=== PATIENT | male | born 1975 | race African-American/Black ===

== ENCOUNTER 2017-04-11 18:22 | Emergency (ER) | payer OTHER ==
[~2017-04-11] VITALS: Ht 188 cm; Wt 83.9 kg
[~2017-04-11 18:22] MED LIST: ALLO100T PO; AMLO10TA2 PO; AMLO5TAB2 PO; AMOX1TAB61 PO; ASPI-482 PO; CEPH500C PO; CLIN30GE3 TP; CLON1TAB23 PO; CLON1TAB3 PO; CYAN10005 PO; DOXY100C PO; FOLI1TAB16 PO; IBUP-1060 PO; KETO15CR2 TP; MELA5TAB PO; METO100T11 PO; METO100T2 PO; MIRT30TA3 PO; MIRT45TA3 PO; OMEP20CA9 PO; OMEP20TA8 PO; OMEP40CA5 PO; OXYC5CAP PO; PROAIR HFA8.5 GM IH; SPIR25TA3 PO; SULF1TAB24 PO; THIA100T4 PO; TRAM50TA PO; depression med PO
[2017-04-11 19:00] VITALS: BP 127/78
--- NOTE | 2017-04-11 19:49 | ED.ADGEN ---
Past Medical History Past Medical History: Anxiety, Depression, Diverticulitis, GERD, Hypertension, Other Additional Past Medical Histor: sarcoidosis Past Surgical History: Other Additional Past Surgical Histo: partial colectomy with colostomy; knee and foot surgeries; hernia Alcohol Use: Occasionally Drug Use: None Adult General Chief Complaint Chief Complaint: POST-OP PROBLEM HPI HPI Patient is a 41 year old -[place] male, approximately 2 weeks postop from surgeon for open abdominal wall hernia repair who presents with incisional pain. states he had his senthil removed last week by his general surgeon and he complains of pain in the site of lower incisional scar with 1 reading staple, apparently with this during the removal process. Denies any other acute complaints or symptoms. Review of Systems Review of Systems Review symptoms as per. All other review symptoms are negative. Allergies Allergies Allergies Coded Allergies Type Severity Reaction Last Updated Verified No Known Drug Allergies 01/20/15 No Physical Exam Physical Exam Constitutional: Well developed, well nourished, no acute distress, non-toxic appearance. [] HENT: Normocephalic, atraumatic, bilateral external ears normal, oropharynx moist, no oral exudates, nose normal. [] Eyes: PERRLA, EOMI, conjunctiva normal, no discharge. [] Neck: Normal range of motion, no tenderness, supple, no stridor. [] Cardiovascular:Heart rate regular rhythm, no murmur [] Lungs & Thorax: Bilateral breath sounds clear to auscultation [] Abdomen: Bowel sounds normal, large midline healing surgical and abdominal incision was single staple present lower third of wound. Appropriate postoperative surgical incision tenderness. Wound is clean, dry without surrounding erythema and induration. Skin: Warm, dry, no erythema, no rash. [] Back: No tenderness, no CVA tenderness. [] Extremities: No tenderness, no cyanosis, no clubbing, ROM intact, no edema. [] Neurologic: Alert and oriented X 3, normal motor function, normal sensory function, no focal deficits noted. [] Psychologic: Affect normal, judgement normal, mood normal. [] Current Patient Data Vital Signs Vital Signs Date Time Temp Pulse Resp B/P (MAP) Pulse Ox O2 Delivery O2 Flow Rate FiO2 04/11/17 19:00 127/78 (94) 04/11/17 18:29 98.0 91 16 96 Room Air 98.0 EKG EKG [] Radiology/Procedures Radiology/Procedures [] Course & Med Decision Making Course & Med Decision Making Pertinent Labs and Imaging studies reviewed. (See chart for details) [Patient's remaining staple removed. He is instructed to follow-up with his general surgeon regarding additional postoperative instructions and pain management.] Dragon Disclaimer Dragon Disclaimer This electronic medical record was generated, in whole or in part, using a voice recognition dictation system. ORION GREEN DO Apr 11, 2017 19:49
== END 2017-04-11 19:18 | disposition home or self-care (01) ==
LOC: ER 18:22
DX: Z48.815 Encounter for surgical aftercare following surgery on the digestive system (principal); F41.9 Anxiety disorder, unspecified; I10 Essential (primary) hypertension; F32.9 Major depressive disorder, single episode, unspecified; K21.9 Gastro-esophageal reflux disease without esophagitis; Z98.890 Other specified postprocedural states
CPT/HCPCS: 99281

== ENCOUNTER 2017-12-06 04:26 | Emergency (ER) | payer OTHER ==
[2017-12-06] MEDS: LIDOCAINE 1% PF 2 ML VIAL. INJ (05:00)
[2017-12-06] MEDS: DIPHTH,PERTUSS(ACELL),TET TOX 0.5 ML DISP.SYRIN. VAX IM (05:14)
[2017-12-06] MEDS: IBUPROFEN 400 MG TABLET. PO (05:26)
[2017-12-06] MEDS: SMZ/TMP 800/160MG TABLET. PO (05:26)
== END 2017-12-06 05:34 | disposition home or self-care (01) ==
LOC: ER 04:26
DX: L02.11 Cutaneous abscess of neck (principal); F41.9 Anxiety disorder, unspecified; F32.9 Major depressive disorder, single episode, unspecified; K21.9 Gastro-esophageal reflux disease without esophagitis; I10 Essential (primary) hypertension; D86.9 Sarcoidosis, unspecified; Z90.49 Acquired absence of other specified parts of digestive tract; Z93.3 Colostomy status
CPT/HCPCS: 10060; 90471; 90715; 99283-25

== ENCOUNTER 2018-03-23 13:21 | Emergency (ER) | payer OTHER ==
[2018-03-23] MEDS: HYDROcodone/APAP 5/325MG 1 TAB TABLET PO (14:28)
== END 2018-03-23 14:50 | disposition home or self-care (01) ==
LOC: ER 14:50
DX: L02.416 Cutaneous abscess of left lower limb (principal); K21.9 Gastro-esophageal reflux disease without esophagitis; I10 Essential (primary) hypertension
CPT/HCPCS: 99283

== ENCOUNTER 2018-06-12 00:12 | Emergency (ER) | payer SELFPAY ==
[~2018-06-12] VITALS: Ht 188 cm; Wt 89.4 kg
[~2018-06-12 00:12] MED LIST changes: -AMLO10TA2 PO; +AMLO10TA6 PO; -AMLO5TAB2 PO; +AMLO5TAB7 PO; -CLON1TAB3 PO; +CLON1TAB4 PO; +HYDR-2758 PO; +HYDR-971 PO; +METO-247 PO; -METO100T11 PO; -METO100T2 PO; +METO100T7 PO; -MIRT45TA3 PO; +MIRT45TA58 PO; -SPIR25TA3 PO; +SPIR25TA5 PO; -THIA100T4 PO; +THIA100T57 PO
[2018-06-12] MEDS ORDERED: CYCL10TA2 PO (00:37)
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
[2018-06-12 00:49] VITALS: BP 134/83
[2018-06-12] MEDS ORDERED: KETOROLAC 60 MG/2 ML INJ. IM ONE (01:00)
== END 2018-06-12 00:56 | disposition home or self-care (01) ==
LOC: ER 00:12
DX: S06.0X0A Concussion without loss of consciousness, initial encounter (principal); S16.1XXA Strain of muscle, fascia and tendon at neck level, initial encounter; F41.9 Anxiety disorder, unspecified; F32.9 Major depressive disorder, single episode, unspecified; K21.9 Gastro-esophageal reflux disease without esophagitis; I10 Essential (primary) hypertension; Z90.49 Acquired absence of other specified parts of digestive tract; Z93.3 Colostomy status; V43.52XA Car driver injured in collision with other type car in traffic accident, initial encounter; Y93.89 Activity, other specified; Y92.89 Other specified places as the place of occurrence of the external cause; Y99.8 Other external cause status
CPT/HCPCS: 96372; 99283; J1885

== ENCOUNTER 2018-09-04 19:20 | Emergency (ER) | payer OTHER ==
[~2018-09-04] VITALS: Ht 188 cm; Wt 89.4 kg
[~2018-09-04 19:20] MED LIST changes: +ATOR20TA58 PO; +CARV12.5 PO; +CLON1TAB11 PO; -CLON1TAB4 PO; +COLC0.6T34 PO; +CYCL10TA2 PO; +FLUO20CA16 PO; -HYDR-2758 PO; +HYDR-2761 PO; +HYDR-3164 PO; -HYDR-971 PO
[2018-09-04 19:50] VITALS: BP 118/83
[2018-09-04] MEDS ORDERED: ORPHENADRINE CITRATE 60 MG/2 ML VIAL. IM ONE (20:15)
[2018-09-04] MEDS ORDERED: ORPH100T PO (20:56)
--- NOTE | 2018-09-04 20:56 | PHYS DOC ---
Past Medical History Past Medical History: Anxiety, Hypertension, Other Additional Past Medical Histor: SARCOIDOSIS Past Surgical History: Other Additional Past Surgical Histo: HERNIA REPAIR, partial colectomy with resection Alcohol Use: Occasionally Drug Use: None Adult General Chief Complaint Chief Complaint: SHOULDER INJURY HPI HPI Patient is a 43 year old [f__sex] who presents with [] Review of Systems Review of Systems Constitutional: Denies fever or chills [] Eyes: Denies change in visual acuity, redness, or eye pain [] HENT: Denies nasal congestion or sore throat [] Respiratory: Denies cough or shortness of breath [] Cardiovascular: No additional information not addressed in HPI [] GI: Denies abdominal pain, nausea, vomiting, bloody stools or diarrhea [] : Denies dysuria or hematuria [] Musculoskeletal: Denies back pain or joint pain [] Integument: Denies rash or skin lesions [] Neurologic: Denies headache, focal weakness or sensory changes [] Endocrine: Denies polyuria or polydipsia [] All other systems were reviewed and found to be within normal limits, except as documented in this note. Current Medications Current Medications Current Medications Medications (Trade) Dose Ordered Sig/Donavon Start Time Stop Time Status Last Admin Dose Admin Orphenadrine Citrate (Norflex) 60 mg 1X ONCE 09/04/18 20:15 09/04/18 20:16 DC 09/04/18 20:20 60 MG Allergies Allergies Allergies Coded Allergies Type Severity Reaction Last Updated Verified No Known Drug Allergies 01/20/15 No Physical Exam Physical Exam Constitutional: Well developed, well nourished, no acute distress, non-toxic appearance. [] HENT: Normocephalic, atraumatic, bilateral external ears normal, oropharynx moist, no oral exudates, nose normal. [] Eyes: PERRLA, EOMI, conjunctiva normal, no discharge. [] Neck: Normal range of motion, no tenderness, supple, no stridor. [] Cardiovascular:Heart rate regular rhythm, no murmur [] Lungs & Thorax: Bilateral breath sounds clear to auscultation [] Abdomen: Bowel sounds normal, soft, no tenderness, no masses, no pulsatile masses. [] Skin: Warm, dry, no erythema, no rash. [] Back: No tenderness, no CVA tenderness. [] Extremities: No tenderness, no cyanosis, no clubbing, ROM intact, no edema. [] Neurologic: Alert and oriented X 3, normal motor function, normal sensory function, no focal deficits noted. [] Psychologic: Affect normal, judgement normal, mood normal. [] Current Patient Data Vital Signs Vital Signs Date Time Temp Pulse Resp B/P (MAP) Pulse Ox O2 Delivery O2 Flow Rate FiO2 09/04/18 19:50 97.8 88 18 118/83 (95) 98 Room Air 97.8 EKG EKG [] Radiology/Procedures Radiology/Procedures XR shoulder 3 views (preliminary interpretation by ED physician): No acute fracture/dislocation Course & Med Decision Making Course & Med Decision Making Pertinent Labs and Imaging studies reviewed. (See chart for details) [] Dragon Disclaimer Dragon Disclaimer This electronic medical record was generated, in whole or in part, using a voice recognition dictation system. Departure Departure Impression: Primary Impression: Right shoulder strain Disposition: HOME, SELF-CARE Condition: STABLE Referrals: UNKNOWN PCP NAME (PCP) TRENT GONSALES II, MD Patient Instructions: Shoulder Sprain Scripts Orphenadrine Citrate (ORPHENADRINE CITRATE) 100 Mg Tablet.er 100 MG PO Q12HR, #14 Prov: BROOKE JENSEN DO 09/04/18 Problem Qualifiers Primary Impression: Right shoulder strain Encounter type: initial encounter Qualified Codes: S46.911A - Strain of unspecified muscle, fascia and tendon at shoulder and upper arm level, right arm , initial encounter BROOKE JENSEN DO Sep 04, 2018 20:56
--- NOTE | 2018-09-04 23:43 | RAD ---
Three views right shoulder History: pain Internally and externally rotated AP of shoulder obtained, as well as "Y" view. The glenohumeral relationship is normal. The visualized osseous structures appear normal. Impression: No acute findings. end impression Electronically signed by: Flash Evans III, MD (09/04/2018 11:39 PM) [facility]
== END 2018-09-04 21:00 | disposition home or self-care (01) ==
LOC: ER 19:20
DX: S46.911A Strain of unspecified muscle, fascia and tendon at shoulder and upper arm level, right arm, initial encounter (principal); F41.9 Anxiety disorder, unspecified; I10 Essential (primary) hypertension; W06.XXXA Fall from bed, initial encounter; Y93.89 Activity, other specified; Y92.89 Other specified places as the place of occurrence of the external cause; Y99.8 Other external cause status
CPT/HCPCS: 73030; 96372; 99283; J2360

== ENCOUNTER 2019-03-30 19:47 | Emergency (ER) | payer OTHER ==
[~2019-03-30] VITALS: Ht 188 cm; Wt 93.0 kg
[~2019-03-30 19:47] MED LIST changes: +ALBU2.5V8 IH; -AMLO10TA6 PO; +AMLO10TA8 PO; +AMLO5TAB10 PO; -AMLO5TAB7 PO; +OMEP20CA10 PO; -OMEP20CA9 PO; +ORPH100T PO; -PROAIR HFA8.5 GM IH
[2019-03-30 19:55] VITALS: BP 128/88
[2019-03-30] MEDS ORDERED: IBUP-1007 PO (20:14)
[2019-03-30] MEDS ORDERED: AZIT250T6 PO (20:14)
[2019-03-30] MEDS ORDERED: KETOROLAC 30 MG/ML VIAL. IM ONE (20:15)
--- NOTE | 2019-03-30 20:19 | PHYS DOC ---
Past Medical History Past Medical History: Anxiety, Hypertension, Other Additional Past Medical Histor: SARCOIDOSIS Past Surgical History: Other Additional Past Surgical Histo: HERNIA REPAIR, partial colectomy with resection, BILATERAL KNEE SURGERY Alcohol Use: Occasionally Drug Use: None Adult General Chief Complaint Chief Complaint: MULTIPLE COMPLAINTS HPI HPI Patient is a 43 year old male who presents with chief complaint of cough occasional colored sputum like yellow sputum. Also has multiple other complaints E component of low back pain he went to [facility] they did x-rays that were normal he tells me they gave muscle relaxant he took it he it is gone he still has pain. He is using icy hot. No bowel or bladder incontinence. No weakness of the legs he does have some pain in the right knee that is on and off as well no trauma that he knows of. Review of Systems Review of Systems Constitutional: Denies fever or chills [] Eyes: Denies change in visual acuity, redness, or eye pain [] HENT: Denies nasal congestion or sore throat [] Respiratory: : Denies dysuria or hematuria [] Neurologic: Denies headache, focal weakness or sensory changes [] Endocrine: Denies polyuria or polydipsia [] All other systems were reviewed and found to be within normal limits, except as documented in this note. Current Medications Current Medications Current Medications Medications (Trade) Dose Ordered Sig/[facility] Start Time Stop Time Status Last Admin Dose Admin Ketorolac Tromethamine (Toradol 30mg Vial) 30 mg 1X ONCE 03/30/19 20:15 03/30/19 20:16 DC Allergies Allergies Allergies Coded Allergies Type Severity Reaction Last Updated Verified No Known Drug Allergies 01/20/15 No Physical Exam Physical Exam Constitutional: Well developed, well nourished, no acute distress, non-toxic appearance. [] HENT: Normocephalic, atraumatic, bilateral external ears normal, oropharynx moist, no oral exudates, nose normal. [] Eyes: PERRLA, EOMI, conjunctiva normal, no discharge. [] Neck: Normal range of motion, no tenderness, supple, no stridor. [] Cardiovascular:Heart rate regular rhythm, no murmur [] Lungs & Thorax: Very faint intermittent wheezing noted no rhonchi speaking full sentences Abdomen: Bowel sounds normal, soft, no tenderness, no masses, no pulsatile masses. [] Skin: Warm, dry, no erythema, no rash. [] Back mild tenderness noted paraspinous Extremities: No tenderness, no cyanosis, no clubbing, ROM intact, no edema. [] Right knee there is no abnormality present no erythema good range of motion Neurologic: Alert and oriented X 3, normal motor function, normal sensory function, no focal deficits noted. [] Psychologic: Affect normal, judgement normal, mood normal. [] Current Patient Data Vital Signs Vital Signs Date Time Temp Pulse Resp B/P (MAP) Pulse Ox O2 Delivery O2 Flow Rate FiO2 03/30/19 19:55 99.0 84 18 128/88 (101) 95 Room Air 99.0 EKG EKG [] Radiology/Procedures Radiology/Procedures [] Course & Med Decision Making Course & Med Decision Making Pertinent Labs and Imaging studies reviewed. (See chart for details) []43-year-old smoker with cough for over 1 week or treat with antibiotics given previous smoking history. Motrin given for a few days for his BACK PAIN. Dragon Disclaimer Dragon Disclaimer This electronic medical record was generated, in whole or in part, using a voice recognition dictation system. Departure Departure Impression: Primary Impression: Bronchitis Disposition: HOME, SELF-CARE Condition: STABLE Referrals: UNKNOWN PCP NAME (PCP) Patient Instructions: Cough, Adult, Even-pl-Qavq Scripts Ibuprofen (IBUPROFEN) 600 Mg Tablet 600 MG PO PRN Q6HRS PRN for PAIN, #20 TAB take with food or milk Prov: MARCIANO JORDAN MD 03/30/19 Azithromycin (AZITHROMYCIN TABLET) 250 Mg Tablet 1 PKG PO UD, #6 TAB Prov: MARCIANO JORDAN MD 03/30/19 MARCIANO JORDAN MD Mar 30, 2019 20:19
== END 2019-03-30 20:20 | disposition home or self-care (01) ==
LOC: ER 19:47
DX: J40 Bronchitis, not specified as acute or chronic (principal); M25.561 Pain in right knee; I10 Essential (primary) hypertension; Z98.890 Other specified postprocedural states
CPT/HCPCS: 96372; 99283; J1885

== ENCOUNTER 2019-06-19 19:35 | Emergency (ER) | payer MEDICAID ==
[~2019-06-19] VITALS: Ht 188 cm; Wt 97.1 kg
[~2019-06-19 19:35] MED LIST changes: +AZIT250T6 PO; -CLON1TAB11 PO; +CLONAZEPAM1 MG PO; +CYAN-25 PO; -CYAN10005 PO; +IBUP-1007 PO
[2019-06-19 20:40] VITALS: BP 123/82
[2019-06-19] MEDS ORDERED: CLIN150C14 PO (21:18)
--- NOTE | 2019-06-19 21:21 | PHYS DOC ---
Past Medical History Past Medical History: Anxiety, Depression, GERD, Hypertension, Pneumonia, Other Additional Past Medical Histor: SARCOIDOSIS Past Surgical History: Other Additional Past Surgical Histo: HERNIA REPAIR, partial colectomy W/ resection, BILAT KNEE SX, L FOOT Alcohol Use: Occasionally Drug Use: None Adult General Chief Complaint Chief Complaint: ABSCESS HPI HPI Patient is a 44 year old AA male who presents to the ER with complaints of a red, tender area to his mid upper back that has been draining bloody pus x2 days. Pt states the pain has been so severe he has been nauseated and had a decreased appetite. Pt denies any fever, cough, shortness of breath, sore throat, abdominal pain, vomiting, or diarrhea. He currently rates his pain a 4/10 on the pain scale unless the area is touched, there are no alleviating factors. Review of Systems Review of Systems Constitutional: Denies fever or chills [] Eyes: Denies change in visual acuity, redness, or eye pain [] HENT: Denies nasal congestion or sore throat [] Respiratory: Denies cough or shortness of breath [] Cardiovascular: No additional information not addressed in HPI [] GI: Denies abdominal pain, vomiting, or diarrhea [] Musculoskeletal: Denies joint pain [] Integument: See HPI Neurologic: Denies headache, focal weakness or sensory changes [] Complete systems were reviewed and found to be within normal limits, except as documented in this note. Allergies Allergies Allergies Coded Allergies Type Severity Reaction Last Updated Verified No Known Drug Allergies 01/20/15 No Physical Exam Physical Exam Constitutional: Well developed, well nourished, no acute distress, non-toxic appearance. [] HENT: Normocephalic, atraumatic, bilateral external ears normal, nose normal. [] Eyes: PERRLA, EOMI, conjunctiva normal, no discharge. [] Neck: Normal range of motion, no tenderness, no stridor. [] Cardiovascular:Heart rate regular rhythm Lungs & Thorax: Respirations even and unlabored, no retractions, no respiratory distress Skin: Warm, dry; draining abscess noted between shoulder blades, minimal surrounding erythema, no warmth, most likely a sebaceous cyst. Back: No bony tenderness, no CVA tenderness. [] Extremities: No cyanosis, ROM intact, no edema. [] Neurologic: Alert and oriented X 3, no focal deficits noted. [] Psychologic: Affect normal, judgement normal, mood normal. [] Current Patient Data Vital Signs Vital Signs Date Time Temp Pulse Resp B/P (MAP) Pulse Ox O2 Delivery O2 Flow Rate FiO2 06/19/19 20:40 97.8 78 18 123/82 (96) 96 Room Air 97.8 EKG EKG [] Radiology/Procedures Radiology/Procedures A large amount of purulent drainage and pus was expressed from the already open and draining site to the upper back between the shoulder blades. There was a foul odor noted, concerning for sebaceous cyst. Patient tolerated the procedure well, without any complications. The site was cleansed by nurse and a clean bandage was applied.[] Course & Med Decision Making Course & Med Decision Making Pertinent Labs and Imaging studies reviewed. (See chart for details) [] Dragon Disclaimer Dragon Disclaimer This electronic medical record was generated, in whole or in part, using a voice recognition dictation system. Departure Departure Impression: Primary Impression: Infected sebaceous cyst of skin Additional Impression: Abscess of upper back excluding scapular region Disposition: 01 HOME, SELF-CARE Condition: STABLE Referrals: UNKNOWN PCP NAME (PCP) Patient Instructions: Abscess, Care After Additional Instructions: Fill the prescription and use it as directed. Follow-up with your primary care doctor at [facility] for further evaluation and treatment. Keep the site covered while it continues to drain. You may take Tylenol or ibuprofen as needed for pain. Scripts Clindamycin Hcl (CLINDAMYCIN HCL) 150 Mg Capsule 450 MG PO TID for 7 Days, #63 CAP 0 Refills Prov: ROMMEL NI APRN 06/19/19 Problem Qualifiers ROMMEL NI APRN Jun 19, 2019 21:21
[2019-06-19] MEDS: HYDROcodone/APAP 5/325MG 1 TAB TABLET PO ONE (21:31)
== END 2019-06-19 21:28 | disposition home or self-care (01) ==
LOC: ER 19:35
DX: L02.212 Cutaneous abscess of back [any part, except buttock and flank] (principal); L72.3 Sebaceous cyst; F41.9 Anxiety disorder, unspecified; F32.9 Major depressive disorder, single episode, unspecified; K21.9 Gastro-esophageal reflux disease without esophagitis; I10 Essential (primary) hypertension; Z90.49 Acquired absence of other specified parts of digestive tract
CPT/HCPCS: 99283

== ENCOUNTER 2019-07-03 17:03 | Inpatient (IN) | payer MEDICAID ==
[~2019-07-03] VITALS: Ht 188 cm; Wt 98.2 kg
[~2019-07-03 17:03] MED LIST changes: +CLIN150C14 PO
[2019-07-03 17:56] LABS: BASO # 0.1 x10^3/uL (0.0-0.2); BASO % 1 % (0-3); EOS # 0.2 x10^3/uL (0.0-0.7); EOS % 3 % (0-3); HEMATOCRIT 38.8 % (39.0-53.0); HEMOGLOBIN 13.4 g/dL (13.0-17.5); LYMPH # 0.8 x10^3/uL (1.0-4.8); LYMPH % 9 % (24-48); MEAN CORPUSCULAR HEMOGLOBIN 33 pg (25-35); MEAN CORPUSCULAR HGB CONC 34 g/dL (31-37); MEAN CORPUSCULAR VOLUME 97 fL (79-100); MONO # 0.6 x10^3/uL (0.0-1.1); MONO % 6 % (0-9); NEUT # 7.7 x10^3/uL (1.8-7.7); NEUT % 82 % (31-73); PLATELET COUNT 197 x10^3/uL (140-400); RED BLOOD COUNT 4.01 x10^6/uL (4.30-5.70); RED CELL DISTRIBUTION WIDTH 15.2 % (11.5-14.5); WHITE BLOOD COUNT 9.3 x10^3/uL (4.0-11.0)
[2019-07-03 18:04] LABS: CALCIUM 8.6 mg/dL (8.5-10.1); CREATININE 1.3 mg/dL (0.7-1.3); GFR 73.3; POTASSIUM 3.9 mmol/L (3.5-5.1)
[2019-07-03 18:10] LABS: ALBUMIN 3.9 g/dL (3.4-5.0); ALBUMIN/GLOBULIN RATIO 0.8 (1.0-1.7); MAGNESIUM 0.6 mg/dL (1.8-2.4); TOTAL BILIRUBIN 0.8 mg/dL (0.2-1.0); TOTAL PROTEIN 8.6 g/dL (6.4-8.2)
[2019-07-03] MEDS ORDERED: KETOROLAC 15 MG/ML VIAL. IV ONE (18:15)
[2019-07-03] MEDS ORDERED: IV NORMAL SALINE 1000ML BAG 1,000 ML IV ONE (18:15)
[2019-07-03] MEDS ORDERED: ORPHENADRINE CITRATE 60 MG/2 ML VIAL. IV ONE (18:15)
[2019-07-03] MEDS ORDERED: ONDANSETRON PF 4 MG/2 ML VIAL. IV ONE (18:15)
--- NOTE | 2019-07-03 18:34 | RAD ---
Indication: Right shoulder pain without injury. Decreased range of motion TECHNIQUE: 3 views of the right shoulder Comparison: None FINDINGS/ impression: No acute fracture or dislocation. Visualized right lung is clear. No significant arthritic process. INDICATION: Right shoulder pain TECHNIQUE: 2 views of the chest COMPARISON: None FINDINGS: Heart is normal in size. Lungs are clear. No pneumothorax or pleural effusion. Visualized bony thorax within normal limits. IMPRESSION: No acute pulmonary process. IMPRESSION: Right shoulder pain TECHNIQUE: Multiple views of the cervical spine COMPARISON: None FINDINGS: Cervical spine is in normal anatomic alignment. Atlantoaxial joint interval is preserved. Prevertebral soft tissue within normal limits. No compression deformity. Facet joints are in normal anatomical alignment. Small anterior ridging osteophytes are seen at multiple levels. Visualized lung apices are clear. No bony narrowing of the neuroforamina. IMPRESSION: Mild multilevel degenerative disc disease. Electronically signed by: Chong Ugalde DO (07/03/2019 6:31 PM) [facility]
[2019-07-03 18:36] LABS: C-REACTIVE PROTEIN 45.1 mg/L (0-3.3)
--- NOTE | 2019-07-03 18:46 | PHYS DOC ---
Past Medical History Past Medical History: Anxiety, Depression, GERD, Hypertension, Pneumonia, Other Additional Past Medical Histor: SARCOIDOSIS Past Surgical History: Other Additional Past Surgical Histo: HERNIA REPAIR, partial colectomy W/ resection, BILAT KNEE SX, L FOOT Alcohol Use: Occasionally Drug Use: None Adult General Chief Complaint Chief Complaint: SHOULDER INJURY HPI HPI Patient is a 44 year old AA male who presents to the emergency department with complaints of right shoulder pain and decreased range of motion of his right shoulder since awakening this morning. Patient denies any injury to his shoulder, or history of shoulder pain. He currently rates his pain a 10 out of 10 on the pain scale, there are no alleviating or exacerbating factors. Review of Systems Review of Systems Constitutional: Denies fever or chills [] Eyes: Denies redness, or eye pain [] HENT: Denies nasal congestion or sore throat [] Respiratory: Denies cough or shortness of breath [] Cardiovascular: Denies chest pain or palpitations, No additional information not addressed in HPI [] GI: Denies abdominal pain, nausea, vomiting, or diarrhea [] : Denies dysuria or hematuria [] Musculoskeletal: Denies back pain; see history of present illness Integument: Denies rash or skin lesions [] Neurologic: Denies headache, focal weakness or sensory changes [] Complete systems were reviewed and found to be within normal limits, except as documented in this note. Current Medications Current Medications Current Medications Medications (Trade) Dose Ordered Sig/Donavon Start Time Stop Time Status Last Admin Dose Admin Ketorolac Tromethamine (Toradol 15mg Vial) 15 mg 1X ONCE 07/03/19 18:15 07/03/19 18:16 DC 07/03/19 17:49 15 MG Ondansetron HCl (Zofran) 4 mg 1X ONCE 07/03/19 18:15 07/03/19 18:16 DC 07/03/19 17:49 4 MG Orphenadrine Citrate (Norflex) 60 mg 1X ONCE 07/03/19 18:15 07/03/19 18:16 DC 07/03/19 17:49 60 MG Sodium Chloride 1,000 ml @ 1,000 mls/hr 1X ONCE 07/03/19 18:15 07/03/19 19:14 DC 07/03/19 17:49 1,000 MLS/HR Allergies Allergies Allergies Coded Allergies Type Severity Reaction Last Updated Verified No Known Drug Allergies 01/20/15 No Physical Exam Physical Exam Constitutional: Well developed, well nourished, no acute distress, non-toxic appearance. [] HENT: Normocephalic, atraumatic, bilateral external ears normal, oropharynx moist, no oral exudates, nose normal. [] Eyes: PERRLA, EOMI, conjunctiva normal, no discharge. [] Neck: Normal range of motion, no tenderness, supple, no stridor. [] Cardiovascular:Heart rate regular rhythm, no murmur [] Lungs & Thorax: Bilateral breath sounds clear to auscultation [] Abdomen: soft, no tenderness Skin: Warm, dry, no erythema, no rash. [] Back: No tenderness Extremities: No cyanosis, no clubbing, no edema; diffuse R shoulder TTP, no crepitus, no bruising, no obvious deformity, no edema, limited ROM of R shoulder due to pain patient only able to lift arm anteriorly or laterally past the 45�; bilateral upper extremity rail setter and strength is equal 5/5 Neurologic: Alert and oriented X 3, no focal deficits noted. [] Psychologic: Affect normal, judgement normal, mood normal. [] Current Patient Data Vital Signs Vital Signs Date Time Temp Pulse Resp B/P (MAP) Pulse Ox O2 Delivery O2 Flow Rate FiO2 07/03/19 17:28 98.5 82 18 134/98 (110) 95 Room Air 98.5 Lab Values Laboratory Tests Test 07/03/19 17:48 White Blood Count 9.3 x10^3/uL (4.0-11.0) Red Blood Count 4.01 x10^6/uL (4.30-5.70) L Hemoglobin 13.4 g/dL (13.0-17.5) Hematocrit 38.8 % (39.0-53.0) L Mean Corpuscular Volume 97 fL (79-100) Mean Corpuscular Hemoglobin 33 pg (25-35) Mean Corpuscular Hemoglobin Concent 34 g/dL (31-37) Red Cell Distribution Width 15.2 % (11.5-14.5) H Platelet Count 197 x10^3/uL (140-400) Neutrophils (%) (Auto) 82 % (31-73) H Lymphocytes (%) (Auto) 9 % (24-48) L Monocytes (%) (Auto) 6 % (0-9) Eosinophils (%) (Auto) 3 % (0-3) Basophils (%) (Auto) 1 % (0-3) Neutrophils # (Auto) 7.7 x10^3/uL (1.8-7.7) Lymphocytes # (Auto) 0.8 x10^3/uL (1.0-4.8) L Monocytes # (Auto) 0.6 x10^3/uL (0.0-1.1) Eosinophils # (Auto) 0.2 x10^3/uL (0.0-0.7) Basophils # (Auto) 0.1 x10^3/uL (0.0-0.2) Erythrocyte Sedimentation Rate 28 (0-15) H Prothrombin Time 13.0 SEC (11.7-14.0) Prothrombin Time INR 1.0 (0.8-1.1) Activated Partial Thromboplast Time 30 SEC (24-38) Sodium Level 139 mmol/L (136-145) Potassium Level 3.9 mmol/L (3.5-5.1) Chloride Level 102 mmol/L (98-107) Carbon Dioxide Level 26 mmol/L (21-32) Anion Gap 11 (6-14) Blood Urea Nitrogen 13 mg/dL (8-26) Creatinine 1.3 mg/dL (0.7-1.3) Estimated GFR (Cockcroft-Gault) 73.3 BUN/Creatinine Ratio 10 (6-20) Glucose Level 140 mg/dL (70-99) H Calcium Level 8.6 mg/dL (8.5-10.1) Magnesium Level 0.6 mg/dL (1.8-2.4) L Total Bilirubin 0.8 mg/dL (0.2-1.0) Aspartate Amino Transferase (AST) 87 U/L (15-37) H Alanine Aminotransferase (ALT) 53 U/L (16-63) Alkaline Phosphatase 167 U/L (46-116) H Creatine Kinase 262 U/L (39-308) Creatine Kinase MB (Mass) 1.4 ng/mL (0.0-3.6) Creatine Kinase MB Relative Index 0.5 % (0-4) Troponin I Quantitative < 0.017 ng/mL (0.000-0.055) C-Reactive Protein, Quantitative 45.1 mg/L (0-3.3) H Total Protein 8.6 g/dL (6.4-8.2) H Albumin 3.9 g/dL (3.4-5.0) Albumin/Globulin Ratio 0.8 (1.0-1.7) L Lipase 66 U/L (73-393) L Laboratory Tests 07/03/19 17:48 Laboratory Tests 07/03/19 17:48 EKG EKG 1751- SR rate 85, no STEMI, left anterior fascicular block, ST & T abnormality consider anterior ischemia or left ventricular strain, read by Dr. Roberson[] Radiology/Procedures Radiology/Procedures PROCEDURE: CERVICAL SPINE 5V Indication: Right shoulder pain without injury. Decreased range of motion TECHNIQUE: 3 views of the right shoulder Comparison: None FINDINGS/ impression: No acute fracture or dislocation. Visualized right lung is clear. No significant arthritic process. INDICATION: Right shoulder pain TECHNIQUE: 2 views of the chest COMPARISON: None FINDINGS: Heart is normal in size. Lungs are clear. No pneumothorax or pleural effusion. Visualized bony thorax within normal limits. IMPRESSION: No acute pulmonary process. IMPRESSION: Right shoulder pain TECHNIQUE: Multiple views of the cervical spine COMPARISON: None FINDINGS: Cervical spine is in normal anatomic alignment. Atlantoaxial joint interval is preserved. Prevertebral soft tissue within normal limits. No compression deformity. Facet joints are in normal anatomical alignment. Small anterior ridging osteophytes are seen at multiple levels. Visualized lung apices are clear. No bony narrowing of the neuroforamina. IMPRESSION: Mild multilevel degenerative disc disease.[] Course & Med Decision Making Course & Med Decision Making Pertinent Labs and Imaging studies reviewed. (See chart for details) dx: hypomagnesia CBC: RBC 4.01. Hct 38.8, ESR 28; Pt/INR WNL; CMP: glucose 140, Mg 0.6, AST 87, Alk Phos 167, CRP 45.1 C-spine films, CXR, and R shoulder x-ray negative for any acute findings. Pt given 60 mg of norflex, 15 mg of toradol and 1L of NS in the ER with some imp rovement of pain. 4 mg of Morphine was added and Pt given 2 gm of IV magnesium, 1907- Spoke with Dr. Garrido who is the admitting physician, and care was assumed following discussion of patient. Will order an additional 2 gm of magnesium in addition to the 2 gm given in the ER. Patient's vital signs stable. Patient remains afebrile, appears nontoxic, respirations even and unlabored. Patient will be admitted to the med/tele floor. Patient's case and plan of care also discussed with Dr. Last Mensah Disclaimer Rodrick Disclaimer This electronic medical record was generated, in whole or in part, using a voice recognition dictation system. Departure Departure Impression: Primary Impression: Right shoulder pain Additional Impression: Hypomagnesemia Disposition: 09 ADMITTED INPATIENT Admitting Physician: TRACY Velazquez) Condition: STABLE Referrals: UNKNOWN PCP NAME (PCP) Problem Qualifiers Primary Impression: Right shoulder pain Chronicity: acute Qualified Codes: M25.511 - Pain in right shoulder ROMMEL NI APRN Jul 03, 2019 18:46
[2019-07-03] MEDS ORDERED: MAGNESIUM SULFATE 2GM 50 ML IV ONE ×2 (19:15→19:30)
[2019-07-03] MEDS ORDERED: MORPHINE SULFATE 4 MG/ML VIAL. IV ONE (19:30)
[2019-07-03 20:45] VITALS: BP 161/100
[2019-07-03] MEDS: oxyCODONE/APAP 10/325 1 TAB TABLET PO PRN (22:42)
[2019-07-03 23:40] VITALS: BP 142/92
[2019-07-04] MEDS ORDERED: ASPI-630 PO (00:23)
[2019-07-04] MEDS ORDERED: HYDR10SY16 PO (00:44)
[2019-07-04] MEDS ORDERED: FLUO40CA2 PO (00:44)
[2019-07-04] MEDS ORDERED: ATOR40TA59 PO (00:44)
[2019-07-04] MEDS ORDERED: ALBU2.5V8 INH (00:44)
[2019-07-04] MEDS ORDERED: CETI10TA30 PO (00:44)
[2019-07-04] MEDS ORDERED: HYDR10TA2 PO (01:15)
[2019-07-04] MEDS ORDERED: cloNIDine HCL 0.1 MG TABLET PO PRN (01:30)
[2019-07-04] MEDS ORDERED: diphenhydrAMINE 50 MG/ML VIAL IVP PRN (01:30)
[2019-07-04 02:50] VITALS: BP 131/85
--- NOTE | 2019-07-04 06:09 | EKG ---
[facility] [address] [place] [address] Test Date: 2019-07-03 Test Time: 17:51:45 Pat Name: DAVE PEARCE Department: Room: 211 1 Gender: M [employer] Measurer: : 1975 Requested By: ROMMEL NI Order Number: [id number] Reading MD: Marty Childers MD Measurements Intervals [place] Rate: 84 P: 38 NJ: 164 QRS: -45 QRSD: 106 T: -36 QT: 364 QTc: 433 Interpretive Statements SINUS RHYTHM ABNORMAL LEFT AXIS DEVIATION LEFT ANTERIOR FASCICULAR BLOCK LEFT VENTRICULAR HYPERTROPHY VERSUS NON-SPECIFIC CHANGES Electronically Signed On 07-04-2019 22:11:42 CDT by Marty Childers MD
[2019-07-04 07:00] VITALS: BP 143/96
[2019-07-04] MEDS ORDERED: ALBUTEROL SULFATE 2.5 MG/3 ML NEBU. INH PRN (08:15)
[2019-07-04] MEDS ORDERED: COLCHICINE 0.6 MG TABLET PO PRN (08:15)
[2019-07-04] MEDS ORDERED: clonazePAM 0.5 MG TABLET PO PRN (08:30)
[2019-07-04] MEDS: oxyCODONE/APAP 10/325 1 TAB TABLET PO PRN ×2 (08:36→18:06)
[2019-07-04] MEDS: ASPIRIN CHEWABLE 81 MG TABLET. PO SCH (08:37)
[2019-07-04] MEDS: CARVEDILOL 12.5 MG TABLET. PO SCH ×2 (08:37→18:07)
[2019-07-04] MEDS: FLUoxetine HCL 20 MG CAPSULE PO SCH (08:38)
[2019-07-04] MEDS: amLODIPine BESYLATE 10 MG TABLET PO SCH (08:38)
[2019-07-04] MEDS: hydrOXYzine 10 MG TABLET PO SCH ×3 (08:38→21:06)
[2019-07-04] MEDS ORDERED: IBUPROFEN 200 MG TABLET. PO PRN (08:45)
[2019-07-04] MEDS ORDERED: ATORVASTATIN CALCIUM 40 MG TABLET. PO SCH ×2 (09:00→21:00)
[2019-07-04] MEDS ORDERED: CETIRIZINE HCL 10 MG TABLET. PO PRN (09:00)
[2019-07-04] MEDS ORDERED: NON FORMULARY ITEM (Orphenadrine Citrate 100 MG) PO SCH (09:00)
[2019-07-04] MEDS: CYCLOBENZAPRINE 10 MG TABLET. PO SCH ×3 (09:56→21:05)
[2019-07-04 11:00] VITALS: BP 162/105
[2019-07-04] MEDS: PANTOPRAZOLE 40 MG TABLET.DR. PO SCH (11:22)
[2019-07-04] MEDS: MORPHINE SULFATE 2 MG/ML VIAL. IV PRN ×4 (11:28→23:29)
--- NOTE | 2019-07-04 11:49 | PDOC2 ---
DAVID SHEPARD FRUIT CHECKER 07/04/19 1149: CARDIAC CONSULT DATE OF CONSULT Date of Consult DATE: 07/04/19 TIME: 11:27 REASON FOR CONSULT Reason for Consult: Chest pain REFERRING PHYSICIAN Referring Physician: Jossue SOURCE Source: Chart review, Patient HISTORY OF PRESENT ILLNESS HISTORY OF PRESENT ILLNESS This is a pleasant 44 yo male admitted for complains of right shoulder pain and right arm pain. Reports that a week ago he helped moved indoor appliances and furnitures for his sister. There was one incident where he was not balanced with carrying the washer and he might have pulled his right shoulder but he was fine after that. He is right handed and complains of right shoulder discomfort severe pain started 2 days ago worse yesterday. No nausea vomiting, palpitations, dizziness and definitely tolerated heavy exertion with furniture lifting. No TAO or exertional CP. Pain to right arm and shoulder event with PROM. No recent falls or injury. PAST MEDICAL HISTORY Cardiovascular: HTN, Hyperlipidemia Pulmonary: Asthma, COPD (home O2 use), Pneumonia, Other (sarcoidosis seen in [facility]) CENTRAL NERVOUS SYSTEM: Other (No pertinent history) GI: GERD Heme/Onc: No pertinent hx Hepatobiliary: Other (fatty liver disease) Psych: Anxiety, Addictions (cocaine), Depression Musculoskeletal: Osteoarthritis Rheumatologic: No pertinent hx Infectious disease: No pertinent hx ENT: No pertinent hx Renal/: Other (nephrolithiasis) Endocrine: No pertinent hx Dermatology: No pertinent hx PAST SURGICAL HISTORY Past Surgical History: Arthroscopy (bilateral Knee), Hernia Repair, Colectomy FAMILY HISTORY Family History noncontributory SOCIAL HISTORY Smoke: <1 pack per day ALCOHOL: none Drugs: Cocaine Lives: with Family CURRENT MEDICATIONS CURRENT MEDICATIONS Current Medications Medications (Trade) Dose Ordered Sig/Donavon Route PRN Reason Start Time Stop Time Status Last Admin Dose Admin Ondansetron HCl (Zofran) 4 mg 1X ONCE IV 07/03/19 18:15 07/03/19 18:16 DC 07/03/19 17:49 Sodium Chloride 1,000 ml @ 1,000 mls/hr 1X ONCE IV 07/03/19 18:15 07/03/19 19:14 DC 07/03/19 17:49 Ketorolac Tromethamine (Toradol 15mg Vial) 15 mg 1X ONCE IV 07/03/19 18:15 07/03/19 18:16 DC 07/03/19 17:49 Orphenadrine Citrate (Norflex) 60 mg 1X ONCE IV 07/03/19 18:15 07/03/19 18:16 DC 07/03/19 17:49 Magnesium Sulfate 50 ml @ 25 mls/hr 1X ONCE IV 07/03/19 19:30 07/03/19 21:29 DC 07/03/19 22:54 Morphine Sulfate (Morphine Sulfate) 4 mg 1X ONCE IV 07/03/19 19:30 07/03/19 19:31 DC 07/03/19 19:24 Magnesium Sulfate 50 ml @ 25 mls/hr 1X ONCE IV 07/03/19 19:15 07/03/19 21:14 DC 07/03/19 19:24 Oxycodone/ Acetaminophen (Percocet 10/325) 1 tab PRN Q6HRS PRN PO PAIN 07/03/19 22:30 07/04/19 08:39 Lorazepam (Ativan Inj) 4 mg PRN Q1HR PRN IV For CIWA 15 or greater 07/04/19 01:30 07/04/19 01:40 Diphenhydramine HCl (Benadryl) 25 mg PRN Q15MIN PRN IVP EPS symptoms 2'Haldol admin 07/04/19 01:30 07/04/19 01:40 Amlodipine Besylate (Norvasc) 10 mg DAILY PO 07/04/19 09:00 07/04/19 08:39 Aspirin (Children'S Aspirin) 81 mg DAILY PO 07/04/19 09:00 07/04/19 08:39 Carvedilol (Coreg) 12.5 mg BIDAFTMEAL PO 07/04/19 09:00 07/04/19 08:39 Hydroxyzine HCl (Atarax) 10 mg TID PO 07/04/19 09:00 07/04/19 08:39 Fluoxetine HCl (PROzac) 60 mg DAILY PO 07/04/19 09:00 07/04/19 08:39 Cyclobenzaprine HCl (Flexeril) 10 mg TID PO 07/04/19 09:00 07/04/19 09:57 ALLERGIES ALLERGIES: Coded Allergies: No Known Drug Allergies (Unverified , 01/20/15) ROS Review of System 14 point ROS evaluated with pertinent positives noted per HPI PHYSICAL EXAM General: Alert, Oriented X3, Cooperative, No acute distress HEENT: Atraumatic, Mucous membr. moist/pink Lungs: Clear to auscultation, Normal air movement Heart: Regular rate (SR), Normal S1, Normal S2, Other (2/6 systolic murmur to LLS border) Abdomen: Soft, No tenderness Extremities: No cyanosis, No edema Skin: No breakdown, No significant lesion Neuro: Normal speech, Sensation intact Psych/Mental Status: Mental status NL, Mood NL MUSCULOSKELETAL: Other (right shoulder pain with PROM limited mobility) VITALS/I&O VITALS/I&O: Vital Signs Date Time Temp Pulse Resp B/P (MAP) Pulse Ox O2 Delivery O2 Flow Rate FiO2 07/04/19 09:57 91 Room Air 07/04/19 08:39 89 143/96 07/04/19 07:00 98.6 18 98.6 I & O 07/03/19 07/03/19 07/04/19 15:00 23:00 07:00 Intake Total 1000 ml Output Total 600 ml Balance 400 ml LABS Lab: Laboratory Tests Test 07/03/19 17:48 White Blood Count 9.3 x10^3/uL (4.0-11.0) Red Blood Count 4.01 x10^6/uL (4.30-5.70) L Hemoglobin 13.4 g/dL (13.0-17.5) Hematocrit 38.8 % (39.0-53.0) L Mean Corpuscular Volume 97 fL (79-100) Mean Corpuscular Hemoglobin 33 pg (25-35) Mean Corpuscular Hemoglobin Concent 34 g/dL (31-37) Red Cell Distribution Width 15.2 % (11.5-14.5) H Platelet Count 197 x10^3/uL (140-400) Neutrophils (%) (Auto) 82 % (31-73) H Lymphocytes (%) (Auto) 9 % (24-48) L Monocytes (%) (Auto) 6 % (0-9) Eosinophils (%) (Auto) 3 % (0-3) Basophils (%) (Auto) 1 % (0-3) Neutrophils # (Auto) 7.7 x10^3/uL (1.8-7.7) Lymphocytes # (Auto) 0.8 x10^3/uL (1.0-4.8) L Monocytes # (Auto) 0.6 x10^3/uL (0.0-1.1) Eosinophils # (Auto) 0.2 x10^3/uL (0.0-0.7) Basophils # (Auto) 0.1 x10^3/uL (0.0-0.2) Erythrocyte Sedimentation Rate 28 (0-15) H Prothrombin Time 13.0 SEC (11.7-14.0) Prothrombin Time INR 1.0 (0.8-1.1) Activated Partial Thromboplast Time 30 SEC (24-38) Sodium Level 139 mmol/L (136-145) Potassium Level 3.9 mmol/L (3.5-5.1) Chloride Level 102 mmol/L (98-107) Carbon Dioxide Level 26 mmol/L (21-32) Anion Gap 11 (6-14) Blood Urea Nitrogen 13 mg/dL (8-26) Creatinine 1.3 mg/dL (0.7-1.3) Estimated GFR (Cockcroft-Gault) 73.3 BUN/Creatinine Ratio 10 (6-20) Glucose Level 140 mg/dL (70-99) H Calcium Level 8.6 mg/dL (8.5-10.1) Magnesium Level 0.6 mg/dL (1.8-2.4) L Total Bilirubin 0.8 mg/dL (0.2-1.0) Aspartate Amino Transferase (AST) 87 U/L (15-37) H Alanine Aminotransferase (ALT) 53 U/L (16-63) Alkaline Phosphatase 167 U/L (46-116) H Creatine Kinase 262 U/L (39-308) Creatine Kinase MB (Mass) 1.4 ng/mL (0.0-3.6) Creatine Kinase MB Relative Index 0.5 % (0-4) Troponin I Quantitative < 0.017 ng/mL (0.000-0.055) C-Reactive Protein, Quantitative 45.1 mg/L (0-3.3) H Total Protein 8.6 g/dL (6.4-8.2) H Albumin 3.9 g/dL (3.4-5.0) Albumin/Globulin Ratio 0.8 (1.0-1.7) L Lipase 66 U/L (73-393) L Laboratory Tests 07/03/19 17:48 Laboratory Tests 07/03/19 17:48 ECHOCARDIOGRAM ECHOCARDIOGRAM <Conclusion> The left ventricular systolic function is normal and the ejection fraction is within normal range. EF 55% There is normal LV segmental wall motion. Septal motion suggestive of conduction defect. DATE: 06/19/18 1014 ASSESSMENT/PLAN ASSESSMENT/PLAN 1. Right arm/shoulder pain: suspect cervical radiculopathy and possible RTC tear. Noncardiac 2. Abnormal EKG with cocaine abuse: EKG SR with LVH/LAFB, no changes by comparison 3. Sarcoidosis/COPD: home O2 use, seen in [facility] 4. HTN: controlled 5. HLP 6. Hx of cocaine abuse: repors last use a month ago with marijuana. 7. Tobaccoism Recommendations 1. TTE to note any changes with noted hx of cocaine abuse 2. UDS 3. Continue with HTN and HLP regimen. Replace K 4. Rehab consult. Recommend MRI to right shoulder for possible RTC tear. Defer to PCP 5. SMoking and smoking cessation MELLY HESTER MD 07/04/19 2211: CARDIAC CONSULT ASSESSMENT/PLAN ASSESSMENT/PLAN Pt. seen and examined. 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 44 y.o male with drug abuse hx presenting with non-cardiac pain. R shoulder pain appears rotator cuff issue. Normal echo. Negative trop. Non-specific EKG changes Pls call with questions. DAVID SHEPARD APRN Jul 04, 2019 11:49 MELLY HESTER MD Jul 04, 2019 22:11
[2019-07-04 12:47] LABS: BASO # 0.1 x10^3/uL (0.0-0.2); BASO % 1 % (0-3); EOS # 0.3 x10^3/uL (0.0-0.7); EOS % 4 % (0-3); HEMATOCRIT 38.6 % (39.0-53.0); HEMOGLOBIN 13.2 g/dL (13.0-17.5); LYMPH # 0.9 x10^3/uL (1.0-4.8); LYMPH % 13 % (24-48); MEAN CORPUSCULAR HEMOGLOBIN 33 pg (25-35); MEAN CORPUSCULAR HGB CONC 34 g/dL (31-37); MEAN CORPUSCULAR VOLUME 97 fL (79-100); MONO # 0.4 x10^3/uL (0.0-1.1); MONO % 5 % (0-9); NEUT # 5.7 x10^3/uL (1.8-7.7); NEUT % 78 % (31-73); PLATELET COUNT 141 x10^3/uL (140-400); RED BLOOD COUNT 3.99 x10^6/uL (4.30-5.70); RED CELL DISTRIBUTION WIDTH 15.6 % (11.5-14.5); WHITE BLOOD COUNT 7.3 x10^3/uL (4.0-11.0)
[2019-07-04] MEDS ORDERED: BUPIVACAINE MPF 0.25% 10 ML VIAL. IJ ONE (13:00)
[2019-07-04] MEDS ORDERED: methylPREDNISolone ACETATE 40 MG/ML VIAL. IM ONE (13:00)
[2019-07-04 13:08] LABS: CALCIUM 8.3 mg/dL (8.5-10.1); GFR 99.2; MAGNESIUM 1.2 mg/dL (1.8-2.4); POTASSIUM 3.3 mmol/L (3.5-5.1)
--- NOTE | 2019-07-04 13:14 | PDOC4 ---
PROCEDURE Procedure At his request,I have injected his right shoulder joint under aseptic skin t echnique with alcohol skin prep,using 2 ml of 0.25% bupivacaine solution mixed with 1 ml of methylprednisone 40 mg/ 1 ml solution and he tolerated the procedure satisfactorily without any side effects. DM NOLASCO MD Jul 04, 2019 13:14
[2019-07-04] MEDS: NAPROXEN 250 MG TABLET PO SCH ×2 (13:58→23:29)
[2019-07-04] MEDS ORDERED: POTASSIUM CHLORIDE 20 MEQ TABLET.ER. PO ONE (14:15)
[2019-07-04] MEDS ORDERED: MAGNESIUM SULFATE 2GM 50 ML IV ONE (14:15)
[2019-07-04] MEDS: predniSONE 10 MG TABLET PO SCH (14:30)
[2019-07-04 15:00] VITALS: BP 162/105
[2019-07-04 16:34] LABS: AMPHETAMINE/METHAMPHETAMINE NEG (NEG); BARBITURATES NEG (NEG); BENZODIAZEPINES NEG (NEG); CANNABINOIDS NEG (NEG); COCAINE POS (NEG); METHADONE NEG (NEG); OPIATES POS (NEG); PHENCYCLIDINE NEG (NEG)
--- NOTE | 2019-07-04 16:35 | PDOC2 ---
NEUROLOGY CONSULT Date of Admission Date of Admission DATE: 07/04/19 TIME: 16:31 Reason for Consult Reason for Consult: Right shoulder weakness Referring Physician Referring Physician: Dr. Marcum Source Source: Chart review, Patient History of Present Illness History of Present Illness The patient is a 44-year-old right-handed male who noticed right shoulder pain and left elbow pain following moving a friend. They were carying a lot of heavy appliances and furniture. He denies any history of stroke, seizure, or head injury. Past Medical History Cardiovascular: HTN, Other (cardiomyopathy) Pulmonary: Asthma, Bronchitis GI: GERD Psych: Anxiety, Depression, Other (obsessive-compulsive disorder) Musculoskeletal: Osteoarthritis Rheumatologic: Gout Past Surgical History Past Surgical History: Total knee replacement (bilateral), Other (ostomy and reversal for obstruction, rectal surgery, left foot) Family History Family History: No pertinent hx Social History Social History , occasional tobacco and alcohol Current Medications Current Medications Current Medications Ondansetron HCl (Zofran) 4 mg 1X ONCE IV Last administered on 07/03/19 17:49; Start 07/03/19 at 18:15; Stop 07/03/19 at 18:16; Status DC Sodium Chloride 1,000 ml @ 1,000 mls/hr 1X ONCE IV Last administered on 07/03/19at 17:49; Start 07/03/19 at 18:15; Stop 07/03/19 at 19:14; Status DC Ketorolac Tromethamine (Toradol 15mg Vial) 15 mg 1X ONCE IV Last administered on 07/03/19at 17:49; Start 07/03/19 at 18:15; Stop 07/03/19 at 18:16; Status DC Orphenadrine Citrate (Norflex) 60 mg 1X ONCE IV Last administered on 07/03/19 17:49; Start 07/03/19 at 18:15; Stop 07/03/19 at 18:16; Status DC Magnesium Sulfate 50 ml @ 25 mls/hr 1X ONCE IV Last administered on 07/03/19at 22:54; Start 07/03/19 at 19:30; Stop 07/03/19 at 21:29; Status DC Morphine Sulfate (Morphine Sulfate) 4 mg 1X ONCE IV Last administered on 07/03/19at 19:24; Start 07/03/19 at 19:30; Stop 07/03/19 at 19:31; Status DC Magnesium Sulfate 50 ml @ 25 mls/hr 1X ONCE IV Last administered on 07/03/19at 19:24; Start 07/03/19 at 19:15; Stop 07/03/19 at 21:14; Status DC Oxycodone/ Acetaminophen (Percocet 10/325) 1 tab PRN Q6HRS PRN PO PAIN Last administered on 07/04/19at 08:39; Start 07/03/19 at 22:30 Lorazepam (Ativan Inj) 2 mg PRN Q1HR PRN IV For CIWA 8-14; Start 07/04/19 at 01:30 Lorazepam (Ativan Inj) 4 mg PRN Q1HR PRN IV For CIWA 15 or greater Last administered on 07/04/19at 01:40; Start 07/04/19 at 01:30 Diphenhydramine HCl (Benadryl) 25 mg PRN Q15MIN PRN IVP EPS symptoms 2'Haldol admin Last administered on 07/04/19at 01:40; Start 07/04/19 at 01:30 Clonidine HCl (Catapres) 0.1 mg PRN Q1HR PRN PO SBP > 180 or DBP > 100, MRX3; Start 07/04/19 at 01:30 Albuterol Sulfate (Ventolin Neb Soln) 2.5 mg PRN Q6HRS PRN INH SHORTNESS OF BREATH; Start 07/04/19 at 08:15 Amlodipine Besylate (Norvasc) 10 mg DAILY PO Last administered on 07/04/19at 08:39; Start 07/04/19 at 09:00 Aspirin (Children'S Aspirin) 81 mg DAILY PO Last administered on 07/04/19at 08:39; Start 07/04/19 at 09:00 Atorvastatin Calcium (Lipitor) 40 mg DAILY PO ; Start 07/04/19 at 09:00; Stop 07/04/19 at 08:17; Status DC Carvedilol (Coreg) 12.5 mg BIDAFTMEAL PO Last administered on 07/04/19at 08:39; Start 07/04/19 at 09:00 Colchicine (Colcrys) 0.6 mg PRN DAILY PRN PO GOUT PAIN; Start 07/04/19 at 08:15 Hydroxyzine HCl (Atarax) 10 mg TID PO Last administered on 07/04/19at 14:30; Start 07/04/19 at 09:00 Cetirizine HCl (ZyrTEC) 10 mg PRN DAILY PRN PO ALLERGIES; Start 07/04/19 at 09:00 Clonazepam (KlonoPIN) 1 mg PRN DAILY PRN PO ANXIETY / AGITATION; Start 07/04/19 at 08:30 Fluoxetine HCl (PROzac) 60 mg DAILY PO Last administered on 07/04/19at 08:39; Start 07/04/19 at 09:00 Ibuprofen (Motrin) 600 mg PRN Q6HRS PRN PO MODERATE PAIN; Start 07/04/19 at 08:45 Mirtazapine (Remeron) 45 mg QHS PO ; Start 07/04/19 at 21:00 Pantoprazole Sodium (Protonix) 40 mg DAILYAC PO Last administered on 07/04/19at 11:22; Start 07/04/19 at 11:30 Non-Formulary Medication (Orphenadrine Citrate ) 100 mg Q12HR PO ; Start 07/04/19 at 09:00; Stop 07/04/19 at 08:55; Status DC Atorvastatin Calcium (Lipitor) 40 mg HS PO ; Start 07/04/19 at 21:00 Cyclobenzaprine HCl (Flexeril) 10 mg TID PO Last administered on 07/04/19at 14:30; Start 07/04/19 at 09:00 Morphine Sulfate (Morphine Sulfate) 2 mg PRN Q2HR PRN IV MODERATE PAIN Last administered on 07/04/19at 14:31; Start 07/04/19 at 11:30 Prednisone (Prednisone) 10 mg DAILY PO Last administered on 07/04/19at 14:30; Start 07/04/19 at 14:00 Methylprednisolone Acetate (DEPO-Medrol 40MG VIAL) 40 mg 1X ONCE IM Last administered on 07/04/19 13:17; Start 07/04/19 at 13:00; Stop 07/04/19 at 13:01; Status DC Bupivacaine HCl (Sensorcaine-Mpf 0.25%) 10 ml 1X ONCE IJ Last administered on 07/04/19at 13:16; Start 07/04/19 at 13:00; Stop 07/04/19 at 13:01; Status DC Naproxen (Naprosyn) 250 mg Q8HRS PO ; Start 07/04/19 at 14:00 Magnesium Sulfate 50 ml @ 25 mls/hr 1X ONCE IV Last administered on 07/04/19at 14:31; Start 07/04/19 at 14:15; Stop 07/04/19 at 16:14; Status DC Potassium Chloride (Klor-Con) 40 meq 1X ONCE PO Last administered on 07/04/19at 14:30; Start 07/04/19 at 14:15; Stop 07/04/19 at 14:16; Status DC Active Scripts Active Ibuprofen 600 Mg Tablet 600 Mg PO PRN Q6HRS PRN take with food or milk Orphenadrine Citrate 100 Mg Tablet.er 100 Mg PO Q12HR Colcrys (Colchicine) 0.6 Mg Tablet 1 Tab PO DAILY PRN Coreg (Carvedilol) 12.5 Mg Tablet 1 Tab PO BID Clonazepam 1 Mg Tablet 1 Tab PO PRN DAILY PRN Reported Hydroxyzine Hcl 10 Mg Tablet 10 Mg PO TID Proair Hfa (Albuterol Sulfate) 8.5 Gm Hfa.aer.ad 1 Puff INH PRN Q6HRS PRN Fluoxetine Hcl 40 Mg Capsule 60 Mg PO DAILY Cetirizine Hcl 10 Mg Tab.chew 10 Mg PO DAILY PRN Atorvastatin Calcium 40 Mg Tablet 40 Mg PO DAILY Aspirin 81 Mg Tab.chew 81 Mg PO DAILY PRN Clonazepam 1 Mg Tablet 1 Mg PO DAILY Omeprazole 20 Mg Capsule.dr 40 Mg PO DAILY Amlodipine Besylate 10 Mg Tablet 10 Mg PO DAILY Mirtazapine 45 Mg Tablet 45 Mg PO HS Allergies Allergies: Coded Allergies: No Known Drug Allergies (Unverified , 01/20/15) ROS Review of System Negative for fever, chills, weight loss, shortness of breath, chest pain, indigestion, hematochezia, melena, and dysuria. Full 14-point review of systems is negative. Physical Exam Physical Examination General: Well-developed, well-nourished black male in no acute distress HEENT: Normocephalic and�atraumatic. Temporal arteries�pulsatile and nontender.� Neck: Supple without bruit, no meningismus� Musculoskeletal: Stability:�see neurologic. Gait exam:�see neurologic. Tone:�see neurologic.�Strength:�see neurologic.� Neurological: Mental Status:�intact, orientation, memory, attention span/concentration, language, fund of knowledge normal. Cranial Nerves:�Pupils equal and reactive to light, extraocular movements are�intact, visual rivera are full to confrontation. Facial sensation is normal. There is no facial asymmetry. Vest ibulo-ocular reflex is intact. Palate elevates and tongue protrudes in midline. All other cranial related problems are negative except as mentioned before.�Reflexes:�2+ and symmetric with flexor plantar responses. Motor:�Right shoulder is limited by severe pain with movement, otherwise 5/5 strength with normal tone and bulk. Coordination:�Finger-nose finger and [id number] testing are normal. Rapid alternating movements and fine finger movements are intact. Gait:�not tested. Sensory:�Normal pinprick, vibration, light touch, proprioception.� Vitals VITALS Vital Signs Date Time Temp Pulse Resp B/P (MAP) Pulse Ox O2 Delivery O2 Flow Rate FiO2 07/04/19 15:03 91 Room Air 07/04/19 15:00 98.1 83 162/105 (124) 98.1 07/04/19 11:00 18 Labs Labs Laboratory Tests Test 07/03/19 17:48 07/04/19 12:40 White Blood Count 9.3 x10^3/uL (4.0-11.0) 7.3 x10^3/uL (4.0-11.0) Red Blood Count 4.01 x10^6/uL (4.30-5.70) 3.99 x10^6/uL (4.30-5.70) Hemoglobin 13.4 g/dL (13.0-17.5) 13.2 g/dL (13.0-17.5) Hematocrit 38.8 % (39.0-53.0) 38.6 % (39.0-53.0) Mean Corpuscular Volume 97 fL (79-100) 97 fL (79-100) Mean Corpuscular Hemoglobin 33 pg (25-35) 33 pg (25-35) Mean Corpuscular Hemoglobin Concent 34 g/dL (31-37) 34 g/dL (31-37) Red Cell Distribution Width 15.2 % (11.5-14.5) 15.6 % (11.5-14.5) Platelet Count 197 x10^3/uL (140-400) 141 x10^3/uL (140-400) Neutrophils (%) (Auto) 82 % (31-73) 78 % (31-73) Lymphocytes (%) (Auto) 9 % (24-48) 13 % (24-48) Monocytes (%) (Auto) 6 % (0-9) 5 % (0-9) Eosinophils (%) (Auto) 3 % (0-3) 4 % (0-3) Basophils (%) (Auto) 1 % (0-3) 1 % (0-3) Neutrophils # (Auto) 7.7 x10^3/uL (1.8-7.7) 5.7 x10^3/uL (1.8-7.7) Lymphocytes # (Auto) 0.8 x10^3/uL (1.0-4.8) 0.9 x10^3/uL (1.0-4.8) Monocytes # (Auto) 0.6 x10^3/uL (0.0-1.1) 0.4 x10^3/uL (0.0-1.1) Eosinophils # (Auto) 0.2 x10^3/uL (0.0-0.7) 0.3 x10^3/uL (0.0-0.7) Basophils # (Auto) 0.1 x10^3/uL (0.0-0.2) 0.1 x10^3/uL (0.0-0.2) Erythrocyte Sedimentation Rate 28 (0-15) Prothrombin Time 13.0 SEC (11.7-14.0) Prothromb Time International Ratio 1.0 (0.8-1.1) Activated Partial Thromboplast Time 30 SEC (24-38) Sodium Level 139 mmol/L (136-145) 139 mmol/L (136-145) Potassium Level 3.9 mmol/L (3.5-5.1) 3.3 mmol/L (3.5-5.1) Chloride Level 102 mmol/L (98-107) 102 mmol/L (98-107) Carbon Dioxide Level 26 mmol/L (21-32) 27 mmol/L (21-32) Anion Gap 11 (6-14) 10 (6-14) Blood Urea Nitrogen 13 mg/dL (8-26) 9 mg/dL (8-26) Creatinine 1.3 mg/dL (0.7-1.3) 1.0 mg/dL (0.7-1.3) Estimated GFR (Cockcroft-Gault) 73.3 99.2 BUN/Creatinine Ratio 10 (6-20) Glucose Level 140 mg/dL (70-99) 113 mg/dL (70-99) Calcium Level 8.6 mg/dL (8.5-10.1) 8.3 mg/dL (8.5-10.1) Magnesium Level 0.6 mg/dL (1.8-2.4) 1.2 mg/dL (1.8-2.4) Total Bilirubin 0.8 mg/dL (0.2-1.0) Aspartate Amino Transf (AST/SGOT) 87 U/L (15-37) Alanine Aminotransferase (ALT/SGPT) 53 U/L (16-63) Alkaline Phosphatase 167 U/L (46-116) Creatine Kinase 262 U/L (39-308) Creatine Kinase MB (Mass) 1.4 ng/mL (0.0-3.6) Creatine Kinase MB Relative Index 0.5 % (0-4) Troponin I Quantitative < 0.017 ng/mL (0.000-0.055) C-Reactive Protein, Quantitative 45.1 mg/L (0-3.3) Total Protein 8.6 g/dL (6.4-8.2) Albumin 3.9 g/dL (3.4-5.0) Albumin/Globulin Ratio 0.8 (1.0-1.7) Lipase 66 U/L (73-393) Laboratory Tests Test 07/03/19 17:48 07/04/19 12:40 White Blood Count 9.3 x10^3/uL (4.0-11.0) 7.3 x10^3/uL (4.0-11.0) Red Blood Count 4.01 x10^6/uL (4.30-5.70) 3.99 x10^6/uL (4.30-5.70) Hemoglobin 13.4 g/dL (13.0-17.5) 13.2 g/dL (13.0-17.5) Hematocrit 38.8 % (39.0-53.0) 38.6 % (39.0-53.0) Mean Corpuscular Volume 97 fL (79-100) 97 fL (79-100) Mean Corpuscular Hemoglobin 33 pg (25-35) 33 pg (25-35) Mean Corpuscular Hemoglobin Concent 34 g/dL (31-37) 34 g/dL (31-37) Red Cell Distribution Width 15.2 % (11.5-14.5) 15.6 % (11.5-14.5) Platelet Count 197 x10^3/uL (140-400) 141 x10^3/uL (140-400) Neutrophils (%) (Auto) 82 % (31-73) 78 % (31-73) Lymphocytes (%) (Auto) 9 % (24-48) 13 % (24-48) Monocytes (%) (Auto) 6 % (0-9) 5 % (0-9) Eosinophils (%) (Auto) 3 % (0-3) 4 % (0-3) Basophils (%) (Auto) 1 % (0-3) 1 % (0-3) Neutrophils # (Auto) 7.7 x10^3/uL (1.8-7.7) 5.7 x10^3/uL (1.8-7.7) Lymphocytes # (Auto) 0.8 x10^3/uL (1.0-4.8) 0.9 x10^3/uL (1.0-4.8) Monocytes # (Auto) 0.6 x10^3/uL (0.0-1.1) 0.4 x10^3/uL (0.0-1.1) Eosinophils # (Auto) 0.2 x10^3/uL (0.0-0.7) 0.3 x10^3/uL (0.0-0.7) Basophils # (Auto) 0.1 x10^3/uL (0.0-0.2) 0.1 x10^3/uL (0.0-0.2) Erythrocyte Sedimentation Rate 28 (0-15) Prothrombin Time 13.0 SEC (11.7-14.0) Prothromb Time International Ratio 1.0 (0.8-1.1) Activated Partial Thromboplast Time 30 SEC (24-38) Sodium Level 139 mmol/L (136-145) 139 mmol/L (136-145) Potassium Level 3.9 mmol/L (3.5-5.1) 3.3 mmol/L (3.5-5.1) Chloride Level 102 mmol/L (98-107) 102 mmol/L (98-107) Carbon Dioxide Level 26 mmol/L (21-32) 27 mmol/L (21-32) Anion Gap 11 (6-14) 10 (6-14) Blood Urea Nitrogen 13 mg/dL (8-26) 9 mg/dL (8-26) Creatinine 1.3 mg/dL (0.7-1.3) 1.0 mg/dL (0.7-1.3) Estimated GFR (Cockcroft-Gault) 73.3 99.2 BUN/Creatinine Ratio 10 (6-20) Glucose Level 140 mg/dL (70-99) 113 mg/dL (70-99) Calcium Level 8.6 mg/dL (8.5-10.1) 8.3 mg/dL (8.5-10.1) Magnesium Level 0.6 mg/dL (1.8-2.4) 1.2 mg/dL (1.8-2.4) Total Bilirubin 0.8 mg/dL (0.2-1.0) Aspartate Amino Transf (AST/SGOT) 87 U/L (15-37) Alanine Aminotransferase (ALT/SGPT) 53 U/L (16-63) Alkaline Phosphatase 167 U/L (46-116) Creatine Kinase 262 U/L (39-308) Creatine Kinase MB (Mass) 1.4 ng/mL (0.0-3.6) Creatine Kinase MB Relative Index 0.5 % (0-4) Troponin I Quantitative < 0.017 ng/mL (0.000-0.055) C-Reactive Protein, Quantitative 45.1 mg/L (0-3.3) Total Protein 8.6 g/dL (6.4-8.2) Albumin 3.9 g/dL (3.4-5.0) Albumin/Globulin Ratio 0.8 (1.0-1.7) Lipase 66 U/L (73-393) Images Images CERVICAL SPINE 5V Indication: Right shoulder pain without injury. Decreased range of motion TECHNIQUE: 3 views of the right shoulder Comparison: None FINDINGS/ impression: No acute fracture or dislocation. Visualized right lung is clear. No significant arthritic process. INDICATION: Right shoulder pain TECHNIQUE: 2 views of the chest COMPARISON: None FINDINGS: Heart is normal in size. Lungs are clear. No pneumothorax or pleural effusion. Visualized bony thorax within normal limits. IMPRESSION: No acute pulmonary process. IMPRESSION: Right shoulder pain TECHNIQUE: Multiple views of the cervical spine COMPARISON: None FINDINGS: Cervical spine is in normal anatomic alignment. Atlantoaxial joint interval is preserved. Prevertebral soft tissue within normal limits. No compression deformity. Facet joints are in normal anatomical alignment. Small anterior ridging osteophytes are seen at multiple levels. Visualized lung apices are clear. No bony narrowing of the neuroforamina. IMPRESSION: Mild multilevel degenerative disc disease. Assessment/Plan Assessment/Plan Impression: Musculoskeletal right shoulder pain without evidence of neurological issues. Recommendations: Dr. Delgado has given a steroid injection, still too soon to see if it will help MRI of the right shoulder and perhaps the cervical spine if he does not respond. Physical therapy modalities. Further neurological tests could include EMG testing, but maximum diagnostic yield would occur 3 weeks after onset of symptoms. Thank you for letting me help with the patient's care. CONNOR RUSSELL MD Jul 04, 2019 16:35
[2019-07-04 19:00] VITALS: BP 148/91
[2019-07-04] MEDS ORDERED: MIRTAZAPINE 15 MG TABLET PO SCH (21:00)
[2019-07-04 23:00] VITALS: BP 146/88
--- NOTE | 2019-07-04 23:18 | CONS ---
DATE OF CONSULTATION: 07/04/2019 ATTENDING PHYSICIAN: Dr. Garrido. REASON FOR CONSULTATION: The patient was seen at the request of Dr. Garrido for evaluation about his right shoulder pain. HISTORY OF PRESENT ILLNESS: This is a 44-year-old right-handed male on disability. The patient with known hypertension, hyperlipidemia, asthmatic bronchitis, chronic obstructive pulmonary disease, uses home oxygen, sarcoidosis, gastroesophageal reflux disease, anxiety, cocaine addiction, depression, fatty liver disease, osteoarthritis, nephrolithiasis, status post arthroscopic surgery to both knees, hernia repair, and colectomy. The patient lives alone. No stairs for him to manage. The patient smokes less than 1 pack of cigarettes per day and he uses cocaine. He was admitted through the Emergency Room last evening complaining of right shoulder pain and stiffness starting yesterday. He denies any specific injury, but helped his sister move about a week and a half ago, but denies any significant pain at that time. The patient denies any tingling or numbness in the extremities. He denies any neck pain. The patient had radiological studies, which failed to reveal any acute abnormality except mild degenerative changes in cervical spine. The patient was noted with hypomagnesemia and elevated C-reactive protein. PHYSICAL EXAMINATION: On physical examination today revealed young male patient, in no acute distress. He is protecting his right shoulder and significant pain on attempts at movements of right shoulder, tenderness to palpation over anterior aspect of right shoulder. He had painful range of motion of cervical spine. He had 5/5 grade muscle strength in his extremities. Deep tendon reflexes are decreased overall. He had equal perception of touch and pinprick sensation bilaterally. He is independent with bed mobility. I have not tested his transfers or ambulation skills at this time. ASSESSMENT: Young male with sprain, right shoulder with associated tendinitis. The patient with known chronic ethanol abuse, chronic obstructive pulmonary disease, oxygen dependent, hypertension, hyperlipidemia, asthmatic bronchitis, sarcoidosis, anxiety, cocaine addiction, depression, and degenerative joint disease. RECOMMENDATION: To try physical modalities, to put him on prednisone orally, and to proceed with injecting his right shoulder, to have occupational therapy, to see him home when medically stable with outpatient followup. Dr. Garrido, I appreciate asking me to participate in the care of this interesting patient. I will be glad to see him for followup with you on an as needed basis. DM NOLASCO MD DR: ASHLEY/sachin JOB#: [id number] / [id number]
[2019-07-05 03:00] VITALS: BP 119/84
[2019-07-05] MEDS: NAPROXEN 250 MG TABLET PO SCH (05:55)
[2019-07-05] MEDS: PANTOPRAZOLE 40 MG TABLET.DR. PO SCH (05:55)
[2019-07-05] MEDS: oxyCODONE/APAP 10/325 1 TAB TABLET PO PRN (05:55)
[2019-07-05 06:59] LABS: BASO % 0 % (0-3); EOS % 0 % (0-3); HEMATOCRIT 36.4 % (39.0-53.0); HEMOGLOBIN 12.5 g/dL (13.0-17.5); LYMPH # 0.5 x10^3/uL (1.0-4.8); LYMPH % 8 % (24-48); MEAN CORPUSCULAR HEMOGLOBIN 33 pg (25-35); MEAN CORPUSCULAR HGB CONC 34 g/dL (31-37); MEAN CORPUSCULAR VOLUME 97 fL (79-100); MONO # 0.4 x10^3/uL (0.0-1.1); MONO % 7 % (0-9); NEUT # 5.6 x10^3/uL (1.8-7.7); NEUT % 86 % (31-73); PLATELET COUNT 123 x10^3/uL (140-400); RED BLOOD COUNT 3.76 x10^6/uL (4.30-5.70); RED CELL DISTRIBUTION WIDTH 15.4 % (11.5-14.5); WHITE BLOOD COUNT 6.5 x10^3/uL (4.0-11.0)
[2019-07-05 07:00] VITALS: BP 140/89
[2019-07-05 07:16] LABS: CALCIUM 8.6 mg/dL (8.5-10.1); CREATININE 1.1 mg/dL (0.7-1.3); GFR 88.8
--- NOTE | 2019-07-05 08:24 | PDOC ---
PROGRESS NOTES Assessment Problems Medical Problems: (1) Hypomagnesemia Status: Acute (2) Right shoulder pain Status: Acute Musculoskeletal right shoulder pain without evidence of neurological issues. Plan Okay for discharge No further neurological studies needed. Follow-up with neurology as needed. Subjective Right shoulder feels much better, wants to go home Objective Vital Signs Date Time Temp Pulse Resp B/P (MAP) Pulse Ox O2 Delivery O2 Flow Rate FiO2 07/05/19 07:55 Room Air 07/05/19 07:00 97.8 74 16 140/89 (106) 91 97.8 Intake and Output 07/05/19 06:59 Output Total 1450 ml Balance -1450 ml Output Urine Total 1450 ml PHYSICAL EXAM Alert. Oriented to time, place and person. PERRL. EOMI. CN: no focal findings. Muscle tone: normal. Muscle strength: 5/5, slight right deltoid weakness still DTR:2+ Plantar reflex: flexor Gait: not examined in bed. Sensory exam: no abnormal findings. No cerebellar signs elicited. Review of Relevant I have reviewed the following items joan (where applicable) has been applied. Labs Laboratory Tests Test 07/03/19 17:48 07/04/19 12:40 07/04/19 16:00 07/05/19 05:50 White Blood Count 9.3 x10^3/uL (4.0-11.0) 7.3 x10^3/uL (4.0-11.0) 6.5 x10^3/uL (4.0-11.0) Red Blood Count 4.01 x10^6/uL (4.30-5.70) 3.99 x10^6/uL (4.30-5.70) 3.76 x10^6/uL (4.30-5.70) Hemoglobin 13.4 g/dL (13.0-17.5) 13.2 g/dL (13.0-17.5) 12.5 g/dL (13.0-17.5) Hematocrit 38.8 % (39.0-53.0) 38.6 % (39.0-53.0) 36.4 % (39.0-53.0) Mean Corpuscular Volume 97 fL (79-100) 97 fL (79-100) 97 fL (79-100) Mean Corpuscular Hemoglobin 33 pg (25-35) 33 pg (25-35) 33 pg (25-35) Mean Corpuscular Hemoglobin Concent 34 g/dL (31-37) 34 g/dL (31-37) 34 g/dL (31-37) Red Cell Distribution Width 15.2 % (11.5-14.5) 15.6 % (11.5-14.5) 15.4 % (11.5-14.5) Platelet Count 197 x10^3/uL (140-400) 141 x10^3/uL (140-400) 123 x10^3/uL (140-400) Neutrophils (%) (Auto) 82 % (31-73) 78 % (31-73) 86 % (31-73) Lymphocytes (%) (Auto) 9 % (24-48) 13 % (24-48) 8 % (24-48) Monocytes (%) (Auto) 6 % (0-9) 5 % (0-9) 7 % (0-9) Eosinophils (%) (Auto) 3 % (0-3) 4 % (0-3) 0 % (0-3) Basophils (%) (Auto) 1 % (0-3) 1 % (0-3) 0 % (0-3) Neutrophils # (Auto) 7.7 x10^3/uL (1.8-7.7) 5.7 x10^3/uL (1.8-7.7) 5.6 x10^3/uL (1.8-7.7) Lymphocytes # (Auto) 0.8 x10^3/uL (1.0-4.8) 0.9 x10^3/uL (1.0-4.8) 0.5 x10^3/uL (1.0-4.8) Monocytes # (Auto) 0.6 x10^3/uL (0.0-1.1) 0.4 x10^3/uL (0.0-1.1) 0.4 x10^3/uL (0.0-1.1) Eosinophils # (Auto) 0.2 x10^3/uL (0.0-0.7) 0.3 x10^3/uL (0.0-0.7) 0.0 x10^3/uL (0.0-0.7) Basophils # (Auto) 0.1 x10^3/uL (0.0-0.2) 0.1 x10^3/uL (0.0-0.2) 0.0 x10^3/uL (0.0-0.2) Erythrocyte Sedimentation Rate 28 (0-15) Prothrombin Time 13.0 SEC (11.7-14.0) Prothromb Time International Ratio 1.0 (0.8-1.1) Activated Partial Thromboplast Time 30 SEC (24-38) Sodium Level 139 mmol/L (136-145) 139 mmol/L (136-145) 140 mmol/L (136-145) Potassium Level 3.9 mmol/L (3.5-5.1) 3.3 mmol/L (3.5-5.1) 4.0 mmol/L (3.5-5.1) Chloride Level 102 mmol/L (98-107) 102 mmol/L (98-107) 104 mmol/L (98-107) Carbon Dioxide Level 26 mmol/L (21-32) 27 mmol/L (21-32) 27 mmol/L (21-32) Anion Gap 11 (6-14) 10 (6-14) 9 (6-14) Blood Urea Nitrogen 13 mg/dL (8-26) 9 mg/dL (8-26) 9 mg/dL (8-26) Creatinine 1.3 mg/dL (0.7-1.3) 1.0 mg/dL (0.7-1.3) 1.1 mg/dL (0.7-1.3) Estimated GFR (Cockcroft-Gault) 73.3 99.2 88.8 BUN/Creatinine Ratio 10 (6-20) Glucose Level 140 mg/dL (70-99) 113 mg/dL (70-99) 165 mg/dL (70-99) Calcium Level 8.6 mg/dL (8.5-10.1) 8.3 mg/dL (8.5-10.1) 8.6 mg/dL (8.5-10.1) Magnesium Level 0.6 mg/dL (1.8-2.4) 1.2 mg/dL (1.8-2.4) Total Bilirubin 0.8 mg/dL (0.2-1.0) Aspartate Amino Transf (AST/SGOT) 87 U/L (15-37) Alanine Aminotransferase (ALT/SGPT) 53 U/L (16-63) Alkaline Phosphatase 167 U/L (46-116) Creatine Kinase 262 U/L (39-308) Creatine Kinase MB (Mass) 1.4 ng/mL (0.0-3.6) Creatine Kinase MB Relative Index 0.5 % (0-4) Troponin I Quantitative < 0.017 ng/mL (0.000-0.055) C-Reactive Protein, Quantitative 45.1 mg/L (0-3.3) Total Protein 8.6 g/dL (6.4-8.2) Albumin 3.9 g/dL (3.4-5.0) Albumin/Globulin Ratio 0.8 (1.0-1.7) Lipase 66 U/L (73-393) Urine Opiates Screen Pos (NEG) Urine Methadone Screen Neg (NEG) Urine Barbiturates Neg (NEG) Urine Phencyclidine Screen Neg (NEG) Urine Amphetamine/Methamphetamine Neg (NEG) Urine Benzodiazepines Screen Neg (NEG) Urine Cocaine Screen Pos (NEG) Urine Cannabinoids Screen Neg (NEG) Urine Ethyl Alcohol Neg (NEG) Laboratory Tests Test 07/04/19 12:40 07/04/19 16:00 07/05/19 05:50 White Blood Count 7.3 x10^3/uL (4.0-11.0) 6.5 x10^3/uL (4.0-11.0) Red Blood Count 3.99 x10^6/uL (4.30-5.70) 3.76 x10^6/uL (4.30-5.70) Hemoglobin 13.2 g/dL (13.0-17.5) 12.5 g/dL (13.0-17.5) Hematocrit 38.6 % (39.0-53.0) 36.4 % (39.0-53.0) Mean Corpuscular Volume 97 fL (79-100) 97 fL (79-100) Mean Corpuscular Hemoglobin 33 pg (25-35) 33 pg (25-35) Mean Corpuscular Hemoglobin Concent 34 g/dL (31-37) 34 g/dL (31-37) Red Cell Distribution Width 15.6 % (11.5-14.5) 15.4 % (11.5-14.5) Platelet Count 141 x10^3/uL (140-400) 123 x10^3/uL (140-400) Neutrophils (%) (Auto) 78 % (31-73) 86 % (31-73) Lymphocytes (%) (Auto) 13 % (24-48) 8 % (24-48) Monocytes (%) (Auto) 5 % (0-9) 7 % (0-9) Eosinophils (%) (Auto) 4 % (0-3) 0 % (0-3) Basophils (%) (Auto) 1 % (0-3) 0 % (0-3) Neutrophils # (Auto) 5.7 x10^3/uL (1.8-7.7) 5.6 x10^3/uL (1.8-7.7) Lymphocytes # (Auto) 0.9 x10^3/uL (1.0-4.8) 0.5 x10^3/uL (1.0-4.8) Monocytes # (Auto) 0.4 x10^3/uL (0.0-1.1) 0.4 x10^3/uL (0.0-1.1) Eosinophils # (Auto) 0.3 x10^3/uL (0.0-0.7) 0.0 x10^3/uL (0.0-0.7) Basophils # (Auto) 0.1 x10^3/uL (0.0-0.2) 0.0 x10^3/uL (0.0-0.2) Sodium Level 139 mmol/L (136-145) 140 mmol/L (136-145) Potassium Level 3.3 mmol/L (3.5-5.1) 4.0 mmol/L (3.5-5.1) Chloride Level 102 mmol/L (98-107) 104 mmol/L (98-107) Carbon Dioxide Level 27 mmol/L (21-32) 27 mmol/L (21-32) Anion Gap 10 (6-14) 9 (6-14) Blood Urea Nitrogen 9 mg/dL (8-26) 9 mg/dL (8-26) Creatinine 1.0 mg/dL (0.7-1.3) 1.1 mg/dL (0.7-1.3) Estimated GFR (Cockcroft-Gault) 99.2 88.8 Glucose Level 113 mg/dL (70-99) 165 mg/dL (70-99) Calcium Level 8.3 mg/dL (8.5-10.1) 8.6 mg/dL (8.5-10.1) Magnesium Level 1.2 mg/dL (1.8-2.4) Urine Opiates Screen Pos (NEG) Urine Methadone Screen Neg (NEG) Urine Barbiturates Neg (NEG) Urine Phencyclidine Screen Neg (NEG) Urine Amphetamine/Methamphetamine Neg (NEG) Urine Benzodiazepines Screen Neg (NEG) Urine Cocaine Screen Pos (NEG) Urine Cannabinoids Screen Neg (NEG) Urine Ethyl Alcohol Neg (NEG) Medications Current Medications Ondansetron HCl (Zofran) 4 mg 1X ONCE IV Last administered on 07/03/19 17:49; Start 07/03/19 at 18:15; Stop 07/03/19 at 18:16; Status DC Sodium Chloride 1,000 ml @ 1,000 mls/hr 1X ONCE IV Last administered on 07/03/19at 17:49; Start 07/03/19 at 18:15; Stop 07/03/19 at 19:14; Status DC Ketorolac Tromethamine (Toradol 15mg Vial) 15 mg 1X ONCE IV Last administered on 07/03/19at 17:49; Start 07/03/19 at 18:15; Stop 07/03/19 at 18:16; Status DC Orphenadrine Citrate (Norflex) 60 mg 1X ONCE IV Last administered on 07/03/19at 17:49; Start 07/03/19 at 18:15; Stop 07/03/19 at 18:16; Status DC Magnesium Sulfate 50 ml @ 25 mls/hr 1X ONCE IV Last administered on 07/03/19at 22:54; Start 07/03/19 at 19:30; Stop 07/03/19 at 21:29; Status DC Morphine Sulfate (Morphine Sulfate) 4 mg 1X ONCE IV Last administered on 07/03/19at 19:24; Start 07/03/19 at 19:30; Stop 07/03/19 at 19:31; Status DC Magnesium Sulfate 50 ml @ 25 mls/hr 1X ONCE IV Last administered on 07/03/19at 19:24; Start 07/03/19 at 19:15; Stop 07/03/19 at 21:14; Status DC Oxycodone/ Acetaminophen (Percocet 10/325) 1 tab PRN Q6HRS PRN PO PAIN Last administered on 07/05/19at 05:55; Start 07/03/19 at 22:30 Lorazepam (Ativan Inj) 2 mg PRN Q1HR PRN IV For CIWA 8-14; Start 07/04/19 at 01:30 Lorazepam (Ativan Inj) 4 mg PRN Q1HR PRN IV For CIWA 15 or greater Last administered on 07/04/19at 01:40; Start 07/04/19 at 01:30 Diphenhydramine HCl (Benadryl) 25 mg PRN Q15MIN PRN IVP EPS symptoms 2'Haldol admin Last administered on 07/04/19at 01:40; Start 07/04/19 at 01:30 Clonidine HCl (Catapres) 0.1 mg PRN Q1HR PRN PO SBP > 180 or DBP > 100, MRX3; Start 07/04/19 at 01:30 Albuterol Sulfate (Ventolin Neb Soln) 2.5 mg PRN Q6HRS PRN INH SHORTNESS OF BREATH; Start 07/04/19 at 08:15 Amlodipine Besylate (Norvasc) 10 mg DAILY PO Last administered on 07/04/19at 08:39; Start 07/04/19 at 09:00 Aspirin (Children'S Aspirin) 81 mg DAILY PO Last administered on 07/04/19at 08:39; Start 07/04/19 at 09:00 Atorvastatin Calcium (Lipitor) 40 mg DAILY PO ; Start 07/04/19 at 09:00; Stop 07/04/19 at 08:17; Status DC Carvedilol (Coreg) 12.5 mg BIDAFTMEAL PO Last administered on 07/04/19at 18:07; Start 07/04/19 at 09:00 Colchicine (Colcrys) 0.6 mg PRN DAILY PRN PO GOUT PAIN; Start 07/04/19 at 08:15 Hydroxyzine HCl (Atarax) 10 mg TID PO Last administered on 07/04/19 21:06; Start 07/04/19 at 09:00 Cetirizine HCl (ZyrTEC) 10 mg PRN DAILY PRN PO ALLERGIES; Start 07/04/19 at 09:00 Clonazepam (KlonoPIN) 1 mg PRN DAILY PRN PO ANXIETY / AGITATION; Start 07/04/19 at 08:30 Fluoxetine HCl (PROzac) 60 mg DAILY PO Last administered on 07/04/19at 08:39; Start 07/04/19 at 09:00 Ibuprofen (Motrin) 600 mg PRN Q6HRS PRN PO MODERATE PAIN; Start 07/04/19 at 08:45 Mirtazapine (Remeron) 45 mg QHS PO Last administered on 07/04/19 21:05; Start 07/04/19 at 21:00 Pantoprazole Sodium (Protonix) 40 mg DAILYAC PO Last administered on 07/05/19at 05:55; Start 07/04/19 at 11:30 Non-Formulary Medication (Orphenadrine Citrate ) 100 mg Q12HR PO ; Start 07/04/19 at 09:00; Stop 07/04/19 at 08:55; Status DC Atorvastatin Calcium (Lipitor) 40 mg HS PO Last administered on 07/04/19 21:05; Start 07/04/19 at 21:00 Cyclobenzaprine HCl (Flexeril) 10 mg TID PO Last administered on 07/04/19 21:05; Start 07/04/19 at 09:00 Morphine Sulfate (Morphine Sulfate) 2 mg PRN Q2HR PRN IV MODERATE PAIN Last administered on 07/04/19 23:29; Start 07/04/19 at 11:30 Prednisone (Prednisone) 10 mg DAILY PO Last administered on 07/04/19 14:30; Start 07/04/19 at 14:00 Methylprednisolone Acetate (DEPO-Medrol 40MG VIAL) 40 mg 1X ONCE IM Last administered on 07/04/19 13:17; Start 07/04/19 at 13:00; Stop 07/04/19 at 13:01; Status DC Bupivacaine HCl (Sensorcaine-Mpf 0.25%) 10 ml 1X ONCE IJ Last administered on 07/04/19 13:16; Start 07/04/19 at 13:00; Stop 07/04/19 at 13:01; Status DC Naproxen (Naprosyn) 250 mg Q8HRS PO Last administered on 07/05/19at 05:55; Start 07/04/19 at 14:00 Magnesium Sulfate 50 ml @ 25 mls/hr 1X ONCE IV Last administered on 07/04/19at 14:31; Start 07/04/19 at 14:15; Stop 07/04/19 at 16:14; Status DC Potassium Chloride (Klor-Con) 40 meq 1X ONCE PO Last administered on 07/04/19at 14:30; Start 07/04/19 at 14:15; Stop 07/04/19 at 14:16; Status DC Active Scripts Active Ibuprofen 600 Mg Tablet 600 Mg PO PRN Q6HRS PRN take with food or milk Orphenadrine Citrate 100 Mg Tablet.er 100 Mg PO Q12HR Colcrys (Colchicine) 0.6 Mg Tablet 1 Tab PO DAILY PRN Coreg (Carvedilol) 12.5 Mg Tablet 1 Tab PO BID Clonazepam 1 Mg Tablet 1 Tab PO PRN DAILY PRN Reported Hydroxyzine Hcl 10 Mg Tablet 10 Mg PO TID Proair Hfa (Albuterol Sulfate) 8.5 Gm Hfa.aer.ad 1 Puff INH PRN Q6HRS PRN Fluoxetine Hcl 40 Mg Capsule 60 Mg PO DAILY Cetirizine Hcl 10 Mg Tab.chew 10 Mg PO DAILY PRN Atorvastatin Calcium 40 Mg Tablet 40 Mg PO DAILY Aspirin 81 Mg Tab.chew 81 Mg PO DAILY PRN Clonazepam 1 Mg Tablet 1 Mg PO DAILY Omeprazole 20 Mg Capsule.dr 40 Mg PO DAILY Amlodipine Besylate 10 Mg Tablet 10 Mg PO DAILY Mirtazapine 45 Mg Tablet 45 Mg PO HS Vitals/I & O Vital Sign - Last 24 Hours 07/04/19 07/04/19 07/04/19 07/04/19 08:39 08:39 08:39 09:57 Pulse 89 89 B/P (MAP) 143/96 143/96 Pulse Ox 91 91 O2 Delivery Room Air Room Air 07/04/19 07/04/19 07/04/19 07/04/19 11:00 11:28 11:58 14:31 Temp 98.1 98.1 Pulse 83 Resp 18 B/P (MAP) 162/105 (124) Pulse Ox 94 91 91 91 O2 Delivery Room Air Room Air Room Air Room Air 07/04/19 07/04/19 07/04/19 07/04/19 15:00 15:03 18:06 18:07 Temp 98.1 98.1 Pulse 83 85 B/P (MAP) 162/105 (124) 155/93 Pulse Ox 92 91 O2 Delivery Room Air Room Air Room Air 07/04/19 07/04/19 07/04/19 07/04/19 19:00 19:06 20:00 21:06 Temp 99.0 99.0 Pulse 93 Resp 18 B/P (MAP) 148/91 (110) Pulse Ox 95 91 91 O2 Delivery Room Air Room Air Room Air Room Air 07/04/19 07/04/19 07/04/19 07/04/19 21:36 23:00 23:29 23:59 Temp 99.0 99.0 Pulse 88 Resp 18 B/P (MAP) 146/88 (107) Pulse Ox 91 94 94 94 O2 Delivery Room Air Room Air Room Air Room Air 07/05/19 07/05/19 07/05/19 07/05/19 03:00 05:55 06:55 07:00 Temp 98.2 97.8 98.2 97.8 Pulse 78 74 Resp 18 16 B/P (MAP) 119/84 (96) 140/89 (106) Pulse Ox 95 95 91 O2 Delivery Room Air Room Air Room Air Room Air 07/05/19 07:55 O2 Delivery Room Air Intake and Output 07/04/19 07/04/19 07/05/19 14:59 22:59 06:59 Output Total 750 ml 200 ml 500 ml Balance -750 ml -200 ml -500 ml CONNOR RUSSELL MD Jul 05, 2019 08:24
[2019-07-05] MEDS ORDERED: OXYC1TAB22 PO (08:35)
[2019-07-05] MEDS ORDERED: CELE100C PO (08:35)
[2019-07-05 09:17] LABS: % LYMPHS 8 % (24-48); % MONOS 8 % (0-10); % SEGS 84 % (35-66); PLT ESTIMATE DECREASED (ADEQUATE)
[2019-07-05] MEDS: ASPIRIN CHEWABLE 81 MG TABLET. PO SCH (09:26)
[2019-07-05] MEDS: CYCLOBENZAPRINE 10 MG TABLET. PO SCH (09:26)
[2019-07-05] MEDS: CARVEDILOL 12.5 MG TABLET. PO SCH (09:27)
[2019-07-05] MEDS: hydrOXYzine 10 MG TABLET PO SCH (09:27)
[2019-07-05] MEDS: FLUoxetine HCL 20 MG CAPSULE PO SCH (09:27)
[2019-07-05] MEDS: predniSONE 10 MG TABLET PO SCH (09:28)
[2019-07-05] MEDS: amLODIPine BESYLATE 10 MG TABLET PO SCH (09:28)
[2019-07-05 11:00] VITALS: BP 145/98
--- NOTE | 2019-07-05 11:53 | PDOC ---
PROGRESS NOTES Subjective Subjective He feels better with his right shoulder. Objective Objective Vital Signs Date Time Temp Pulse Resp B/P (MAP) Pulse Ox O2 Delivery O2 Flow Rate FiO2 07/05/19 09:28 74 140/89 07/05/19 07:55 Room Air 07/05/19 07:00 97.8 16 91 97.8 Intake and Output 07/05/19 07:00 Output Total 1450 ml Balance -1450 ml Output Urine Total 1450 ml Physical Exam Physical Exam He is independent with his mobility and moving right shoulder without any discomfort. He continues with relative weakness of left hand intrinsic muscles with associated muscle atrophy and some degree of flexion deformity os left little and index fingers and he had negative Tinel' sign over median nerve at wrist and ulnar nerve at wrist and elbow and no evidence of any Dupeytren's contracture of left hand. Assessment Assessment Problems Medical Problems: (1) Hypomagnesemia Status: Acute (2) Right shoulder pain Status: Acute Plan Plan of [facility] when medically stable. Comment Review of Relevant I have reviewed the following items joan (where applicable) has been applied. Labs Laboratory Tests Test 07/03/19 17:48 07/04/19 12:40 07/04/19 16:00 07/05/19 05:50 White Blood Count 9.3 x10^3/uL (4.0-11.0) 7.3 x10^3/uL (4.0-11.0) 6.5 x10^3/uL (4.0-11.0) Red Blood Count 4.01 x10^6/uL (4.30-5.70) 3.99 x10^6/uL (4.30-5.70) 3.76 x10^6/uL (4.30-5.70) Hemoglobin 13.4 g/dL (13.0-17.5) 13.2 g/dL (13.0-17.5) 12.5 g/dL (13.0-17.5) Hematocrit 38.8 % (39.0-53.0) 38.6 % (39.0-53.0) 36.4 % (39.0-53.0) Mean Corpuscular Volume 97 fL (79-100) 97 fL (79-100) 97 fL (79-100) Mean Corpuscular Hemoglobin 33 pg (25-35) 33 pg (25-35) 33 pg (25-35) Mean Corpuscular Hemoglobin Concent 34 g/dL (31-37) 34 g/dL (31-37) 34 g/dL (31-37) Red Cell Distribution Width 15.2 % (11.5-14.5) 15.6 % (11.5-14.5) 15.4 % (11.5-14.5) Platelet Count 197 x10^3/uL (140-400) 141 x10^3/uL (140-400) 123 x10^3/uL (140-400) Neutrophils (%) (Auto) 82 % (31-73) 78 % (31-73) 86 % (31-73) Lymphocytes (%) (Auto) 9 % (24-48) 13 % (24-48) 8 % (24-48) Monocytes (%) (Auto) 6 % (0-9) 5 % (0-9) 7 % (0-9) Eosinophils (%) (Auto) 3 % (0-3) 4 % (0-3) 0 % (0-3) Basophils (%) (Auto) 1 % (0-3) 1 % (0-3) 0 % (0-3) Neutrophils # (Auto) 7.7 x10^3/uL (1.8-7.7) 5.7 x10^3/uL (1.8-7.7) 5.6 x10^3/uL (1.8-7.7) Lymphocytes # (Auto) 0.8 x10^3/uL (1.0-4.8) 0.9 x10^3/uL (1.0-4.8) 0.5 x10^3/uL (1.0-4.8) Monocytes # (Auto) 0.6 x10^3/uL (0.0-1.1) 0.4 x10^3/uL (0.0-1.1) 0.4 x10^3/uL (0.0-1.1) Eosinophils # (Auto) 0.2 x10^3/uL (0.0-0.7) 0.3 x10^3/uL (0.0-0.7) 0.0 x10^3/uL (0.0-0.7) Basophils # (Auto) 0.1 x10^3/uL (0.0-0.2) 0.1 x10^3/uL (0.0-0.2) 0.0 x10^3/uL (0.0-0.2) Erythrocyte Sedimentation Rate 28 (0-15) Prothrombin Time 13.0 SEC (11.7-14.0) Prothromb Time International Ratio 1.0 (0.8-1.1) Activated Partial Thromboplast Time 30 SEC (24-38) Sodium Level 139 mmol/L (136-145) 139 mmol/L (136-145) 140 mmol/L (136-145) Potassium Level 3.9 mmol/L (3.5-5.1) 3.3 mmol/L (3.5-5.1) 4.0 mmol/L (3.5-5.1) Chloride Level 102 mmol/L (98-107) 102 mmol/L (98-107) 104 mmol/L (98-107) Carbon Dioxide Level 26 mmol/L (21-32) 27 mmol/L (21-32) 27 mmol/L (21-32) Anion Gap 11 (6-14) 10 (6-14) 9 (6-14) Blood Urea Nitrogen 13 mg/dL (8-26) 9 mg/dL (8-26) 9 mg/dL (8-26) Creatinine 1.3 mg/dL (0.7-1.3) 1.0 mg/dL (0.7-1.3) 1.1 mg/dL (0.7-1.3) Estimated GFR (Cockcroft-Gault) 73.3 99.2 88.8 BUN/Creatinine Ratio 10 (6-20) Glucose Level 140 mg/dL (70-99) 113 mg/dL (70-99) 165 mg/dL (70-99) Calcium Level 8.6 mg/dL (8.5-10.1) 8.3 mg/dL (8.5-10.1) 8.6 mg/dL (8.5-10.1) Magnesium Level 0.6 mg/dL (1.8-2.4) 1.2 mg/dL (1.8-2.4) Total Bilirubin 0.8 mg/dL (0.2-1.0) Aspartate Amino Transf (AST/SGOT) 87 U/L (15-37) Alanine Aminotransferase (ALT/SGPT) 53 U/L (16-63) Alkaline Phosphatase 167 U/L (46-116) Creatine Kinase 262 U/L (39-308) Creatine Kinase MB (Mass) 1.4 ng/mL (0.0-3.6) Creatine Kinase MB Relative Index 0.5 % (0-4) Troponin I Quantitative < 0.017 ng/mL (0.000-0.055) C-Reactive Protein, Quantitative 45.1 mg/L (0-3.3) Total Protein 8.6 g/dL (6.4-8.2) Albumin 3.9 g/dL (3.4-5.0) Albumin/Globulin Ratio 0.8 (1.0-1.7) Lipase 66 U/L (73-393) Urine Opiates Screen Pos (NEG) Urine Methadone Screen Neg (NEG) Urine Barbiturates Neg (NEG) Urine Phencyclidine Screen Neg (NEG) Urine Amphetamine/Methamphetamine Neg (NEG) Urine Benzodiazepines Screen Neg (NEG) Urine Cocaine Screen Pos (NEG) Urine Cannabinoids Screen Neg (NEG) Urine Ethyl Alcohol Neg (NEG) Segmented Neutrophils % 84 % (35-66) Lymphocytes % 8 % (24-48) Monocytes % 8 % (0-10) Platelet Estimate Decreased (ADEQUATE) Laboratory Tests Test 07/04/19 12:40 07/04/19 16:00 07/05/19 05:50 White Blood Count 7.3 x10^3/uL (4.0-11.0) 6.5 x10^3/uL (4.0-11.0) Red Blood Count 3.99 x10^6/uL (4.30-5.70) 3.76 x10^6/uL (4.30-5.70) Hemoglobin 13.2 g/dL (13.0-17.5) 12.5 g/dL (13.0-17.5) Hematocrit 38.6 % (39.0-53.0) 36.4 % (39.0-53.0) Mean Corpuscular Volume 97 fL (79-100) 97 fL (79-100) Mean Corpuscular Hemoglobin 33 pg (25-35) 33 pg (25-35) Mean Corpuscular Hemoglobin Concent 34 g/dL (31-37) 34 g/dL (31-37) Red Cell Distribution Width 15.6 % (11.5-14.5) 15.4 % (11.5-14.5) Platelet Count 141 x10^3/uL (140-400) 123 x10^3/uL (140-400) Neutrophils (%) (Auto) 78 % (31-73) 86 % (31-73) Lymphocytes (%) (Auto) 13 % (24-48) 8 % (24-48) Monocytes (%) (Auto) 5 % (0-9) 7 % (0-9) Eosinophils (%) (Auto) 4 % (0-3) 0 % (0-3) Basophils (%) (Auto) 1 % (0-3) 0 % (0-3) Neutrophils # (Auto) 5.7 x10^3/uL (1.8-7.7) 5.6 x10^3/uL (1.8-7.7) Lymphocytes # (Auto) 0.9 x10^3/uL (1.0-4.8) 0.5 x10^3/uL (1.0-4.8) Monocytes # (Auto) 0.4 x10^3/uL (0.0-1.1) 0.4 x10^3/uL (0.0-1.1) Eosinophils # (Auto) 0.3 x10^3/uL (0.0-0.7) 0.0 x10^3/uL (0.0-0.7) Basophils # (Auto) 0.1 x10^3/uL (0.0-0.2) 0.0 x10^3/uL (0.0-0.2) Sodium Level 139 mmol/L (136-145) 140 mmol/L (136-145) Potassium Level 3.3 mmol/L (3.5-5.1) 4.0 mmol/L (3.5-5.1) Chloride Level 102 mmol/L (98-107) 104 mmol/L (98-107) Carbon Dioxide Level 27 mmol/L (21-32) 27 mmol/L (21-32) Anion Gap 10 (6-14) 9 (6-14) Blood Urea Nitrogen 9 mg/dL (8-26) 9 mg/dL (8-26) Creatinine 1.0 mg/dL (0.7-1.3) 1.1 mg/dL (0.7-1.3) Estimated GFR (Cockcroft-Gault) 99.2 88.8 Glucose Level 113 mg/dL (70-99) 165 mg/dL (70-99) Calcium Level 8.3 mg/dL (8.5-10.1) 8.6 mg/dL (8.5-10.1) Magnesium Level 1.2 mg/dL (1.8-2.4) Urine Opiates Screen Pos (NEG) Urine Methadone Screen Neg (NEG) Urine Barbiturates Neg (NEG) Urine Phencyclidine Screen Neg (NEG) Urine Amphetamine/Methamphetamine Neg (NEG) Urine Benzodiazepines Screen Neg (NEG) Urine Cocaine Screen Pos (NEG) Urine Cannabinoids Screen Neg (NEG) Urine Ethyl Alcohol Neg (NEG) Segmented Neutrophils % 84 % (35-66) Lymphocytes % 8 % (24-48) Monocytes % 8 % (0-10) Platelet Estimate Decreased (ADEQUATE) Medications Current Medications Ondansetron HCl (Zofran) 4 mg 1X ONCE IV Last administered on 07/03/19at 17:49; Start 07/03/19 at 18:15; Stop 07/03/19 at 18:16; Status DC Sodium Chloride 1,000 ml @ 1,000 mls/hr 1X ONCE IV Last administered on 07/03/19at 17:49; Start 07/03/19 at 18:15; Stop 07/03/19 at 19:14; Status DC Ketorolac Tromethamine (Toradol 15mg Vial) 15 mg 1X ONCE IV Last administered on 07/03/19at 17:49; Start 07/03/19 at 18:15; Stop 07/03/19 at 18:16; Status DC Orphenadrine Citrate (Norflex) 60 mg 1X ONCE IV Last administered on 07/03/19at 17:49; Start 07/03/19 at 18:15; Stop 07/03/19 at 18:16; Status DC Magnesium Sulfate 50 ml @ 25 mls/hr 1X ONCE IV Last administered on 07/03/19at 22:54; Start 07/03/19 at 19:30; Stop 07/03/19 at 21:29; Status DC Morphine Sulfate (Morphine Sulfate) 4 mg 1X ONCE IV Last administered on 07/03/19at 19:24; Start 07/03/19 at 19:30; Stop 07/03/19 at 19:31; Status DC Magnesium Sulfate 50 ml @ 25 mls/hr 1X ONCE IV Last administered on 07/03/19at 19:24; Start 07/03/19 at 19:15; Stop 07/03/19 at 21:14; Status DC Oxycodone/ Acetaminophen (Percocet 10/325) 1 tab PRN Q6HRS PRN PO PAIN Last administered on 07/05/19at 05:55; Start 07/03/19 at 22:30 Lorazepam (Ativan Inj) 2 mg PRN Q1HR PRN IV For CIWA 8-14; Start 07/04/19 at 01:30 Lorazepam (Ativan Inj) 4 mg PRN Q1HR PRN IV For CIWA 15 or greater Last administered on 07/04/19at 01:40; Start 07/04/19 at 01:30 Diphenhydramine HCl (Benadryl) 25 mg PRN Q15MIN PRN IVP EPS symptoms 2'Haldol admin Last administered on 07/04/19at 01:40; Start 07/04/19 at 01:30 Clonidine HCl (Catapres) 0.1 mg PRN Q1HR PRN PO SBP > 180 or DBP > 100, MRX3; Start 07/04/19 at 01:30 Albuterol Sulfate (Ventolin Neb Soln) 2.5 mg PRN Q6HRS PRN INH SHORTNESS OF BREATH; Start 07/04/19 at 08:15 Amlodipine Besylate (Norvasc) 10 mg DAILY PO Last administered on 07/05/19at 09:28; Start 07/04/19 at 09:00 Aspirin (Children'S Aspirin) 81 mg DAILY PO Last administered on 07/05/19at 09:26; Start 07/04/19 at 09:00 Atorvastatin Calcium (Lipitor) 40 mg DAILY PO ; Start 07/04/19 at 09:00; Stop 07/04/19 at 08:17; Status DC Carvedilol (Coreg) 12.5 mg BIDAFTMEAL PO Last administered on 07/05/19 09:27; Start 07/04/19 at 09:00 Colchicine (Colcrys) 0.6 mg PRN DAILY PRN PO GOUT PAIN; Start 07/04/19 at 08:15 Hydroxyzine HCl (Atarax) 10 mg TID PO Last administered on 07/05/19at 09:27; Start 07/04/19 at 09:00 Cetirizine HCl (ZyrTEC) 10 mg PRN DAILY PRN PO ALLERGIES; Start 07/04/19 at 09:00 Clonazepam (KlonoPIN) 1 mg PRN DAILY PRN PO ANXIETY / AGITATION; Start 07/04/19 at 08:30 Fluoxetine HCl (PROzac) 60 mg DAILY PO Last administered on 07/05/19 09:27; Start 07/04/19 at 09:00 Ibuprofen (Motrin) 600 mg PRN Q6HRS PRN PO MODERATE PAIN; Start 07/04/19 at 08:45 Mirtazapine (Remeron) 45 mg QHS PO Last administered on 07/04/19at 21:05; Start 07/04/19 at 21:00 Pantoprazole Sodium (Protonix) 40 mg DAILYAC PO Last administered on 07/05/19at 05:55; Start 07/04/19 at 11:30 Non-Formulary Medication (Orphenadrine Citrate ) 100 mg Q12HR PO ; Start 07/04/19 at 09:00; Stop 07/04/19 at 08:55; Status DC Atorvastatin Calcium (Lipitor) 40 mg HS PO Last administered on 07/04/19at 21:05; Start 07/04/19 at 21:00 Cyclobenzaprine HCl (Flexeril) 10 mg TID PO Last administered on 07/05/19at 09:26; Start 07/04/19 at 09:00 Morphine Sulfate (Morphine Sulfate) 2 mg PRN Q2HR PRN IV MODERATE PAIN Last administered on 07/04/19at 23:29; Start 07/04/19 at 11:30 Prednisone (Prednisone) 10 mg DAILY PO Last administered on 07/05/19 09:28; Start 07/04/19 at 14:00 Methylprednisolone Acetate (DEPO-Medrol 40MG VIAL) 40 mg 1X ONCE IM Last administered on 07/04/19at 13:17; Start 07/04/19 at 13:00; Stop 07/04/19 at 13:01; Status DC Bupivacaine HCl (Sensorcaine-Mpf 0.25%) 10 ml 1X ONCE IJ Last administered on 07/04/19at 13:16; Start 07/04/19 at 13:00; Stop 07/04/19 at 13:01; Status DC Naproxen (Naprosyn) 250 mg Q8HRS PO Last administered on 07/05/19at 05:55; Start 07/04/19 at 14:00 Magnesium Sulfate 50 ml @ 25 mls/hr 1X ONCE IV Last administered on 07/04/19at 14:31; Start 07/04/19 at 14:15; Stop 07/04/19 at 16:14; Status DC Potassium Chloride (Klor-Con) 40 meq 1X ONCE PO Last administered on 07/04/19at 14:30; Start 07/04/19 at 14:15; Stop 07/04/19 at 14:16; Status DC Active Scripts Active Celebrex (Celecoxib) 100 Mg Capsule 1 Cap PO BID Percocet 10-325 Mg Tablet (Oxycodone/Acetaminophen) 1 Each Tablet 1 Tab PO PRN Q6HRS PRN Orphenadrine Citrate 100 Mg Tablet.er 100 Mg PO Q12HR Colcrys (Colchicine) 0.6 Mg Tablet 1 Tab PO DAILY PRN Coreg (Carvedilol) 12.5 Mg Tablet 1 Tab PO BID Clonazepam 1 Mg Tablet 1 Tab PO PRN DAILY PRN Reported Hydroxyzine Hcl 10 Mg Tablet 10 Mg PO TID Proair Hfa (Albuterol Sulfate) 8.5 Gm Hfa.aer.ad 1 Puff INH PRN Q6HRS PRN Fluoxetine Hcl 40 Mg Capsule 60 Mg PO DAILY Cetirizine Hcl 10 Mg Tab.chew 10 Mg PO DAILY PRN Atorvastatin Calcium 40 Mg Tablet 40 Mg PO DAILY Aspirin 81 Mg Tab.chew 81 Mg PO DAILY PRN Omeprazole 20 Mg Capsule.dr 40 Mg PO DAILY Amlodipine Besylate 10 Mg Tablet 10 Mg PO DAILY Mirtazapine 45 Mg Tablet 45 Mg PO HS Vitals/I & O Vital Sign - Last 24 Hours 07/04/19 07/04/19 07/04/19 07/04/19 11:58 14:31 15:00 15:03 Temp 98.1 98.1 Pulse 83 B/P (MAP) 162/105 (124) Pulse Ox 91 91 92 91 O2 Delivery Room Air Room Air Room Air Room Air 07/04/19 07/04/19 07/04/19 07/04/19 18:06 18:07 19:00 19:06 Temp 99.0 99.0 Pulse 85 93 Resp 18 B/P (MAP) 155/93 148/91 (110) Pulse Ox 95 91 O2 Delivery Room Air Room Air Room Air 07/04/19 07/04/19 07/04/19 07/04/19 20:00 21:06 21:36 23:00 Temp 99.0 99.0 Pulse 88 Resp 18 B/P (MAP) 146/88 (107) Pulse Ox 91 91 94 O2 Delivery Room Air Room Air Room Air Room Air 07/04/19 07/04/19 07/05/19 07/05/19 23:29 23:59 03:00 05:55 Temp 98.2 98.2 Pulse 78 Resp 18 B/P (MAP) 119/84 (96) Pulse Ox 94 94 95 95 O2 Delivery Room Air Room Air Room Air Room Air 07/05/19 07/05/19 07/05/19 07/05/19 06:55 07:00 07:55 09:27 Temp 97.8 97.8 Pulse 74 74 Resp 16 B/P (MAP) 140/89 (106) 140/89 Pulse Ox 91 O2 Delivery Room Air Room Air Room Air 07/05/19 09:28 Pulse 74 B/P (MAP) 140/89 Intake and Output 07/04/19 07/04/19 07/05/19 15:00 23:00 07:00 Output Total 750 ml 200 ml 500 ml Balance -750 ml -200 ml -500 ml DM NOLASCO MD Jul 05, 2019 11:53
--- NOTE | 2019-07-05 12:14 | PDOC3 ---
Discharge Summary Visit Information Date of Admission: Jul 03, 2019 Date of Discharge: Jul 05, 2019 Admitting Diagnosis Comment: Shoulder pain better with physiatry management Hypertension, COPD, asthma, chronic stable Final Diagnosis Problems Medical Problems: (1) Hypomagnesemia Status: Acute (2) Right shoulder pain Status: Acute Brief Hospital Course Allergies Allergies Coded Allergies Type Severity Reaction Last Updated Verified No Known Drug Allergies 01/20/15 No Vital Signs Vital Signs Date Time Temp Pulse Resp B/P (MAP) Pulse Ox O2 Delivery O2 Flow Rate FiO2 07/05/19 11:00 98.1 78 16 145/98 (114) 95 Room Air 98.1 Lab Results Laboratory Tests Test 07/03/19 17:48 07/04/19 12:40 07/04/19 16:00 07/05/19 05:50 White Blood Count 9.3 x10^3/uL (4.0-11.0) 7.3 x10^3/uL (4.0-11.0) 6.5 x10^3/uL (4.0-11.0) Red Blood Count 4.01 x10^6/uL (4.30-5.70) 3.99 x10^6/uL (4.30-5.70) 3.76 x10^6/uL (4.30-5.70) Hemoglobin 13.4 g/dL (13.0-17.5) 13.2 g/dL (13.0-17.5) 12.5 g/dL (13.0-17.5) Hematocrit 38.8 % (39.0-53.0) 38.6 % (39.0-53.0) 36.4 % (39.0-53.0) Mean Corpuscular Volume 97 fL (79-100) 97 fL (79-100) 97 fL (79-100) Mean Corpuscular Hemoglobin 33 pg (25-35) 33 pg (25-35) 33 pg (25-35) Mean Corpuscular Hemoglobin Concent 34 g/dL (31-37) 34 g/dL (31-37) 34 g/dL (31-37) Red Cell Distribution Width 15.2 % (11.5-14.5) 15.6 % (11.5-14.5) 15.4 % (11.5-14.5) Platelet Count 197 x10^3/uL (140-400) 141 x10^3/uL (140-400) 123 x10^3/uL (140-400) Neutrophils (%) (Auto) 82 % (31-73) 78 % (31-73) 86 % (31-73) Lymphocytes (%) (Auto) 9 % (24-48) 13 % (24-48) 8 % (24-48) Monocytes (%) (Auto) 6 % (0-9) 5 % (0-9) 7 % (0-9) Eosinophils (%) (Auto) 3 % (0-3) 4 % (0-3) 0 % (0-3) Basophils (%) (Auto) 1 % (0-3) 1 % (0-3) 0 % (0-3) Neutrophils # (Auto) 7.7 x10^3/uL (1.8-7.7) 5.7 x10^3/uL (1.8-7.7) 5.6 x10^3/uL (1.8-7.7) Lymphocytes # (Auto) 0.8 x10^3/uL (1.0-4.8) 0.9 x10^3/uL (1.0-4.8) 0.5 x10^3/uL (1.0-4.8) Monocytes # (Auto) 0.6 x10^3/uL (0.0-1.1) 0.4 x10^3/uL (0.0-1.1) 0.4 x10^3/uL (0.0-1.1) Eosinophils # (Auto) 0.2 x10^3/uL (0.0-0.7) 0.3 x10^3/uL (0.0-0.7) 0.0 x10^3/uL (0.0-0.7) Basophils # (Auto) 0.1 x10^3/uL (0.0-0.2) 0.1 x10^3/uL (0.0-0.2) 0.0 x10^3/uL (0.0-0.2) Erythrocyte Sedimentation Rate 28 (0-15) Prothrombin Time 13.0 SEC (11.7-14.0) Prothromb Time International Ratio 1.0 (0.8-1.1) Activated Partial Thromboplast Time 30 SEC (24-38) Sodium Level 139 mmol/L (136-145) 139 mmol/L (136-145) 140 mmol/L (136-145) Potassium Level 3.9 mmol/L (3.5-5.1) 3.3 mmol/L (3.5-5.1) 4.0 mmol/L (3.5-5.1) Chloride Level 102 mmol/L (98-107) 102 mmol/L (98-107) 104 mmol/L (98-107) Carbon Dioxide Level 26 mmol/L (21-32) 27 mmol/L (21-32) 27 mmol/L (21-32) Anion Gap 11 (6-14) 10 (6-14) 9 (6-14) Blood Urea Nitrogen 13 mg/dL (8-26) 9 mg/dL (8-26) 9 mg/dL (8-26) Creatinine 1.3 mg/dL (0.7-1.3) 1.0 mg/dL (0.7-1.3) 1.1 mg/dL (0.7-1.3) Estimated GFR (Cockcroft-Gault) 73.3 99.2 88.8 BUN/Creatinine Ratio 10 (6-20) Glucose Level 140 mg/dL (70-99) 113 mg/dL (70-99) 165 mg/dL (70-99) Calcium Level 8.6 mg/dL (8.5-10.1) 8.3 mg/dL (8.5-10.1) 8.6 mg/dL (8.5-10.1) Magnesium Level 0.6 mg/dL (1.8-2.4) 1.2 mg/dL (1.8-2.4) Total Bilirubin 0.8 mg/dL (0.2-1.0) Aspartate Amino Transf (AST/SGOT) 87 U/L (15-37) Alanine Aminotransferase (ALT/SGPT) 53 U/L (16-63) Alkaline Phosphatase 167 U/L (46-116) Creatine Kinase 262 U/L (39-308) Creatine Kinase MB (Mass) 1.4 ng/mL (0.0-3.6) Creatine Kinase MB Relative Index 0.5 % (0-4) Troponin I Quantitative < 0.017 ng/mL (0.000-0.055) C-Reactive Protein, Quantitative 45.1 mg/L (0-3.3) Total Protein 8.6 g/dL (6.4-8.2) Albumin 3.9 g/dL (3.4-5.0) Albumin/Globulin Ratio 0.8 (1.0-1.7) Lipase 66 U/L (73-393) Urine Opiates Screen Pos (NEG) Urine Methadone Screen Neg (NEG) Urine Barbiturates Neg (NEG) Urine Phencyclidine Screen Neg (NEG) Urine Amphetamine/Methamphetamine Neg (NEG) Urine Benzodiazepines Screen Neg (NEG) Urine Cocaine Screen Pos (NEG) Urine Cannabinoids Screen Neg (NEG) Urine Ethyl Alcohol Neg (NEG) Segmented Neutrophils % 84 % (35-66) Lymphocytes % 8 % (24-48) Monocytes % 8 % (0-10) Platelet Estimate Decreased (ADEQUATE) Laboratory Tests Test 07/04/19 12:40 07/04/19 16:00 07/05/19 05:50 White Blood Count 7.3 x10^3/uL (4.0-11.0) 6.5 x10^3/uL (4.0-11.0) Red Blood Count 3.99 x10^6/uL (4.30-5.70) 3.76 x10^6/uL (4.30-5.70) Hemoglobin 13.2 g/dL (13.0-17.5) 12.5 g/dL (13.0-17.5) Hematocrit 38.6 % (39.0-53.0) 36.4 % (39.0-53.0) Mean Corpuscular Volume 97 fL (79-100) 97 fL (79-100) Mean Corpuscular Hemoglobin 33 pg (25-35) 33 pg (25-35) Mean Corpuscular Hemoglobin Concent 34 g/dL (31-37) 34 g/dL (31-37) Red Cell Distribution Width 15.6 % (11.5-14.5) 15.4 % (11.5-14.5) Platelet Count 141 x10^3/uL (140-400) 123 x10^3/uL (140-400) Neutrophils (%) (Auto) 78 % (31-73) 86 % (31-73) Lymphocytes (%) (Auto) 13 % (24-48) 8 % (24-48) Monocytes (%) (Auto) 5 % (0-9) 7 % (0-9) Eosinophils (%) (Auto) 4 % (0-3) 0 % (0-3) Basophils (%) (Auto) 1 % (0-3) 0 % (0-3) Neutrophils # (Auto) 5.7 x10^3/uL (1.8-7.7) 5.6 x10^3/uL (1.8-7.7) Lymphocytes # (Auto) 0.9 x10^3/uL (1.0-4.8) 0.5 x10^3/uL (1.0-4.8) Monocytes # (Auto) 0.4 x10^3/uL (0.0-1.1) 0.4 x10^3/uL (0.0-1.1) Eosinophils # (Auto) 0.3 x10^3/uL (0.0-0.7) 0.0 x10^3/uL (0.0-0.7) Basophils # (Auto) 0.1 x10^3/uL (0.0-0.2) 0.0 x10^3/uL (0.0-0.2) Sodium Level 139 mmol/L (136-145) 140 mmol/L (136-145) Potassium Level 3.3 mmol/L (3.5-5.1) 4.0 mmol/L (3.5-5.1) Chloride Level 102 mmol/L (98-107) 104 mmol/L (98-107) Carbon Dioxide Level 27 mmol/L (21-32) 27 mmol/L (21-32) Anion Gap 10 (6-14) 9 (6-14) Blood Urea Nitrogen 9 mg/dL (8-26) 9 mg/dL (8-26) Creatinine 1.0 mg/dL (0.7-1.3) 1.1 mg/dL (0.7-1.3) Estimated GFR (Cockcroft-Gault) 99.2 88.8 Glucose Level 113 mg/dL (70-99) 165 mg/dL (70-99) Calcium Level 8.3 mg/dL (8.5-10.1) 8.6 mg/dL (8.5-10.1) Magnesium Level 1.2 mg/dL (1.8-2.4) Urine Opiates Screen Pos (NEG) Urine Methadone Screen Neg (NEG) Urine Barbiturates Neg (NEG) Urine Phencyclidine Screen Neg (NEG) Urine Amphetamine/Methamphetamine Neg (NEG) Urine Benzodiazepines Screen Neg (NEG) Urine Cocaine Screen Pos (NEG) Urine Cannabinoids Screen Neg (NEG) Urine Ethyl Alcohol Neg (NEG) Segmented Neutrophils % 84 % (35-66) Lymphocytes % 8 % (24-48) Monocytes % 8 % (0-10) Platelet Estimate Decreased (ADEQUATE) Brief Hospital Course Mr. Renteria is a 44 old very pleasant male he was helping his sister move and he hurt his right shoulder during the process, had pain there, physiatry consult and may be injected, by mouth prednisone, pain meds, lidoderm patch, pain is much better Pt Eager to go home, no PT needs. Other comorbidities: asthma, COPD, hypertension etc. chronic stable Home today with no PT needs and pain meds on chart, patient seen and examined, DC time less than 30 minutes consults; physiatry Discharge Information Condition at Discharge: Improved, Stable Disposition/Orders: D/C to Home Scheduled Amlodipine Besylate (Amlodipine Besylate) 10 Mg Tablet, 10 MG PO DAILY, #30 (Reported) Entered as Reported by: Alexis Phillips on 12/10/15 2301 Last Action: Continued on 07/04/19811 by GABBIE MATTSON RN Atorvastatin Calcium (Atorvastatin Calcium) 40 Mg Tablet, 40 MG PO DAILY for FOR CHOLESTEROL, #30 Ref 0 (Reported) Entered as Reported by: JIE ERICKSON RN on 07/04/19 0044 Last Action: Continued on 07/04/19811 by GABBIE MATTSON RN Carvedilol (Coreg ) 12.5 Mg Tablet, 1 TAB PO BID, #60 Ref 1 Prescribed by: ALVINO PARSON on 06/19/18 1206 Last Action: Continued on 07/04/19811 by GABBIE MATTSON RN Celecoxib (Celebrex) 100 Mg Capsule, 1 CAP PO BID for msk pain, #30 Ref 3 Prescribed by: VIKY BRIONES on 07/05/19834 Fluoxetine Hcl (Fluoxetine Hcl) 40 Mg Capsule, 60 MG PO DAILY for depression, (Reported) Entered as Reported by: JIE ERICKSON RN on 07/04/1943 Last Action: Converted on 07/04/19811 by GABBIE MATTSON RN Hydroxyzine Hcl (Hydroxyzine Hcl) 10 Mg Tablet, 10 MG PO TID for anxiety, (Reported) Entered as Reported by: JIE ERICKSON RN on 07/04/19114 Last Action: Continued on 07/04/19811 by GABBIE MATTSON RN Mirtazapine (Mirtazapine) 45 Mg Tablet, 45 MG PO HS, #30 (Reported) Entered as Reported by: Alexis Phillips on 12/10/152300 Last Action: Converted on 07/04/19811 by GABBIE MATTSON RN Omeprazole (Omeprazole) 20 Mg Capsule.dr, 40 MG PO DAILY, #60 (Reported) Entered as Reported by: Alexis Phillips on 12/10/152300 Last Action: Converted on 07/04/19811 by GABBIE MATTSON RN Orphenadrine Citrate (Orphenadrine Citrate) 100 Mg Tablet.er, 100 MG PO Q12HR, #14 Prescribed by: BROOKE JENSEN D.O. on 09/04/182055 Last Action: Converted on 07/04/19811 by GABBIE MATTSON RN Scheduled PRN Albuterol Sulfate (Proair Hfa) 8.5 Gm Hfa.aer.ad, 1 PUFF INH PRN Q6HRS PRN for SHORTNESS OF BREATH, (Reported) Entered as Reported by: JIE ERICKSON RN on 07/04/1943 Last Action: Continued on 07/04/19811 by GABBIE MATTSON RN Aspirin (Aspirin) 81 Mg Tab.chew, 81 MG PO DAILY PRN for CHEST PAIN, (Reported) Entered as Reported by: JIE ERICKSON RN on 07/04/1922 Last Action: Continued on 07/04/19811 by GABBIE MATTSON RN Cetirizine Hcl (Cetirizine Hcl) 10 Mg Tab.chew, 10 MG PO DAILY PRN for ALLERGIES, (Reported) Entered as Reported by: JIE ERICKSON RN on 07/04/1943 Last Action: Converted on 07/04/19811 by GABBIE MATTSON RN Clonazepam (Clonazepam) 1 Mg Tablet, 1 TAB PO PRN DAILY PRN for ANXIETY / AGITATION, #30 Prescribed by: ALVINO PARSON on 06/19/18 1203 Last Action: Converted on 07/04/19811 by GABBIE MATTSON RN Colchicine (Colcrys) 0.6 Mg Tablet, 1 TAB PO DAILY PRN for PAIN, #15 Prescribed by: ALVINO PARSON on 06/19/18 1210 Last Action: Continued on 07/04/19811 by GABBIE MATTSON RN Oxycodone/Apap 10-325 (Percocet 10-325 Mg Tablet ) 1 Each Tablet, 1 TAB PO PRN Q6HRS PRN for PAIN, #20 Prescribed by: VIKY BRIONES on 07/05/19 08 Discontinued Medications Clonazepam (Clonazepam) 1 Mg Tablet, 1 MG PO DAILY for anxiety , (Reported) Entered as Reported by: SARINA HELLER RN on 04/04/19826 Hydroxyzine Hcl (Hydroxyzine Hcl) 10 Mg/5 Ml Syrup, 10 MG PO DAILY for anxiety, (Reported) Discontinued Reason: Prescription changed Entered as Reported by: JIE ERICKSON RN on 07/04/1943 Last Action: New Order on 07/04/1943 by JIE ERICKSON RN Ibuprofen (Ibuprofen) 600 Mg Tablet, 600 MG PO PRN Q6HRS PRN for PAIN, #20 take with food or milk Prescribed by: MARCIANO JORDAN MD on 03/30/192013 Last Action: Converted on 07/04/19811 by KENIA MICHAEL CHERRIE Y MD Jul 05, 2019 12:14
--- NOTE | 2019-07-06 13:53 | CARD ---
MR#: [id number] Date of Study: 07/04/2019 Ordering Physician: DAVID SHEPARD, Referring Physician: DAVID SHEPARD Tech: Eneida Licea RDCS APPROVED REPORT EXAM: Two-dimensional and M-mode echocardiogram with Doppler and color Doppler. Other Information Quality : Good INDICATION Abnormal ECG Cocaine Use 2D DIMENSIONS RVDd3.0 (2.9-3.5cm)Left Atrium(2D)4.1 (1.6-4.0cm) IVSd1.1 (0.7-1.1cm)Aortic Root(2D)3.2 (2.0-3.7cm) LVDd5.2 (3.9-5.9cm)LVOT Diameter2.1 (1.8-2.4cm) PWd1.1 (0.7-1.1cm)LVDs3.1 (2.5-4.0cm) FS (%) 39.3 %SV88.6 ml LVEF(%)60.0 (>50%) Aortic Valve AoV Peak Santana.158.3cm/sAoV VTI29.7cm AO Peak GR.10.0mmHgLVOT Peak Santana.131.5cm/s LVOT VTI 24.25cmAO Mean GR.5mmHg MITCH (VMAX)2.44rj5YWQ (VTI)2.78cm2 Mitral Valve MV E Rswmzfkx24.0cm/sMV DECEL BXUY134pm MV A Qcpffecs68.8cm/sMV SXZ21aw E/A Ratio1.3MVA (PHT)3.92cm2 TDI E/Lateral E'5.3E/Medial E'12.7 Tricuspid Valve TR P. Ongxkqux962aa/sRAP TCTHUPGH0ihDm TR Peak Gr.41dsCbWCST56iaGq Pulmonary Vein S1 Sdfxqvrp05.8cm/sD2 Jnocteqr02.5cm/s LEFT VENTRICLE The left ventricle is normal size. There is normal left ventricular wall thickness. The left ventricu lar systolic function is normal and the ejection fraction is within normal range. The Ejection Fracti on is 55-60%. There is normal LV segmental wall motion. The left ventricular diastolic function and f illing is normal for age. RIGHT VENTRICLE The right ventricle is normal size. The right ventricular systolic function is normal. ATRIA The left atrium size is normal. The right atrium size is normal. The interatrial septum is intact wit h no evidence for an atrial septal defect or patent foramen ovale as noted on 2-D or Doppler imaging. AORTIC VALVE The aortic valve is normal in structure and function. Doppler and Color Flow revealed no significant aortic regurgitation. There is no significant aortic valvular stenosis. MITRAL VALVE The mitral valve is normal in structure and function. There is no evidence of mitral valve prolapse. There is no mitral valve stenosis. Doppler and Color-flow revealed trace mitral regurgitation. TRICUSPID VALVE The tricuspid valve is normal in structure and function. Doppler and Color Flow revealed mild tricusp id regurgitation. The PA pressure was estimated at 31 mmHg. There is no tricuspid valve stenosis. PULMONIC VALVE The pulmonic valve is not well visualized. Doppler and Color Flow revealed no pulmonic valvular regur gitation. There is no pulmonic valvular stenosis. GREAT VESSELS The aortic root is normal in size. The ascending aorta is normal in size. The IVC is normal in size a nd collapses >50% with inspiration. PERICARDIAL EFFUSION There is no evidence of significant pericardial effusion. Critical Notification Critical Value: No <Conclusion> The left ventricular systolic function is normal and the ejection fraction is within normal range. Th e Ejection Fraction is 55-60%. There is normal LV segmental wall motion. Signed by : Maryt Childers, Electronically Approved : 07/04/2019 16:18:45
--- NOTE | 2019-07-06 15:17 | HP ---
ADMIT DATE: 07/03/2019 CHIEF COMPLAINT: Right shoulder pain. HISTORY OF PRESENT ILLNESS: The patient is a pleasant 44-year-old male who presents with right shoulder pain, rates it a 7/10. He has decreased range of motion of the right shoulder. He states he took dcss-gbc-znwsplz meds, but that did not work. I discussed the case with ER physician. We are going to admit the patient to medical monitored bed. PAST MEDICAL HISTORY: Anxiety, depression, GERD, hypertension, pneumonia, sarcoidosis, hernia repair, partial colectomy, bilateral knee surgery, foot surgery. ALLERGIES: None. FAMILY HISTORY: Hypertension. SOCIAL HISTORY: Does not drink, smoke or take drugs. MEDICATIONS: Reviewed, please refer to the MRAD. REVIEW OF SYSTEMS: GENERAL: No history of weight change, weakness or fevers. SKIN: No bruising, hair changes or rashes. EYES: No blurred, double or loss of vision. NOSE AND THROAT: No history of nosebleeds, hoarseness or sore throat. HEART: No history of palpitations, chest pain or shortness of breath on exertion. LUNGS: Denies cough, hemoptysis, wheezing or shortness of breath. GASTROINTESTINAL: Denies changes in appetite, nausea, vomiting, diarrhea or constipation. GENITOURINARY: No history of frequency, urgency, hesitancy or nocturia. NEUROLOGIC: Denies history of numbness, tingling, tremor or weakness. PSYCHIATRIC: No history of panic, anxiety or depression. ENDOCRINE: No history of heat or cold intolerance, polyuria or polydipsia. EXTREMITIES: He complains of right shoulder pain. PHYSICAL EXAMINATION: VITALS: Within normal limits and are stable. GENERAL: No apparent distress. Alert and oriented. HEENT: Head is normocephalic, atraumatic, pupils were equally round and reactive to light and accommodation. NECK: Supple, no JVD, no thyromegaly was noted. LUNGS: Clear to auscultation in all lung rivera without rhonchi or wheezing. HEART: RRR, S1, S2 present. Peripheral pulses intact, no obvious murmurs were noted. ABDOMEN: Soft, nontender. Positive bowel sounds no organomegaly, normal bowel sounds. EXTREMITIES: The right shoulder has decreased range of motion. NEUROLOGIC: Normal speech, normal tone. A & O x 3, moves all extremities, no obvious focal deficits. PSYCHIATRIC: Normal affect, normal mood. Stable. SKIN: No ulcerations or rashes, good skin turgor, no jaundice. VASCULAR: Good capillary refill, neurovascular bundle appears to be intact. LABORATORY DATA: White count is 9. Troponin is 0. ASSESSMENT AND PLAN: Right shoulder pain. The patient has been admitted. We will consult Orthopedics. Home meds, deep venous thrombosis prophylaxis. Full code. Consult Cardiology. Consult Dr. Delgado. Take the consult for Orthopedics off. LUIZ LEA DO DR: BG/sachin JOB#: [id number] / [id number]
== END 2019-07-05 12:45 | disposition home or self-care (01) | DRG 558 ==
LOC: ER 17:03 → 2 NORTH 19:08 → 4 NORTH 07-04 15:40
PROVIDERS: ADMIT Internal Medicine; ATTEND Internal Medicine
PROC: 3E0U33Z Introduction of Anti-inflammatory into Joints, Percutaneous Approach (ICD-10-PCS; principal; 2019-07-04)
PROC: 3E0U3BZ Introduction of Anesthetic Agent into Joints, Percutaneous Approach (ICD-10-PCS; 2019-07-04)
DX: M77.9 Enthesopathy, unspecified (principal); F14.20 Cocaine dependence, uncomplicated; I42.9 Cardiomyopathy, unspecified; E78.5 Hyperlipidemia, unspecified; F41.9 Anxiety disorder, unspecified; F32.9 Major depressive disorder, single episode, unspecified; F17.210 Nicotine dependence, cigarettes, uncomplicated; K21.9 Gastro-esophageal reflux disease without esophagitis; E83.42 Hypomagnesemia; J44.9 Chronic obstructive pulmonary disease, unspecified; D86.9 Sarcoidosis, unspecified; K76.0 Fatty (change of) liver, not elsewhere classified; M19.90 Unspecified osteoarthritis, unspecified site; Z96.653 Presence of artificial knee joint, bilateral; I10 Essential (primary) hypertension; F42.9 Obsessive-compulsive disorder, unspecified; M10.9 Gout, unspecified; F10.10 Alcohol abuse, uncomplicated; M47.812 Spondylosis without myelopathy or radiculopathy, cervical region; Z82.49 Family history of ischemic heart disease and other diseases of the circulatory system; Z99.81 Dependence on supplemental oxygen; Z87.442 Personal history of urinary calculi; Z79.899 Other long term (current) drug therapy; Z79.82 Long term (current) use of aspirin
CPT/HCPCS: 36415; 71046; 72050; 73030; 80048; 80053; 80307; 82553; 83690; 83735; 84484; 85007; 85025; 85610; 85651; 85730; 86140; 93005; 93306; 96361; 96365; 96375; J1030; J1200; J1885; J2060; J2270; J2360; J2405; J3475; J3490; J7030; J7512; 99285-25; G0378

== ENCOUNTER 2019-11-06 16:50 | Emergency (ER) | payer MEDICAID ==
[~2019-11-06] VITALS: Ht 188 cm; Wt 95.4 kg
[~2019-11-06 16:50] MED LIST changes: +ALBU2.5V8 INH; +ASPI-630 PO; +ATOR40TA59 PO; +CELE100C PO; +CETI10TA30 PO; +FLUO40CA2 PO; +HYDR10SY16 PO; +HYDR10TA2 PO; -OMEP20CA10 PO; +OMEP20CA16 PO; +OMEP40CA45 PO; -OMEP40CA5 PO; +OXYC1TAB22 PO
[2019-11-06 17:25] VITALS: BP 140/88
[2019-11-06] MEDS ORDERED: KETOROLAC 60 MG/2 ML VIAL. IM ONE (17:45)
[2019-11-06] MEDS ORDERED: DEXAMETHASONE SOD PHOS 20 MG/5 ML VIAL. PO ONE (17:45)
[2019-11-06] MEDS ORDERED: HYDROcodone/APAP 5/325MG 1 TAB TABLET PO ONE (17:45)
[2019-11-06] MEDS ORDERED: NAPR-514 PO (18:06)
[2019-11-06] MEDS ORDERED: PRED50TA PO (18:06)
--- NOTE | 2019-11-06 18:07 | PHYS DOC ---
Past Medical History Past Medical History: Anxiety, Arthritis, Depression, GERD, Hypertension, Pneumonia, Other Additional Past Medical Histor: SARCOIDOSIS Past Surgical History: Other Additional Past Surgical Histo: HERNIA REPAIR, partial colectomy W/ resection, BILAT KNEE SX, L FOOT Alcohol Use: Occasionally Drug Use: None Adult General Chief Complaint Chief Complaint: [facility] HPI Patient is a 44 year old AA male, accompanied by his father, who presents to the emergency department with complaints of left shoulder and left knee pain since awakening yesterday. Patient states he feels that the pain was brought on by the cold weather. He denies any redness, swelling, warmth, or injury to either joint. He states he has tried taking naproxen and Flexeril at home with no relief of his symptoms. Patient denies any recent fall or known injuries. He currently rates pain a 10 out of 10 on pain scale, she denies any alleviating factors. All other ROS is neg unless otherwise noted in HPI. Review of Systems Review of Systems See Above Current Medications Current Medications Current Medications Medications (Trade) Dose Ordered Sig/Donavon Start Time Stop Time Status Last Admin Dose Admin Acetaminophen/ Hydrocodone Bitart (Lortab 5/325) 1 tab 1X ONCE 11/06/19 17:45 11/06/19 17:47 DC Dexamethasone Sodium Phosphate (Decadron) 10 mg 1X ONCE 11/06/19 17:45 11/06/19 17:47 DC Ketorolac Tromethamine (Toradol Im) 60 mg 1X ONCE 11/06/19 17:45 11/06/19 17:47 DC Allergies Allergies Allergies Coded Allergies Type Severity Reaction Last Updated Verified No Known Drug Allergies 01/20/15 No Physical Exam Physical Exam See Above Constitutional: Well developed, well nourished, no acute distress, non-toxic appearance. [] HENT: Normocephalic, atraumatic, bilateral external ears normal, nose normal. [] Eyes: PERRLA, EOMI, conjunctiva normal, no discharge. [] Neck: Normal range of motion, no stridor. [] Cardiovascular:Heart rate regular rhythm Lungs & Thorax: Respirations even and unlabored, no retractions, no respiratory distress Skin: Warm, dry, no erythema, no rash. [] Extremities: Left knee: No crepitus, no bony tenderness, no cyanosis, no erythema, no warmth, 1+ edema, full range of motion, 2+ radial pulse; left shoulder: No crepitus, diffuse tenderness to palpation, no erythema, limited range of motion due to pain, no clubbing, no deformity, no edema. [] Neurologic: Alert and oriented X 3, no focal deficits noted. [] Psychologic: Affect normal, judgement normal, mood normal. [] Current Patient Data Vital Signs Vital Signs Date Time Temp Pulse Resp B/P (MAP) Pulse Ox O2 Delivery O2 Flow Rate FiO2 11/06/19 17:25 97.5 102 20 140/88 (105) 96 Room Air 97.5 EKG EKG [] Radiology/Procedures Radiology/Procedures [] Course & Med Decision Making Course & Med Decision Making Pertinent Labs and Imaging studies reviewed. (See chart for details) [] Dragon Disclaimer Dragon Disclaimer This electronic medical record was generated, in whole or in part, using a voice recognition dictation system. Departure Departure Impression: Primary Impression: Arthritic-like pain Additional Impressions: Left anterior shoulder pain Left anterior knee pain Disposition: HOME, SELF-CARE Condition: STABLE Referrals: NO PCP (PCP) Patient Instructions: Arthritis, Nonspecific, Ajii-[id number]-[id number] Additional Instructions: Fill the prescription(s) and use as directed. Apply heat or ice for to sore areas as needed for comfort. Activity as tolerated. Follow up with your primary care doctor this week if symptoms persist, return to the ER if symptoms worsen. Scripts Prednisone (PREDNISONE) 50 Mg Tablet 1 TAB PO DAILY for 5 Days, #5 TAB 0 Refills Prov: ROMMEL NI APRN 11/06/19 Naproxen (NAPROXEN) 500 Mg Tablet 1 TAB PO BID PRN for PAIN for 10 Days, #20 TAB 0 Refills Prov: ROMMEL NI APRN 11/06/19 Problem Qualifiers Primary Impression: Arthritic-like pain Joint pain location: unspecified Qualified Codes: M25.50 - Pain in unspecified joint ROMMEL NI APRN Nov 06, 2019 18:07
== END 2019-11-06 18:22 | disposition home or self-care (01) ==
LOC: ER 16:50
DX: M25.512 Pain in left shoulder (principal); M25.562 Pain in left knee; K21.9 Gastro-esophageal reflux disease without esophagitis; I10 Essential (primary) hypertension; Z90.49 Acquired absence of other specified parts of digestive tract; Z98.890 Other specified postprocedural states
CPT/HCPCS: 96372; 99283; J1100; J1885

== ENCOUNTER 2020-01-01 21:28 | Emergency (ER) | payer MEDICAID ==
[~2020-01-01] VITALS: Ht 188 cm; Wt 98.1 kg
[~2020-01-01 21:28] MED LIST changes: +DICL100G18 TP; +IPRA3AMP29 NEB; +LACT1CAP19 PO; +LIDO700A21 TD; +NAPR-514 PO; +POTA20TA4 PO; +PRED20TA PO; +PRED50TA PO
--- NOTE | 2020-01-01 21:40 | PHYS DOC ---
Past Medical History Past Medical History: Anxiety, Arthritis, Depression, GERD, Hypertension, Pneumonia, Other Additional Past Medical Histor: SARCOIDOSIS Past Surgical History: Other Additional Past Surgical Histo: HERNIA REPAIR, partial colectomy W/ resection, BILAT KNEE SX, L FOOT Smoking Status: Former Smoker Alcohol Use: Occasionally Drug Use: None Adult General Chief Complaint Chief Complaint: SHORTNESS OF BREATH [facility] HPI Patient is a 44 year old male who presents with complaint of shortness of breath this evening. 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 He also states that he accidentally hit his right lower leg against a bench and now he has pain that is a 9 out of 10. He states that he was still able to bear weight after the injury. He denies any fever. He denies any cough or chest pain. He denies any vomiting or diarrhea .[] Review of Systems Review of Systems Constitutional: Denies fever or chills [] Respiratory: Denies cough. Complains of shortness of breath [] Cardiovascular: No additional information not addressed in HPI [] GI: Denies abdominal pain, nausea, vomiting or diarrhea [] Musculoskeletal: Complains of right lower leg pain [] Integument: Denies rash or skin lesions [] Neurologic: Denies headache, focal weakness or sensory changes [] Allergies Allergies Allergies Coded Allergies Type Severity Reaction Last Updated Verified No Known Drug Allergies 11/29/19 No Physical Exam Physical Exam Constitutional: Well developed, well nourished, no acute distress, non-toxic appearance. [] HENT: Normocephalic, atraumatic, bilateral external ears normal, oropharynx moist, no oral exudates, nose normal. [] Cardiovascular:Heart rate regular rhythm, no murmur [] Lungs & Thorax: Bilateral breath sounds clear to auscultation [] Abdomen: Bowel sounds normal, soft, no tenderness. [] Skin: Warm, dry, no erythema, no rash. [] Extremities: Right lower leg demonstrates mild soft tissue swelling laterally approximately 3 inches above the lateral malleolus with tenderness to palpation. [] Neurologic: Alert and oriented X 3, no focal deficits noted. [] Current Patient Data Vital Signs Vital Signs Date Time Temp Pulse Resp B/P (MAP) Pulse Ox O2 Delivery O2 Flow Rate FiO2 01/01/20 21:30 98.1 97 18 138/85 (102) 95 Room Air 98.1 EKG EKG [] Radiology/Procedures Radiology/Procedures [] Impressions: PROCEDURE: PORTABLE CHEST 1V Study: PORTABLE CHEST 1V Indication: Cough. Comparison: 11/25/2019 Findings: Improved appearance of the chest from 11/25/2019 with mostly resolved left more so than right patchy infiltrates. No localized consolidation on this study. There are some faint reticular densities such as at the left suprahilar region and right infrahilar region. No layering effusion or pneumothorax. The cardiomediastinal silhouette is again at the upper limits of normal for size. Impression: Improved appearance of the chest from 11/25/2019. Patchy opacities on the comparison have essentially resolved with only mild persistence of reticular densities involving the left lung slightly more so than the right. Electronically signed by: MARCO ANTONIO SOTO MD (01/01/2020 10:31 PM) [id number] Course & Med Decision Making Course & Med Decision Making Pertinent Labs and Imaging studies reviewed. (See chart for details) [] Dragon Disclaimer Dragon Disclaimer This electronic medical record was generated, in whole or in part, using a voice recognition dictation system. Departure Departure Impression: Primary Impression: Shortness of breath Additional Impression: Contusion of right lower leg Disposition: HOME, SELF-CARE Condition: STABLE Referrals: NO PCP (PCP) Patient Instructions: Contusion, Shortness of Breath Scripts Diclofenac Sodium (DICLOFENAC SODIUM) 50 Mg Tablet. 1 TAB PO BID PRN for PAIN, #20 TAB Prov: JALEESA CAREY Jr. DO 01/01/20 Problem Qualifiers Additional Impression: Contusion of right lower leg Encounter type: initial encounter Qualified Codes: S80.11XA - Contusion of right lower leg, initial encounter JALEESA CAREY Jr. DO Jan 01, 2020 21:40
--- NOTE | 2020-01-01 22:27 | RAD ---
Exam: Right tib-fib 2 views INDICATION: Trauma TECHNIQUE: Frontal and lateral views of the right tibia and fibula. Comparisons: None FINDINGS: Bone mineralization is normal. No acute or healed fractures. Soft tissues are unremarkable. Joint spaces are well-maintained. IMPRESSION: No acute osseous abnormality. Electronically signed by: Elisa Noonan MD (01/01/2020 10:24 PM) [id number]
--- NOTE | 2020-01-01 22:34 | RAD ---
Study: PORTABLE CHEST 1V Indication: Cough. Comparison: 11/25/2019 Findings: Improved appearance of the chest from 11/25/2019 with mostly resolved left more so than right patchy infiltrates. No localized consolidation on this study. There are some faint reticular densities such as at the left suprahilar region and right infrahilar region. No layering effusion or pneumothorax. The cardiomediastinal silhouette is again at the upper limits of normal for size. Impression: Improved appearance of the chest from 11/25/2019. Patchy opacities on the comparison have essentially resolved with only mild persistence of reticular densities involving the left lung slightly more so than the right. Electronically signed by: MARCO ANTONIO SOTO MD (01/01/2020 10:31 PM) [id number]
[2020-01-01] MEDS ORDERED: DICL50TA4 PO (22:42)
[2020-01-01 22:54] VITALS: BP 114/81
== END 2020-01-01 23:00 | disposition home or self-care (01) ==
LOC: ER 21:28
DX: S80.11XA Contusion of right lower leg, initial encounter (principal); R06.02 Shortness of breath; K21.9 Gastro-esophageal reflux disease without esophagitis; I10 Essential (primary) hypertension; Z87.891 Personal history of nicotine dependence; Z98.890 Other specified postprocedural states; W22.8XXA Striking against or struck by other objects, initial encounter; Y93.01 Activity, walking, marching and hiking; Y92.89 Other specified places as the place of occurrence of the external cause; Y99.8 Other external cause status
CPT/HCPCS: 71045; 73590; 99284

== ENCOUNTER 2020-06-15 18:53 | Emergency (ER) | payer MEDICAID ==
[~2020-06-15] VITALS: Ht 188 cm; Wt 90.0 kg
[~2020-06-15 18:53] MED LIST changes: -DICL100G18 TP; +DICL100G54 TP; +DICL50TA4 PO
--- NOTE | 2020-06-15 20:16 | RAD ---
CT LUMBAR SPINE WO CONTRAST dated 06/15/2020 7:51 PM Indication:Reason: fall back pain weakness / Spl. Instructions: / History: Comparison: No comparison is available. Technique: Helical noncontrast images were performed. Sagittal and coronal reconstructions were obtained. One or more of the following individualized dose reduction techniques were utilized for this examination: 1. Automated exposure control 2. Adjustment of the mA and/or kV according to patient size 3. Use of iterative reconstruction technique Findings: Alignment is normal. There is no loss of vertebral body height or other evidence for fracture. No destructive process is seen. Intervertebral discs are not narrowed. Evaluation of the soft tissue components of the canal is limited without intrathecal contrast. There is no obvious large disc protrusion or significant spinal stenosis. Incidental note is made of some increased density in the retroperitoneum anterior to the left kidney, probably near the pancreas. This area is incompletely demonstrated. IMPRESSION: No acute abnormality in the lumbar spine. There may be some retroperitoneal edema or other abnormality in the left upper abdomen, incompletely demonstrated. Electronically signed by: Valeriano Byrd Jr., MD (06/15/2020 8:13 PM) [facility]
--- NOTE | 2020-06-15 20:30 | PHYS DOC ---
Past Medical History Past Medical History: Anxiety, Arthritis, Depression, GERD, Hypertension, Pneumonia, Other Additional Past Medical Histor: SARCOIDOSIS Past Surgical History: Other Additional Past Surgical Histo: HERNIA REPAIR, partial colectomy W/ resection, BILAT KNEE SX, L FOOT Smoking Status: Former Smoker Alcohol Use: Occasionally Drug Use: None General Adult EDM: Chief Complaint: MECHANICAL FALL HPI: HPI: 44-year-old male past medical history sarcoidosis social anxiety and depression presents for a one-week history of generalized weakness. Patient states weakness is primarily in his legs. Patient states over the last 7 days he is fallen multiple times. After the fall patient is having difficulty getting himself up off the ground. Prior to arrival EMS was called for lift assist. Patient complains of midline lumbar back pain from fall earlier in the week. Patient also complains of bilateral knee and ankle pain. Patient complains of bilateral lower extremity weakness his right leg is weaker than his left. Patient states he is having difficulty ambulating. Patient denies any loss of bowel or bladder or saddle anesthesia. Review of Systems: Review of Systems: Constitutional: Denies fever or chills. [] Eyes: Denies change in visual acuity. [] HENT: Denies nasal congestion or sore throat. [] Respiratory: Denies cough or shortness of breath. [] Cardiovascular: Denies chest pain or edema. [] GI: Denies abdominal pain, nausea, vomiting, bloody stools or diarrhea. [] : Denies dysuria. [] Musculoskeletal: Positive back pain positive leg pain Integument: Denies rash. [] Neurologic: Denies headache, or sensory changes. [Positive weakness] Endocrine: Denies polyuria or polydipsia. [] Lymphatic: Denies swollen glands. [] Psychiatric: Denies depression or anxiety. [] Heart Score: Risk Factors: Risk Factors: DM, Current or recent (<one month) smoker, HTN, HLP, family history of CAD, obesity. Risk Scores: Score 0 - 3: 2.5% MACE over next 6 weeks - Discharge Home Score 4 - 6: 20.3% MACE over next 6 weeks - Admit for Clinical Observation Score 7 - 10: 72.7% MACE over next 6 weeks - Early Invasive Strategies Allergies: Allergies: Allergies Coded Allergies Type Severity Reaction Last Updated Verified No Known Drug Allergies 11/29/19 No Physical Exam: PE: Constitutional: Well developed, well nourished, no acute distress, non-toxic appearance. [] HENT: Normocephalic, atraumatic, bilateral external ears normal, oropharynx moist, no oral exudates, nose normal. [] Eyes: PERRLA, EOMI, conjunctiva normal, no discharge. [] Neck: Normal range of motion, no tenderness, supple, no stridor. [] Cardiovascular:Heart rate regular rhythm, no murmur [] Lungs & Thorax: Bilateral breath sounds clear to auscultation [] Abdomen: Bowel sounds normal, soft, no tenderness, no masses, no pulsatile ma sses. [] Skin: Warm, dry, no erythema, no rash. [] Back: No tenderness, no CVA tenderness. [] Extremities: No tenderness, no cyanosis, no clubbing, ROM intact, no edema. [] Neurologic: Alert and oriented X 3, normal motor function, normal sensory function, no focal deficits noted. [] Psychologic: Affect normal, judgement normal, mood normal. [] Current Patient Data: Vital Signs: Vital Signs Date Time Temp Pulse Resp B/P (MAP) Pulse Ox O2 Delivery O2 Flow Rate FiO2 06/15/20 19:09 98.7 91 18 117/71 (86) 98 Room Air 98.7 EKG: EKG: [] Radiology/Procedures: Radiology/Procedures: [] Course & Med Decision Making: Course & Med Decision Making Pertinent Labs and Imaging studies reviewed. (See chart for details) []Patient radiologic imaging negative. Labs K < 3.0 Treated with PO and IV potassium. Patient ambulated with steady gait. Patient discharged home on potassium and norco. Janeson Disclaimer: Rodrick Disclaimer: This electronic medical record was generated, in whole or in part, using a voice recognition dictation system. Departure Departure Impression: Primary Impression: Frequent falls Additional Impressions: Back pain Bilateral leg pain Weakness Hypokalemia Disposition: 01 HOME, SELF-CARE Condition: STABLE Referrals: UNKNOWN PCP NAME (PCP) Patient Instructions: Back Pain, Adult, Fall Prevention and Home Safety, Hypokalemia Scripts Hydrocodone/Apap 5-325 (NORCO 5-325 TABLET) 1 Each Tablet 1 TAB PO PRN Q6HRS PRN for PAIN, #14 TAB 0 Refills Prov: CLARITZA GILES I DO 06/16/20 Potassium Chloride (POTASSIUM CHLORIDE ) 20 Meq Tablet.er 20 MEQ PO DAILY for SUPPLEMENT for 14 Days, #14 TAB.SR Prov: CLARITZA GILES I DO 06/16/20 Justicifation of Admission Dx: Justifications for Admission: Justification of Admission Dx: N/A CLARITZA GILES I DO Jun 15, 2020 20:30
--- NOTE | 2020-06-15 20:52 | RAD ---
Bilateral ankle study 3 views each 06/15/2020. Reason for exam: Patient fell. Comparison is made with a study of 06/19/2018. Right ankle: No fracture or dislocation is seen. Joint spaces appear fairly well maintained. Left ankle: No fracture or dislocation is seen. Joint spaces appear fairly well maintained. Postoperative findings are evident at the first toe. IMPRESSION: No acute abnormality in either ankle. Bilateral knee study 3 views each: Views of both knees show mild osteoarthritis. No fracture or dislocation is seen. IMPRESSION: Mild arthritic changes. No acute abnormality. Electronically signed by: Valeriano Byrd Jr., MD (06/15/2020 8:49 PM) [id number]
[2020-06-15 21:13] LABS: BASO # 0.1 x10^3/uL (0.0-0.2); BASO % 1 % (0-3); EOS # 0.3 x10^3/uL (0.0-0.7); EOS % 2 % (0-3); HEMATOCRIT 31.3 % (39.0-53.0); HEMOGLOBIN 10.2 g/dL (13.0-17.5); LYMPH # 1.4 x10^3/uL (1.0-4.8); LYMPH % 12 % (24-48); MEAN CORPUSCULAR HEMOGLOBIN 32 pg (25-35); MEAN CORPUSCULAR HGB CONC 33 g/dL (31-37); MEAN CORPUSCULAR VOLUME 97 fL (79-100); MONO % 8 % (0-9); NEUT # 9.8 x10^3/uL (1.8-7.7); NEUT % 78 % (31-73); PLATELET COUNT 183 x10^3/uL (140-400); RED BLOOD COUNT 3.23 x10^6/uL (4.30-5.70); RED CELL DISTRIBUTION WIDTH 16.2 % (11.5-14.5); WHITE BLOOD COUNT 12.6 x10^3/uL (4.0-11.0)
[2020-06-15 21:29] LABS: ALBUMIN 2.6 g/dL (3.4-5.0); ALBUMIN/GLOBULIN RATIO 0.5 (1.0-1.7); CALCIUM 7.4 mg/dL (8.5-10.1); CREATININE 1.2 mg/dL (0.7-1.3); GFR 80.3; TOTAL BILIRUBIN 0.6 mg/dL (0.2-1.0); TOTAL PROTEIN 7.6 g/dL (6.4-8.2)
[2020-06-15] MEDS ORDERED: MORPHINE SULFATE 4 MG/ML VIAL. IV ONE (21:30)
[2020-06-15 21:38] LABS: POTASSIUM 2.8 mmol/L (3.5-5.1)
[2020-06-15] MEDS ORDERED: POTASSIUM CHLORIDE 20 MEQ TABLET.ER. PO ONE (21:45)
[2020-06-15] MEDS: POTASSIUM CHLORIDE 10MEQ 100 ML IV SCH ×2 (21:50→23:11)
[2020-06-16] MEDS ORDERED: HYDROcodone/APAP 5/325MG 1 TAB TABLET PO ONE (00:45)
[2020-06-16 01:30] VITALS: BP 99/61
[2020-06-16] MEDS ORDERED: HYDR-3164 PO (02:11)
[2020-06-16] MEDS ORDERED: POTA20TA4 PO (02:11)
[2020-06-16] MEDS ORDERED: MAGN400C PO (02:16)
[2020-06-16] MEDS ORDERED: MAGNESIUM OXIDE 400 MG TABLET ONE (02:19)
[2020-06-16] MEDS ORDERED: MAGNESIUM OXIDE 400 MG TABLET PO SCH (09:00)
--- NOTE | 2020-06-17 15:39 | EKG ---
[facility] [address] [place] [address] Test Date: 2020-06-15 Test Time: 19:05:34 Pat Name: DAVE PEARCE Department: Room: Gender: M [employer]: : 1975 Requested By: CLARITZA GILES Order Number: [id number] Reading MD: Measurements Intervals [place] Rate: 91 P: 41 WV: 158 QRS: -38 QRSD: 108 T: 11 QT: 380 QTc: 469 Interpretive Statements SINUS RHYTHM ABNORMAL LEFT AXIS DEVIATION LEFT ANTERIOR FASCICULAR BLOCK ABNORMAL ECG RI6.02 No previous ECG available for comparison
== END 2020-06-16 02:43 | disposition home or self-care (01) ==
LOC: ER 18:53
DX: M54.5 Low back pain (principal); G89.11 Acute pain due to trauma; M79.605 Pain in left leg; M79.604 Pain in right leg; R53.1 Weakness; E87.6 Hypokalemia; M25.561 Pain in right knee; M25.562 Pain in left knee; M25.572 Pain in left ankle and joints of left foot; M25.571 Pain in right ankle and joints of right foot; K21.9 Gastro-esophageal reflux disease without esophagitis; I10 Essential (primary) hypertension; Z87.891 Personal history of nicotine dependence; W18.39XA Other fall on same level, initial encounter; Y93.89 Activity, other specified; Y92.89 Other specified places as the place of occurrence of the external cause; Y99.8 Other external cause status
CPT/HCPCS: 36415; 72131; 73562; 73610; 80053; 83735; 84484; 85025; 93005; 96365; 96375; 99285; J2270; J3480; 96366

== ENCOUNTER 2020-06-28 13:29 | Emergency (ER) | payer MEDICAID ==
[~2020-06-28] VITALS: Ht 188 cm; Wt 94.0 kg
[~2020-06-28 13:29] MED LIST changes: +MAGN400C PO
[2020-06-28 13:48] VITALS: BP 126/76
--- NOTE | 2020-06-28 14:38 | RAD ---
Three-view right rib detail series and PA view chest x-ray Clinical indications: Right axillary rib pain after a fall 3 days ago. FINDINGS: No acute fracture is evident. Chest x-ray demonstrates no acute lung infiltrate or pleural effusion or pulmonary edema or pneumothorax. The heart size and pulmonary vasculature and mediastinum and both sandra are unremarkable otherwise. IMPRESSION: No acute right rib fracture. Electronically signed by: Rodríguez Solorio MD (06/28/2020 2:35 PM) [id number]
[2020-06-28] MEDS ORDERED: ONDA-84 PO (14:52)
--- NOTE | 2020-06-28 14:52 | PHYS DOC ---
Past Medical History Past Medical History: Anxiety, Arthritis, Depression, GERD, Hypertension, Pneumonia, Other Additional Past Medical Histor: SARCOIDOSIS Past Surgical History: Other Additional Past Surgical Histo: HERNIA REPAIR, partial colectomy W/ resection, BILAT KNEE SX, L FOOT Smoking Status: Never Smoker Alcohol Use: Occasionally Drug Use: None General Adult EDM: Chief Complaint: RIB PAIN HPI: HPI: Patient is a 45 year old AA male, accompanied by a friend, who presents to the emergency department with complaints of pain in his right lateral ribs after falling into a table 4 days ago. Patient states that his knees gave out and caused him to fall. He denies any hemoptysis or shortness of breath. He reports that the pain increases with movement and deep breath. He denies any loss of consciousness, abdominal pain, neck pain or back pain. Patient reports that he tried taking Tylenol this morning for relief of the pain but he vomited it back up. He currently denies any nausea or vomiting. Patient states that the pain was so severe and he thinks that is why he vomited. He currently rates the pain a 10 out of 10 on the pain scale, he denies any radiation of the pain. Review of Systems: Review of Systems: Constitutional: Denies fever or chills. [] HENT: Denies nasal congestion or sore throat. [] Respiratory: See HPI Cardiovascular: Denies palpitations or edema. [] GI: See HPI Musculoskeletal: Denies back pain or joint pain. [] Integument: Denies rash or bruising. [] Neurologic: Denies headache, focal weakness or sensory changes. [] Psychiatric: Denies depression or anxiety. [] Complete ROS is negative unless otherwise stated in the HPI. Heart Score: Risk Factors: Risk Factors: DM, Current or recent (<one month) smoker, HTN, HLP, family history of CAD, obesity. Risk Scores: Score 0 - 3: 2.5% MACE over next 6 weeks - Discharge Home Score 4 - 6: 20.3% MACE over next 6 weeks - Admit for Clinical Observation Score 7 - 10: 72.7% MACE over next 6 weeks - Early Invasive Strategies Allergies: Allergies: Allergies Coded Allergies Type Severity Reaction Last Updated Verified No Known Drug Allergies 11/29/19 No Physical Exam: PE: Constitutional: Well developed, well nourished, no acute distress, non-toxic appearance. [] HENT: Normocephalic, atraumatic, bilateral external ears normal, nose normal. [] Eyes: PERRLA, EOMI, conjunctiva normal, no discharge. [] Neck: Normal range of motion, no stridor. [] Cardiovascular:Heart rate regular rhythm Lungs & Thorax: Respirations even and unlabored, no retractions, no respiratory distress, right lateral rib tenderness to palpation, no obvious deformity, no subcutaneous emphysema, no crepitus, no bruising Skin: Warm, dry, no erythema, no rash. [] Extremities: No cyanosis, ROM intact, no edema. [] Neurologic: Alert and oriented X 3, no focal deficits noted. [] Psychologic: Affect normal, judgement normal, mood normal. [] Current Patient Data: Vital Signs: Vital Signs Date Time Temp Pulse Resp B/P (MAP) Pulse Ox O2 Delivery O2 Flow Rate FiO2 06/28/20 13:48 98.1 94 16 126/76 (93) 94 Room Air 98.1 EKG: EKG: [] Radiology/Procedures: Radiology/Procedures: PROCEDURE: RIBS RIGHT AND PA CHEST Three-view right rib detail series and PA view chest x-ray Clinical indications: Right axillary rib pain after a fall 3 days ago. FINDINGS: No acute fracture is evident. Chest x-ray demonstrates no acute lung infiltrate or pleural effusion or pulmonary edema or pneumothorax. The heart size and pulmonary vasculature and mediastinum and both sandra are unremarkable otherwise. IMPRESSION: No acute right rib fracture. [] Course & Med Decision Making: Course & Med Decision Making Pertinent Labs and Imaging studies reviewed. (See chart for details) Patient is a 45-year-old male who presents the emergency department with right lateral rib pain after a fall 4 days ago. Chest x-ray revealed no acute findings. The patient's oxygen saturation was 94 to 95% throughout his emergency department stay. The patient did not appear to be in any respiratory distress. Physical exam did not reveal any subcutaneous emphysema, crepitus, or bruising in the area of pain. I encouraged the patient to apply ice or heat to the sore area as needed for discomfort. 1 hydrocodone 5/325 mg tablet was given to the patient while he was in the emergency department per his request. Encouraged patient to take Tylenol or ibuprofen as needed at home. And to follow-up with his primary care doctor next week if symptoms persist, return to the ER symptoms worsen. Patient verbalized an understanding of home care, medications, follow-up, and return to ED instructions and was in agreement with the plan of care. [] Janeson Disclaimer: Dragpamella Disclaimer: This electronic medical record was generated, in whole or in part, using a voice recognition dictation system. Departure Departure Impression: Primary Impression: Rib pain on right side Disposition: HOME, SELF-CARE Condition: STABLE Referrals: UNKNOWN PCP NAME (PCP) Patient Instructions: Rib Contusion Additional Instructions: Fill prescription and use as directed. Follow up with your doctor if symptoms persist, return to the ER if symptoms worsen. Scripts Ondansetron Hcl (ONDANSETRON HCL) 4 Mg Tablet 1 TAB PO PRN Q6HRS PRN for NAUSEA/VOMITING for 3 Days, #10 TAB 0 Refills Prov: ROMMEL NI APRN 06/28/20 Justicifation of Admission Dx: Justifications for Admission: Justification of Admission Dx: N/A ROMMEL NI APRN Jun 28, 2020 14:52
[2020-06-28] MEDS ORDERED: ACETAMINOPHEN 500 MG TABLET PO ONE (15:00)
[2020-06-28] MEDS ORDERED: ONDANSETRON ODT 4 MG TAB.RAPDIS. PO ONE (15:00)
[2020-06-28] MEDS ORDERED: HYDROcodone/APAP 5/325MG 1 TAB TABLET PO ONE (15:30)
== END 2020-06-28 15:30 | disposition home or self-care (01) ==
LOC: ER 13:29
DX: R07.81 Pleurodynia (principal); R11.0 Nausea; F41.9 Anxiety disorder, unspecified; M19.90 Unspecified osteoarthritis, unspecified site; F32.9 Major depressive disorder, single episode, unspecified; K21.9 Gastro-esophageal reflux disease without esophagitis; I10 Essential (primary) hypertension; Z98.890 Other specified postprocedural states; Z90.89 Acquired absence of other organs
CPT/HCPCS: 71101; 99284

== ENCOUNTER 2020-09-29 18:06 | Inpatient (IN) | payer MEDICAID ==
[~2020-09-29] VITALS: Ht 188 cm; Wt 97.6 kg
[~2020-09-29 18:06] MED LIST changes: +AMLO-186 PO; +AMLO-187 PO; -AMLO10TA8 PO; -AMLO5TAB10 PO; +CARV12.53 PO; -CLIN150C14 PO; +CLIN150C15 PO; +ONDA-84 PO
--- NOTE | 2020-09-29 19:12 | RAD ---
AP chest. HISTORY: Lower extremity swelling, edema AP view was taken of the chest. There are hazy bilateral infiltrates or pulmonary edema. The heart st ill within normal limits in size. There is no pleural effusion. IMPRESSION: 1. Bilateral infiltrates or pulmonary edema. Electronically signed by: Petr Barrett MD (09/29/2020 7:10 PM) [id number]
[2020-09-29 19:42] LABS: BILIRUBIN,URINE NEGATIVE (NEG); CLARITY,URINE CLEAR; COLOR,URINE YELLOW; NITRITE,URINE NEGATIVE (NEG); PH,URINE 7.5 (<5.0-8.0); PROTEIN,URINE NEGATIVE (NEG-TRACE); UROBILINOGEN,URINE 0.2 mg/dL (0.2 mg/dL)
[2020-09-29 19:49] LABS: AMPHETAMINE/METHAMPHETAMINE NEG (NEG); BARBITURATES NEG (NEG); BENZODIAZEPINES NEG (NEG); CANNABINOIDS NEG (NEG); COCAINE NEG (NEG); METHADONE NEG (NEG); OPIATES POS (NEG); PHENCYCLIDINE NEG (NEG)
[2020-09-29 19:50] LABS: BACTERIA,URINE 0 /HPF (0-FEW); HYALINE CASTS, URINE FEW /HPF; RBC,URINE RARE /HPF (0-2); WBC,URINE RARE /HPF (0-4)
[2020-09-29] MEDS: fentaNYL PF VIAL 100 MCG/2 ML VIAL IV PRN ×2 (19:54→20:58)
[2020-09-29 20:01] LABS: BASO # 0.2 x10^3/uL (0.0-0.2); BASO % 1 % (0-3); EOS # 0.2 x10^3/uL (0.0-0.7); EOS % 1 % (0-3); HEMATOCRIT 26.2 % (39.0-53.0); HEMOGLOBIN 8.5 g/dL (13.0-17.5); LYMPH # 1.1 x10^3/uL (1.0-4.8); LYMPH % 7 % (24-48); MEAN CORPUSCULAR HEMOGLOBIN 29 pg (25-35); MEAN CORPUSCULAR HGB CONC 33 g/dL (31-37); MEAN CORPUSCULAR VOLUME 90 fL (79-100); MONO # 1.4 x10^3/uL (0.0-1.1); MONO % 9 % (0-9); NEUT % 82 % (31-73); PLATELET COUNT 210 x10^3/uL (140-400); RED BLOOD COUNT 2.91 x10^6/uL (4.30-5.70); RED CELL DISTRIBUTION WIDTH 16.6 % (11.5-14.5); WHITE BLOOD COUNT 15.8 x10^3/uL (4.0-11.0)
[2020-09-29 20:09] LABS: CALCIUM 8.9 mg/dL (8.5-10.1); CREATININE 1.6 mg/dL (0.7-1.3); GFR 57.4; POTASSIUM 3.6 mmol/L (3.5-5.1)
[2020-09-29 20:10] LABS: PROTHROMBIN TIME PATIENT 17.3 SEC (11.7-14.0)
[2020-09-29 20:15] LABS: ALBUMIN 2.3 g/dL (3.4-5.0); ALBUMIN/GLOBULIN RATIO 0.4 (1.0-1.7); MAGNESIUM 1.2 mg/dL (1.8-2.4); TOTAL BILIRUBIN 1.2 mg/dL (0.2-1.0); TOTAL PROTEIN 7.5 g/dL (6.4-8.2)
[2020-09-29 20:22] LABS: % BANDS 7 % (0-9); % EOS 1 % (0-5); % LYMPHS 5 % (24-48); % MONOS 2 % (0-10); % SEGS 85 % (35-66); ANISOCYTOSIS SLIGHT; HYPOCHROMIA SLIGHT; PLT ESTIMATE ADEQUATE (ADEQUATE); STOMATOCYTES FEW
--- NOTE | 2020-09-29 21:26 | RAD ---
STUDY: US BILATERAL LOWEREXTREMITY VENOUS DOPPLER INDICATION: Bilateral lower extremity swelling TECHNIQUE: Color-flow and pulsed wave duplex ultrasound with compression of venous structures of the bilateral lower extremities. COMPARISON: None. FINDINGS: Duplex ultrasound with compression of the deep venous structures of the bilateral lower extremities f rom the common femoral vein through the popliteal vein is negative for DVT. Limited ability to evaluate the posterior tibial and peroneal veins on both sides. What is seen of th anthony vessels are patent. Nonspecific bilateral subcutaneous edema becoming most notable at the popliteal region distally. IMPRESSION: 1. No deep venous thrombosis seen throughout either lower extremity. 2. Nonspecific bilateral subcutaneous edema. Electronically signed by: MARCO ANTONIO SOTO MD (09/29/2020 9:23 PM) [facility]
[2020-09-29] MEDS ORDERED: PIP/TAZO PER PHARMACY MC PRN (22:15)
--- NOTE | 2020-09-29 22:29 | PDOC1 ---
History and Physical Date of Admission Date of Admission DATE: 09/29/20 TIME: 22:20 History of Present Illness History of Present Illness Mr. Renteria comes to the ER for marked weakness and foot pain. He has such severe swelling in bilateral feet that he has fluid weeping from the left foot. EMS was called to his moms house nearby and they brought him here. He has been hospiltalized at recently, and had a drain for what sounds like an abominal abcess. he has a long history of sarcoid lung and he says now he has a new diagnosis of throat cancer but has been too ill, to get surgery or chemotherapy. He could not even stand today to try to transfer, he was anali lift into the bed. He has such severe foot swelling and leg weakess, and he says it has worsened over a week, but he seems confused, he cannot remember some meds or med details about being at or who his doctor would be there. Past Medical History Cardiovascular: HTN, Other Pulmonary: Asthma, Bronchitis CENTRAL NERVOUS SYSTEM: Other GI: GERD Heme/Onc: No pertinent hx Hepatobiliary: Other Psych: Anxiety, Depression, Other Musculoskeletal: Osteoarthritis Rheumatologic: Gout Infectious disease: No pertinent hx Renal/: Other Endocrine: No pertinent hx Past Surgical History Past Surgical History: Total knee replacement, Colon Resection (? not sure of this ), Other Family History Family History: Cancer, Hypertension Social History Smoke: <1 pack per day ALCOHOL: none Drugs: Cocaine Current Medications Current Medications Current Medications Fentanyl Citrate (Fentanyl 2ml Vial) 50 mcg PRN Q15MIN PRN IV PAIN GREATER THAN 3/10 Last administered on 09/29/20at 20:58; Start 09/29/20 at 18:45; Stop 09/30/20 at 18:44 Active Scripts Active Ondansetron Hcl 4 Mg Tablet 1 Tab PO PRN Q6HRS PRN 3 Days Magnesium (Magnesium Oxide) 400 Mg Capsule 1 Cap PO DAILY 14 Days [place] 5-325 Tablet (Acetaminophen/Hydrocodone Bitart) 1 Each Tablet 1 Tab PO PRN Q6HRS PRN Potassium Chloride (Potassium Chloride) 20 Meq Tablet.er 20 Meq PO DAILY 14 Days Diclofenac Sodium 50 Mg Tablet.dr 1 Tab PO BID PRN Lidocaine PATCH (Lidocaine) 1 Each Adh..patch 1 Patch TD PRN DAILY PRN 30 Days Prednisone 20 Mg Tablet 40 Mg PO DAILY 10 Days Culturelle (Lactobacillus Rhamnosus Gg) 1 Each Cap.sprink 1 Cap PO BID 30 Days Klor-Con M20 (Potassium Chloride) 20 Meq Tab.er.prt 20 Meq PO DAILYWBKFT 14 Days Voltaren (Diclofenac Sodium) 100 Gm Gel..gram. 1 Jevon TP BID 14 Days Duoneb 0.5-3(2.5) Mg/3 Ml (Albuterol/Ipratropium) 3 Ml Ampul.neb 3 Ml NEB Q4HRS W/A 30 Days Colcrys (Colchicine) 0.6 Mg Tablet 1 Tab PO DAILY PRN Coreg (Carvedilol) 12.5 Mg Tablet 1 Tab PO BID Reported Augmentin 875-125 Tablet (Amoxicillin/Potassium Clav) 1 Each Tablet 1 Tab PO BID 5 Days Carvedilol 12.5 Mg Tablet 1 Tab PO BID Allopurinol 100 Mg Tablet 1 Tab PO DAILY 30 Days Hydroxyzine Hcl 10 Mg Tablet 10 Mg PO TID Proair Hfa (Albuterol Sulfate) 8.5 Gm Hfa.aer.ad 1 Puff INH PRN Q6HRS PRN Fluoxetine Hcl 40 Mg Capsule 60 Mg PO DAILY Cetirizine Hcl 10 Mg Tab.chew 10 Mg PO DAILY PRN Atorvastatin Calcium 40 Mg Tablet 40 Mg PO DAILY Aspirin 81 Mg Tab.chew 81 Mg PO DAILY PRN Omeprazole 20 Mg Capsule.dr 40 Mg PO DAILY Amlodipine Besylate 10 Mg Tablet 10 Mg PO DAILY Mirtazapine 45 Mg Tablet 45 Mg PO HS Allergies Allergies: Coded Allergies: hydromorphone (Verified Adverse Reaction, Severe, Anxiety, 08/27/20) hallucinations, paranoia, hyperactivity ROS General: YES: Chills, Fatigue, Malaise; No: Night Sweats, Appetite, Other PSYCHOLOGICAL ROS: YES: Anxiety, Memory difficulties, Sleep disturbances; No: Behavioral Disorder, Concentration difficultie, Decreased libido, Depression, Disorientation, Hallucinations, Hostility, Irritablity, Mood Swings, Obsessive thoughts, Other Eyes: No Blurry vision, No Decreased vision, No Double vision, No Dry eyes, No Excessive tearing, No Eye Pain, No Itchy Eyes, No Loss of vision, No Phot ophobia, No Scotomata, No Uses contacts, No Uses glasses, No Other Respiratory: YES: Cough; No: Hemoptysis, Orthopnea, Pleuritic Pain, Shortness of breath, SOB with excertion, Sputum Changes, Stridor, Tachypnea, Wheezing, Other Cardiovascular: No Chest Pain, No Palpitations, No Orthopnea, No Paroxysmal Noc. Dyspnea, No Edema, No Lt Headedness, No Other Gastrointestinal: Yes Nausea; No Vomiting, No Abdominal Pain, No Diarrhea, No Constipation, No Melena, No Hematochezia, No Other Genitourinary: No Dysuria, No Frequency, No Incontinence, No Hematuria, No Retention, No Discharge, No Urgency, No Pain, No Flank Pain, No Other, No , No , No , No , No , No , No Musculoskeletal: Yes Gait Disturbance, Yes Joint Pain, Yes Joint Stiffness Neurological: Yes Confusion, Yes Gait Disturbance, Yes Headaches, Yes Weakness; No Behavorial Changes, No Bowel/Bladder ControlChng, No Dizziness, No Impaired Coord/balance, No Memory Loss, No Numbness/Tingling, No Seizures, No Other Skin: No Dry Skin, No Eczema, No Hair Changes, No Lumps, No Mole Changes, No Mottling, No Nail Changes, No Pruritus, No Acne Physical Exam General: Alert, Cooperative, mild distress, Other (not oriented, ) HEENT: PERRLA, EOMI Lungs: Clear to auscultation, Normal air movement Heart: S1S2, no gallops Abdomen: Normal bowel sounds, Soft Rectal Exam: not examined Extremities: Other (beyond 4+ edema, swelling to feet Left worse than right, more edema than foot by size, ) Skin: No rashes Neuro: Normal speech, Sensation intact Psych/Mental Status: Mental status NL, Mood NL Vitals Vitals Vital Signs Date Time Temp Pulse Resp B/P (MAP) Pulse Ox O2 Delivery O2 Flow Rate FiO2 09/29/20 20:58 16 95 09/29/20 18:30 98.2 108 112/69 (83) Room Air 98.2 Labs Labs Laboratory Tests Test 09/29/20 19:35 White Blood Count 15.8 x10^3/uL (4.0-11.0) Red Blood Count 2.91 x10^6/uL (4.30-5.70) Hemoglobin 8.5 g/dL (13.0-17.5) Hematocrit 26.2 % (39.0-53.0) Mean Corpuscular Volume 90 fL (79-100) Mean Corpuscular Hemoglobin 29 pg (25-35) Mean Corpuscular Hemoglobin Concent 33 g/dL (31-37) Red Cell Distribution Width 16.6 % (11.5-14.5) Platelet Count 210 x10^3/uL (140-400) Neutrophils (%) (Auto) 82 % (31-73) Lymphocytes (%) (Auto) 7 % (24-48) Monocytes (%) (Auto) 9 % (0-9) Eosinophils (%) (Auto) 1 % (0-3) Basophils (%) (Auto) 1 % (0-3) Neutrophils # (Auto) 13.0 x10^3/uL (1.8-7.7) Lymphocytes # (Auto) 1.1 x10^3/uL (1.0-4.8) Monocytes # (Auto) 1.4 x10^3/uL (0.0-1.1) Eosinophils # (Auto) 0.2 x10^3/uL (0.0-0.7) Basophils # (Auto) 0.2 x10^3/uL (0.0-0.2) Segmented Neutrophils % 85 % (35-66) Band Neutrophils % 7 % (0-9) Lymphocytes % 5 % (24-48) Monocytes % 2 % (0-10) Eosinophils % 1 % (0-5) Platelet Estimate Adequate (ADEQUATE) Hypochromasia Slight Anisocytosis Slight Stomatocytes Few Prothrombin Time 17.3 SEC (11.7-14.0) Prothromb Time International Ratio 1.5 (0.8-1.1) Activated Partial Thromboplast Time 56 SEC (24-38) Urine Collection Type Unknown Urine Color Yellow Urine Clarity Clear Urine pH 7.5 (<5.0-8.0) Urine Specific [place] 1.010 (1.000-1.030) Urine Protein Negative mg/dL (NEG-TRACE) Urine Glucose (UA) Negative mg/dL (NEG) Urine Ketones (Stick) Negative mg/dL (NEG) Urine Blood Negative (NEG) Urine Nitrite Negative (NEG) Urine Bilirubin Negative (NEG) Urine Urobilinogen Dipstick 0.2 mg/dL (0.2 mg/dL) Urine Leukocyte Esterase Negative (NEG) Urine RBC Rare /HPF (0-2) Urine WBC Rare /HPF (0-4) Urine Squamous Epithelial Cells Few /LPF Urine Bacteria 0 /HPF (0-FEW) Urine Hyaline Casts Few /HPF Urine Mucus Slight /LPF Sodium Level 140 mmol/L (136-145) Potassium Level 3.6 mmol/L (3.5-5.1) Chloride Level 103 mmol/L (98-107) Carbon Dioxide Level 26 mmol/L (21-32) Anion Gap 11 (6-14) Blood Urea Nitrogen 16 mg/dL (8-26) Creatinine 1.6 mg/dL (0.7-1.3) Estimated GFR (Cockcroft-Gault) 57.4 BUN/Creatinine Ratio 10 (6-20) Glucose Level 74 mg/dL (70-99) Calcium Level 8.9 mg/dL (8.5-10.1) Magnesium Level 1.2 mg/dL (1.8-2.4) Total Bilirubin 1.2 mg/dL (0.2-1.0) Aspartate Amino Transf (AST/SGOT) 66 U/L (15-37) Alanine Aminotransferase (ALT/SGPT) 36 U/L (16-63) Alkaline Phosphatase 442 U/L (46-116) Troponin I Quantitative < 0.017 ng/mL (0.000-0.055) [id number]-[id number]-Type Natriuretic Peptide 922 pg/mL (0-124) Total Protein 7.5 g/dL (6.4-8.2) Albumin 2.3 g/dL (3.4-5.0) Albumin/Globulin Ratio 0.4 (1.0-1.7) Lipase 54 U/L (73-393) Urine Opiates Screen Pos (NEG) Urine Methadone Screen Neg (NEG) Urine Barbiturates Neg (NEG) Urine Phencyclidine Screen Neg (NEG) Urine Amphetamine/Methamphetamine Neg (NEG) Urine Benzodiazepines Screen Neg (NEG) Urine Cocaine Screen Neg (NEG) Urine Cannabinoids Screen Neg (NEG) Urine Ethyl Alcohol Neg (NEG) Laboratory Tests Test 09/29/20 19:35 White Blood Count 15.8 x10^3/uL (4.0-11.0) Red Blood Count 2.91 x10^6/uL (4.30-5.70) Hemoglobin 8.5 g/dL (13.0-17.5) Hematocrit 26.2 % (39.0-53.0) Mean Corpuscular Volume 90 fL (79-100) Mean Corpuscular Hemoglobin 29 pg (25-35) Mean Corpuscular Hemoglobin Concent 33 g/dL (31-37) Red Cell Distribution Width 16.6 % (11.5-14.5) Platelet Count 210 x10^3/uL (140-400) Neutrophils (%) (Auto) 82 % (31-73) Lymphocytes (%) (Auto) 7 % (24-48) Monocytes (%) (Auto) 9 % (0-9) Eosinophils (%) (Auto) 1 % (0-3) Basophils (%) (Auto) 1 % (0-3) Neutrophils # (Auto) 13.0 x10^3/uL (1.8-7.7) Lymphocytes # (Auto) 1.1 x10^3/uL (1.0-4.8) Monocytes # (Auto) 1.4 x10^3/uL (0.0-1.1) Eosinophils # (Auto) 0.2 x10^3/uL (0.0-0.7) Basophils # (Auto) 0.2 x10^3/uL (0.0-0.2) Segmented Neutrophils % 85 % (35-66) Band Neutrophils % 7 % (0-9) Lymphocytes % 5 % (24-48) Monocytes % 2 % (0-10) Eosinophils % 1 % (0-5) Platelet Estimate Adequate (ADEQUATE) Hypochromasia Slight Anisocytosis Slight Stomatocytes Few Prothrombin Time 17.3 SEC (11.7-14.0) Prothromb Time International Ratio 1.5 (0.8-1.1) Activated Partial Thromboplast Time 56 SEC (24-38) Urine Collection Type Unknown Urine Color Yellow Urine Clarity Clear Urine pH 7.5 (<5.0-8.0) Urine Specific [place] 1.010 (1.000-1.030) Urine Protein Negative mg/dL (NEG-TRACE) Urine Glucose (UA) Negative mg/dL (NEG) Urine Ketones (Stick) Negative mg/dL (NEG) Urine Blood Negative (NEG) Urine Nitrite Negative (NEG) Urine Bilirubin Negative (NEG) Urine Urobilinogen Dipstick 0.2 mg/dL (0.2 mg/dL) Urine Leukocyte Esterase Negative (NEG) Urine RBC Rare /HPF (0-2) Urine WBC Rare /HPF (0-4) Urine Squamous Epithelial Cells Few /LPF Urine Bacteria 0 /HPF (0-FEW) Urine Hyaline Casts Few /HPF Urine Mucus Slight /LPF Sodium Level 140 mmol/L (136-145) Potassium Level 3.6 mmol/L (3.5-5.1) Chloride Level 103 mmol/L (98-107) Carbon Dioxide Level 26 mmol/L (21-32) Anion Gap 11 (6-14) Blood Urea Nitrogen 16 mg/dL (8-26) Creatinine 1.6 mg/dL (0.7-1.3) Estimated GFR (Cockcroft-Gault) 57.4 BUN/Creatinine Ratio 10 (6-20) Glucose Level 74 mg/dL (70-99) Calcium Level 8.9 mg/dL (8.5-10.1) Magnesium Level 1.2 mg/dL (1.8-2.4) Total Bilirubin 1.2 mg/dL (0.2-1.0) Aspartate Amino Transf (AST/SGOT) 66 U/L (15-37) Alanine Aminotransferase (ALT/SGPT) 36 U/L (16-63) Alkaline Phosphatase 442 U/L (46-116) Troponin I Quantitative < 0.017 ng/mL (0.000-0.055) XX-Zqv-[id number]-Type Natriuretic Peptide 922 pg/mL (0-124) Total Protein 7.5 g/dL (6.4-8.2) Albumin 2.3 g/dL (3.4-5.0) Albumin/Globulin Ratio 0.4 (1.0-1.7) Lipase 54 U/L (73-393) Urine Opiates Screen Pos (NEG) Urine Methadone Screen Neg (NEG) Urine Barbiturates Neg (NEG) Urine Phencyclidine Screen Neg (NEG) Urine Amphetamine/Methamphetamine Neg (NEG) Urine Benzodiazepines Screen Neg (NEG) Urine Cocaine Screen Neg (NEG) Urine Cannabinoids Screen Neg (NEG) Urine Ethyl Alcohol Neg (NEG) VTE Prophylaxis Ordered VTE Prophylaxis Devices: Yes VTE Pharmacological Prophylaxi: Yes Assessment/Plan Assessment/Plan acute new LE edema, concern for central clot, will start treatment lovenox, US of legs was being done while I was there and the legs appeared clear. sarcoid lung disease, consult PULM, weakness and debility severe malnutrition marked weakness and debility metabolic encephalopathy recent paracentesis for cirrhosis, asthma bronchitis prior substance abuse anxiety disorder, History of pancreatitis, duodenitis, alcoholism, arthritis, depression, gastroesophageal reflux disease, hypertension, previous hernia repair and partial colectomy. Justifications for Admission Other Justification Ascites, symptomatic anemia ALVINO PARSON MD Sep 29, 2020 22:29
[2020-09-29] MEDS ORDERED: HYDROcodone/APAP 5/325MG 1 TAB TABLET PO PRN (22:30)
[2020-09-29] MEDS ORDERED: ALBUTEROL SULFATE 2.5 MG/3 ML NEBU. INH PRN (22:30)
[2020-09-29] MEDS ORDERED: LIDOCAINE (700MG/PATCH) PATCH. TD PRN (22:30)
[2020-09-29] MEDS ORDERED: MAGNESIUM SULFATE 4GM 100 ML IV ONE (23:00)
[2020-09-29] MEDS ORDERED: fentaNYL PF VIAL 100 MCG/2 ML VIAL IV PRN (23:15)
[2020-09-29] MEDS ORDERED: ONDANSETRON PF 4 MG/2 ML VIAL. IV PRN (23:15)
--- NOTE | 2020-09-29 23:16 | PHYS DOC ---
Past Medical History Past Medical History: Anxiety, Arthritis, Cancer, Depression, GERD, Hypertension, Pneumonia, Other Additional Past Medical Histor: SARCOIDOSIS Past Surgical History: Other Additional Past Surgical Histo: HERNIA REPAIR, partial colectomy W/ resection, BILAT KNEE SX, L FOOT Smoking Status: Former Smoker Alcohol Use: Occasionally Drug Use: None General Adult EDM: Chief Complaint: LOWER EXTREMITY SWELLING HPI: HPI: Patient is a 45 year old male with a history of hypertension, sarcoidosis, ascites, new diagnosis of throat cancer, among other illnesses who presents to the ED today complaining of moderate lower feet swelling that began 1 week ago and has gotten worse today. He states he was so weak and was unable to get off the toilet hence the head to call 911. He states he was recently hospitalized at and had some sort of abdominal surgery. He cannot remember what surgery it was. He states he was also diagnosed with throat cancer but was too ill to get surgery or chemotherapy. He is a very poor historian. Denies any chest pain or shortness of breath. Denies any coughing or fever. Review of Systems: Review of Systems: Constitutional: Denies fever or chills. [] Eyes: Denies change in visual acuity. [] HENT: Denies nasal congestion or sore throat. [] Respiratory: Denies cough or shortness of breath. [] Cardiovascular: Denies chest pain or edema. [] GI: Denies abdominal pain, nausea, vomiting, bloody stools or diarrhea. [] : Denies dysuria. [] Musculoskeletal: Denies back pain or joint pain. [] Integument: Reports bilateral lower extremity pacifically feet swelling. Neurologic: Denies headache, focal weakness or sensory changes. [] Psychiatric: Denies depression or anxiety. [] Heart Score: Risk Factors: Risk Factors: DM, Current or recent (<one month) smoker, HTN, HLP, family histo ry of CAD, obesity. Risk Scores: Score 0 - 3: 2.5% MACE over next 6 weeks - Discharge Home Score 4 - 6: 20.3% MACE over next 6 weeks - Admit for Clinical Observation Score 7 - 10: 72.7% MACE over next 6 weeks - Early Invasive Strategies Current Medications: Current Medications Medications (Trade) Dose Ordered Sig/Donavon Start Time Stop Time Status Last Admin Dose Admin Fentanyl Citrate (Fentanyl 2ml Vial) 50 mcg PRN Q15MIN PRN 09/29/20 18:45 09/30/20 18:44 09/29/20 20:58 50 MCG Allergies: Allergies: Allergies Coded Allergies Type Severity Reaction Last Updated Verified hydromorphone Adverse Reaction Severe Anxiety 08/27/20 Yes Physical Exam: PE: Constitutional: Appears older than stated age, no acute distress, non-toxic appearance. [] HENT: Normocephalic, atraumatic, bilateral external ears normal, oropharynx moist, no oral exudates, nose normal. [] Eyes: PERRLA, EOMI, conjunctiva normal, no discharge. [] Neck: Normal range of motion, no tenderness, supple, no stridor. [] Cardiovascular:Heart rate regular rhythm, no murmur [] Lungs & Thorax: Bilateral breath sounds clear to auscultation [] Abdomen: Bowel sounds normal, soft, no tenderness, no masses, no pulsatile masses. [] Skin: Bilateral feet are moderately swollen specifically on the dorsal aspect of the feet with weeping noted on the left foot. +1 bilateral pedal pulses. Back: No tenderness, no CVA tenderness. [] Extremities: No tenderness, no cyanosis, no clubbing, ROM intact, Neurologic: Alert and oriented X 3, normal motor function, normal sensory function, no focal deficits noted. [] Psychologic: Affect normal, judgement normal, mood normal. [] Current Patient Data: Labs: Laboratory Tests Test 09/29/20 19:35 White Blood Count 15.8 x10^3/uL (4.0-11.0) H Red Blood Count 2.91 x10^6/uL (4.30-5.70) L Hemoglobin 8.5 g/dL (13.0-17.5) L Hematocrit 26.2 % (39.0-53.0) L Mean Corpuscular Volume 90 fL (79-100) Mean Corpuscular Hemoglobin 29 pg (25-35) Mean Corpuscular Hemoglobin Concent 33 g/dL (31-37) Red Cell Distribution Width 16.6 % (11.5-14.5) H Platelet Count 210 x10^3/uL (140-400) Neutrophils (%) (Auto) 82 % (31-73) H Lymphocytes (%) (Auto) 7 % (24-48) L Monocytes (%) (Auto) 9 % (0-9) Eosinophils (%) (Auto) 1 % (0-3) Basophils (%) (Auto) 1 % (0-3) Neutrophils # (Auto) 13.0 x10^3/uL (1.8-7.7) H Lymphocytes # (Auto) 1.1 x10^3/uL (1.0-4.8) Monocytes # (Auto) 1.4 x10^3/uL (0.0-1.1) H Eosinophils # (Auto) 0.2 x10^3/uL (0.0-0.7) Basophils # (Auto) 0.2 x10^3/uL (0.0-0.2) Segmented Neutrophils % 85 % (35-66) H Band Neutrophils % 7 % (0-9) Lymphocytes % 5 % (24-48) L Monocytes % 2 % (0-10) Eosinophils % 1 % (0-5) Platelet Estimate Adequate (ADEQUATE) Hypochromasia Slight Anisocytosis Slight Stomatocytes Few Prothrombin Time 17.3 SEC (11.7-14.0) H Prothrombin Time INR 1.5 (0.8-1.1) H Activated Partial Thromboplast Time 56 SEC (24-38) H Urine Collection Type Unknown Urine Color Yellow Urine Clarity Clear Urine pH 7.5 (<5.0-8.0) Urine Specific [place] 1.010 (1.000-1.030) Urine Protein Negative mg/dL (NEG-TRACE) Urine Glucose (UA) Negative mg/dL (NEG) Urine Ketones (Stick) Negative mg/dL (NEG) Urine Blood Negative (NEG) Urine Nitrite Negative (NEG) Urine Bilirubin Negative (NEG) Urine Urobilinogen Dipstick 0.2 mg/dL (0.2 mg/dL) Urine Leukocyte Esterase Negative (NEG) Urine RBC Rare /HPF (0-2) Urine WBC Rare /HPF (0-4) Urine Squamous Epithelial Cells Few /LPF Urine Bacteria 0 /HPF (0-FEW) Urine Hyaline Casts Few /HPF Urine Mucus Slight /LPF Sodium Level 140 mmol/L (136-145) Potassium Level 3.6 mmol/L (3.5-5.1) Chloride Level 103 mmol/L (98-107) Carbon Dioxide Level 26 mmol/L (21-32) Anion Gap 11 (6-14) Blood Urea Nitrogen 16 mg/dL (8-26) Creatinine 1.6 mg/dL (0.7-1.3) H Estimated GFR (Cockcroft-Gault) 57.4 BUN/Creatinine Ratio 10 (6-20) Glucose Level 74 mg/dL (70-99) Calcium Level 8.9 mg/dL (8.5-10.1) Magnesium Level 1.2 mg/dL (1.8-2.4) L Total Bilirubin 1.2 mg/dL (0.2-1.0) H Aspartate Amino Transferase (AST) 66 U/L (15-37) H Alanine Aminotransferase (ALT) 36 U/L (16-63) Alkaline Phosphatase 442 U/L (46-116) H Troponin I Quantitative < 0.017 ng/mL (0.000-0.055) ML-Bvk-N-Type Natriuretic Peptide 922 pg/mL (0-124) H Total Protein 7.5 g/dL (6.4-8.2) Albumin 2.3 g/dL (3.4-5.0) L Albumin/Globulin Ratio 0.4 (1.0-1.7) L Lipase 54 U/L (73-393) L Urine Opiates Screen Pos (NEG) Urine Methadone Screen Neg (NEG) Urine Barbiturates Neg (NEG) Urine Phencyclidine Screen Neg (NEG) Urine Amphetamine/Methamphetamine Neg (NEG) Urine Benzodiazepines Screen Neg (NEG) Urine Cocaine Screen Neg (NEG) Urine Cannabinoids Screen Neg (NEG) Urine Ethyl Alcohol Neg (NEG) Laboratory Tests 09/29/20 19:35 Laboratory Tests 09/29/20 19:35 Vital Signs: Vital Signs Date Time Temp Pulse Resp B/P (MAP) Pulse Ox O2 Delivery O2 Flow Rate FiO2 09/29/20 20:58 16 95 09/29/20 18:30 98.2 108 112/69 (83) Room Air 98.2 EKG: EKG: [] Radiology/Procedures: Radiology/Procedures: []PROCEDURE: PORTABLE CHEST 1V AP chest. HISTORY: Lower extremity swelling, edema AP view was taken of the chest. There are hazy bilateral infiltrates or pulmonary edema. The heart still within normal limits in size. There is no pleural effusion. IMPRESSION: 1. Bilateral infiltrates or pulmonary edema. Electronically signed by: Petr Barrett MD (09/29/2020 7:10 PM) [id number] DICTATED and SIGNED BY: PETR BARRETT MD DATE: 09/29/[id number] 0 PROCEDURE: VENOUS LOWER EXT BILATERAL STUDY: US BILATERAL LOWEREXTREMITY VENOUS DOPPLER INDICATION: Bilateral lower extremity swelling TECHNIQUE: Color-flow and pulsed wave duplex ultrasound with compression of venous structures of the bilateral lower extremities. COMPARISON: None. FINDINGS: Duplex ultrasound with compression of the deep venous structures of the bilateral lower extremities from the common femoral vein through the popliteal vein is negative for DVT. Limited ability to evaluate the posterior tibial and peroneal veins on both sides. What is seen of these vessels are patent. Nonspecific bilateral subcutaneous edema becoming most notable at the popliteal region distally. IMPRESSION: 1. No deep venous thrombosis seen throughout either lower extremity. 2. Nonspecific bilateral subcutaneous edema. Electronically signed by: MARCO ANTONIO SOTO MD (09/29/2020 9:23 PM) [facility] DICTATED and SIGNED BY: MARCO ANTONIO SOTO MD DATE: 09/29/202004WYS1 0 Course & Med Decision Making: Course & Med Decision Making Pertinent Labs and Imaging studies reviewed. (See chart for details) This is a 45-year-old male patient looking older than the stated age presenting to the ED today with bilateral feet swelling that began a week ago. Patient has moderate swelling to bilateral feet with the left foot weeping. CBC with a WBC of 15.8, hemoglobin 8.5, hematocrit 26.2, CMP with creatinine of 1.6, BUN is normal. Bilateral venous Dopplers were negative for any acute findings, noted for nonspecific edema. Spoke to Dr. Dawson who accepted patient for admission Dragon Disclaimer: Rodrick Disclaimer: This electronic medical record was generated, in whole or in part, using a voice recognition dictation system. Departure Departure Impression: Primary Impression: Swelling of both lower extremities Additional Impressions: Acute on chronic renal failure Qualified Codes: N17.9 - Acute kidney failure, unspecified; N18.9 - Chronic kidney disease, unspecified Anemia Qualified Codes: D64.9 - Anemia, unspecified Disposition: 09 ADMITTED INPT THIS HOSP Condition: STABLE Referrals: UNKNOWN PCP NAME (PCP) RAJAN LOPEZ APRN Sep 29, 2020 23:16
[2020-09-29 23:26] VITALS: BP 111/68
[2020-09-29] MEDS ORDERED: cloNIDine HCL 0.1 MG TABLET PO PRN (23:45)
[2020-09-29] MEDS ORDERED: HALOPERIDOL LACTATE 5 MG/ML VIAL. IVP PRN (23:45)
[2020-09-29] MEDS: fentaNYL PF VIAL 100 MCG/2 ML VIAL IVP PRN (23:54)
[2020-09-29] MEDS: PIPERACILLIN/TAZOBACTAM 3.375 GM in IV NORMAL SALINE 50ML 50 ML IV SCH (23:55)
[2020-09-30] VITALS (20 sets, daily range): BP systolic 73–105; BP diastolic 42–63
[2020-09-30] MEDS: fentaNYL PF VIAL 100 MCG/2 ML VIAL IVP PRN ×7 (02:30→21:08)
[2020-09-30] MEDS ORDERED: ANTI-COAG MONITOR BY PHARMACY. MC PRN (03:00)
--- NOTE | 2020-09-30 05:27 | EKG ---
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
[2020-09-30] MEDS: PIPERACILLIN/TAZOBACTAM 3.375 GM in IV NORMAL SALINE 50ML 50 ML IV SCH ×3 (06:03→17:41)
[2020-09-30] MEDS: POTASSIUM CHLORIDE 20 MEQ TABLET.ER. PO SCH (08:00)
[2020-09-30] MEDS: MULTIVIT INFUSN,ADULT 4,VIT K 10 ML, THIAMINE INJ 100 MG, FOLIC ACID INJ 1 MG in IV NOR... IV SCH (08:34)
[2020-09-30] MEDS: amLODIPine BESYLATE 10 MG TABLET PO SCH (08:35)
[2020-09-30] MEDS: ALLOPURINOL 100 MG TABLET. PO SCH (08:35)
[2020-09-30 08:48] LABS: BASO # 0.1 x10^3/uL (0.0-0.2); BASO % 1 % (0-3); EOS # 0.2 x10^3/uL (0.0-0.7); EOS % 1 % (0-3); HEMATOCRIT 22.7 % (39.0-53.0); HEMOGLOBIN 7.4 g/dL (13.0-17.5); LYMPH % 8 % (24-48); MEAN CORPUSCULAR HEMOGLOBIN 29 pg (25-35); MEAN CORPUSCULAR HGB CONC 33 g/dL (31-37); MEAN CORPUSCULAR VOLUME 90 fL (79-100); MONO # 1.1 x10^3/uL (0.0-1.1); MONO % 9 % (0-9); NEUT # 10.4 x10^3/uL (1.8-7.7); NEUT % 81 % (31-73); PLATELET COUNT 179 x10^3/uL (140-400); RED BLOOD COUNT 2.53 x10^6/uL (4.30-5.70); RED CELL DISTRIBUTION WIDTH 16.1 % (11.5-14.5); WHITE BLOOD COUNT 12.7 x10^3/uL (4.0-11.0)
--- NOTE | 2020-09-30 09:22 | NUR ---
SW following. Discussed with RN, pt from home alone, room air, regular diet, somewhat confused. ID, pulmonology and oncology consulted. Pt currently on IV zosyn. Lymphedema OT ordered. SW will continue to follow.
[2020-09-30 09:39] LABS: ALBUMIN 1.8 g/dL (3.4-5.0); ALBUMIN/GLOBULIN RATIO 0.4 (1.0-1.7); CALCIUM 8.3 mg/dL (8.5-10.1); CREATININE 1.3 mg/dL (0.7-1.3); GFR 72.9; POTASSIUM 3.6 mmol/L (3.5-5.1); TOTAL PROTEIN 6.4 g/dL (6.4-8.2)
--- NOTE | 2020-09-30 12:31 | PDOC ---
PROGRESS NOTES Date of Service: DATE: 09/30/20 TIME: 12:29 Chief Complaint Chief Complaint anemia, aute blood loss per rectum, treatment lovenox given, will stop, GI consult acute new LE edema, sarcoid lung disease, weakness and debility severe malnutrition marked weakness and debility metabolic encephalopathy recent paracentesis for cirrhosis, asthma bronchitis prior substance abuse anxiety disorder, History of pancreatitis, duodenitis, alcoholism, arthritis, depression, gastroesophageal reflux disease, hypertension, previous hernia repair and partial colectomy. History of Present Illness History of Present Illness GI consult Id consult Vitals Vitals Vital Signs Date Time Temp Pulse Resp B/P (MAP) Pulse Ox O2 Delivery O2 Flow Rate FiO2 09/30/20 11:00 97.9 98 16 100/56 (71) 94 Room Air 97.9 Physical Exam Physical Exam not oriented, General: Alert, Cooperative, mild distress, Other (not oriented, ) Lungs: Clear Abdomen: Normal bowel sounds, Soft Extremities: Other (beyond 4+ edema, swelling to feet Left worse than right, more edema than foot by size, ) Skin: No rashes Labs LABS Laboratory Tests Test 09/29/20 19:35 09/30/20 08:25 White Blood Count 15.8 x10^3/uL (4.0-11.0) 12.7 x10^3/uL (4.0-11.0) Red Blood Count 2.91 x10^6/uL (4.30-5.70) 2.53 x10^6/uL (4.30-5.70) Hemoglobin 8.5 g/dL (13.0-17.5) 7.4 g/dL (13.0-17.5) Hematocrit 26.2 % (39.0-53.0) 22.7 % (39.0-53.0) Mean Corpuscular Volume 90 fL (79-100) 90 fL (79-100) Mean Corpuscular Hemoglobin 29 pg (25-35) 29 pg (25-35) Mean Corpuscular Hemoglobin Concent 33 g/dL (31-37) 33 g/dL (31-37) Red Cell Distribution Width 16.6 % (11.5-14.5) 16.1 % (11.5-14.5) Platelet Count 210 x10^3/uL (140-400) 179 x10^3/uL (140-400) Neutrophils (%) (Auto) 82 % (31-73) 81 % (31-73) Lymphocytes (%) (Auto) 7 % (24-48) 8 % (24-48) Monocytes (%) (Auto) 9 % (0-9) 9 % (0-9) Eosinophils (%) (Auto) 1 % (0-3) 1 % (0-3) Basophils (%) (Auto) 1 % (0-3) 1 % (0-3) Neutrophils # (Auto) 13.0 x10^3/uL (1.8-7.7) 10.4 x10^3/uL (1.8-7.7) Lymphocytes # (Auto) 1.1 x10^3/uL (1.0-4.8) 1.0 x10^3/uL (1.0-4.8) Monocytes # (Auto) 1.4 x10^3/uL (0.0-1.1) 1.1 x10^3/uL (0.0-1.1) Eosinophils # (Auto) 0.2 x10^3/uL (0.0-0.7) 0.2 x10^3/uL (0.0-0.7) Basophils # (Auto) 0.2 x10^3/uL (0.0-0.2) 0.1 x10^3/uL (0.0-0.2) Segmented Neutrophils % 85 % (35-66) Band Neutrophils % 7 % (0-9) Lymphocytes % 5 % (24-48) Monocytes % 2 % (0-10) Eosinophils % 1 % (0-5) Platelet Estimate Adequate (ADEQUATE) Hypochromasia Slight Anisocytosis Slight Stomatocytes Few Prothrombin Time 17.3 SEC (11.7-14.0) Prothromb Time International Ratio 1.5 (0.8-1.1) Activated Partial Thromboplast Time 56 SEC (24-38) Urine Collection Type Unknown Urine Color Yellow Urine Clarity Clear Urine pH 7.5 (<5.0-8.0) Urine Specific [place] 1.010 (1.000-1.030) Urine Protein Negative mg/dL (NEG-TRACE) Urine Glucose (UA) Negative mg/dL (NEG) Urine Ketones (Stick) Negative mg/dL (NEG) Urine Blood Negative (NEG) Urine Nitrite Negative (NEG) Urine Bilirubin Negative (NEG) Urine Urobilinogen Dipstick 0.2 mg/dL (0.2 mg/dL) Urine Leukocyte Esterase Negative (NEG) Urine RBC Rare /HPF (0-2) Urine WBC Rare /HPF (0-4) Urine Squamous Epithelial Cells Few /LPF Urine Bacteria 0 /HPF (0-FEW) Urine Hyaline Casts Few /HPF Urine Mucus Slight /LPF Sodium Level 140 mmol/L (136-145) 139 mmol/L (136-145) Potassium Level 3.6 mmol/L (3.5-5.1) 3.6 mmol/L (3.5-5.1) Chloride Level 103 mmol/L (98-107) 104 mmol/L (98-107) Carbon Dioxide Level 26 mmol/L (21-32) 24 mmol/L (21-32) Anion Gap 11 (6-14) 11 (6-14) Blood Urea Nitrogen 16 mg/dL (8-26) 13 mg/dL (8-26) Creatinine 1.6 mg/dL (0.7-1.3) 1.3 mg/dL (0.7-1.3) Estimated GFR (Cockcroft-Gault) 57.4 72.9 BUN/Creatinine Ratio 10 (6-20) 10 (6-20) Glucose Level 74 mg/dL (70-99) 82 mg/dL (70-99) Calcium Level 8.9 mg/dL (8.5-10.1) 8.3 mg/dL (8.5-10.1) Magnesium Level 1.2 mg/dL (1.8-2.4) Total Bilirubin 1.2 mg/dL (0.2-1.0) 1.0 mg/dL (0.2-1.0) Aspartate Amino Transf (AST/SGOT) 66 U/L (15-37) 53 U/L (15-37) Alanine Aminotransferase (ALT/SGPT) 36 U/L (16-63) 29 U/L (16-63) Alkaline Phosphatase 442 U/L (46-116) 345 U/L (46-116) Troponin I Quantitative < 0.017 ng/mL (0.000-0.055) AP-Vzi-C-Type Natriuretic Peptide 922 pg/mL (0-124) Total Protein 7.5 g/dL (6.4-8.2) 6.4 g/dL (6.4-8.2) Albumin 2.3 g/dL (3.4-5.0) 1.8 g/dL (3.4-5.0) Albumin/Globulin Ratio 0.4 (1.0-1.7) 0.4 (1.0-1.7) Lipase 54 U/L (73-393) Urine Opiates Screen Pos (NEG) Urine Methadone Screen Neg (NEG) Urine Barbiturates Neg (NEG) Urine Phencyclidine Screen Neg (NEG) Urine Amphetamine/Methamphetamine Neg (NEG) Urine Benzodiazepines Screen Neg (NEG) Urine Cocaine Screen Neg (NEG) Urine Cannabinoids Screen Neg (NEG) Urine Ethyl Alcohol Neg (NEG) Assessment and Plan Assessmemt and Plan Problems Medical Problems: (1) Acute on chronic renal failure Status: Acute (2) Anemia Status: Acute (3) Swelling of both lower extremities Status: Acute Comment Review of Relevant I have reviewed the following items joan (where applicable) has been applied. Labs Laboratory Tests Test 09/29/20 19:35 09/30/20 08:25 White Blood Count 15.8 x10^3/uL (4.0-11.0) 12.7 x10^3/uL (4.0-11.0) Red Blood Count 2.91 x10^6/uL (4.30-5.70) 2.53 x10^6/uL (4.30-5.70) Hemoglobin 8.5 g/dL (13.0-17.5) 7.4 g/dL (13.0-17.5) Hematocrit 26.2 % (39.0-53.0) 22.7 % (39.0-53.0) Mean Corpuscular Volume 90 fL (79-100) 90 fL (79-100) Mean Corpuscular Hemoglobin 29 pg (25-35) 29 pg (25-35) Mean Corpuscular Hemoglobin Concent 33 g/dL (31-37) 33 g/dL (31-37) Red Cell Distribution Width 16.6 % (11.5-14.5) 16.1 % (11.5-14.5) Platelet Count 210 x10^3/uL (140-400) 179 x10^3/uL (140-400) Neutrophils (%) (Auto) 82 % (31-73) 81 % (31-73) Lymphocytes (%) (Auto) 7 % (24-48) 8 % (24-48) Monocytes (%) (Auto) 9 % (0-9) 9 % (0-9) Eosinophils (%) (Auto) 1 % (0-3) 1 % (0-3) Basophils (%) (Auto) 1 % (0-3) 1 % (0-3) Neutrophils # (Auto) 13.0 x10^3/uL (1.8-7.7) 10.4 x10^3/uL (1.8-7.7) Lymphocytes # (Auto) 1.1 x10^3/uL (1.0-4.8) 1.0 x10^3/uL (1.0-4.8) Monocytes # (Auto) 1.4 x10^3/uL (0.0-1.1) 1.1 x10^3/uL (0.0-1.1) Eosinophils # (Auto) 0.2 x10^3/uL (0.0-0.7) 0.2 x10^3/uL (0.0-0.7) Basophils # (Auto) 0.2 x10^3/uL (0.0-0.2) 0.1 x10^3/uL (0.0-0.2) Segmented Neutrophils % 85 % (35-66) Band Neutrophils % 7 % (0-9) Lymphocytes % 5 % (24-48) Monocytes % 2 % (0-10) Eosinophils % 1 % (0-5) Platelet Estimate Adequate (ADEQUATE) Hypochromasia Slight Anisocytosis Slight Stomatocytes Few Prothrombin Time 17.3 SEC (11.7-14.0) Prothromb Time International Ratio 1.5 (0.8-1.1) Activated Partial Thromboplast Time 56 SEC (24-38) Urine Collection Type Unknown Urine Color Yellow Urine Clarity Clear Urine pH 7.5 (<5.0-8.0) Urine Specific [place] 1.010 (1.000-1.030) Urine Protein Negative mg/dL (NEG-TRACE) Urine Glucose (UA) Negative mg/dL (NEG) Urine Ketones (Stick) Negative mg/dL (NEG) Urine Blood Negative (NEG) Urine Nitrite Negative (NEG) Urine Bilirubin Negative (NEG) Urine Urobilinogen Dipstick 0.2 mg/dL (0.2 mg/dL) Urine Leukocyte Esterase Negative (NEG) Urine RBC Rare /HPF (0-2) Urine WBC Rare /HPF (0-4) Urine Squamous Epithelial Cells Few /LPF Urine Bacteria 0 /HPF (0-FEW) Urine Hyaline Casts Few /HPF Urine Mucus Slight /LPF Sodium Level 140 mmol/L (136-145) 139 mmol/L (136-145) Potassium Level 3.6 mmol/L (3.5-5.1) 3.6 mmol/L (3.5-5.1) Chloride Level 103 mmol/L (98-107) 104 mmol/L (98-107) Carbon Dioxide Level 26 mmol/L (21-32) 24 mmol/L (21-32) Anion Gap 11 (6-14) 11 (6-14) Blood Urea Nitrogen 16 mg/dL (8-26) 13 mg/dL (8-26) Creatinine 1.6 mg/dL (0.7-1.3) 1.3 mg/dL (0.7-1.3) Estimated GFR (Cockcroft-Gault) 57.4 72.9 BUN/Creatinine Ratio 10 (6-20) 10 (6-20) Glucose Level 74 mg/dL (70-99) 82 mg/dL (70-99) Calcium Level 8.9 mg/dL (8.5-10.1) 8.3 mg/dL (8.5-10.1) Magnesium Level 1.2 mg/dL (1.8-2.4) Total Bilirubin 1.2 mg/dL (0.2-1.0) 1.0 mg/dL (0.2-1.0) Aspartate Amino Transf (AST/SGOT) 66 U/L (15-37) 53 U/L (15-37) Alanine Aminotransferase (ALT/SGPT) 36 U/L (16-63) 29 U/L (16-63) Alkaline Phosphatase 442 U/L (46-116) 345 U/L (46-116) Troponin I Quantitative < 0.017 ng/mL (0.000-0.055) XC-Yvo-O-Type Natriuretic Peptide 922 pg/mL (0-124) Total Protein 7.5 g/dL (6.4-8.2) 6.4 g/dL (6.4-8.2) Albumin 2.3 g/dL (3.4-5.0) 1.8 g/dL (3.4-5.0) Albumin/Globulin Ratio 0.4 (1.0-1.7) 0.4 (1.0-1.7) Lipase 54 U/L (73-393) Urine Opiates Screen Pos (NEG) Urine Methadone Screen Neg (NEG) Urine Barbiturates Neg (NEG) Urine Phencyclidine Screen Neg (NEG) Urine Amphetamine/Methamphetamine Neg (NEG) Urine Benzodiazepines Screen Neg (NEG) Urine Cocaine Screen Neg (NEG) Urine Cannabinoids Screen Neg (NEG) Urine Ethyl Alcohol Neg (NEG) Laboratory Tests Test 09/29/20 19:35 09/30/20 08:25 White Blood Count 15.8 x10^3/uL (4.0-11.0) 12.7 x10^3/uL (4.0-11.0) Red Blood Count 2.91 x10^6/uL (4.30-5.70) 2.53 x10^6/uL (4.30-5.70) Hemoglobin 8.5 g/dL (13.0-17.5) 7.4 g/dL (13.0-17.5) Hematocrit 26.2 % (39.0-53.0) 22.7 % (39.0-53.0) Mean Corpuscular Volume 90 fL (79-100) 90 fL (79-100) Mean Corpuscular Hemoglobin 29 pg (25-35) 29 pg (25-35) Mean Corpuscular Hemoglobin Concent 33 g/dL (31-37) 33 g/dL (31-37) Red Cell Distribution Width 16.6 % (11.5-14.5) 16.1 % (11.5-14.5) Platelet Count 210 x10^3/uL (140-400) 179 x10^3/uL (140-400) Neutrophils (%) (Auto) 82 % (31-73) 81 % (31-73) Lymphocytes (%) (Auto) 7 % (24-48) 8 % (24-48) Monocytes (%) (Auto) 9 % (0-9) 9 % (0-9) Eosinophils (%) (Auto) 1 % (0-3) 1 % (0-3) Basophils (%) (Auto) 1 % (0-3) 1 % (0-3) Neutrophils # (Auto) 13.0 x10^3/uL (1.8-7.7) 10.4 x10^3/uL (1.8-7.7) Lymphocytes # (Auto) 1.1 x10^3/uL (1.0-4.8) 1.0 x10^3/uL (1.0-4.8) Monocytes # (Auto) 1.4 x10^3/uL (0.0-1.1) 1.1 x10^3/uL (0.0-1.1) Eosinophils # (Auto) 0.2 x10^3/uL (0.0-0.7) 0.2 x10^3/uL (0.0-0.7) Basophils # (Auto) 0.2 x10^3/uL (0.0-0.2) 0.1 x10^3/uL (0.0-0.2) Segmented Neutrophils % 85 % (35-66) Band Neutrophils % 7 % (0-9) Lymphocytes % 5 % (24-48) Monocytes % 2 % (0-10) Eosinophils % 1 % (0-5) Platelet Estimate Adequate (ADEQUATE) Hypochromasia Slight Anisocytosis Slight Stomatocytes Few Prothrombin Time 17.3 SEC (11.7-14.0) Prothromb Time International Ratio 1.5 (0.8-1.1) Activated Partial Thromboplast Time 56 SEC (24-38) Urine Collection Type Unknown Urine Color Yellow Urine Clarity Clear Urine pH 7.5 (<5.0-8.0) Urine Specific [place] 1.010 (1.000-1.030) Urine Protein Negative mg/dL (NEG-TRACE) Urine Glucose (UA) Negative mg/dL (NEG) Urine Ketones (Stick) Negative mg/dL (NEG) Urine Blood Negative (NEG) Urine Nitrite Negative (NEG) Urine Bilirubin Negative (NEG) Urine Urobilinogen Dipstick 0.2 mg/dL (0.2 mg/dL) Urine Leukocyte Esterase Negative (NEG) Urine RBC Rare /HPF (0-2) Urine WBC Rare /HPF (0-4) Urine Squamous Epithelial Cells Few /LPF Urine Bacteria 0 /HPF (0-FEW) Urine Hyaline Casts Few /HPF Urine Mucus Slight /LPF Sodium Level 140 mmol/L (136-145) 139 mmol/L (136-145) Potassium Level 3.6 mmol/L (3.5-5.1) 3.6 mmol/L (3.5-5.1) Chloride Level 103 mmol/L (98-107) 104 mmol/L (98-107) Carbon Dioxide Level 26 mmol/L (21-32) 24 mmol/L (21-32) Anion Gap 11 (6-14) 11 (6-14) Blood Urea Nitrogen 16 mg/dL (8-26) 13 mg/dL (8-26) Creatinine 1.6 mg/dL (0.7-1.3) 1.3 mg/dL (0.7-1.3) Estimated GFR (Cockcroft-Gault) 57.4 72.9 BUN/Creatinine Ratio 10 (6-20) 10 (6-20) Glucose Level 74 mg/dL (70-99) 82 mg/dL (70-99) Calcium Level 8.9 mg/dL (8.5-10.1) 8.3 mg/dL (8.5-10.1) Magnesium Level 1.2 mg/dL (1.8-2.4) Total Bilirubin 1.2 mg/dL (0.2-1.0) 1.0 mg/dL (0.2-1.0) Aspartate Amino Transf (AST/SGOT) 66 U/L (15-37) 53 U/L (15-37) Alanine Aminotransferase (ALT/SGPT) 36 U/L (16-63) 29 U/L (16-63) Alkaline Phosphatase 442 U/L (46-116) 345 U/L (46-116) Troponin I Quantitative < 0.017 ng/mL (0.000-0.055) PO-Xct-V-Type Natriuretic Peptide 922 pg/mL (0-124) Total Protein 7.5 g/dL (6.4-8.2) 6.4 g/dL (6.4-8.2) Albumin 2.3 g/dL (3.4-5.0) 1.8 g/dL (3.4-5.0) Albumin/Globulin Ratio 0.4 (1.0-1.7) 0.4 (1.0-1.7) Lipase 54 U/L (73-393) Urine Opiates Screen Pos (NEG) Urine Methadone Screen Neg (NEG) Urine Barbiturates Neg (NEG) Urine Phencyclidine Screen Neg (NEG) Urine Amphetamine/Methamphetamine Neg (NEG) Urine Benzodiazepines Screen Neg (NEG) Urine Cocaine Screen Neg (NEG) Urine Cannabinoids Screen Neg (NEG) Urine Ethyl Alcohol Neg (NEG) Medications Current Medications Fentanyl Citrate (Fentanyl 2ml Vial) 50 mcg PRN Q15MIN PRN IV PAIN GREATER THAN 3/10 Last administered on 09/29/20at 20:58; Start 09/29/20 at 18:45; Stop 09/29/20 at 23:34; Status DC Magnesium Sulfate 100 ml @ 25 mls/hr 1X ONCE IV Last administered on 09/29/20at 23:55; Start 09/29/20 at 23:00; Stop 09/30/20 at 02:59; Status DC Piperacillin Sod/ Tazobactam Sod (Zosyn Per Pharmacy) 1 each PRN DAILY PRN MC SEE COMMENTS; Start 09/29/20 at 22:15 Albuterol Sulfate (Ventolin Neb Soln) 2.5 mg PRN Q6HRS PRN INH SHORTNESS OF BREATH; Start 09/29/20 at 22:30 Allopurinol (Zyloprim) 100 mg DAILY PO Last administered on 09/30/20at 08:35; Start 09/30/20 at 09:00 Amlodipine Besylate (Norvasc) 10 mg DAILY PO Last administered on 09/30/20at 08 :35; Start 09/30/20 at 09:00 Acetaminophen/ Hydrocodone Bitart (Lortab 5/325) 1 tab PRN Q6HRS PRN PO MODERATE PAIN 4-6; Start 09/29/20 at 22:30 Lidocaine (Lidoderm) 1 patch PRN DAILY PRN TD TOPICAL PAIN; Start 09/29/20 at 22:30 Potassium Chloride (Klor-Con) 20 meq DAILYWBKFT PO Last administered on 09/30/20at 08:00; Start 09/30/20 at 08:00 Piperacillin Sod/ Tazobactam Sod 3.375 gm/Sodium Chloride 50 ml @ 100 mls/hr Q6HRS IV Last administered on 09/30/20at 11:49; Start 09/29/20 at 23:00 Enoxaparin Sodium (Lovenox Per Pharmacy Treatment Dosing) 1 each PRN DAILY PRN MC SEE COMMENTS; Start 09/29/20 at 22:30; Stop 09/30/20 at 12:26; Status DC Enoxaparin Sodium (Lovenox 80mg Syringe) 80 mg Q12HR SQ Last administered on 09/30/20at 08:36; Start 09/29/20 at 23:00; Stop 09/30/20 at 12:26; Status DC Ondansetron HCl (Zofran) 4 mg PRN Q8HRS PRN IV NAUSEA/VOMITING 1ST CHOICE; S tart 09/29/20 at 23:15; Stop 09/30/20 at 23:14 Fentanyl Citrate (Fentanyl 2ml Vial) 50 mcg PRN Q1HR PRN IV SEVERE PAIN 7-10; Start 09/29/20 at 23:15; Stop 09/29/20 at 23:34; Status DC Fentanyl Citrate (Fentanyl 2ml Vial) 50 mcg PRN Q2HR PRN IVP SEVERE PAIN 7-10 Last administered on 09/30/20at 11:47; Start 09/29/20 at 23:30 Multivitamins 10 ml/Thiamine HCl 100 mg/Folic Acid 1 mg/Sodium Chloride 1,011.2 ml @ 100 mls/ hr DAILY IV Last administered on 09/30/20at 08:34; Start 09/30/20 at 09:00; Stop 10/04/20 at 19:07 Lorazepam (Ativan Inj) 2 mg PRN Q1HR PRN IV For CIWA 8-14; Start 09/29/20 at 23:45 Lorazepam (Ativan Inj) 4 mg PRN Q1HR PRN IV For CIWA 15 or greater; Start 09/29/20 at 23:45 Haloperidol Lactate (Haldol Inj) 5 mg PRN Q4HRS PRN IVP Walter lucinatns,Confusn,Delirium; Start 09/29/20 at 23:45 Clonidine HCl (Catapres) 0.1 mg PRN Q1HR PRN PO SBP > 180 or DBP > 100, MRX3; Start 09/29/20 at 23:45 Info (Anti-Coagulation Monitoring By Pharmacy) 1 each PRN DAILY PRN MC SEE COMMENTS Last administered on 09/30/20at 02:57; Start 09/30/20 at 03:00 Active Scripts Active Ondansetron Hcl 4 Mg Tablet 1 Tab PO PRN Q6HRS PRN 3 Days Magnesium (Magnesium Oxide) 400 Mg Capsule 1 Cap PO DAILY 14 Days Mcdonald 5-325 Tablet (Acetaminophen/Hydrocodone Bitart) 1 Each Tablet 1 Tab PO PRN Q6HRS PRN Potassium Chloride (Potassium Chloride) 20 Meq Tablet.er 20 Meq PO DAILY 14 Days Diclofenac Sodium 50 Mg Tablet.dr 1 Tab PO BID PRN Lidocaine PATCH (Lidocaine) 1 Each Adh..patch 1 Patch TD PRN DAILY PRN 30 Days Prednisone 20 Mg Tablet 40 Mg PO DAILY 10 Days Culturelle (Lactobacillus Rhamnosus Gg) 1 Each Cap.sprink 1 Cap PO BID 30 Days Klor-Con M20 (Potassium Chloride) 20 Meq Tab.er.prt 20 Meq PO DAILYWBKFT 14 Days Voltaren (Diclofenac Sodium) 100 Gm Gel..gram. 1 Jevon TP BID 14 Days Duoneb 0.5-3(2.5) Mg/3 Ml (Albuterol/Ipratropium) 3 Ml Ampul.neb 3 Ml NEB Q4HRS W/A 30 Days Colcrys (Colchicine) 0.6 Mg Tablet 1 Tab PO DAILY PRN Coreg (Carvedilol) 12.5 Mg Tablet 1 Tab PO BID Reported Augmentin 875-125 Tablet (Amoxicillin/Potassium Clav) 1 Each Tablet 1 Tab PO BID 5 Days Carvedilol 12.5 Mg Tablet 1 Tab PO BID Allopurinol 100 Mg Tablet 1 Tab PO DAILY 30 Days Hydroxyzine Hcl 10 Mg Tablet 10 Mg PO TID Proair Hfa (Albuterol Sulfate) 8.5 Gm Hfa.aer.ad 1 Puff INH PRN Q6HRS PRN Fluoxetine Hcl 40 Mg Capsule 60 Mg PO DAILY Cetirizine Hcl 10 Mg Tab.chew 10 Mg PO DAILY PRN Atorvastatin Calcium 40 Mg Tablet 40 Mg PO DAILY Aspirin 81 Mg Tab.chew 81 Mg PO DAILY PRN Omeprazole 20 Mg Capsule.dr 40 Mg PO DAILY Amlodipine Besylate 10 Mg Tablet 10 Mg PO DAILY Mirtazapine 45 Mg Tablet 45 Mg PO HS Vitals/I & O Vital Sign - Last 24 Hours 09/29/20 09/29/20 09/29/20 09/29/20 18:30 18:45 19:15 19:45 Temp 98.2 98.2 Pulse 108 109 98 100 Resp 18 B/P (MAP) 112/69 (83) 108/66 (80) 118/68 (85) 102/67 (79) Pulse Ox 94 95 96 O2 Delivery Room Air 09/29/20 09/29/20 09/29/20 09/29/20 19:54 20:15 20:45 20:58 Pulse 99 101 Resp 18 16 B/P (MAP) 103/65 (78) 119/70 (86) Pulse Ox 95 97 95 95 09/29/20 09/29/20 09/29/20 09/29/20 21:15 21:45 22:15 22:45 Pulse 100 99 94 94 B/P (MAP) 107/63 (78) 104/65 (78) 106/66 (79) 104/66 (79) Pulse Ox 91 92 95 94 09/29/20 09/29/20 09/30/20 09/30/20 23:26 23:54 00:24 02:30 Temp 98.0 98.0 Pulse 94 Resp 20 18 B/P (MAP) 111/68 (82) Pulse Ox 95 95 95 92 O2 Delivery Room Air 09/30/20 09/30/20 09/30/20 09/30/20 03:00 03:00 06:03 06:33 Temp 98.1 98.1 Pulse 89 Resp 20 B/P (MAP) 101/62 (75) Pulse Ox 92 92 92 92 O2 Delivery Room Air 09/30/20 09/30/20 09/30/20 07:00 08:35 11:00 Temp 98.0 97.9 98.0 97.9 Pulse 95 95 98 Resp 16 16 B/P (MAP) 102/62 (75) 102/62 100/56 (71) Pulse Ox 94 94 O2 Delivery Room Air Room Air Intake and Output 09/29/20 09/29/20 09/30/20 15:00 23:00 07:00 Intake Total 600 ml Output Total 550 ml Balance 50 ml Justicifation of Admission Dx: Justifications for Admission: Justification of Admission Dx: N/A ALVINO PARSON MD Sep 30, 2020 12:31
--- NOTE | 2020-09-30 12:54 | CONS ---
DATE OF CONSULTATION: PULMONARY CONSULTATION ATTENDING PHYSICIAN: Melanie Dawson MD REASON FOR CONSULTATION: Abnormal chest x-ray, history of sarcoidosis. HISTORY OF PRESENT ILLNESS: The patient is a 45-year-old male who has a history of pulmonary sarcoidosis diagnosed in 1999. He is not so sure whether he had a biopsy, said he had a week of steroids. The patient states that he had a recent procedure at , which sounds like a bleeding ulcers. He states he had some clipping done. He denies any diagnosis of throat cancer as listed in his H and P. He was brought into the hospital with increasing leg swelling and feet swelling. Denies any increased shortness of breath. No chest pain. No weight loss. His chest x-ray was reviewed. There are faint bilateral interstitial infiltrates. The patient is currently on room air with saturation of 94%. He had a previous CT chest in the past and there were some bilateral infiltrates suggestive of interstitial lung disease. PAST MEDICAL HISTORY: History of hypertension, history of asthma, history of bronchitis, history of sarcoidosis diagnosed in 1999, not on any chronic steroids. PAST SURGICAL HISTORY: Total knee replacement, colon resection. FAMILY HISTORY: Cancer and hypertension. SOCIAL HISTORY: Smoker, less than 1 pack per day and history of cocaine use. REVIEW OF SYSTEMS: Ten-point system obtained. Pertinent positives discussed in my history of present illness, otherwise noncontributory. All systems that were negative were reviewed as well. MEDICATIONS: All reviewed as listed in the MRAD. PHYSICAL EXAMINATION: VITAL SIGNS: Reviewed. Pulse oximetry 94% on room air. NECK: Supple. LUNGS: With few crackles posteriorly. CARDIOVASCULAR: With a regular rate. ABDOMEN: Soft, slightly distended. Have some midline incisions. EXTREMITIES: With bilateral pitting edema and feet edema. LABORATORY DATA: Reviewed. White cell count 12.7, hemoglobin 7.4 and platelets are 179. BUN 13 and creatinine 1.3. IMPRESSION: 1. Abnormal chest x-ray with mildly prominent interstitial infiltrates. Could be related to sarcoidosis. The patient has known history of sarcoidosis diagnosed in 1999. He is not so sure whether he had biopsy at that time. I will obtain noncontrast CT chest. 2. Significant lower extremity edema and feet edema. ? RV failure. There was no evidence of any deep vein thrombosis. Would recommend getting an echocardiogram and also CT abdomen and pelvis to rule out any venous obstruction. 3. History of tobacco use. RECOMMENDATIONS: 1. We will obtain noncontrast CT chest. We will also do CT abdomen and pelvis. 2. Obtain echocardiogram. 3. Venous Dopplers are negative. 4. Will benefit from diuresis. 5. Empiric antibiotic per PCP. 6. We will follow along with you and make further recommendations after review of the imaging studies. JEAN MARIE MCGUIRE MD DR: RAFAL/sachin JOB#: [id number] / [id number] SERGIO
[2020-09-30] MEDS ORDERED: PANTOPRAZOLE IV PUSH 40 MG VIAL. IVP ONE (13:00)
[2020-09-30 13:16] LABS: RED BLOOD COUNT 2.31 x10^6/uL (4.30-5.70); RED CELL DISTRIBUTION WIDTH 16.3 % (11.5-14.5); WHITE BLOOD COUNT 21.7 x10^3/uL (4.0-11.0)
[2020-09-30 13:17] LABS: HEMOGLOBIN 6.8 g/dL (13.0-17.5)
--- NOTE | 2020-09-30 13:22 | PDOC2 ---
GI CONSULT Date of Service: DATE: 09/30/20 TIME: :22 Reason For Consult: BRBPR HPI: HPI: 45 y/o male who we saw last month. To ER this time w/ BLE swelling and weakness. Received Lovenox. Today had a large dark red bloody stool w/ clots. He is quite a poor historian. He tells me he was recently hospitalized at (last Tuesday) - he was sent there a radiation department where he was setting up cancer treatments because he looked weak. He doesn't know what kind of cancer he has. At , he indicates he had some similar bleeding and had an EGD and a colonoscopy and "they clipped an ulcer and something growing next to it." He says he also had paracentesis. He says he was discharged on Tuesday. He went home and had a drink and then started his antibiotics. He says he had a normal stool that day. When we last saw, he had recently had a biopsy of right neck - he now says that was benign. At that time, he also reported recent 'scopes at and possible liver biopsy. Requested were requested from but not received. Last month, he had ascites and underwent paracentesis (no SBP). Imaging noted portal hypertension. Hepatitis panel was negative, B12 was normal, and iron profile was c/w ACD (w/ Hgb averaging in 8s during admission). D/w nurse and Dr. Dawson - records requested from this morning, orders for vit K, octreotide, FFP, and pRBCs. Also PPI and possible transfer to ICU. Pt also has a reshma drain in right buttock - night supervisor reported some minimal brain drainage. H/o GERD. H/o colon resection ?for diverticular disease. I asked if there was someone we could call to help him remember what was done at - "they wouldn't know how to pronounce it." PMH: PMH: HTN, COPD, sarcoidosis, portal hypertension, anxiety, depression, substance abuse, ?diverticular disease bilateral knee arthroscopies, colon resection, colostomy takedown w/ ventral hernia repair, I&D perirectal abscess FH: Family History: No pertinent hx Social History: Smoke: Quit (11/2019) ALCOHOL: other Drugs: Other (past cocaine) ROS: GEN: Denies fevers, chills, sweats HEENT: Denies blurred vision, sore throat CV: Denies chest pain RESP: +SOA GI: Per HPI : Denies hematuria, dysuria ENDO: Denies weight changes NEURO: Denies confusion, dizziness MSK: +swelling SKIN: Denies jaundice, pruritus Vitals: Vitals: Vital Signs Date Time Temp Pulse Resp B/P (MAP) Pulse Ox O2 Delivery O2 Flow Rate FiO2 09/30/20 11:00 97.9 98 16 100/56 (71) 94 Room Air 97.9 Labs: Labs: Laboratory Tests Test 09/29/20 19:35 09/30/20 08:25 09/30/20 13:02 White Blood Count 15.8 x10^3/uL (4.0-11.0) 12.7 x10^3/uL (4.0-11.0) 21.7 x10^3/uL (4.0-11.0) Red Blood Count 2.91 x10^6/uL (4.30-5.70) 2.53 x10^6/uL (4.30-5.70) 2.31 x10^6/uL (4.30-5.70) Hemoglobin 8.5 g/dL (13.0-17.5) 7.4 g/dL (13.0-17.5) 6.8 g/dL (13.0-17.5) Hematocrit 26.2 % (39.0-53.0) 22.7 % (39.0-53.0) 21.0 % (39.0-53.0) Mean Corpuscular Volume 90 fL (79-100) 90 fL (79-100) 91 fL (79-100) Mean Corpuscular Hemoglobin 29 pg (25-35) 29 pg (25-35) 30 pg (25-35) Mean Corpuscular Hemoglobin Concent 33 g/dL (31-37) 33 g/dL (31-37) 33 g/dL (31-37) Red Cell Distribution Width 16.6 % (11.5-14.5) 16.1 % (11.5-14.5) 16.3 % (11.5-14.5) Platelet Count 210 x10^3/uL (140-400) 179 x10^3/uL (140-400) 234 x10^3/uL (140-400) Neutrophils (%) (Auto) 82 % (31-73) 81 % (31-73) Lymphocytes (%) (Auto) 7 % (24-48) 8 % (24-48) Monocytes (%) (Auto) 9 % (0-9) 9 % (0-9) Eosinophils (%) (Auto) 1 % (0-3) 1 % (0-3) Basophils (%) (Auto) 1 % (0-3) 1 % (0-3) Neutrophils # (Auto) 13.0 x10^3/uL (1.8-7.7) 10.4 x10^3/uL (1.8-7.7) Lymphocytes # (Auto) 1.1 x10^3/uL (1.0-4.8) 1.0 x10^3/uL (1.0-4.8) Monocytes # (Auto) 1.4 x10^3/uL (0.0-1.1) 1.1 x10^3/uL (0.0-1.1) Eosinophils # (Auto) 0.2 x10^3/uL (0.0-0.7) 0.2 x10^3/uL (0.0-0.7) Basophils # (Auto) 0.2 x10^3/uL (0.0-0.2) 0.1 x10^3/uL (0.0-0.2) Segmented Neutrophils % 85 % (35-66) Band Neutrophils % 7 % (0-9) Lymphocytes % 5 % (24-48) Monocytes % 2 % (0-10) Eosinophils % 1 % (0-5) Platelet Estimate Adequate (ADEQUATE) Hypochromasia Slight Anisocytosis Slight Stomatocytes Few Prothrombin Time 17.3 SEC (11.7-14.0) Prothromb Time International Ratio 1.5 (0.8-1.1) Activated Partial Thromboplast Time 56 SEC (24-38) Urine Collection Type Unknown Urine Color Yellow Urine Clarity Clear Urine pH 7.5 (<5.0-8.0) Urine Specific [place] 1.010 (1.000-1.030) Urine Protein Negative mg/dL (NEG-TRACE) Urine Glucose (UA) Negative mg/dL (NEG) Urine Ketones (Stick) Negative mg/dL (NEG) Urine Blood Negative (NEG) Urine Nitrite Negative (NEG) Urine Bilirubin Negative (NEG) Urine Urobilinogen Dipstick 0.2 mg/dL (0.2 mg/dL) Urine Leukocyte Esterase Negative (NEG) Urine RBC Rare /HPF (0-2) Urine WBC Rare /HPF (0-4) Urine Squamous Epithelial Cells Few /LPF Urine Bacteria 0 /HPF (0-FEW) Urine Hyaline Casts Few /HPF Urine Mucus Slight /LPF Sodium Level 140 mmol/L (136-145) 139 mmol/L (136-145) Potassium Level 3.6 mmol/L (3.5-5.1) 3.6 mmol/L (3.5-5.1) Chloride Level 103 mmol/L (98-107) 104 mmol/L (98-107) Carbon Dioxide Level 26 mmol/L (21-32) 24 mmol/L (21-32) Anion Gap 11 (6-14) 11 (6-14) Blood Urea Nitrogen 16 mg/dL (8-26) 13 mg/dL (8-26) Creatinine 1.6 mg/dL (0.7-1.3) 1.3 mg/dL (0.7-1.3) Estimated GFR (Cockcroft-Gault) 57.4 72.9 BUN/Creatinine Ratio 10 (6-20) 10 (6-20) Glucose Level 74 mg/dL (70-99) 82 mg/dL (70-99) Calcium Level 8.9 mg/dL (8.5-10.1) 8.3 mg/dL (8.5-10.1) Magnesium Level 1.2 mg/dL (1.8-2.4) Total Bilirubin 1.2 mg/dL (0.2-1.0) 1.0 mg/dL (0.2-1.0) Aspartate Amino Transf (AST/SGOT) 66 U/L (15-37) 53 U/L (15-37) Alanine Aminotransferase (ALT/SGPT) 36 U/L (16-63) 29 U/L (16-63) Alkaline Phosphatase 442 U/L (46-116) 345 U/L (46-116) Troponin I Quantitative < 0.017 ng/mL (0.000-0.055) IS-Jna-D-Type Natriuretic Peptide 922 pg/mL (0-124) Total Protein 7.5 g/dL (6.4-8.2) 6.4 g/dL (6.4-8.2) Albumin 2.3 g/dL (3.4-5.0) 1.8 g/dL (3.4-5.0) Albumin/Globulin Ratio 0.4 (1.0-1.7) 0.4 (1.0-1.7) Lipase 54 U/L (73-393) Urine Opiates Screen Pos (NEG) Urine Methadone Screen Neg (NEG) Urine Barbiturates Neg (NEG) Urine Phencyclidine Screen Neg (NEG) Urine Amphetamine/Methamphetamine Neg (NEG) Urine Benzodiazepines Screen Neg (NEG) Urine Cocaine Screen Neg (NEG) Urine Cannabinoids Screen Neg (NEG) Urine Ethyl Alcohol Neg (NEG) Fibrinogen 370 mg/dL (200-440) Lactate Dehydrogenase 208 U/L (85-227) Allergies: Coded Allergies: hydromorphone (Verified Adverse Reaction, Severe, Anxiety, 08/27/20) hallucinations, paranoia, hyperactivity Medications: Current Medications Medications (Trade) Dose Ordered Sig/Donavon Route PRN Reason Start Time Stop Time Status Last Admin Dose Admin Fentanyl Citrate (Fentanyl 2ml Vial) 50 mcg PRN Q15MIN PRN IV PAIN GREATER THAN 3/10 09/29/20 18:45 09/29/20 23:34 DC 09/29/20 20:58 Magnesium Sulfate 100 ml @ 25 mls/hr 1X ONCE IV 09/29/20 23:00 09/30/20 02:59 DC 09/29/20 23:55 Allopurinol (Zyloprim) 100 mg DAILY PO 09/30/20 09:00 09/30/20 08:35 Amlodipine Besylate (Norvasc) 10 mg DAILY PO 09/30/20 09:00 09/30/20 08:35 Potassium Chloride (Klor-Con) 20 meq DAILYWBKFT PO 09/30/20 08:00 09/30/20 08:00 Piperacillin Sod/ Tazobactam Sod 3.375 gm/Sodium Chloride 50 ml @ 100 mls/hr Q6HRS IV 09/29/20 23:00 09/30/20 11:49 Enoxaparin Sodium (Lovenox 80mg Syringe) 80 mg Q12HR SQ 09/29/20 23:00 09/30/20 12:26 DC 09/30/20 08:36 Fentanyl Citrate (Fentanyl 2ml Vial) 50 mcg PRN Q2HR PRN IVP SEVERE PAIN 7-10 09/29/20 23:30 09/30/20 11:47 Multivitamins 10 ml/Thiamine HCl 100 mg/Folic Acid 1 mg/Sodium Chloride 1,011.2 ml @ 100 mls/ hr DAILY IV 09/30/20 09:00 10/04/20 19:07 09/30/20 08:34 Info (Anti-Coagulation Monitoring By Pharmacy) 1 each PRN DAILY PRN MC SEE COMMENTS 09/30/20 03:00 09/30/20 13:18 DC 09/30/20 02:57 Imaging: Imaging: CXR IMPRESSION: 1. Bilateral infiltrates or pulmonary edema. LE US IMPRESSION: 1. No deep venous thrombosis seen throughout either lower extremity. 2. Nonspecific bilateral subcutaneous edema. PE: GEN: staff present cleaning him up, lab present for blood draw - he's a bit shaky HEENT: atraumatic LUNGS: diminished anteriorly HEART: distant ABD: some distention but not tight, non-tender, BS+ EXTREMITY: 3+ BLE/pedal edema NEURO/PSYCH: forgetful A/P: A/P: Weakness, BLE swelling Hematochezia - ?recent 'scopes at with "ulcer" Leukocytosis, chronic anemia (Hgb drifting), elevated AST and Alk Phos (noted in past) H/o GERD Liver disease - h/o ascites/paracentesis - ?alcohol ?sarcoid H/o colon resection (?diverticular disease) -- Agree w/ plans for transfusions, etc. Check bleeding scan, await records. Note sure about drain in buttock - indicates sent home from w/ atbx - does have h/o perirectal abscess. BASSAM-CARISA LACKEY Sep 30, 2020 13:22
[2020-09-30] MEDS ORDERED: NORMAL SALINE IV ONE (13:30)
[2020-09-30] MEDS ORDERED: HEPARIN for NUC MED 500 UNIT/5 ML DISP.SYRIN. IV ONE (13:30)
[2020-09-30] MEDS ORDERED: PHYTONADIONE (VIT K1) IV 10 MG in IV DEXTROSE 5% 50 ML IV ONE (13:30)
[2020-09-30] MEDS ORDERED: PROTAMINE IV ONE (13:30)
--- NOTE | 2020-09-30 13:37 | CONS ---
DATE OF CONSULTATION: 09/30/2020 REFERRING PHYSICIAN: Melanie Dawson MD. REASON FOR CONSULTATION: Possible abdominal abscess, antibiotic management. 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 The patient has generalized weakness. He was hospitalized at and had some kind of surgery, with which he has a drain placed. He could not give details. He was discharged on p.o. antibiotics. Last Tuesday, he states that he was also diagnosed with throat cancer, but was too ill to get surgery or chemotherapy. The patient denies any fevers, chills, headache, sore throat, nausea, worsening shortness of breath. He does have some nausea, no symptoms. Denies any chest pain. The patient's white count was high around 15,800, hemoglobin of 8.5, INR of 1.5. UA was negative. Creatinine of 1.6, lipase of 54, BNP of 922. UDS was positive for opiates, otherwise negative. He was on room air. Chest x-ray revealed bilateral infiltrates or pulmonary edema. Ultrasound of the lower extremities did not show any DVT, bilateral subcutaneous edema. The patient was started on Zosyn. ID consultation has been requested for further evaluation and treatment. Today, the patient denies any complaints. PAST MEDICAL HISTORY: Sarcoid, depression, GERD, hypertension, anxiety, tobacco dependence, in remission, new diagnosis of throat cancer, history of abscess, status post Carol placement. PAST SURGICAL HISTORY: As per HPI. REVIEW OF SYSTEMS: Negative except for above in HPI. FAMILY HISTORY: As per HPI. SOCIAL HISTORY: Denies smoking, ETOH or illicit drug use. CURRENT MEDICATIONS: Zosyn. Other medications reviewed in medication list. ALLERGIES: HYDROMORPHONE. PHYSICAL EXAMINATION: VITAL SIGNS: Temperature 98, pulse 95, respiratory rate 16, blood pressure 102/62, oxygen saturation 94% on room air. GENERAL: Alert, awake male, in no acute distress, somewhat forgetful, appears weak. HEENT: Normocephalic, atraumatic, anicteric. NECK: Supple. LUNGS: Clear bilaterally. HEART: S1, S2, no murmurs. ABDOMEN: Mildly distended, soft, bowel sounds present. Left buttock has Manvel in place. Blood stained stool. No underlying fluctuance noted. EXTREMITIES: 4+ edema bilaterally with some weeping lesions. DERMATOLOGIC: Warm, dry. No generalized rash except for above. NEUROLOGIC: Alert, awake, somewhat forgetful. Normal speech. PSYCHIATRIC: Cooperative. LABORATORY DATA: WBC 12.7, was 15.8, hemoglobin 7.4, was 8.5 and platelets 179. Sodium 139, potassium 3.6, chloride 104, bicarbonate 24, BUN 13, creatinine 1.3, was 1.6, albumin 2.3, AST 66, alkaline phosphatase ____, total bilirubin 1.2, lipase 54. UA negative. INR 1.5. MICRO: None. IMAGIN. Chest x-ray as above. 2. Lower extremity ultrasound as above. IMPRESSION: 1. Left buttock abscess, status post incision and drainage at recently, status post Manvel placed. I do not have details on the same. The patient was discharged on p.o. antibiotics. 2. Bilateral lower extremity edema, worsening. Doppler negative for deep venous thrombosis. 3. Generalized weakness and debility. 4. GI Bleed 5. History of sarcoidosis, following up at . 6. Abnormal liver function tests. 7. History of recent moderate ascites, diffuse wall thickening of colon, status post paracentesis. 8. History of colon resection, questionable. 9. Leukocytosis, anemia. 10. Severe malnutrition. 11. Generalized debility. 12. Metabolic encephalopathy. Improving 13. History of recent throat cancer, unable to get details.Not a candidate for surgery . RECOMMENDATIONS: 1. Continue Zosyn. 2. Continue local wound care as directed. 3. Consider GI consult. 4. Oncology and Pulmonary have been consulted. 5. Awaiting records from for review 6. Continue supportive care. 7. Overall prognosis poor Discussed with RN. Thank you for allowing me to participate in this patient's care. If you have any questions, do not hesitate to contact me. FRANCIS BRENNER MD DR: CHRISTINA/sachin JOB#: [id number] / [id number]
[2020-09-30] MEDS: OCTREOTIDE 500 MCG in IV NORMAL SALINE 100ML 100 ML IV PRN (14:00)
--- NOTE | 2020-09-30 15:59 | RAD ---
GI bleeding scan 09/30/2020 CLINICAL HISTORY: Bloody stools earlier today. TEHCNIQUE: After the intravenous administration of 20.4 mCi of Technetium 99m labeled red blood cells , imaging of the abdomen and pelvis was performed using the gamma camera for 60 minutes. FINDINGS: Normal activity is seen involving the heart, liver, spleen and major vascular structures of the abdomen and pelvis. Activity is seen within the stomach which gradually progresses to involve th e duodenum and proximal jejunum which is felt to represent free pertechnetate. There is no definite s cintigraphic evidence of active GI bleeding. IMPRESSION: There is no scintigraphic evidence of active GI bleeding. Electronically signed by: Ebenezer Yanez MD (09/30/2020 3:57 PM) [id number]
[2020-09-30 19:07] LABS: RED BLOOD COUNT 1.76 x10^6/uL (4.30-5.70); WHITE BLOOD COUNT 17.7 x10^3/uL (4.0-11.0)
[2020-09-30 19:12] LABS: HEMATOCRIT 16.2 % (39.0-53.0); HEMOGLOBIN 5.3 g/dL (13.0-17.5)
[2020-09-30 19:36] LABS: CALCIUM 7.5 mg/dL (8.5-10.1); CREATININE 1.7 mg/dL (0.7-1.3); GFR 53.5; POTASSIUM 4.6 mmol/L (3.5-5.1)
--- NOTE | 2020-09-30 21:00 | NUR ---
Patient brought to room 269 from room 426 because of low hemoglobin. Patient transferred to ICU bed via 3 person assist. VSS. FFP and octriotide gtts infusing. Will infuse 2 units of RBCs when FFP is finished. Afebrile. C/O pain 8 on 1-10 scale in BLE. Will give fentanyl IVP per PRN order. Call light is within reach. updated. Will monitor.
--- NOTE | 2020-09-30 21:08 | NUR ---
1939- Pt.'s hgb dropped to 5.3 this evening. FFP was started on the floor. RN called MD for new orders and orders were given to transfer pt. to ICU. Report was given to KENIA Argueta. Pt. left the floor at 2044 this evening. [id number]-This RN spoke to pt.'s brother Dewayne and pt.'s mother Gunner Jones about pt.'s status and new room number.
--- NOTE | 2020-09-30 21:28 | NUR ---
Spoke to Dr. Fermin razo about pt. status.
[2020-10-01] VITALS (32 sets, daily range): BP systolic 70–133; BP diastolic 47–95
[2020-10-01] MEDS: PIPERACILLIN/TAZOBACTAM 3.375 GM in IV NORMAL SALINE 50ML 50 ML IV SCH ×4 (00:53→17:23)
[2020-10-01] MEDS: fentaNYL PF VIAL 100 MCG/2 ML VIAL IVP PRN ×5 (02:16→22:45)
--- NOTE | 2020-10-01 06:37 | NUR ---
Dr. Haskins notified on SBP 70s-80s. New orders received. Will implement.
[2020-10-01] MEDS: OCTREOTIDE 500 MCG in IV NORMAL SALINE 100ML 100 ML IV PRN (06:46)
[2020-10-01] MEDS ORDERED: ALBUMIN HUMAN 5% 500 ML IV ONE (07:00)
[2020-10-01] MEDS: PANTOPRAZOLE IV PUSH 40 MG VIAL. IVP SCH (07:30)
[2020-10-01] MEDS: POTASSIUM CHLORIDE 20 MEQ TABLET.ER. PO SCH (08:00)
[2020-10-01] MEDS: ALLOPURINOL 100 MG TABLET. PO SCH (09:00)
[2020-10-01] MEDS: amLODIPine BESYLATE 10 MG TABLET PO SCH (09:00)
--- NOTE | 2020-10-01 09:04 | PDOC ---
Infectious Disease Note Subjective: Subjective Patient's hemoglobin dropped to around 5 Transferred to CCU Status post PRBC and FFP transfusion Today denies any abdominal pain or nausea Vital Signs: Vital Signs Vital Signs Date Time Temp Pulse Resp B/P (MAP) Pulse Ox O2 Delivery O2 Flow Rate FiO2 10/01/20 08:32 12 98 Nasal Cannula 2.0 10/01/20 08:00 98.3 88 103/58 (73) 98.3 Physical Exam: PHYSICAL EXAM GENERAL: Alert, awake male, in no acute distress, somewhat forgetful, weak. HEENT: Normocephalic, atraumatic, anicteric. NECK: Supple. LUNGS: Clear bilaterally. HEART: S1, S2, no murmurs. ABDOMEN: Mildly distended, soft, bowel sounds present. Left buttock has Gaylord in place. Blood stained stool. No underlying fluctuance noted. EXTREMITIES: 4+ edema bilaterally with some weeping lesions. DERMATOLOGIC: Warm, dry. No generalized rash except for above. NEUROLOGIC: Alert, awake, somewhat forgetful. Normal speech. PSYCHIATRIC: Cooperative. Medications: Inpatient Meds: Current Medications Medications (Trade) Dose Ordered Sig/Donavon Start Time Stop Time Status Last Admin Dose Admin Acetaminophen/ Hydrocodone Bitart (Lortab 5/325) 1 tab PRN Q6HRS PRN 09/29/20 22:30 Albumin Human 500 ml @ 125 mls/hr 1X ONCE 10/01/20 07:00 10/01/20 10:59 10/01/20 07:15 125 MLS/HR Albuterol Sulfate (Ventolin Neb Soln) 2.5 mg PRN Q6HRS PRN 09/29/20 22:30 Allopurinol (Zyloprim) 100 mg DAILY 09/30/20 09:00 09/30/20 08:35 100 MG Amlodipine Besylate (Norvasc) 10 mg DAILY 09/30/20 09:00 09/30/20 08:35 10 MG Clonidine HCl (Catapres) 0.1 mg PRN Q1HR PRN 09/29/20 23:45 Enoxaparin Sodium (Lovenox 80mg Syringe) 80 mg Q12HR 09/29/20 23:00 09/30/20 12:26 DC 09/30/20 08:36 80 MG Enoxaparin Sodium (Lovenox Per Pharmacy Treatment Dosing) 1 each PRN DAILY PRN 09/29/20 22:30 09/30/20 12:26 DC Fentanyl Citrate (Fentanyl 2ml Vial) 50 mcg PRN Q2HR PRN 09/29/20 23:30 10/01/20 08:32 50 MCG Haloperidol Lactate (Haldol Inj) 5 mg PRN Q4HRS PRN 09/29/20 23:45 Heparin Sodium (Porcine) (HEPARIN for NUC MED) 100 unit 1X ONCE 09/30/20 13:30 09/30/20 13:33 DC Info (Anti-Coagulation Monitoring By Pharmacy) 1 each PRN DAILY PRN 09/30/20 03:00 09/30/20 13:18 DC 09/30/20 02:57 1 EACH Lidocaine (Lidoderm) 1 patch PRN DAILY PRN 09/29/20 22:30 Lorazepam (Ativan Inj) 4 mg PRN Q1HR PRN 09/29/20 23:45 Magnesium Sulfate 100 ml @ 25 mls/hr 1X ONCE 09/29/20 23:00 09/30/20 02:59 DC 09/29/20 23:55 25 MLS/HR Multivitamins 10 ml/Thiamine HCl 100 mg/Folic Acid 1 mg/Sodium Chloride 1,011.2 ml @ 100 mls/ hr DAILY 09/30/20 09:00 10/04/20 19:07 09/30/20 08:34 100 MLS/HR Norepinephrine Bitartrate 8 mg/ Dextrose 258 ml @ 18.247 mls/ hr CONT PRN 10/01/20 06:45 Octreotide Acetate 500 mcg/ Sodium Chloride 101 ml @ 0 mls/hr CONT PRN 09/30/20 13:00 10/01/20 06:46 10.1 MLS/HR Ondansetron HCl (Zofran) 4 mg PRN Q8HRS PRN 09/29/20 23:15 09/30/20 23:14 DC Pantoprazole Sodium (PROTONIX VIAL for IV PUSH) 40 mg DAILYAC 10/01/20 07:30 Phytonadione 10 mg/Dextrose 51 ml @ 102 mls/hr 1X ONCE 09/30/20 13:30 09/30/20 13:59 DC 09/30/20 13:30 102 MLS/HR Piperacillin Sod/ Tazobactam Sod (Zosyn Per Pharmacy) 1 each PRN DAILY PRN 09/29/20 22:15 Piperacillin Sod/ Tazobactam Sod 3.375 gm/Sodium Chloride 50 ml @ 100 mls/hr Q6HRS 09/29/20 23:00 10/01/20 05:40 100 MLS/HR Potassium Chloride (Klor-Con) 20 meq DAILYWBKFT 09/30/20 08:00 09/30/20 08:00 20 MEQ Protamine Sulfate 50 mg/Sodium Chloride 55 ml @ 330 mls/hr 1X ONCE 09/30/20 13:30 09/30/20 13:39 DC 09/30/20 13:17 330 MLS/HR Labs: Lab Laboratory Tests Test 09/30/20 13:02 09/30/20 18:40 10/01/20 01:10 White Blood Count 21.7 x10^3/uL (4.0-11.0) 17.7 x10^3/uL (4.0-11.0) Red Blood Count 2.31 x10^6/uL (4.30-5.70) 1.76 x10^6/uL (4.30-5.70) Hemoglobin 6.8 g/dL (13.0-17.5) 5.3 g/dL (13.0-17.5) Hematocrit 21.0 % (39.0-53.0) 16.2 % (39.0-53.0) Mean Corpuscular Volume 91 fL (79-100) 92 fL (79-100) Mean Corpuscular Hemoglobin 30 pg (25-35) 30 pg (25-35) Mean Corpuscular Hemoglobin Concent 33 g/dL (31-37) 32 g/dL (31-37) Red Cell Distribution Width 16.3 % (11.5-14.5) 16.0 % (11.5-14.5) Platelet Count 234 x10^3/uL (140-400) 196 x10^3/uL (140-400) Sodium Level 137 mmol/L (136-145) Potassium Level 4.6 mmol/L (3.5-5.1) Chloride Level 105 mmol/L (98-107) Carbon Dioxide Level 22 mmol/L (21-32) Anion Gap 10 (6-14) Blood Urea Nitrogen 14 mg/dL (8-26) Creatinine 1.7 mg/dL (0.7-1.3) Estimated GFR (Cockcroft-Gault) 53.5 Glucose Level 87 mg/dL (70-99) Calcium Level 7.5 mg/dL (8.5-10.1) SARS-CoV-2 Antigen (Rapid) Negative (NEGATIVE) Objective: Assessment: GI bleed 1. Left buttock abscess, status post incision and drainage at recently, status post Carol placed. I do not have details on the same. The patient was discharged on p.o. antibiotics. 2. Bilateral lower extremity edema, worsening. Doppler negative for deep venous thrombosis. 3. Generalized weakness and debility. 4. History of recent throat cancer, unable to get details.Not a candidate for surgery . 5. History of sarcoidosis, following up at . 6. Abnormal liver function tests. 7. History of recent moderate ascites, diffuse wall thickening of colon, status post paracentesis. 8. History of colon resection, questionable. 9. Leukocytosis, anemia. 10. Severe malnutrition. 11. Encephalopathy likely metabolic Plan: Plan of Care 1. Continue Zosyn. 2. Continue local wound care as directed. 3 GI following 4. Oncology and Pulmonary following 5. Awaiting records from recent hospitalization at for review 6. Continue supportive care. 7. Overall prognosis poor Discussed with father at bedside Discussed with KENIA. FRANCIS BRENNER MD Oct 01, 2020 09:03
[2020-10-01 09:44] LABS: BASO # 0.1 x10^3/uL (0.0-0.2); BASO % 1 % (0-3); EOS # 0.2 x10^3/uL (0.0-0.7); EOS % 2 % (0-3); LYMPH # 1.5 x10^3/uL (1.0-4.8); LYMPH % 11 % (24-48); MEAN CORPUSCULAR HEMOGLOBIN 31 pg (25-35); MEAN CORPUSCULAR HGB CONC 34 g/dL (31-37); MEAN CORPUSCULAR VOLUME 90 fL (79-100); MONO # 1.5 x10^3/uL (0.0-1.1); MONO % 11 % (0-9); NEUT # 10.7 x10^3/uL (1.8-7.7); NEUT % 76 % (31-73); PLATELET COUNT 120 x10^3/uL (140-400); RED BLOOD COUNT 1.82 x10^6/uL (4.30-5.70); RED CELL DISTRIBUTION WIDTH 15.1 % (11.5-14.5); WHITE BLOOD COUNT 14.1 x10^3/uL (4.0-11.0)
--- NOTE | 2020-10-01 09:47 | PDOC ---
PULMONARY PROGRESS NOTES DATE: 10/01/20 TIME: 09:42 Subjective feels better Vitals Vital Signs Date Time Temp Pulse Resp B/P (MAP) Pulse Ox O2 Delivery O2 Flow Rate FiO2 10/01/20 09:33 86 16 97/55 (69) 100 Nasal Cannula 2.0 10/01/20 08:00 98.3 98.3 General: Alert, No acute distress Lungs: Clear Cardiovascular: S1, S2 Abdomen: Soft, Non-tender, Other (distended) Extremities: Other (2+edema) Skin: Warm Labs Laboratory Tests Test 09/29/20 19:35 09/30/20 08:25 09/30/20 13:02 09/30/20 18:40 White Blood Count 15.8 x10^3/uL (4.0-11.0) 12.7 x10^3/uL (4.0-11.0) 21.7 x10^3/uL (4.0-11.0) 17.7 x10^3/uL (4.0-11.0) Red Blood Count 2.91 x10^6/uL (4.30-5.70) 2.53 x10^6/uL (4.30-5.70) 2.31 x10^6/uL (4.30-5.70) 1.76 x10^6/uL (4.30-5.70) Hemoglobin 8.5 g/dL (13.0-17.5) 7.4 g/dL (13.0-17.5) 6.8 g/dL (13.0-17.5) 5.3 g/dL (13.0-17.5) Hematocrit 26.2 % (39.0-53.0) 22.7 % (39.0-53.0) 21.0 % (39.0-53.0) 16.2 % (39.0-53.0) Mean Corpuscular Volume 90 fL (79-100) 90 fL (79-100) 91 fL (79-100) 92 fL (7 9-100) Mean Corpuscular Hemoglobin 29 pg (25-35) 29 pg (25-35) 30 pg (25-35) 30 pg (25-35) Mean Corpuscular Hemoglobin Concent 33 g/dL (31-37) 33 g/dL (31-37) 33 g/dL (31-37) 32 g/dL (31-37) Red Cell Distribution Width 16.6 % (11.5-14.5) 16.1 % (11.5-14.5) 16.3 % (11.5-14.5) 16.0 % (11.5-14.5) Platelet Count 210 x10^3/uL (140-400) 179 x10^3/uL (140-400) 234 x10^3/uL (140-400) 196 x10^3/uL (140-400) Neutrophils (%) (Auto) 82 % (31-73) 81 % (31-73) Lymphocytes (%) (Auto) 7 % (24-48) 8 % (24-48) Monocytes (%) (Auto) 9 % (0-9) 9 % (0-9) Eosinophils (%) (Auto) 1 % (0-3) 1 % (0-3) Basophils (%) (Auto) 1 % (0-3) 1 % (0-3) Neutrophils # (Auto) 13.0 x10^3/uL (1.8-7.7) 10.4 x10^3/uL (1.8-7.7) Lymphocytes # (Auto) 1.1 x10^3/uL (1.0-4.8) 1.0 x10^3/uL (1.0-4.8) Monocytes # (Auto) 1.4 x10^3/uL (0.0-1.1) 1.1 x10^3/uL (0.0-1.1) Eosinophils # (Auto) 0.2 x10^3/uL (0.0-0.7) 0.2 x10^3/uL (0.0-0.7) Basophils # (Auto) 0.2 x10^3/uL (0.0-0.2) 0.1 x10^3/uL (0.0-0.2) Segmented Neutrophils % 85 % (35-66) Band Neutrophils % 7 % (0-9) Lymphocytes % 5 % (24-48) Monocytes % 2 % (0-10) Eosinophils % 1 % (0-5) Platelet Estimate Adequate (ADEQUATE) Hypochromasia Slight Anisocytosis Slight Stomatocytes Few Prothrombin Time 17.3 SEC (11.7-14.0) 18.0 SEC (11.7-14.0) Prothromb Time International Ratio 1.5 (0.8-1.1) 1.5 (0.8-1.1) Activated Partial Thromboplast Time 56 SEC (24-38) 91 SEC (24-38) Urine Collection Type Unknown Urine Color Yellow Urine Clarity Clear Urine pH 7.5 (<5.0-8.0) Urine Specific [place] 1.010 (1.000-1.030) Urine Protein Negative mg/dL (NEG-TRACE) Urine Glucose (UA) Negative mg/dL (NEG) Urine Ketones (Stick) Negative mg/dL (NEG) Urine Blood Negative (NEG) Urine Nitrite Negative (NEG) Urine Bilirubin Negative (NEG) Urine Urobilinogen Dipstick 0.2 mg/dL (0.2 mg/dL) Urine Leukocyte Esterase Negative (NEG) Urine RBC Rare /HPF (0-2) Urine WBC Rare /HPF (0-4) Urine Squamous Epithelial Cells Few /LPF Urine Bacteria 0 /HPF (0-FEW) Urine Hyaline Casts Few /HPF Urine Mucus Slight /LPF Sodium Level 140 mmol/L (136-145) 139 mmol/L (136-145) 137 mmol/L (136-145) Potassium Level 3.6 mmol/L (3.5-5.1) 3.6 mmol/L (3.5-5.1) 4.6 mmol/L (3.5-5.1) Chloride Level 103 mmol/L (98-107) 104 mmol/L (98-107) 105 mmol/L (98-107) Carbon Dioxide Level 26 mmol/L (21-32) 24 mmol/L (21-32) 22 mmol/L (21-32) Anion Gap 11 (6-14) 11 (6-14) 10 (6-14) Blood Urea Nitrogen 16 mg/dL (8-26) 13 mg/dL (8-26) 14 mg/dL (8-26) Creatinine 1.6 mg/dL (0.7-1.3) 1.3 mg/dL (0.7-1.3) 1.7 mg/dL (0.7-1.3) Estimated GFR (Cockcroft-Gault) 57.4 72.9 53.5 BUN/Creatinine Ratio 10 (6-20) 10 (6-20) Glucose Level 74 mg/dL (70-99) 82 mg/dL (70-99) 87 mg/dL (70-99) Calcium Level 8.9 mg/dL (8.5-10.1) 8.3 mg/dL (8.5-10.1) 7.5 mg/dL (8.5-10.1) Magnesium Level 1.2 mg/dL (1.8-2.4) Total Bilirubin 1.2 mg/dL (0.2-1.0) 1.0 mg/dL (0.2-1.0) Aspartate Amino Transf (AST/SGOT) 66 U/L (15-37) 53 U/L (15-37) Alanine Aminotransferase (ALT/SGPT) 36 U/L (16-63) 29 U/L (16-63) Alkaline Phosphatase 442 U/L (46-116) 345 U/L (46-116) Troponin I Quantitative < 0.017 ng/mL (0.000-0.055) WS-Wox-Q-Type Natriuretic Peptide 922 pg/mL (0-124) Total Protein 7.5 g/dL (6.4-8.2) 6.4 g/dL (6.4-8.2) Albumin 2.3 g/dL (3.4-5.0) 1.8 g/dL (3.4-5.0) Albumin/Globulin Ratio 0.4 (1.0-1.7) 0.4 (1.0-1.7) Lipase 54 U/L (73-393) Urine Opiates Screen Pos (NEG) Urine Methadone Screen Neg (NEG) Urine Barbiturates Neg (NEG) Urine Phencyclidine Screen Neg (NEG) Urine Amphetamine/Methamphetamine Neg (NEG) Urine Benzodiazepines Screen Neg (NEG) Urine Cocaine Screen Neg (NEG) Urine Cannabinoids Screen Neg (NEG) Urine Ethyl Alcohol Neg (NEG) Haptoglobin 103 mg/dL (23-355) Fibrinogen 370 mg/dL (200-440) Lactate Dehydrogenase 208 U/L (85-227) Test 10/01/20 01:10 SARS-CoV-2 Antigen (Rapid) Negative (NEGATIVE) Laboratory Tests Test 09/30/20 13:02 09/30/20 18:40 10/01/20 01:10 White Blood Count 21.7 x10^3/uL (4.0-11.0) 17.7 x10^3/uL (4.0-11.0) Red Blood Count 2.31 x10^6/uL (4.30-5.70) 1.76 x10^6/uL (4.30-5.70) Hemoglobin 6.8 g/dL (13.0-17.5) 5.3 g/dL (13.0-17.5) Hematocrit 21.0 % (39.0-53.0) 16.2 % (39.0-53.0) Mean Corpuscular Volume 91 fL (79-100) 92 fL (79-100) Mean Corpuscular Hemoglobin 30 pg (25-35) 30 pg (25-35) Mean Corpuscular Hemoglobin Concent 33 g/dL (31-37) 32 g/dL (31-37) Red Cell Distribution Width 16.3 % (11.5-14.5) 16.0 % (11.5-14.5) Platelet Count 234 x10^3/uL (140-400) 196 x10^3/uL (140-400) Sodium Level 137 mmol/L (136-145) Potassium Level 4.6 mmol/L (3.5-5.1) Chloride Level 105 mmol/L (98-107) Carbon Dioxide Level 22 mmol/L (21-32) Anion Gap 10 (6-14) Blood Urea Nitrogen 14 mg/dL (8-26) Creatinine 1.7 mg/dL (0.7-1.3) Estimated GFR (Cockcroft-Gault) 53.5 Glucose Level 87 mg/dL (70-99) Calcium Level 7.5 mg/dL (8.5-10.1) SARS-CoV-2 Antigen (Rapid) Negative (NEGATIVE) Medications Active Scripts Medications Dose Route/Sig Max Daily Dose Days Date Category Augmentin 875-125 Tablet (Amoxicillin/Potassium Clav) 1 Each Tablet 1 Tab PO BID 5 08/28/20 Reported Carvedilol 12.5 Mg Tablet 1 Tab PO BID 08/25/20 Reported Ondansetron Hcl 4 Mg Tablet 1 Tab PO PRN Q6HRS PRN 3 06/28/20 Rx Magnesium (Magnesium Oxide) 400 Mg Capsule 1 Cap PO DAILY 14 06/16/20 Rx Gilman 5-325 Tablet (Acetaminophen/Hydrocodone Bitart) 1 Each Tablet 1 Tab PO PRN Q6HRS PRN 06/16/20 Rx Potassium Chloride (Potassium Chloride) 20 Meq Tablet.er 20 Meq PO DAILY 14 06/16/20 Rx Diclofenac Sodium 50 Mg Tablet.dr 1 Tab PO BID PRN 01/01/20 Rx Allopurinol 100 Mg Tablet 1 Tab PO DAILY 30 11/30/19 Reported Lidocaine PATCH (Lidocaine) 1 Each Adh..patch 1 Patch TD PRN DAILY PRN 30 11/30/19 Rx Prednisone 20 Mg Tablet 40 Mg PO DAILY 10 11/30/19 Rx Culturelle (Lactobacillus Rhamnosus Gg) 1 Each Cap.sprink 1 Cap PO BID 30 11/30/19 Rx Klor-Con M20 (Potassium Chloride) 20 Meq Tab.er.prt 20 Meq PO DAILYWBKFT 14 11/30/19 Rx Voltaren (Diclofenac Sodium) 100 Gm Gel..gram. 1 Jevon TP BID 14 11/30/19 Rx Duoneb 0.5-3(2.5) Mg/3 Ml (Albuterol/Ipratropium) 3 Ml Ampul.neb 3 Ml NEB Q4HRS W/A 30 11/30/19 Rx Hydroxyzine Hcl 10 Mg Tablet 10 Mg PO TID 07/04/19 Reported Proair Hfa (Albuterol Sulfate) 8.5 Gm Hfa.aer.ad 1 Puff INH PRN Q6HRS PRN 07/04/19 Reported Fluoxetine Hcl 40 Mg Capsule 60 Mg PO DAILY 07/04/19 Reported Cetirizine Hcl 10 Mg Tab.chew 10 Mg PO DAILY PRN 07/04/19 Reported Atorvastatin Calcium 40 Mg Tablet 40 Mg PO DAILY 07/04/19 Reported Aspirin 81 Mg Tab.chew 81 Mg PO DAILY PRN 07/04/19 Reported Colcrys (Colchicine) 0.6 Mg Tablet 1 Tab PO DAILY PRN 06/19/18 Rx Coreg (Carvedilol) 12.5 Mg Tablet 1 Tab PO BID 06/19/18 Rx Omeprazole 20 Mg Capsule.dr 40 Mg PO DAILY 12/10/15 Reported Amlodipine Besylate 10 Mg Tablet 10 Mg PO DAILY 12/10/15 Reported Mirtazapine 45 Mg Tablet 45 Mg PO HS 12/10/15 Reported Impression . 1. Abnormal chest x-ray with mildly prominent interstitial infiltrates. Could be related to sarcoidosis. The patient has known history of sarcoidosis diagnosed in 1999. He is not so sure whether he had biopsy at that time. I will obtain noncontrast CT chest. 2. Significant lower extremity edema and feet edema. ? RV failure. There was no evidence of any deep vein thrombosis. Would recommend getting an echocardiogram and also CT abdomen and pelvis to rule out any venous obstruction. 3. History of tobacco use. 4. Severe anemia Plan . RECOMMENDATIONS: 1. We will obtain noncontrast CT chest. We will also do CT abdomen and pelvis. 2. Obtain echocardiogram. 3. Venous Dopplers are negative. 4. Will benefit from diuresis.prn, watch renal function 5. Empiric antibiotic per PCP. 6. We will follow along with you and make further recommendations after review of the imaging studies. 7. f/i H/H and GI rec d/w JEAN MARIE HERRERA MD Oct 01, 2020 09:47
[2020-10-01 09:51] LABS: HEMATOCRIT 16.3 % (39.0-53.0); HEMOGLOBIN 5.5 g/dL (13.0-17.5)
[2020-10-01 10:01] LABS: ALBUMIN 1.5 g/dL (3.4-5.0); ALBUMIN/GLOBULIN RATIO 0.5 (1.0-1.7); CALCIUM 7.2 mg/dL (8.5-10.1); CREATININE 1.9 mg/dL (0.7-1.3); TOTAL PROTEIN 4.4 g/dL (6.4-8.2)
[2020-10-01 10:02] LABS: POTASSIUM 4.6 mmol/L (3.5-5.1); TOTAL BILIRUBIN 1.1 mg/dL (0.2-1.0)
--- NOTE | 2020-10-01 10:25 | PDOC ---
Date of Service: DATE: 10/01/20 TIME: 10:17 Subjective: Subjective: Father present. Pt says he's feeling okay today - says lots of bleeding yesterday. Asks for something to help his swelling today. Objective: Objective: D/w nurse - last episode of bleeding yesterday when transferred to 2nd floor - significant w/ clots. Awaiting recheck of labs this morning after transfusion yesterday. No [facility] records received. Giving albumin, BP lowish. CT ordered yesterday, echo today. Vital Signs: Vital Signs Date Time Temp Pulse Resp B/P (MAP) Pulse Ox O2 Delivery O2 Flow Rate FiO2 10/01/20 09:33 86 16 97/55 (69) 100 Nasal Cannula 2.0 10/01/20 08:00 98.3 98.3 Labs: Laboratory Tests Test 09/30/20 13:02 09/30/20 18:40 10/01/20 01:10 10/01/20 09:10 White Blood Count 21.7 x10^3/uL 17.7 x10^3/uL 14.1 x10^3/uL Red Blood Count 2.31 x10^6/uL 1.76 x10^6/uL 1.82 x10^6/uL Hemoglobin 6.8 g/dL 5.3 g/dL 5.5 g/dL Hematocrit 21.0 % 16.2 % 16.3 % Mean Corpuscular Volume 91 fL 92 fL 90 fL Mean Corpuscular Hemoglobin 30 pg 30 pg 31 pg Mean Corpuscular Hemoglobin Concent 33 g/dL 32 g/dL 34 g/dL Red Cell Distribution Width 16.3 % 16.0 % 15.1 % Platelet Count 234 x10^3/uL 196 x10^3/uL 120 x10^3/uL Sodium Level 137 mmol/L 140 mmol/L Potassium Level 4.6 mmol/L 4.6 mmol/L Chloride Level 105 mmol/L 108 mmol/L Carbon Dioxide Level 22 mmol/L 22 mmol/L Anion Gap 10 10 Blood Urea Nitrogen 14 mg/dL 16 mg/dL Creatinine 1.7 mg/dL 1.9 mg/dL Estimated GFR (Cockcroft-Gault) 53.5 47.0 Glucose Level 87 mg/dL 99 mg/dL Calcium Level 7.5 mg/dL 7.2 mg/dL SARS-CoV-2 Antigen (Rapid) Negative Neutrophils (%) (Auto) 76 % Lymphocytes (%) (Auto) 11 % Monocytes (%) (Auto) 11 % Eosinophils (%) (Auto) 2 % Basophils (%) (Auto) 1 % Neutrophils # (Auto) 10.7 x10^3/uL Lymphocytes # (Auto) 1.5 x10^3/uL Monocytes # (Auto) 1.5 x10^3/uL Eosinophils # (Auto) 0.2 x10^3/uL Basophils # (Auto) 0.1 x10^3/uL BUN/Creatinine Ratio 8 Total Bilirubin 1.1 mg/dL Aspartate Amino Transf (AST/SGOT) 40 U/L Alanine Aminotransferase (ALT/SGPT) 18 U/L Alkaline Phosphatase 189 U/L Total Protein 4.4 g/dL Albumin 1.5 g/dL Albumin/Globulin Ratio 0.5 Imaging: Bleed Scan 09/30 IMPRESSION: There is no scintigraphic evidence of active GI bleeding. PE: GEN: NAD LUNGS: clear, NC 2L HEART: RR ABD: some distention - stable from yesterday EXTREM: edematous NEURO/PSYCH: A & O 3, pleasant, poor historian A/P: Hematochezia, anemia, BLE edema H/o GERD, liver disease, colon resection Rapid COVID negative 09/30 -- After I saw him, nurse called w/ lab results - Hgb still in 5s - orders for pRBC x 2 units, also standing order to transfuse 1 unit if Hgb under 7. No records from - pt and family can't really remember what procedures he had there - indicated to me yesterday 'scopes w/ "ulcer" and endoclip last Tuesday. Have discussed w/ Dr. Christensen this morning, will return to see pt w/ him soon. Justicifation of Admission Dx: Justifications for Admission: Justification of Admission Dx: N/A CARISA PEDRAZA Oct 01, 2020 10:25
[2020-10-01] MEDS: MULTIVIT INFUSN,ADULT 4,VIT K 10 ML, THIAMINE INJ 100 MG, FOLIC ACID INJ 1 MG in IV NOR... IV SCH (10:50)
--- NOTE | 2020-10-01 11:23 | PDOC ---
[employer] PROGRESS NOTE Date of Service DOS: DATE: 10/01/20 TIME: 11:19 Chief Complaint Chief Complaint anemia, aute blood loss per rectum, treatment lovenox given, will stop, GI consult acute new LE edema, sarcoid lung disease, weakness and debility severe malnutrition marked weakness and debility metabolic encephalopathy recent paracentesis for cirrhosis, asthma bronchitis prior substance abuse anxiety disorder, History of pancreatitis, duodenitis, alcoholism, arthritis, depression, gastroesophageal reflux disease, hypertension, previous hernia repair and partial colectomy. History of Present Illness History of Present Illness 10/01/2020 Patient seen and evaluated in CVICU. Ultrasound lower extremities was negative for DVT, showing subcutaneous edema. Had bleeding scan with no scintigraphic evidence of active GI bleeding. Hemoglobin remains severely low, 5.5 today. Hold VTE prophylaxis. Patient stating transfusion currently, will continue to transfuse pRBC as needed. He is scheduled for EGD tomorrow. Discussed with RN. Vitals/I&O Vitals/I&O: Vital Signs Date Time Temp Pulse Resp B/P (MAP) Pulse Ox O2 Delivery O2 Flow Rate FiO2 10/01/20 10:17 97 16 102/62 (75) 100 Nasal Cannula 2.0 10/01/20 08:00 98.3 98.3 I & O 09/30/20 09/30/20 10/01/20 15:00 23:00 07:00 Intake Total 319 ml 1033 ml Output Total 120 ml 125 ml Balance 199 ml 908 ml Physical Exam Physical Exam: General: Alert, Cooperative, mild distress, Other (not oriented, ) Lungs: Clear Abdomen: Normal bowel sounds, Soft Extremities: Other (beyond 4+ edema, swelling to feet Left worse than right, more edema than foot by size, ) Skin: No rashes, Other (Superficial skin breakdown to sacrum, Keeling drain in the right buttock) Labs Labs: Laboratory Tests Test 09/30/20 13:02 09/30/20 18:40 10/01/20 01:10 10/01/20 09:10 White Blood Count 21.7 x10^3/uL (4.0-11.0) 17.7 x10^3/uL (4.0-11.0) 14.1 x10^3/uL (4.0-11.0) Red Blood Count 2.31 x10^6/uL (4.30-5.70) 1.76 x10^6/uL (4.30-5.70) 1.82 x10^6/uL (4.30-5.70) Hemoglobin 6.8 g/dL (13.0-17.5) 5.3 g/dL (13.0-17.5) 5.5 g/dL (13.0-17.5) Hematocrit 21.0 % (39.0-53.0) 16.2 % (39.0-53.0) 16.3 % (39.0-53.0) Mean Corpuscular Volume 91 fL (79-100) 92 fL (79-100) 90 fL (79-100) Mean Corpuscular Hemoglobin 30 pg (25-35) 30 pg (25-35) 31 pg (25-35) Mean Corpuscular Hemoglobin Concent 33 g/dL (31-37) 32 g/dL (31-37) 34 g/dL (31-37) Red Cell Distribution Width 16.3 % (11.5-14.5) 16.0 % (11.5-14.5) 15.1 % (11.5-14.5) Platelet Count 234 x10^3/uL (140-400) 196 x10^3/uL (140-400) 120 x10^3/uL (140-400) Sodium Level 137 mmol/L (136-145) 140 mmol/L (136-145) Potassium Level 4.6 mmol/L (3.5-5.1) 4.6 mmol/L (3.5-5.1) Chloride Level 105 mmol/L (98-107) 108 mmol/L (98-107) Carbon Dioxide Level 22 mmol/L (21-32) 22 mmol/L (21-32) Anion Gap 10 (6-14) 10 (6-14) Blood Urea Nitrogen 14 mg/dL (8-26) 16 mg/dL (8-26) Creatinine 1.7 mg/dL (0.7-1.3) 1.9 mg/dL (0.7-1.3) Estimated GFR (Cockcroft-Gault) 53.5 47.0 Glucose Level 87 mg/dL (70-99) 99 mg/dL (70-99) Calcium Level 7.5 mg/dL (8.5-10.1) 7.2 mg/dL (8.5-10.1) SARS-CoV-2 Antigen (Rapid) Negative (NEGATIVE) Neutrophils (%) (Auto) 76 % (31-73) Lymphocytes (%) (Auto) 11 % (24-48) Monocytes (%) (Auto) 11 % (0-9) Eosinophils (%) (Auto) 2 % (0-3) Basophils (%) (Auto) 1 % (0-3) Neutrophils # (Auto) 10.7 x10^3/uL (1.8-7.7) Lymphocytes # (Auto) 1.5 x10^3/uL (1.0-4.8) Monocytes # (Auto) 1.5 x10^3/uL (0.0-1.1) Eosinophils # (Auto) 0.2 x10^3/uL (0.0-0.7) Basophils # (Auto) 0.1 x10^3/uL (0.0-0.2) BUN/Creatinine Ratio 8 (6-20) Total Bilirubin 1.1 mg/dL (0.2-1.0) Aspartate Amino Transf (AST/SGOT) 40 U/L (15-37) Alanine Aminotransferase (ALT/SGPT) 18 U/L (16-63) Alkaline Phosphatase 189 U/L (46-116) Total Protein 4.4 g/dL (6.4-8.2) Albumin 1.5 g/dL (3.4-5.0) Albumin/Globulin Ratio 0.5 (1.0-1.7) Review of Systems Review of Systems: Denies chest pain, denies shortness of breath, denies nausea. Assessment and Plan Assessmemt and Plan Problems Medical Problems: (1) Acute on chronic renal failure Status: Acute (2) Anemia Status: Acute (3) Swelling of both lower extremities Status: Acute Comment Review of Relevant I have reviewed the following items joan (where applicable) has been applied. Medications: Current Medications Medications (Trade) Dose Ordered Sig/Donavon Route PRN Reason Start Time Stop Time Status Last Admin Dose Admin Pantoprazole Sodium (PROTONIX VIAL for IV PUSH) 40 mg 1X ONCE IVP 09/30/20 13:00 09/30/20 13:01 DC 09/30/20 13:17 Octreotide Acetate 500 mcg/ Sodium Chloride 101 ml @ 0 mls/hr CONT PRN IV SEE I/O RECORD 09/30/20 13:00 10/01/20 06:46 Phytonadione 10 mg/Dextrose 51 ml @ 102 mls/hr 1X ONCE IV 09/30/20 13:30 09/30/20 13:59 DC 09/30/20 13:30 Protamine Sulfate 50 mg/Sodium Chloride 55 ml @ 330 mls/hr 1X ONCE IV 09/30/20 13:30 09/30/20 13:39 DC 09/30/20 13:17 Pantoprazole Sodium (PROTONIX VIAL for IV PUSH) 40 mg DAILYAC IVP 10/01/20 07:30 10/01/20 07:30 Albumin Human 500 ml @ 125 mls/hr 1X ONCE IV 10/01/20 07:00 10/01/20 10:59 DC 10/01/20 07:15 Justifications for Admission Other Justification Ascites, symptomatic anemia DOROTA PISANO MD Oct 01, 2020 11:23
[2020-10-01] MEDS: NOREPINEPHRINE VIAL 8 MG in IV DEXTROSE 5% 250 ML IV PRN (12:23)
--- NOTE | 2020-10-01 12:36 | CARD ---
MR#: [id number] Date of Study: 10/01/2020 Ordering Physician: JEAN MARIE MCGUIRE, Referring Physician: JEAN MARIE MCGUIRE, Tech: Eneida Licea HODA APPROVED REPORT EXAM: Two-dimensional and M-mode echocardiogram with Doppler and color Doppler. Other Information Quality : Good INDICATION Peripheral Edema 2D DIMENSIONS RVDd2.3 (2.9-3.5cm)Left Atrium(2D)3.3 (1.6-4.0cm) IVSd1.0 (0.7-1.1cm)Aortic Root(2D)3.0 (2.0-3.7cm) LVDd4.9 (3.9-5.9cm)LVOT Diameter2.2 (1.8-2.4cm) PWd1.0 (0.7-1.1cm)LVDs3.0 (2.5-4.0cm) FS (%) 37.4 %SV74.7 ml LVEF(%)60.0 (>50%) Aortic Valve AoV Peak Santana.182.8cm/sAoV VTI33.7cm AO Peak GR.13.4mmHgLVOT VTI 23.61cm AO Mean GR.7mmHgAVA (VTI)2.68cm2 Mitral Valve MV E Zvfvycfp595.3cm/sMV DECEL LECT659yy MV A Hazypiad83.6cm/sE/A Ratio1.7 TDI Lateral E' P. V4.89cm/sMedial E' P. V7.34cm/s E/Lateral E'23.8E/Medial E'15.8 Tricuspid Valve TR P. Eijpjbpy343mk/sRAP LAVMMUNX4ihJg TR Peak Gr.76zrDhFOUG18wgTg Pulmonary Vein S1 Twenvcwx76.3cm/sS2 Ftwbtxha31.53cm/s D2 Jpttyimk72.5cm/s LEFT VENTRICLE The left ventricle is normal size. There is normal left ventricular wall thickness. The left ventricu lar systolic function is normal and the ejection fraction is within normal range. The Ejection Fracti on is 55-60%. There is normal LV segmental wall motion. The left ventricular diastolic function and f illing is normal for age. RIGHT VENTRICLE The right ventricle is normal size. The right ventricular systolic function is normal. ATRIA The left atrium size is normal. The right atrium size is normal. The interatrial septum is intact wit h no evidence for an atrial septal defect or patent foramen ovale as noted on 2-D or Doppler imaging. AORTIC VALVE The aortic valve is calcified but opens well. Doppler and Color Flow revealed no significant aortic r egurgitation. There is no significant aortic valvular stenosis. MITRAL VALVE The mitral valve is mildly thickened but opens well. There is no evidence of mitral valve prolapse. T here is no mitral valve stenosis. Doppler and Color-flow revealed trace mitral regurgitation. TRICUSPID VALVE The tricuspid valve is normal in structure and function. Doppler and Color Flow revealed trace to mil d tricuspid regurgitation. The PA pressure was estimated at 22 mmHg. There is no tricuspid valve sten osis. PULMONIC VALVE The pulmonic valve is not well visualized. Doppler and Color Flow revealed no pulmonic valvular regur gitation. There is no pulmonic valvular stenosis. GREAT VESSELS The aortic root is normal in size. The ascending aorta is normal in size. The IVC is normal in size a nd collapses >50% with inspiration. PERICARDIAL EFFUSION There is no evidence of significant pericardial effusion. Critical Notification Critical Value: No <Conclusion> The left ventricular systolic function is normal and the ejection fraction is within normal range. Th e Ejection Fraction is 55-60%. There is normal LV segmental wall motion. Doppler and Color Flow revealed trace to mild tricuspid regurgitation. The PA pressure was estimated at 22 mmHg. Signed by : Marty Childers, Electronically Approved : 10/01/2020 12:36:01
--- NOTE | 2020-10-01 14:05 | NUR ---
SS following for discharge planning. SS reviewed pt chart and discussed with pt RN. Pt is from home and is currently requiring nasal canula oxygen at two liters. COVID19 negative. Pt on IV Zosyn. Pt received two units of blood today. EGD scheduled for 0800 tomorrow. SS will continue to follow for discharge planning.
[2020-10-01 16:55] LABS: HEMATOCRIT 23.5 % (39.0-53.0); HEMOGLOBIN 7.8 g/dL (13.0-17.5)
[2020-10-02] VITALS (23 sets, daily range): BP systolic 65–140; BP diastolic 45–97
[2020-10-02] MEDS: PIPERACILLIN/TAZOBACTAM 3.375 GM in IV NORMAL SALINE 50ML 50 ML IV SCH ×4 (00:03→17:21)
[2020-10-02] MEDS: NOREPINEPHRINE VIAL 8 MG in IV DEXTROSE 5% 250 ML IV PRN ×4 (02:56→22:03)
[2020-10-02 06:28] LABS: BASO # 0.2 x10^3/uL (0.0-0.2); BASO % 1 % (0-3); EOS # 0.2 x10^3/uL (0.0-0.7); EOS % 1 % (0-3); LYMPH # 1.8 x10^3/uL (1.0-4.8); LYMPH % 6 % (24-48); MEAN CORPUSCULAR HEMOGLOBIN 30 pg (25-35); MEAN CORPUSCULAR HGB CONC 33 g/dL (31-37); MEAN CORPUSCULAR VOLUME 91 fL (79-100); MONO % 9 % (0-9); NEUT # 26.2 x10^3/uL (1.8-7.7); NEUT % 84 % (31-73); PLATELET COUNT 216 x10^3/uL (140-400); RED BLOOD COUNT 1.67 x10^6/uL (4.30-5.70); RED CELL DISTRIBUTION WIDTH 15.2 % (11.5-14.5); WHITE BLOOD COUNT 31.3 x10^3/uL (4.0-11.0)
[2020-10-02 06:36] LABS: HEMATOCRIT 15.2 % (39.0-53.0)
[2020-10-02 06:39] LABS: CALCIUM 7.2 mg/dL (8.5-10.1); CREATININE 2.1 mg/dL (0.7-1.3); GFR 41.9; POTASSIUM 4.9 mmol/L (3.5-5.1)
[2020-10-02] MEDS ORDERED: IV RINGERS,LACTATED 1000ML 1,000 ML IV SCH (07:00)
[2020-10-02] MEDS: PANTOPRAZOLE IV PUSH 40 MG VIAL. IVP SCH (07:35)
[2020-10-02] MEDS: fentaNYL PF VIAL 100 MCG/2 ML VIAL IVP PRN ×3 (07:35→23:43)
[2020-10-02] MEDS: POTASSIUM CHLORIDE 20 MEQ TABLET.ER. PO SCH (08:00)
--- NOTE | 2020-10-02 08:42 | PDOC ---
Infectious Disease Note Subjective: Subjective Patient's hemoglobin still around 5 this am recieving blood transfusion denies any f/n/v/abdo pain Vital Signs: Vital Signs Vital Signs Date Time Temp Pulse Resp B/P (MAP) Pulse Ox O2 Delivery O2 Flow Rate FiO2 10/02/20 08:05 Nasal Cannula 2.0 10/02/20 08:05 98 10/02/20 08:03 97.3 107 12 104/61 (75) 97.3 Physical Exam: PHYSICAL EXAM GENERAL: Alert, awake male, in no acute distress, somewhat forgetful, appears weak. HEENT: Normocephalic, atraumatic, anicteric. NECK: Supple. LUNGS: Clear bilaterally. HEART: S1, S2, no murmurs. ABDOMEN: Mildly distended, soft, bowel sounds present. Left buttock has [place] in place. Blood stained stool. No underlying fluctuance noted. EXTREMITIES: 4+ edema bilaterally with some weeping lesions. DERMATOLOGIC: Warm, dry. No generalized rash except for above. NEUROLOGIC: Alert, awake, somewhat forgetful. Normal speech. PSYCHIATRIC: Cooperative. Medications: Inpatient Meds: Current Medications Medications (Trade) Dose Ordered Sig/Donavon Start Time Stop Time Status Last Admin Dose Admin Acetaminophen/ Hydrocodone Bitart (Lortab 5/325) 1 tab PRN Q6HRS PRN 09/29/20 22:30 Albumin Human 500 ml @ 125 mls/hr 1X ONCE 10/01/20 07:00 10/01/20 10:59 DC 10/01/20 07:15 125 MLS/HR Albuterol Sulfate (Ventolin Neb Soln) 2.5 mg PRN Q6HRS PRN 09/29/20 22:30 Allopurinol (Zyloprim) 100 mg DAILY 09/30/20 09:00 09/30/20 08:35 100 MG Amlodipine Besylate (Norvasc) 10 mg DAILY 09/30/20 09:00 09/30/20 08:35 10 MG Clonidine HCl (Catapres) 0.1 mg PRN Q1HR PRN 09/29/20 23:45 Enoxaparin Sodium (Lovenox 80mg Syringe) 80 mg Q12HR 09/29/20 23:00 09/30/20 12:26 DC 09/30/20 08:36 80 MG Enoxaparin Sodium (Lovenox Per Pharmacy Treatment Dosing) 1 each PRN DAILY PRN 09/29/20 22:30 09/30/20 12:26 DC Fentanyl Citrate (Fentanyl 2ml Vial) 50 mcg PRN Q2HR PRN 09/29/20 23:30 10/02/20 07:35 50 MCG Haloperidol Lactate (Haldol Inj) 5 mg PRN Q4HRS PRN 09/29/20 23:45 Heparin Sodium (Porcine) (HEPARIN for NUC MED) 100 unit 1X ONCE 09/30/20 13:30 09/30/20 13:33 DC Info (Anti-Coagulation Monitoring By Pharmacy) 1 each PRN DAILY PRN 09/30/20 03:00 09/30/20 13:18 DC 09/30/20 02:57 1 EACH Lidocaine (Lidoderm) 1 patch PRN DAILY PRN 09/29/20 22:30 Lorazepam (Ativan Inj) 4 mg PRN Q1HR PRN 09/29/20 23:45 Magnesium Sulfate 100 ml @ 25 mls/hr 1X ONCE 09/29/20 23:00 09/30/20 02:59 DC 09/29/20 23:55 25 MLS/HR Multivitamins 10 ml/Thiamine HCl 100 mg/Folic Acid 1 mg/Sodium Chloride 1,011.2 ml @ 100 mls/ hr DAILY 09/30/20 09:00 10/04/20 19:07 10/01/20 10:50 100 MLS/HR Norepinephrine Bitartrate 8 mg/ Dextrose 258 ml @ 18.247 mls/ hr CONT PRN 10/01/20 06:45 10/02/20 06:16 62.04 MLS/HR Octreotide Acetate 500 mcg/ Sodium Chloride 101 ml @ 0 mls/hr CONT PRN 09/30/20 13:00 10/01/20 11:28 DC 10/01/20 06:46 10.1 MLS/HR Ondansetron HCl (Zofran) 4 mg PRN Q8HRS PRN 09/29/20 23:15 09/30/20 23:14 DC Pantoprazole Sodium (PROTONIX VIAL for IV PUSH) 40 mg DAILYAC 10/01/20 07:30 10/02/20 07:35 40 MG Phytonadione 10 mg/Dextrose 51 ml @ 102 mls/hr 1X ONCE 09/30/20 13:30 09/30/20 13:59 DC 09/30/20 13:30 102 MLS/HR Piperacillin Sod/ Tazobactam Sod (Zosyn Per Pharmacy) 1 each PRN DAILY PRN 09/29/20 22:15 Piperacillin Sod/ Tazobactam Sod 3.375 gm/Sodium Chloride 50 ml @ 100 mls/hr Q6HRS 09/29/20 23:00 10/02/20 06:10 100 MLS/HR Potassium Chloride (Klor-Con) 20 meq [id number] 09/30/20 08:00 09/30/20 08:00 20 MEQ Protamine Sulfate 50 mg/Sodium Chloride 55 ml @ 330 mls/hr 1X ONCE 09/30/20 13:30 09/30/20 13:39 DC 09/30/20 13:17 330 MLS/HR Ringer's Solution 1,000 ml @ 50 mls/hr Q20H 10/02/20 07:00 10/02/20 18:59 Labs: Lab Laboratory Tests Test 10/01/20 09:10 10/01/20 16:51 10/02/20 06:10 White Blood Count 14.1 x10^3/uL (4.0-11.0) 31.3 x10^3/uL (4.0-11.0) Red Blood Count 1.82 x10^6/uL (4.30-5.70) 1.67 x10^6/uL (4.30-5.70) Hemoglobin 5.5 g/dL (13.0-17.5) 7.8 g/dL (13.0-17.5) 5.0 g/dL (13.0-17.5) Hematocrit 16.3 % (39.0-53.0) 23.5 % (39.0-53.0) 15.2 % (39.0-53.0) Mean Corpuscular Volume 90 fL (79-100) 91 fL (79-100) Mean Corpuscular Hemoglobin 31 pg (25-35) 30 pg (25-35) Mean Corpuscular Hemoglobin Concent 34 g/dL (31-37) 33 g/dL (31-37) 33 g/dL (31-37) Red Cell Distribution Width 15.1 % (11.5-14.5) 15.2 % (11.5-14.5) Platelet Count 120 x10^3/uL (140-400) 216 x10^3/uL (140-400) Neutrophils (%) (Auto) 76 % (31-73) 84 % (31-73) Lymphocytes (%) (Auto) 11 % (24-48) 6 % (24-48) Monocytes (%) (Auto) 11 % (0-9) 9 % (0-9) Eosinophils (%) (Auto) 2 % (0-3) 1 % (0-3) Basophils (%) (Auto) 1 % (0-3) 1 % (0-3) Neutrophils # (Auto) 10.7 x10^3/uL (1.8-7.7) 26.2 x10^3/uL (1.8-7.7) Lymphocytes # (Auto) 1.5 x10^3/uL (1.0-4.8) 1.8 x10^3/uL (1.0-4.8) Monocytes # (Auto) 1.5 x10^3/uL (0.0-1.1) 3.0 x10^3/uL (0.0-1.1) Eosinophils # (Auto) 0.2 x10^3/uL (0.0-0.7) 0.2 x10^3/uL (0.0-0.7) Basophils # (Auto) 0.1 x10^3/uL (0.0-0.2) 0.2 x10^3/uL (0.0-0.2) Sodium Level 140 mmol/L (136-145) 137 mmol/L (136-145) Potassium Level 4.6 mmol/L (3.5-5.1) 4.9 mmol/L (3.5-5.1) Chloride Level 108 mmol/L (98-107) 107 mmol/L (98-107) Carbon Dioxide Level 22 mmol/L (21-32) 19 mmol/L (21-32) Anion Gap 10 (6-14) 11 (6-14) Blood Urea Nitrogen 16 mg/dL (8-26) 19 mg/dL (8-26) Creatinine 1.9 mg/dL (0.7-1.3) 2.1 mg/dL (0.7-1.3) Estimated GFR (Cockcroft-Gault) 47.0 41.9 BUN/Creatinine Ratio 8 (6-20) Glucose Level 99 mg/dL (70-99) 180 mg/dL (70-99) Calcium Level 7.2 mg/dL (8.5-10.1) 7.2 mg/dL (8.5-10.1) Total Bilirubin 1.1 mg/dL (0.2-1.0) Aspartate Amino Transf (AST/SGOT) 40 U/L (15-37) Alanine Aminotransferase (ALT/SGPT) 18 U/L (16-63) Alkaline Phosphatase 189 U/L (46-116) Total Protein 4.4 g/dL (6.4-8.2) Albumin 1.5 g/dL (3.4-5.0) Albumin/Globulin Ratio 0.5 (1.0-1.7) Objective: Assessment: GI bleed s/p prbc 1. Left buttock abscess, status post incision and drainage at recently, status post [place] placed. I do not have details on the same. The patient was discharged on p.o. antibiotics. 2. Bilateral lower extremity edema, worsening. Doppler negative for deep venous thrombosis. 3. Generalized weakness and debility. 4. History of recent throat cancer, unable to get details.Not a candidate for surgery . 5. History of sarcoidosis, following up at . 6. Abnormal liver function tests. 7. History of recent moderate ascites, diffuse wall thickening of colon, status post paracentesis. 8. History of colon resection, questionable. 9. Leukocytosis, anemia. 10. Severe malnutrition. 11. Encephalopathy likely metabolic Plan: Plan of Care 1. Continue Zosyn. 2. Continue local wound care as directed. 3 GI following 4. Oncology and Pulmonary following 5. Awaiting records from recent hospitalization at for review 6. Continue supportive care. 7. Overall prognosis poor Discussed with father at bedside Discussed with RN. FRANCIS BRENNER MD Oct 02, 2020 08:42
[2020-10-02] MEDS: amLODIPine BESYLATE 10 MG TABLET PO SCH (09:00)
[2020-10-02] MEDS: ALLOPURINOL 100 MG TABLET. PO SCH (09:00)
[2020-10-02] MEDS: MULTIVIT INFUSN,ADULT 4,VIT K 10 ML, THIAMINE INJ 100 MG, FOLIC ACID INJ 1 MG in IV NOR... IV SCH (09:00)
--- NOTE | 2020-10-02 09:04 | PDOC ---
G I PROGRESS NOTE Subjective Continues to pass blood per rectum. Denies any upper abdominal issues. No N, V. Says compliant with PPI at home. Objective Hemoglobin still 5-apurva. Physical Exam Lungs clear. RRR Abdomen soft, not tender. Obvious bloody stool (went in bed). Review of Relevant I have reviewed the following items joan (where applicable) has been applied. Labs Laboratory Tests Test 09/30/20 13:02 09/30/20 18:40 10/01/20 01:10 10/01/20 09:10 White Blood Count 21.7 x10^3/uL (4.0-11.0) 17.7 x10^3/uL (4.0-11.0) 14.1 x10^3/uL (4.0-11.0) Red Blood Count 2.31 x10^6/uL (4.30-5.70) 1.76 x10^6/uL (4.30-5.70) 1.82 x10^6/uL (4.30-5.70) Hemoglobin 6.8 g/dL (13.0-17.5) 5.3 g/dL (13.0-17.5) 5.5 g/dL (13.0-17.5) Hematocrit 21.0 % (39.0-53.0) 16.2 % (39.0-53.0) 16.3 % (39.0-53.0) Mean Corpuscular Volume 91 fL (79-100) 92 fL (79-100) 90 fL (79-100) Mean Corpuscular Hemoglobin 30 pg (25-35) 30 pg (25-35) 31 pg (25-35) Mean Corpuscular Hemoglobin Concent 33 g/dL (31-37) 32 g/dL (31-37) 34 g/dL (31-37) Red Cell Distribution Width 16.3 % (11.5-14.5) 16.0 % (11.5-14.5) 15.1 % (11.5-14.5) Platelet Count 234 x10^3/uL (140-400) 196 x10^3/uL (140-400) 120 x10^3/uL (140-400) Sodium Level 137 mmol/L (136-145) 140 mmol/L (136-145) Potassium Level 4.6 mmol/L (3.5-5.1) 4.6 mmol/L (3.5-5.1) Chloride Level 105 mmol/L (98-107) 108 mmol/L (98-107) Carbon Dioxide Level 22 mmol/L (21-32) 22 mmol/L (21-32) Anion Gap 10 (6-14) 10 (6-14) Blood Urea Nitrogen 14 mg/dL (8-26) 16 mg/dL (8-26) Creatinine 1.7 mg/dL (0.7-1.3) 1.9 mg/dL (0.7-1.3) Estimated GFR (Cockcroft-Gault) 53.5 47.0 Glucose Level 87 mg/dL (70-99) 99 mg/dL (70-99) Calcium Level 7.5 mg/dL (8.5-10.1) 7.2 mg/dL (8.5-10.1) SARS-CoV-2 Antigen (Rapid) Negative (NEGATIVE) Neutrophils (%) (Auto) 76 % (31-73) Lymphocytes (%) (Auto) 11 % (24-48) Monocytes (%) (Auto) 11 % (0-9) Eosinophils (%) (Auto) 2 % (0-3) Basophils (%) (Auto) 1 % (0-3) Neutrophils # (Auto) 10.7 x10^3/uL (1.8-7.7) Lymphocytes # (Auto) 1.5 x10^3/uL (1.0-4.8) Monocytes # (Auto) 1.5 x10^3/uL (0.0-1.1) Eosinophils # (Auto) 0.2 x10^3/uL (0.0-0.7) Basophils # (Auto) 0.1 x10^3/uL (0.0-0.2) BUN/Creatinine Ratio 8 (6-20) Total Bilirubin 1.1 mg/dL (0.2-1.0) Aspartate Amino Transf (AST/SGOT) 40 U/L (15-37) Alanine Aminotransferase (ALT/SGPT) 18 U/L (16-63) Alkaline Phosphatase 189 U/L (46-116) Total Protein 4.4 g/dL (6.4-8.2) Albumin 1.5 g/dL (3.4-5.0) Albumin/Globulin Ratio 0.5 (1.0-1.7) Test 10/01/20 16:51 10/02/20 06:10 Hemoglobin 7.8 g/dL (13.0-17.5) 5.0 g/dL (13.0-17.5) Hematocrit 23.5 % (39.0-53.0) 15.2 % (39.0-53.0) Mean Corpuscular Hemoglobin Concent 33 g/dL (31-37) 33 g/dL (31-37) White Blood Count 31.3 x10^3/uL (4.0-11.0) Red Blood Count 1.67 x10^6/uL (4.30-5.70) Mean Corpuscular Volume 91 fL (79-100) Mean Corpuscular Hemoglobin 30 pg (25-35) Red Cell Distribution Width 15.2 % (11.5-14.5) Platelet Count 216 x10^3/uL (140-400) Neutrophils (%) (Auto) 84 % (31-73) Lymphocytes (%) (Auto) 6 % (24-48) Monocytes (%) (Auto) 9 % (0-9) Eosinophils (%) (Auto) 1 % (0-3) Basophils (%) (Auto) 1 % (0-3) Neutrophils # (Auto) 26.2 x10^3/uL (1.8-7.7) Lymphocytes # (Auto) 1.8 x10^3/uL (1.0-4.8) Monocytes # (Auto) 3.0 x10^3/uL (0.0-1.1) Eosinophils # (Auto) 0.2 x10^3/uL (0.0-0.7) Basophils # (Auto) 0.2 x10^3/uL (0.0-0.2) Sodium Level 137 mmol/L (136-145) Potassium Level 4.9 mmol/L (3.5-5.1) Chloride Level 107 mmol/L (98-107) Carbon Dioxide Level 19 mmol/L (21-32) Anion Gap 11 (6-14) Blood Urea Nitrogen 19 mg/dL (8-26) Creatinine 2.1 mg/dL (0.7-1.3) Estimated GFR (Cockcroft-Gault) 41.9 Glucose Level 180 mg/dL (70-99) Calcium Level 7.2 mg/dL (8.5-10.1) Laboratory Tests Test 10/01/20 09:10 10/01/20 16:51 10/02/20 06:10 White Blood Count 14.1 x10^3/uL (4.0-11.0) 31.3 x10^3/uL (4.0-11.0) Red Blood Count 1.82 x10^6/uL (4.30-5.70) 1.67 x10^6/uL (4.30-5.70) Hemoglobin 5.5 g/dL (13.0-17.5) 7.8 g/dL (13.0-17.5) 5.0 g/dL (13.0-17.5) Hematocrit 16.3 % (39.0-53.0) 23.5 % (39.0-53.0) 15.2 % (39.0-53.0) Mean Corpuscular Volume 90 fL (79-100) 91 fL (79-100) Mean Corpuscular Hemoglobin 31 pg (25-35) 30 pg (25-35) Mean Corpuscular Hemoglobin Concent 34 g/dL (31-37) 33 g/dL (31-37) 33 g/dL (31-37) Red Cell Distribution Width 15.1 % (11.5-14.5) 15.2 % (11.5-14.5) Platelet Count 120 x10^3/uL (140-400) 216 x10^3/uL (140-400) Neutrophils (%) (Auto) 76 % (31-73) 84 % (31-73) Lymphocytes (%) (Auto) 11 % (24-48) 6 % (24-48) Monocytes (%) (Auto) 11 % (0-9) 9 % (0-9) Eosinophils (%) (Auto) 2 % (0-3) 1 % (0-3) Basophils (%) (Auto) 1 % (0-3) 1 % (0-3) Neutrophils # (Auto) 10.7 x10^3/uL (1.8-7.7) 26.2 x10^3/uL (1.8-7.7) Lymphocytes # (Auto) 1.5 x10^3/uL (1.0-4.8) 1.8 x10^3/uL (1.0-4.8) Monocytes # (Auto) 1.5 x10^3/uL (0.0-1.1) 3.0 x10^3/uL (0.0-1.1) Eosinophils # (Auto) 0.2 x10^3/uL (0.0-0.7) 0.2 x10^3/uL (0.0-0.7) Basophils # (Auto) 0.1 x10^3/uL (0.0-0.2) 0.2 x10^3/uL (0.0-0.2) Sodium Level 140 mmol/L (136-145) 137 mmol/L (136-145) Potassium Level 4.6 mmol/L (3.5-5.1) 4.9 mmol/L (3.5-5.1) Chloride Level 108 mmol/L (98-107) 107 mmol/L (98-107) Carbon Dioxide Level 22 mmol/L (21-32) 19 mmol/L (21-32) Anion Gap 10 (6-14) 11 (6-14) Blood Urea Nitrogen 16 mg/dL (8-26) 19 mg/dL (8-26) Creatinine 1.9 mg/dL (0.7-1.3) 2.1 mg/dL (0.7-1.3) Estimated GFR (Cockcroft-Gault) 47.0 41.9 BUN/Creatinine Ratio 8 (6-20) Glucose Level 99 mg/dL (70-99) 180 mg/dL (70-99) Calcium Level 7.2 mg/dL (8.5-10.1) 7.2 mg/dL (8.5-10.1) Total Bilirubin 1.1 mg/dL (0.2-1.0) Aspartate Amino Transf (AST/SGOT) 40 U/L (15-37) Alanine Aminotransferase (ALT/SGPT) 18 U/L (16-63) Alkaline Phosphatase 189 U/L (46-116) Total Protein 4.4 g/dL (6.4-8.2) Albumin 1.5 g/dL (3.4-5.0) Albumin/Globulin Ratio 0.5 (1.0-1.7) BUN has not budged. Vitals/I & O Vital Sign - Last 24 Hours 10/01/20 10/01/20 10/01/20 10/01/20 09:00 09:02 09:33 10:17 Pulse 88 86 97 Resp 12 16 16 B/P (MAP) 103/58 97/55 (69) 102/62 (75) Pulse Ox 98 100 100 O2 Delivery Nasal Cannula Nasal Cannula Nasal Cannula O2 Flow Rate 2.0 2.0 2.0 10/01/20 10/01/20 10/01/20 10/01/20 11:24 11:38 11:40 11:47 Temp 96.4 96.4 96.4 96.4 Pulse 88 87 83 Resp 16 16 14 B/P (MAP) 119/83 119/83 (95) 94/54 Pulse Ox 100 O2 Delivery Nasal Cannula Nasal Cannula O2 Flow Rate 2.0 2.0 10/01/20 10/01/20 10/01/20 10/01/20 12:18 13:11 13:27 13:52 Temp 96.4 97.0 96.4 97.0 Pulse 84 79 83 Resp 16 16 14 16 B/P (MAP) 90/52 (65) 112/68 (83) 120/70 Pulse Ox 100 99 99 O2 Delivery Nasal Cannula Nasal Cannula Nasal Cannula O2 Flow Rate 2.0 2.0 2.0 10/01/20 10/01/20 10/01/20 10/01/20 13:54 13:57 14:50 14:51 Temp 97.0 97.0 Pulse 84 83 82 Resp 16 14 14 14 B/P (MAP) 103/62 (76) 103/64 103/64 (77) Pulse Ox 99 99 97 O2 Delivery Nasal Cannula Nasal Cannula Nasal Cannula O2 Flow Rate 2.0 2.0 2.0 10/01/20 10/01/20 10/01/20 10/01/20 15:45 15:46 17:31 17:52 Temp 97.3 97.3 Pulse 89 82 89 Resp 14 14 14 B/P (MAP) 133/95 (108) 103/59 (74) 111/63 (79) Pulse Ox 100 98 98 O2 Delivery Nasal Cannula Nasal Cannula Nasal Cannula Nasal Cannula O2 Flow Rate 2.0 2.0 2.0 2.0 10/01/20 10/01/20 10/01/20 10/01/20 19:00 20:00 20:00 20:17 Temp 98.3 98.3 Pulse 116 117 Resp 12 B/P (MAP) 119/63 (81) 111/63 (79) Pulse Ox 98 99 98 O2 Delivery Nasal Cannula Nasal Cannula Nasal Cannula Nasal Cannula O2 Flow Rate 2.0 2.0 2.0 2.0 10/01/20 10/01/20 10/01/20 10/01/20 20:47 21:00 22:00 22:45 Pulse 112 112 Resp B/P (MAP) 109/63 (78) 112/73 (86) Pulse Ox 98 98 99 98 O2 Delivery Nasal Cannula Nasal Cannula Nasal Cannula Nasal Cannula O2 Flow Rate 2.0 2.0 2.0 2.0 10/01/20 10/01/20 10/02/20 10/02/20 23:00 23:15 00:00 00:01 Temp 97.6 97.6 Pulse 100 106 Resp B/P (MAP) 90/56 (67) 106/97 (100) Pulse Ox 99 99 99 O2 Delivery Nasal Cannula Nasal Cannula Nasal Cannula Nasal Cannula O2 Flow Rate 2.0 2.0 2.0 2.0 10/02/20 10/02/20 10/02/20 10/02/20 01:00 02:00 03:00 04:00 Temp 97.7 97.7 Pulse 104 101 100 104 Resp B/P (MAP) 104/61 (75) 65/45 (52) 81/56 (64) 83/54 (64) Pulse Ox 99 99 99 99 O2 Delivery Nasal Cannula Nasal Cannula Nasal Cannula Nasal Cannula O2 Flow Rate 2.0 2.0 2.0 2.0 10/02/20 10/02/20 10/02/20 10/02/20 04:00 05:00 06:00 07:00 Pulse 103 105 102 Resp 09 20 12 B/P (MAP) 106/52 (70) 102/64 (77) 91/58 (69) Pulse Ox 99 99 99 O2 Delivery Nasal Cannula Nasal Cannula Nasal Cannula Nasal Cannula O2 Flow Rate 2.0 2.0 2.0 2.0 10/02/20 10/02/20 10/02/20 10/02/20 07:28 07:35 08:03 08:05 Temp 97.6 97.3 97.6 97.3 Pulse 104 107 Resp 14 16 12 B/P (MAP) 108/59 104/61 (75) Pulse Ox 100 98 98 O2 Delivery Nasal Cannula Nasal Cannula Nasal Cannula O2 Flow Rate 2.0 2.0 2.0 10/02/20 08:05 O2 Delivery Nasal Cannula O2 Flow Rate 2.0 Intake and Output 10/01/20 10/01/20 10/02/20 15:00 23:00 07:00 Intake Total 1100 ml 2135 ml 1241 ml Output Total 200 ml 100 ml 40 ml Balance 900 ml 2035 ml 1201 ml Problem List Problems Medical Problems: (1) Acute on chronic renal failure Status: Acute (2) Anemia Status: Acute (3) Swelling of both lower extremities Status: Acute Assessment GI bleeding; still seems more likely LGI in origin. Plan of Care Note Will hold on EGD; keep NPO on PPI drip. Try another bleeding scan; has been 48 hours since last one and radioactivity from first should have decayed. If this is negative, CTA would also be. May need IR to intervene. Continue transfuse if needed. Justicifation of Admission Dx: Justifications for Admission: Justification of Admission Dx: N/A BROOKE SPENCER MD Oct 02, 2020 09:04
[2020-10-02] MEDS ORDERED: HEPARIN for NUC MED 500 UNIT/5 ML DISP.SYRIN. IV ONE ×2 (09:25→09:30)
--- NOTE | 2020-10-02 11:21 | PDOC ---
PULMONARY PROGRESS NOTES DATE: 10/02/20 TIME: 11:18 Subjective no soa still anemic Vitals Vital Signs Date Time Temp Pulse Resp B/P (MAP) Pulse Ox O2 Delivery O2 Flow Rate FiO2 10/02/20 08:05 Nasal Cannula 2.0 10/02/20 08:05 98 10/02/20 08:03 97.3 107 12 104/61 (75) 97.3 General: Alert, No acute distress Lungs: Clear Cardiovascular: S1, S2 Abdomen: Soft, Non-tender, Other (distended) Extremities: Other (2+edema) Skin: Warm Labs Laboratory Tests Test 09/30/20 13:02 09/30/20 18:40 10/01/20 01:10 10/01/20 09:10 White Blood Count 21.7 x10^3/uL (4.0-11.0) 17.7 x10^3/uL (4.0-11.0) 14.1 x10^3/uL (4.0-11.0) Red Blood Count 2.31 x10^6/uL (4.30-5.70) 1.76 x10^6/uL (4.30-5.70) 1.82 x10^6/uL (4.30-5.70) Hemoglobin 6.8 g/dL (13.0-17.5) 5.3 g/dL (13.0-17.5) 5.5 g/dL (13.0-17.5) Hematocrit 21.0 % (39.0-53.0) 16.2 % (39.0-53.0) 16.3 % (39.0-53.0) Mean Corpuscular Volume 91 fL (79-100) 92 fL (79-100) 90 fL (79-100) Mean Corpuscular Hemoglobin 30 pg (25-35) 30 pg (25-35) 31 pg (25-35) Mean Corpuscular Hemoglobin Concent 33 g/dL (31-37) 32 g/dL (31-37) 34 g/dL (31-37) Red Cell Distribution Width 16.3 % (11.5-14.5) 16.0 % (11.5-14.5) 15.1 % (11.5-14.5) Platelet Count 234 x10^3/uL (140-400) 196 x10^3/uL (140-400) 120 x10^3/uL (140-400) Sodium Level 137 mmol/L (136-145) 140 mmol/L (136-145) Potassium Level 4.6 mmol/L (3.5-5.1) 4.6 mmol/L (3.5-5.1) Chloride Level 105 mmol/L (98-107) 108 mmol/L (98-107) Carbon Dioxide Level 22 mmol/L (21-32) 22 mmol/L (21-32) Anion Gap 10 (6-14) 10 (6-14) Blood Urea Nitrogen 14 mg/dL (8-26) 16 mg/dL (8-26) Creatinine 1.7 mg/dL (0.7-1.3) 1.9 mg/dL (0.7-1.3) Estimated GFR (Cockcroft-Gault) 53.5 47.0 Glucose Level 87 mg/dL (70-99) 99 mg/dL (70-99) Calcium Level 7.5 mg/dL (8.5-10.1) 7.2 mg/dL (8.5-10.1) SARS-CoV-2 Antigen (Rapid) Negative (NEGATIVE) Neutrophils (%) (Auto) 76 % (31-73) Lymphocytes (%) (Auto) 11 % (24-48) Monocytes (%) (Auto) 11 % (0-9) Eosinophils (%) (Auto) 2 % (0-3) Basophils (%) (Auto) 1 % (0-3) Neutrophils # (Auto) 10.7 x10^3/uL (1.8-7.7) Lymphocytes # (Auto) 1.5 x10^3/uL (1.0-4.8) Monocytes # (Auto) 1.5 x10^3/uL (0.0-1.1) Eosinophils # (Auto) 0.2 x10^3/uL (0.0-0.7) Basophils # (Auto) 0.1 x10^3/uL (0.0-0.2) BUN/Creatinine Ratio 8 (6-20) Total Bilirubin 1.1 mg/dL (0.2-1.0) Aspartate Amino Transf (AST/SGOT) 40 U/L (15-37) Alanine Aminotransferase (ALT/SGPT) 18 U/L (16-63) Alkaline Phosphatase 189 U/L (46-116) Total Protein 4.4 g/dL (6.4-8.2) Albumin 1.5 g/dL (3.4-5.0) Albumin/Globulin Ratio 0.5 (1.0-1.7) Test 10/01/20 16:51 10/02/20 06:10 Hemoglobin 7.8 g/dL (13.0-17.5) 5.0 g/dL (13.0-17.5) Hematocrit 23.5 % (39.0-53.0) 15.2 % (39.0-53.0) Mean Corpuscular Hemoglobin Concent 33 g/dL (31-37) 33 g/dL (31-37) White Blood Count 31.3 x10^3/uL (4.0-11.0) Red Blood Count 1.67 x10^6/uL (4.30-5.70) Mean Corpuscular Volume 91 fL (79-100) Mean Corpuscular Hemoglobin 30 pg (25-35) Red Cell Distribution Width 15.2 % (11.5-14.5) Platelet Count 216 x10^3/uL (140-400) Neutrophils (%) (Auto) 84 % (31-73) Lymphocytes (%) (Auto) 6 % (24-48) Monocytes (%) (Auto) 9 % (0-9) Eosinophils (%) (Auto) 1 % (0-3) Basophils (%) (Auto) 1 % (0-3) Neutrophils # (Auto) 26.2 x10^3/uL (1.8-7.7) Lymphocytes # (Auto) 1.8 x10^3/uL (1.0-4.8) Monocytes # (Auto) 3.0 x10^3/uL (0.0-1.1) Eosinophils # (Auto) 0.2 x10^3/uL (0.0-0.7) Basophils # (Auto) 0.2 x10^3/uL (0.0-0.2) Sodium Level 137 mmol/L (136-145) Potassium Level 4.9 mmol/L (3.5-5.1) Chloride Level 107 mmol/L (98-107) Carbon Dioxide Level 19 mmol/L (21-32) Anion Gap 11 (6-14) Blood Urea Nitrogen 19 mg/dL (8-26) Creatinine 2.1 mg/dL (0.7-1.3) Estimated GFR (Cockcroft-Gault) 41.9 Glucose Level 180 mg/dL (70-99) Calcium Level 7.2 mg/dL (8.5-10.1) Laboratory Tests Test 10/01/20 16:51 10/02/20 06:10 Hemoglobin 7.8 g/dL (13.0-17.5) 5.0 g/dL (13.0-17.5) Hematocrit 23.5 % (39.0-53.0) 15.2 % (39.0-53.0) Mean Corpuscular Hemoglobin Concent 33 g/dL (31-37) 33 g/dL (31-37) White Blood Count 31.3 x10^3/uL (4.0-11.0) Red Blood Count 1.67 x10^6/uL (4.30-5.70) Mean Corpuscular Volume 91 fL (79-100) Mean Corpuscular Hemoglobin 30 pg (25-35) Red Cell Distribution Width 15.2 % (11.5-14.5) Platelet Count 216 x10^3/uL (140-400) Neutrophils (%) (Auto) 84 % (31-73) Lymphocytes (%) (Auto) 6 % (24-48) Monocytes (%) (Auto) 9 % (0-9) Eosinophils (%) (Auto) 1 % (0-3) Basophils (%) (Auto) 1 % (0-3) Neutrophils # (Auto) 26.2 x10^3/uL (1.8-7.7) Lymphocytes # (Auto) 1.8 x10^3/uL (1.0-4.8) Monocytes # (Auto) 3.0 x10^3/uL (0.0-1.1) Eosinophils # (Auto) 0.2 x10^3/uL (0.0-0.7) Basophils # (Auto) 0.2 x10^3/uL (0.0-0.2) Sodium Level 137 mmol/L (136-145) Potassium Level 4.9 mmol/L (3.5-5.1) Chloride Level 107 mmol/L (98-107) Carbon Dioxide Level 19 mmol/L (21-32) Anion Gap 11 (6-14) Blood Urea Nitrogen 19 mg/dL (8-26) Creatinine 2.1 mg/dL (0.7-1.3) Estimated GFR (Cockcroft-Gault) 41.9 Glucose Level 180 mg/dL (70-99) Calcium Level 7.2 mg/dL (8.5-10.1) Medications Active Scripts Medications Dose Route/Sig Max Daily Dose Days Date Category Augmentin 875-125 Tablet (Amoxicillin/Potassium Clav) 1 Each Tablet 1 Tab PO BID 5 08/28/20 Reported Carvedilol 12.5 Mg Tablet 1 Tab PO BID 08/25/20 Reported Ondansetron Hcl 4 Mg Tablet 1 Tab PO PRN Q6HRS PRN 3 06/28/20 Rx Magnesium (Magnesium Oxide) 400 Mg Capsule 1 Cap PO DAILY 14 06/16/20 Rx Mulga 5-325 Tablet (Acetaminophen/Hydrocodone Bitart) 1 Each Tablet 1 Tab PO PRN Q6HRS PRN 06/16/20 Rx Potassium Chloride (Potassium Chloride) 20 Meq Tablet.er 20 Meq PO DAILY 14 06/16/20 Rx Diclofenac Sodium 50 Mg Tablet.dr 1 Tab PO BID PRN 01/01/20 Rx Allopurinol 100 Mg Tablet 1 Tab PO DAILY 30 11/30/19 Reported Lidocaine PATCH (Lidocaine) 1 Each Adh..patch 1 Patch TD PRN DAILY PRN 30 11/30/19 Rx Prednisone 20 Mg Tablet 40 Mg PO DAILY 10 11/30/19 Rx Culturelle (Lactobacillus Rhamnosus Gg) 1 Each Cap.sprink 1 Cap PO BID 30 11/30/19 Rx Klor-Con M20 (Potassium Chloride) 20 Meq Tab.er.prt 20 Meq PO DAILYWBKFT 14 11/30/19 Rx Voltaren (Diclofenac Sodium) 100 Gm Gel..gram. 1 Jevon TP BID 14 11/30/19 Rx Duoneb 0.5-3(2.5) Mg/3 Ml (Albuterol/Ipratropium) 3 Ml Ampul.neb 3 Ml NEB Q4HRS W/A 30 11/30/19 Rx Hydroxyzine Hcl 10 Mg Tablet 10 Mg PO TID 07/04/19 Reported Proair Hfa (Albuterol Sulfate) 8.5 Gm Hfa.aer.ad 1 Puff INH PRN Q6HRS PRN 07/04/19 Reported Fluoxetine Hcl 40 Mg Capsule 60 Mg PO DAILY 07/04/19 Reported Cetirizine Hcl 10 Mg Tab.chew 10 Mg PO DAILY PRN 07/04/19 Reported Atorvastatin Calcium 40 Mg Tablet 40 Mg PO DAILY 07/04/19 Reported Aspirin 81 Mg Tab.chew 81 Mg PO DAILY PRN 07/04/19 Reported Colcrys (Colchicine) 0.6 Mg Tablet 1 Tab PO DAILY PRN 06/19/18 Rx Coreg (Carvedilol) 12.5 Mg Tablet 1 Tab PO BID 06/19/18 Rx Omeprazole 20 Mg Capsule.dr 40 Mg PO DAILY 12/10/15 Reported Amlodipine Besylate 10 Mg Tablet 10 Mg PO DAILY 12/10/15 Reported Mirtazapine 45 Mg Tablet 45 Mg PO HS 12/10/15 Reported Impression . 1. Abnormal chest x-ray with mildly prominent interstitial infiltrates. Could be related to sarcoidosis. The patient has known history of sarcoidosis diagnosed in 1999. He is not so sure whether he had biopsy at that time. I will obtain noncontrast CT chest. 2. Significant lower extremity edema and feet edema. ? RV failure. There was no evidence of any deep vein thrombosis. Would recommend getting an echocardiogram and also CT abdomen and pelvis to rule out any venous obstruction. 3. History of tobacco use. 4. Severe anemia/ GI bleed Plan . RECOMMENDATIONS: 1. awaiting noncontrast CT chest. We will also do CT abdomen and pelvis. 2. Obtain echocardiogram. 3. Venous Dopplers are negative. 4. Will benefit from diuresis.prn, watch renal function 5. Empiric antibiotic per PCP. 6. We will follow along with you and make further recommendations after review of the imaging studies. 7. f/u H/H and GI rec JEAN MARIE MCGUIRE MD Oct 02, 2020 11:21
[2020-10-02 11:35] LABS: RED BLOOD COUNT 2.23 x10^6/uL (4.30-5.70); RED CELL DISTRIBUTION WIDTH 15.7 % (11.5-14.5); WHITE BLOOD COUNT 39.3 x10^3/uL (4.0-11.0)
[2020-10-02 11:54] LABS: HEMATOCRIT 19.4 % (39.0-53.0); HEMOGLOBIN 6.4 g/dL (13.0-17.5)
--- NOTE | 2020-10-02 11:55 | NUR ---
SS following up with discharge planning. SS reviewed pt chart and discussed with pt RN. Pt is currently requiring oxygen via nasal canula at two liters. COVID19 negative. Pt on IV Zosyn. NPO. EGD on hold. Hemoglobin low. Possible transfusion if needed. SS will continue to follow for discharge planning.
--- NOTE | 2020-10-02 12:36 | PDOC ---
[employer] PROGRESS NOTE Date of Service DOS: DATE: 10/02/20 TIME: 12:35 Chief Complaint Chief Complaint anemia, aute blood loss per rectum, treatment lovenox given, will stop, GI consult acute new LE edema, sarcoid lung disease, weakness and debility severe malnutrition marked weakness and debility metabolic encephalopathy recent paracentesis for cirrhosis, asthma bronchitis prior substance abuse anxiety disorder, History of pancreatitis, duodenitis, alcoholism, arthritis, depression, gastroesophageal reflux disease, hypertension, previous hernia repair and partial colectomy. History of Present Illness History of Present Illness 10/02/2020 No acute events overnight. Received 3 units PRBC. Hemoglobin of 5.0 this morning. Pending GI evaluation for EGD versus nuclear medicine bleeding scan. Rising creatinine. 2.1 today. Pending PRBC transfusion after ultimate plan has been decided.> 50% time spent in patient chart, labs, and imaging review and in discussion with RN and JONNY 10/01/2020 Patient seen and evaluated in CVICU. Ultrasound lower extremities was negative for DVT, showing subcutaneous edema. Had bleeding scan with no scintigraphic evidence of active GI bleeding. Hemoglobin remains severely low, 5.5 today. Hold VTE prophylaxis. Patient stating transfusion currently, will continue to transfuse pRBC as needed. He is scheduled for EGD tomorrow. Discussed with RN. Vitals/I&O Vitals/I&O: Vital Signs Date Time Temp Pulse Resp B/P (MAP) Pulse Ox O2 Delivery O2 Flow Rate FiO2 10/02/20 08:05 Nasal Cannula 2.0 10/02/20 08:05 98 10/02/20 08:03 97.3 107 12 104/61 (75) 97.3 I & O 10/01/20 10/01/20 10/02/20 15:00 23:00 07:00 Intake Total 1100 ml 2135 ml 1241 ml Output Total 200 ml 100 ml 40 ml Balance 900 ml 2035 ml 1201 ml Physical Exam Physical Exam: GENERAL: Alert, awake male, in no acute distress, somewhat forgetful, appears weak. HEENT: Normocephalic, atraumatic, anicteric. NECK: Supple. LUNGS: Clear bilaterally. HEART: S1, S2, no murmurs. ABDOMEN: Mildly distended, soft, bowel sounds present. Left buttock has [place] in place. Blood stained stool. No underlying fluctuance noted. EXTREMITIES: 4+ edema bilaterally with some weeping lesions. DERMATOLOGIC: Warm, dry. No generalized rash except for above. NEUROLOGIC: Alert, awake, somewhat forgetful. Normal speech. PSYCHIATRIC: Cooperative. General: Alert, Cooperative, mild distress, Other (not oriented, ) Lungs: Clear Abdomen: Normal bowel sounds, Soft Extremities: Other (beyond 4+ edema, swelling to feet Left worse than right, more edema than foot by size, ) Skin: No rashes, Other (Superficial skin breakdown to sacrum, Carol drain in the right buttock) Labs Labs: Laboratory Tests Test 10/01/20 16:51 10/02/20 06:10 10/02/20 11:25 Hemoglobin 7.8 g/dL (13.0-17.5) 5.0 g/dL (13.0-17.5) 6.4 g/dL (13.0-17.5) Hematocrit 23.5 % (39.0-53.0) 15.2 % (39.0-53.0) 19.4 % (39.0-53.0) Mean Corpuscular Hemoglobin Concent 33 g/dL (31-37) 33 g/dL (31-37) 33 g/dL (31-37) White Blood Count 31.3 x10^3/uL (4.0-11.0) 39.3 x10^3/uL (4.0-11.0) Red Blood Count 1.67 x10^6/uL (4.30-5.70) 2.23 x10^6/uL (4.30-5.70) Mean Corpuscular Volume 91 fL (79-100) 87 fL (79-100) Mean Corpuscular Hemoglobin 30 pg (25-35) 29 pg (25-35) Red Cell Distribution Width 15.2 % (11.5-14.5) 15.7 % (11.5-14.5) Platelet Count 216 x10^3/uL (140-400) 210 x10^3/uL (140-400) Neutrophils (%) (Auto) 84 % (31-73) Lymphocytes (%) (Auto) 6 % (24-48) Monocytes (%) (Auto) 9 % (0-9) Eosinophils (%) (Auto) 1 % (0-3) Basophils (%) (Auto) 1 % (0-3) Neutrophils # (Auto) 26.2 x10^3/uL (1.8-7.7) Lymphocytes # (Auto) 1.8 x10^3/uL (1.0-4.8) Monocytes # (Auto) 3.0 x10^3/uL (0.0-1.1) Eosinophils # (Auto) 0.2 x10^3/uL (0.0-0.7) Basophils # (Auto) 0.2 x10^3/uL (0.0-0.2) Sodium Level 137 mmol/L (136-145) Potassium Level 4.9 mmol/L (3.5-5.1) Chloride Level 107 mmol/L (98-107) Carbon Dioxide Level 19 mmol/L (21-32) Anion Gap 11 (6-14) Blood Urea Nitrogen 19 mg/dL (8-26) Creatinine 2.1 mg/dL (0.7-1.3) Estimated GFR (Cockcroft-Gault) 41.9 Glucose Level 180 mg/dL (70-99) Calcium Level 7.2 mg/dL (8.5-10.1) Assessment and Plan Assessmemt and Plan Problems Medical Problems: (1) Acute on chronic renal failure Status: Acute (2) Anemia Status: Acute (3) Swelling of both lower extremities Status: Acute Comment Review of Relevant I have reviewed the following items joan (where applicable) has been applied. Justifications for Admission Other Justification Ascites, symptomatic anemia CAROLYN PERES MD Oct 02, 2020 12:36
--- NOTE | 2020-10-02 12:48 | RAD ---
CT chest, abdomen and pelvis without contrast PQRS statement: CT scans at this facility use dose reduction including either automated exposure cont rol, iterative reconstructions, and /or weight based radiation dosing via mA and kV modification when appropriate to reduce radiation dose to as low as reasonably achievable. HISTORY: Abdominal swelling, shortness of breath. History of colectomy. COMPARISON: CT chest August 24, 2020 and prior studies. Chest findings: Mild chronic appearing compression deformity of the T9 thoracic vertebra. Heart size upper limits of normal. Aorta, pulmonary vessels and esophagus are unremarkable. No adenopathy. Elham iation of abdominal fluid to the diaphragmatic hiatus to the lower mediastinum surrounding the esopha carleen. There is bilateral gynecomastia. Mild discoid atelectasis lung bases. There are heterogeneous bi lateral pulmonary groundglass opacities which have mildly increased particularly at the upper lobe si nce prior exam. No pleural effusions. Bones are unremarkable. Abdomen findings: There is moderate abdominal free fluid the density which is mildly increased measur ing 17 units this could be ascites with density from pernicious debris versus ascites mixed with hemo peritoneum or chronic hemoperitoneum. Liver, gallbladder, spleen, adrenals unremarkable. Bilateral pe rinephric edema. Tiny 1 mm bilateral renal calculi. At the left renal lower pole there is an exophyti c 1.5 subcentimeter indeterminate lesion density of 30 units. There is wall thickening at the region of the duodenal bulb and descending colon and there is surrounding edema, there are 2 endoscopy clips within the lumen of the descending duodenum and along the left wall which may be treatment for GI bl eeding, along the left aspect of these collapse either within the substance of the wall or extending outside of the wall there is a oblong 3 x 2 cm hyperdensity which is likely a hematoma, this is suspe cted to be intramural within the substance of the wall the duodenum. There is adjacent edema of the h ead of pancreas and surrounding the duodenum. Sigmoid resection with colorectal anastomosis. Mild col onic diverticulosis. No bowel obstruction. Flank soft tissue edema. Pelvis findings: Mild pelvic fluid at the upper pelvis. Bladder, prostate, rectum and bones are unrem arkable. Diffuse soft tissue edema. IMPRESSION: 1. 2 endoscopy clips within the descending duodenum presumably for treatment of GI bleeding or ligati on at a biopsy site. There is a 3 x 2 cm oblong density along the left wall of the duodenum which is likely intramural hematoma. 2. Moderate abdominal pelvic free fluid which has a density of 17 units which could indicate mildly d ense ascites from proteinaceous material, versus ascites mixed with hemoperitoneum, versus chronic he moperitoneum contributing to a lower density. 3. Diffuse heterogeneous pulmonary groundglass opacities have mildly increased since imaging from Aug most typical of an infectious/inflammatory process including atypical viral pneumonitis. 4. Left renal lower pole exophytic 1.5 cm indeterminate lesion with a density of 30 units, this has e nlarged since CT imaging in 2015. This could be a dense cyst or a solid mass. Consider further assess ment with outpatient renal CT or MR imaging without and with contrast. Electronically signed by: Hill Thibodeaux MD (10/02/2020 12:46 PM) [id number]
--- NOTE | 2020-10-02 14:07 | RAD ---
RADIONUCLIDE TAGGED RBC SCAN Clinical History: Continued rectal bleeding. COMPARISON: GI bleed scan 09/30/2020. Technique: 33 mCi Tc-99m labeled red blood cells prepared with Ultratag technique were administered i ntravenously. Anterior dynamic images of the abdomen were obtained for 60 minutes. Findings: There is tracer seen within the vascular pool. There is no accumulation or propagation of tracer to s uggest an active bleed. The patient's arms are intermittently included in the [id number] creating artifact. IMPRESSION: No evidence of acute GI bleed. Electronically signed by: Manuel Yates MD (10/02/2020 2:04 PM) [id number]
[2020-10-02 18:43] LABS: HEMATOCRIT 23.2 % (39.0-53.0); HEMOGLOBIN 7.8 g/dL (13.0-17.5)
--- NOTE | 2020-10-02 18:55 | NUR ---
Paged Dr. Christensen to let him know bleeding scan and chest, ab, pelvic CT is ready for him to review. Waiting for ongoing orders.
[2020-10-02] MEDS ORDERED: PANTOPRAZOLE IV PUSH 40 MG VIAL. IVP ONE ×2 (21:30)
--- NOTE | 2020-10-02 21:30 | NUR ---
GI provider paged in effort to establish further POC in terms of potential EGD. Provider paged at [phone], no answer. Provider MD Simpson paged back at [phone]. Provider updated on pt history, events leading to admission and events that have transpired within hospital. Provider updated on current medical interventions for pt, labs, matt instructor pilot findings, vital signs and diagnostic imaging/ test findings. Provider order this RN to consult both IR and OR due to GI not being able to due much while pt still on pressor support. IR paged [phone]. Surgery paged 2029. Surgery provider MD Jarvis paged back [phone]. Provider updated on current medical interventions for pt, labs, this instructor pilot findings, vital signs and diagnostic imaging/ test findings, as well as GI provider concerns and reason for consult. Surgery provider explained that this pt would be a poor candidate for surgery due to the pt's comorbidities at this point in time coupled with the fact that since the bleed scan was inconclusive, surgery provider cannot visualize or localize location of bleed, therefore provider cannot do much for pt at this point in time, and OR should be considered a last resort for this pt. IR provider paged this RN at [phone]. Provider updated on current medical interventions for pt, labs, this instructor pilot findings, vital signs and diagnostic imaging/ test findings aswell as GI provider concerns and reason for consult. IR provider MD Ramirez explained to this RN that due to the bleed scan being inconclusive for identifying the location of the bleed, the angiogram that the IR provider would complete for the pt would have absolutely no chance of success with an angiogram, since the bleed scan is already so sensitive, more-so than the angiogram per the provider. This RN paged GI again at [phone] with the reports and insights from consulted providers. Provider ordered GOLYTELY bowel prep for pt, Protonix IVP of 80 mg IV push followed by 8mg/hr Protonix Gtt. This RN instructed to administer GOLYTELY at a lengthened duration/ slower rate as to take care not to aggravate pt's GI bleed. RN also instructed to wean pt off sedation ONLY AFTER finishing the bowel prep for pt. Provider also instruct this RN to obtain consent for EGD and colonoscopy if not done so already.
[2020-10-02] MEDS ORDERED: PEG 3350/NA SULF,BICARB,CL/KCL 4,000 ML SOLUTION. PO ONE (22:00)
[2020-10-02] MEDS: PANTOPRAZOLE SODIUM IV DRIP 80 MG in IV NORMAL SALINE 100ML 100 ML IV SCH (23:42)
[2020-10-03] VITALS (32 sets, daily range): BP systolic 72–155; BP diastolic 55–123
[2020-10-03 00:37] LABS: HEMATOCRIT 19.8 % (39.0-53.0); HEMOGLOBIN 6.7 g/dL (13.0-17.5)
[2020-10-03] MEDS: IV NORMAL SALINE 1000ML BAG 1,000 ML IV SCH ×3 (04:00→22:14)
[2020-10-03] MEDS: NOREPINEPHRINE VIAL 8 MG in IV DEXTROSE 5% 250 ML IV PRN ×3 (05:03→12:28)
[2020-10-03] MEDS: fentaNYL PF VIAL 100 MCG/2 ML VIAL IVP PRN ×3 (05:04→20:59)
[2020-10-03] MEDS: PIPERACILLIN/TAZOBACTAM 3.375 GM in IV NORMAL SALINE 50ML 50 ML IV SCH ×2 (06:00)
[2020-10-03] MEDS: POTASSIUM CHLORIDE 20 MEQ TABLET.ER. PO SCH (08:00)
--- NOTE | 2020-10-03 08:19 | PDOC ---
Infectious Disease Note Subjective: Subjective Patient remains anemic with lower GI bleed Status post PRBC Repeat RBC tagged scan negative yesterday Underwent CT chest abdomen and pelvis yesterday Vital Signs: Vital Signs Vital Signs Date Time Temp Pulse Resp B/P (MAP) Pulse Ox O2 Delivery O2 Flow Rate FiO2 10/03/20 06:00 83 13 137/73 (94) 100 Room Air 10/03/20 05:00 98.4 98.4 10/03/20 04:00 3.0 Physical Exam: PHYSICAL EXAM GENERAL: Alert, awake male, in no acute distress, somewhat forgetful, appears weak. HEENT: Normocephalic, atraumatic, anicteric. NECK: Supple. LUNGS: Clear bilaterally. HEART: S1, S2, no murmurs. ABDOMEN: Mildly distended, soft, bowel sounds present. Left buttock has Carol in place. Blood stained stool. No underlying fluctuance noted. EXTREMITIES: 4+ edema bilaterally with some weeping lesions. DERMATOLOGIC: Warm, dry. No generalized rash except for above. NEUROLOGIC: Alert, awake, somewhat forgetful. Normal speech. PSYCHIATRIC: Cooperative. Medications: Inpatient Meds: Current Medications Medications (Trade) Dose Ordered Sig/Donavon Start Time Stop Time Status Last Admin Dose Admin Acetaminophen/ Hydrocodone Bitart (Lortab 5/325) 1 tab PRN Q6HRS PRN 09/29/20 22:30 Albumin Human 500 ml @ 125 mls/hr 1X ONCE 10/01/20 07:00 10/01/20 10:59 DC 10/01/20 07:15 125 MLS/HR Albuterol Sulfate (Ventolin Neb Soln) 2.5 mg PRN Q6HRS PRN 09/29/20 22:30 Allopurinol (Zyloprim) 100 mg DAILY 09/30/20 09:00 09/30/20 08:35 100 MG Amlodipine Besylate (Norvasc) 10 mg DAILY 09/30/20 09:00 09/30/20 08:35 10 MG Clonidine HCl (Catapres) 0.1 mg PRN Q1HR PRN 09/29/20 23:45 Enoxaparin Sodium (Lovenox 80mg Syringe) 80 mg Q12HR 09/29/20 23:00 09/30/20 12:26 DC 09/30/20 08:36 80 MG Enoxaparin Sodium (Lovenox Per Pharmacy Treatment Dosing) 1 each PRN DAILY PRN 09/29/20 22:30 09/30/20 12:26 DC Fentanyl Citrate (Fentanyl 2ml Vial) 50 mcg PRN Q2HR PRN 09/29/20 23:30 10/03/20 05:04 50 MCG Haloperidol Lactate (Haldol Inj) 5 mg PRN Q4HRS PRN 09/29/20 23:45 Heparin Sodium (Porcine) (HEPARIN for NUC MED) 500 unit STK-MED ONCE 10/02/20 09:25 10/02/20 09:25 DC Info (Anti-Coagulation Monitoring By Pharmacy) 1 each PRN DAILY PRN 09/30/20 03:00 09/30/20 13:18 DC 09/30/20 02:57 1 EACH Lidocaine (Lidoderm) 1 patch PRN DAILY PRN 09/29/20 22:30 Lorazepam (Ativan Inj) 4 mg PRN Q1HR PRN 09/29/20 23:45 10/02/20 23:42 4 MG Magnesium Sulfate 100 ml @ 25 mls/hr 1X ONCE 09/29/20 23:00 09/30/20 02:59 DC 09/29/20 23:55 25 MLS/HR Multivitamins 10 ml/Thiamine HCl 100 mg/Folic Acid 1 mg/Sodium Chloride 1,011.2 ml @ 100 mls/ hr DAILY 09/30/20 09:00 10/04/20 19:07 10/01/20 10:50 100 MLS/HR Norepinephrine Bitartrate 8 mg/ Dextrose 258 ml @ 18.247 mls/ hr CONT PRN 10/01/20 06:45 10/03/20 07:30 62.04 MLS/HR Octreotide Acetate 500 mcg/ Sodium Chloride 101 ml @ 0 mls/hr CONT PRN 09/30/20 13:00 10/01/20 11:28 DC 10/01/20 06:46 10.1 MLS/HR Ondansetron HCl (Zofran) 4 mg PRN Q8HRS PRN 09/29/20 23:15 09/30/20 23:14 DC Pantoprazole Sodium (PROTONIX VIAL for IV PUSH) 40 mg ONCE ONCE 10/02/20 21:30 10/02/20 21:31 DC 10/02/20 23:41 40 MG Pantoprazole Sodium 80 mg/ Sodium Chloride 100 ml @ 10 mls/hr Q10H 10/02/20 21:45 10/02/20 23:42 10 MLS/HR Phytonadione 10 mg/Dextrose 51 ml @ 102 mls/hr 1X ONCE 09/30/20 13:30 09/30/20 13:59 DC 09/30/20 13:30 102 MLS/HR Piperacillin Sod/ Tazobactam Sod (Zosyn Per Pharmacy) 1 each PRN DAILY PRN 09/29/20 22:15 Piperacillin Sod/ Tazobactam Sod 3.375 gm/Sodium Chloride 50 ml @ 100 mls/hr Q6HRS 09/29/20 23:00 10/03/20 06:00 100 MLS/HR Potassium Chloride (Klor-Con) 20 meq [id number] 09/30/20 08:00 09/30/20 08:00 20 MEQ Protamine Sulfate 50 mg/Sodium Chloride 55 ml @ 330 mls/hr 1X ONCE 09/30/20 13:30 09/30/20 13:39 DC 09/30/20 13:17 330 MLS/HR Ringer's Solution 1,000 ml @ 50 mls/hr Q20H 10/02/20 07:00 10/02/20 18:59 DC Sodium Chloride 1,000 ml @ 100 mls/hr Q10H 10/02/20 18:45 10/03/20 04:00 100 MLS/HR Sodium Cl/Sod Bicarb/Potass Cl/ PEG (Golytely) 4,000 ml 1X ONCE 10/02/20 22:00 10/02/20 22:01 DC 10/02/20 23:41 4,000 ML Labs: Lab Laboratory Tests Test 10/02/20 11:25 10/02/20 18:30 10/03/20 00:10 White Blood Count 39.3 x10^3/uL (4.0-11.0) Red Blood Count 2.23 x10^6/uL (4.30-5.70) Hemoglobin 6.4 g/dL (13.0-17.5) 7.8 g/dL (13.0-17.5) 6.7 g/dL (13.0-17.5) Hematocrit 19.4 % (39.0-53.0) 23.2 % (39.0-53.0) 19.8 % (39.0-53.0) Mean Corpuscular Volume 87 fL (79-100) Mean Corpuscular Hemoglobin 29 pg (25-35) Mean Corpuscular Hemoglobin Concent 33 g/dL (31-37) 33 g/dL (31-37) 34 g/dL (31-37) Red Cell Distribution Width 15.7 % (11.5-14.5) Platelet Count 210 x10^3/uL (140-400) Objective: Assessment: Lower GI bleed ,recently at also with clip H pylori positive dc on clarithromycin Acute blood loss anemia status post PRBC Perirectal abscess status post incision and drainage at 09/22 status post Carol placed. Cults positive for Enterobacter and VRE DC home on levaquin for 4 days ,flagyl for 10 days and linezolid for 4 days Bilateral lower extremity edema, worsening. Doppler negative for deep venous thrombosis. Generalized weakness and debility. History of recent throat cancer,.Not a candidate for surgery . History of sarcoidosis, following up at . Abnormal liver function tests. History of recent moderate ascites, diffuse wall thickening of colon, status post paracentesis. History of colon resection, Severe malnutrition. Encephalopathy likely metabolic Renal insufficiency Plan: Plan of Care DC Eva as pt has completed his treatment for perirectal abscess Clarithromycin for 2 more days to complete the course; GI following Continue local wound care as directed. Continue supportive care. Overall prognosis poor Discussed with KENIA. FRANCIS BRENNER MD Oct 03, 2020 08:19
[2020-10-03] MEDS: ALLOPURINOL 100 MG TABLET. PO SCH (09:00)
[2020-10-03] MEDS: amLODIPine BESYLATE 10 MG TABLET PO SCH (09:00)
[2020-10-03 09:03] LABS: CALCIUM 7.3 mg/dL (8.5-10.1); CREATININE 2.3 mg/dL (0.7-1.3); GFR 37.7; POTASSIUM 4.3 mmol/L (3.5-5.1)
[2020-10-03 09:13] LABS: BASO # 0.1 x10^3/uL (0.0-0.2); BASO % 0 % (0-3); EOS # 0.3 x10^3/uL (0.0-0.7); EOS % 1 % (0-3); HEMATOCRIT 26.6 % (39.0-53.0); HEMOGLOBIN 8.7 g/dL (13.0-17.5); LYMPH # 2.8 x10^3/uL (1.0-4.8); LYMPH % 8 % (24-48); MEAN CORPUSCULAR HEMOGLOBIN 29 pg (25-35); MEAN CORPUSCULAR HGB CONC 33 g/dL (31-37); MEAN CORPUSCULAR VOLUME 89 fL (79-100); MONO % 11 % (0-9); NEUT # 29.4 x10^3/uL (1.8-7.7); NEUT % 80 % (31-73); PLATELET COUNT 161 x10^3/uL (140-400); RED CELL DISTRIBUTION WIDTH 16.1 % (11.5-14.5); WHITE BLOOD COUNT 36.6 x10^3/uL (4.0-11.0)
--- NOTE | 2020-10-03 09:30 | PDOC ---
[employer] PROGRESS NOTE Date of Service DOS: DATE: 10/03/20 TIME: 09:24 Chief Complaint Chief Complaint anemia, aute blood loss per rectum, treatment lovenox given, will stop, GI consult acute new LE edema, sarcoid lung disease, weakness and debility severe malnutrition marked weakness and debility metabolic encephalopathy recent paracentesis for cirrhosis, asthma bronchitis prior substance abuse anxiety disorder, History of pancreatitis, duodenitis, alcoholism, arthritis, depression, gastroesophageal reflux disease, hypertension, previous hernia repair and partial colectomy. History of Present Illness History of Present Illness 09/30: 2u PRBC and FFP for lower GI bleed 10/01: 3u PRBC for Hb 5.5. Had bleeding scan with no scintigraphic evidence of active GI bleeding. Echo WNL 10/02: 2u PRBC. Repeat nuclear medicine bleeding scan negative. Rising creatinine. 2.1 today. Seen in ICU. 2u PRBC overnight. CT abdomen/pelvis with no obvious source of bleeding, duodenal intramural hematoma possible adjacent to clips. Afebrile. Weak, confused. Afebrile. Still with BRBPR. Tentative plans for EGD today per nursing. [facility] records received, on chart, did have notable ampullary ulcer clipped after massive transfusion. Vitals/I&O Vitals/I&O: Vital Signs Date Time Temp Pulse Resp B/P (MAP) Pulse Ox O2 Delivery O2 Flow Rate FiO2 10/03/20 09:21 83 16 141/75 (97) 100 Room Air 10/03/20 08:29 2.0 10/03/20 08:28 97.6 97.6 I & O 10/02/20 10/02/20 10/03/20 15:00 23:00 07:00 Intake Total 350 ml 550 ml 300 ml Output Total 0 ml 190 ml 355 ml Balance 350 ml 360 ml -55 ml Physical Exam Physical Exam: GENERAL: Alert, awake male, in no acute distress, somewhat forgetful, appears weak. HEENT: Normocephalic, atraumatic, anicteric. NECK: Supple. LUNGS: Clear bilaterally. HEART: S1, S2, no murmurs. ABDOMEN: Mildly distended, soft, bowel sounds present. Left buttock has Carol in place. Blood stained stool. No underlying fluctuance noted. EXTREMITIES: 4+ edema bilaterally with some weeping lesions. DERMATOLOGIC: Warm, dry. No generalized rash except for above. NEUROLOGIC: Alert, awake, somewhat forgetful. Normal speech. PSYCHIATRIC: Cooperative. General: Alert, Cooperative, mild distress, Other (not oriented, ) Lungs: Clear Abdomen: Normal bowel sounds, Soft Extremities: Other (beyond 4+ edema, swelling to feet Left worse than right, more edema than foot by size, ) Skin: No rashes, Other (Superficial skin breakdown to sacrum, [place] drain in the right buttock) Labs Labs: Laboratory Tests Test 10/02/20 11:25 10/02/20 18:30 10/03/20 00:10 10/03/20 08:00 White Blood Count 39.3 x10^3/uL (4.0-11.0) Red Blood Count 2.23 x10^6/uL (4.30-5.70) Hemoglobin 6.4 g/dL (13.0-17.5) 7.8 g/dL (13.0-17.5) 6.7 g/dL (13.0-17.5) Hematocrit 19.4 % (39.0-53.0) 23.2 % (39.0-53.0) 19.8 % (39.0-53.0) Mean Corpuscular Volume 87 fL (79-100) Mean Corpuscular Hemoglobin 29 pg (25-35) Mean Corpuscular Hemoglobin Concent 33 g/dL (31-37) 33 g/dL (31-37) 34 g/dL (31-37) Red Cell Distribution Width 15.7 % (11.5-14.5) Platelet Count 210 x10^3/uL (140-400) Sodium Level 138 mmol/L (136-145) Potassium Level 4.3 mmol/L (3.5-5.1) Chloride Level 106 mmol/L (98-107) Carbon Dioxide Level 18 mmol/L (21-32) Anion Gap 14 (6-14) Blood Urea Nitrogen 21 mg/dL (8-26) Creatinine 2.3 mg/dL (0.7-1.3) Estimated GFR (Cockcroft-Gault) 37.7 Glucose Level 146 mg/dL (70-99) Calcium Level 7.3 mg/dL (8.5-10.1) Assessment and Plan Assessmemt and Plan Problems Medical Problems: (1) Acute on chronic renal failure Status: Acute (2) Anemia Status: Acute (3) Swelling of both lower extremities Status: Acute Comment Review of Relevant I have reviewed the following items joan (where applicable) has been applied. Medications: Current Medications Medications (Trade) Dose Ordered Sig/Donavon Route PRN Reason Start Time Stop Time Status Last Admin Dose Admin Sodium Chloride 1,000 ml @ 100 mls/hr Q10H IV 10/02/20 18:45 10/03/20 04:00 Pantoprazole Sodium (PROTONIX VIAL for IV PUSH) 40 mg ONCE ONCE IVP 10/02/20 21:30 10/02/20 21:31 DC 10/02/20 23:41 Sodium Cl/Sod Bicarb/Potass Cl/ PEG (Golytely) 4,000 ml 1X ONCE PO 10/02/20 22:00 10/02/20 22:01 DC 10/02/20 23:41 Pantoprazole Sodium 80 mg/ Sodium Chloride 100 ml @ 10 mls/hr Q10H IV 10/02/20 21:45 10/02/20 23:42 Justifications for Admission Other Justification Ascites, symptomatic anemia RICHARD MORENO MD Oct 03, 2020 09:30
--- NOTE | 2020-10-03 09:41 | PDOC ---
PULMONARY PROGRESS NOTES DATE: 10/03/20 TIME: 09:40 Subjective no soa still anemic Vitals Vital Signs Date Time Temp Pulse Resp B/P (MAP) Pulse Ox O2 Delivery O2 Flow Rate FiO2 10/03/20 09:21 83 16 141/75 (97) 100 Room Air 10/03/20 08:29 2.0 10/03/20 08:28 97.6 97.6 General: Alert, No acute distress Lungs: Clear Cardiovascular: S1, S2 Abdomen: Soft, Non-tender, Other (distended) Extremities: Other (2+edema) Skin: Warm Labs Laboratory Tests Test 10/01/20 16:51 10/02/20 06:10 10/02/20 11:25 10/02/20 18:30 Hemoglobin 7.8 g/dL (13.0-17.5) 5.0 g/dL (13.0-17.5) 6.4 g/dL (13.0-17.5) 7.8 g/dL (13.0-17.5) Hematocrit 23.5 % (39.0-53.0) 15.2 % (39.0-53.0) 19.4 % (39.0-53.0) 23.2 % (39.0-53.0) Mean Corpuscular Hemoglobin Concent 33 g/dL (31-37) 33 g/dL (31-37) 33 g/dL (31-37) 33 g/dL (31-37) White Blood Count 31.3 x10^3/uL (4.0-11.0) 39.3 x10^3/uL (4.0-11.0) Red Blood Count 1.67 x10^6/uL (4.30-5.70) 2.23 x10^6/uL (4.30-5.70) Mean Corpuscular Volume 91 fL (79-100) 87 fL (79-100) Mean Corpuscular Hemoglobin 30 pg (25-35) 29 pg (25-35) Red Cell Distribution Width 15.2 % (11.5-14.5) 15.7 % (11.5-14.5) Platelet Count 216 x10^3/uL (140-400) 210 x10^3/uL (140-400) Neutrophils (%) (Auto) 84 % (31-73) Lymphocytes (%) (Auto) 6 % (24-48) Monocytes (%) (Auto) 9 % (0-9) Eosinophils (%) (Auto) 1 % (0-3) Basophils (%) (Auto) 1 % (0-3) Neutrophils # (Auto) 26.2 x10^3/uL (1.8-7.7) Lymphocytes # (Auto) 1.8 x10^3/uL (1.0-4.8) Monocytes # (Auto) 3.0 x10^3/uL (0.0-1.1) Eosinophils # (Auto) 0.2 x10^3/uL (0.0-0.7) Basophils # (Auto) 0.2 x10^3/uL (0.0-0.2) Sodium Level 137 mmol/L (136-145) Potassium Level 4.9 mmol/L (3.5-5.1) Chloride Level 107 mmol/L (98-107) Carbon Dioxide Level 19 mmol/L (21-32) Anion Gap 11 (6-14) Blood Urea Nitrogen 19 mg/dL (8-26) Creatinine 2.1 mg/dL (0.7-1.3) Estimated GFR (Cockcroft-Gault) 41.9 Glucose Level 180 mg/dL (70-99) Calcium Level 7.2 mg/dL (8.5-10.1) Test 10/03/20 00:10 10/03/20 08:00 Hemoglobin 6.7 g/dL (13.0-17.5) 8.7 g/dL (13.0-17.5) Hematocrit 19.8 % (39.0-53.0) 26.6 % (39.0-53.0) Mean Corpuscular Hemoglobin Concent 34 g/dL (31-37) 33 g/dL (31-37) White Blood Count 36.6 x10^3/uL (4.0-11.0) Red Blood Count 3.00 x10^6/uL (4.30-5.70) Mean Corpuscular Volume 89 fL (79-100) Mean Corpuscular Hemoglobin 29 pg (25-35) Red Cell Distribution Width 16.1 % (11.5-14.5) Platelet Count 161 x10^3/uL (140-400) Neutrophils (%) (Auto) 80 % (31-73) Lymphocytes (%) (Auto) 8 % (24-48) Monocytes (%) (Auto) 11 % (0-9) Eosinophils (%) (Auto) 1 % (0-3) Basophils (%) (Auto) 0 % (0-3) Neutrophils # (Auto) 29.4 x10^3/uL (1.8-7.7) Lymphocytes # (Auto) 2.8 x10^3/uL (1.0-4.8) Monocytes # (Auto) 4.0 x10^3/uL (0.0-1.1) Eosinophils # (Auto) 0.3 x10^3/uL (0.0-0.7) Basophils # (Auto) 0.1 x10^3/uL (0.0-0.2) Sodium Level 138 mmol/L (136-145) Potassium Level 4.3 mmol/L (3.5-5.1) Chloride Level 106 mmol/L (98-107) Carbon Dioxide Level 18 mmol/L (21-32) Anion Gap 14 (6-14) Blood Urea Nitrogen 21 mg/dL (8-26) Creatinine 2.3 mg/dL (0.7-1.3) Estimated GFR (Cockcroft-Gault) 37.7 Glucose Level 146 mg/dL (70-99) Calcium Level 7.3 mg/dL (8.5-10.1) Laboratory Tests Test 10/02/20 11:25 10/02/20 18:30 10/03/20 00:10 10/03/20 08:00 White Blood Count 39.3 x10^3/uL (4.0-11.0) 36.6 x10^3/uL (4.0-11.0) Red Blood Count 2.23 x10^6/uL (4.30-5.70) 3.00 x10^6/uL (4.30-5.70) Hemoglobin 6.4 g/dL (13.0-17.5) 7.8 g/dL (13.0-17.5) 6.7 g/dL (13.0-17.5) 8.7 g/dL (13.0-17.5) Hematocrit 19.4 % (39.0-53.0) 23.2 % (39.0-53.0) 19.8 % (39.0-53.0) 26.6 % (39.0-53.0) Mean Corpuscular Volume 87 fL (79-100) 89 fL (79-100) Mean Corpuscular Hemoglobin 29 pg (25-35) 29 pg (25-35) Mean Corpuscular Hemoglobin Concent 33 g/dL (31-37) 33 g/dL (31-37) 34 g/dL (31-37) 33 g/dL (31-37) Red Cell Distribution Width 15.7 % (11.5-14.5) 16.1 % (11.5-14.5) Platelet Count 210 x10^3/uL (140-400) 161 x10^3/uL (140-400) Neutrophils (%) (Auto) 80 % (31-73) Lymphocytes (%) (Auto) 8 % (24-48) Monocytes (%) (Auto) 11 % (0-9) Eosinophils (%) (Auto) 1 % (0-3) Basophils (%) (Auto) 0 % (0-3) Neutrophils # (Auto) 29.4 x10^3/uL (1.8-7.7) Lymphocytes # (Auto) 2.8 x10^3/uL (1.0-4.8) Monocytes # (Auto) 4.0 x10^3/uL (0.0-1.1) Eosinophils # (Auto) 0.3 x10^3/uL (0.0-0.7) Basophils # (Auto) 0.1 x10^3/uL (0.0-0.2) Sodium Level 138 mmol/L (136-145) Potassium Level 4.3 mmol/L (3.5-5.1) Chloride Level 106 mmol/L (98-107) Carbon Dioxide Level 18 mmol/L (21-32) Anion Gap 14 (6-14) Blood Urea Nitrogen 21 mg/dL (8-26) Creatinine 2.3 mg/dL (0.7-1.3) Estimated GFR (Cockcroft-Gault) 37.7 Glucose Level 146 mg/dL (70-99) Calcium Level 7.3 mg/dL (8.5-10.1) Medications Active Scripts Medications Dose Route/Sig Max Daily Dose Days Date Category Augmentin 875-125 Tablet (Amoxicillin/Potassium Clav) 1 Each Tablet 1 Tab PO BID 5 08/28/20 Reported Carvedilol 12.5 Mg Tablet 1 Tab PO BID 08/25/20 Reported Ondansetron Hcl 4 Mg Tablet 1 Tab PO PRN Q6HRS PRN 3 06/28/20 Rx Magnesium (Magnesium Oxide) 400 Mg Capsule 1 Cap PO DAILY 14 06/16/20 Rx Monarch 5-325 Tablet (Acetaminophen/Hydrocodone Bitart) 1 Each Tablet 1 Tab PO PRN Q6HRS PRN 06/16/20 Rx Potassium Chloride (Potassium Chloride) 20 Meq Tablet.er 20 Meq PO DAILY 14 06/16/20 Rx Diclofenac Sodium 50 Mg Tablet.dr 1 Tab PO BID PRN 01/01/20 Rx Allopurinol 100 Mg Tablet 1 Tab PO DAILY 30 11/30/19 Reported Lidocaine PATCH (Lidocaine) 1 Each Adh..patch 1 Patch TD PRN DAILY PRN 30 11/30/19 Rx Prednisone 20 Mg Tablet 40 Mg PO DAILY 10 11/30/19 Rx Culturelle (Lactobacillus Rhamnosus Gg) 1 Each Cap.sprink 1 Cap PO BID 30 11/30/19 Rx Klor-Con M20 (Potassium Chloride) 20 Meq Tab.er.prt 20 Meq PO DAILYWBKFT 14 11/30/19 Rx Voltaren (Diclofenac Sodium) 100 Gm Gel..gram. 1 Jevon TP BID 14 11/30/19 Rx Duoneb 0.5-3(2.5) Mg/3 Ml (Albuterol/Ipratropium) 3 Ml Ampul.neb 3 Ml NEB Q4HRS W/A 30 11/30/19 Rx Hydroxyzine Hcl 10 Mg Tablet 10 Mg PO TID 07/04/19 Reported Proair Hfa (Albuterol Sulfate) 8.5 Gm Hfa.aer.ad 1 Puff INH PRN Q6HRS PRN 07/04/19 Reported Fluoxetine Hcl 40 Mg Capsule 60 Mg PO DAILY 07/04/19 Reported Cetirizine Hcl 10 Mg Tab.chew 10 Mg PO DAILY PRN 07/04/19 Reported Atorvastatin Calcium 40 Mg Tablet 40 Mg PO DAILY 07/04/19 Reported Aspirin 81 Mg Tab.chew 81 Mg PO DAILY PRN 07/04/19 Reported Colcrys (Colchicine) 0.6 Mg Tablet 1 Tab PO DAILY PRN 06/19/18 Rx Coreg (Carvedilol) 12.5 Mg Tablet 1 Tab PO BID 06/19/18 Rx Omeprazole 20 Mg Capsule.dr 40 Mg PO DAILY 12/10/15 Reported Amlodipine Besylate 10 Mg Tablet 10 Mg PO DAILY 12/10/15 Reported Mirtazapine 45 Mg Tablet 45 Mg PO HS 12/10/15 Reported Impression . 1. Abnormal chest x-ray with mildly prominent interstitial infiltrates. Could be related to sarcoidosis. The patient has known history of sarcoidosis diagnosed in 1999. He is not so sure whether he had biopsy at that time. I will obtain noncontrast CT chest. 2. Significant lower extremity edema and feet edema. ? RV failure. There was no evidence of any deep vein thrombosis. Would recommend getting an echocardiogram and also CT abdomen and pelvis to rule out any venous obstruction. 3. History of tobacco use. 4. Severe anemia/ GI bleed Plan . RECOMMENDATIONS: 1. CT chest reviewed. 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 Obtain echocardiogram. 3. Venous Dopplers are negative. 4. diuresis.prn, watch renal function 5. Empiric antibiotic per PCP. 6. We will follow along with you and make further recommendations after review of the imaging studies. 7. f/u H/H and GI rec/ EGD today JEAN MARIE MCGUIRE MD Oct 03, 2020 09:41
[2020-10-03] MEDS: CLARITHROMYCIN 500 MG TABLET. PO SCH ×2 (10:00→21:02)
[2020-10-03 11:17] LABS: % BANDS 1 % (0-9); % LYMPHS 4 % (24-48); % METAS 1 % (0-0); % MONOS 3 % (0-10); % SEGS 91 % (35-66); PLT ESTIMATE ADEQUATE (ADEQUATE)
[2020-10-03 11:18] LABS: TOXIC GRANULATION MOD
[2020-10-03] MEDS: OCTREOTIDE 500 MCG in IV NORMAL SALINE 100ML 100 ML IV PRN ×2 (11:23→21:00)
--- NOTE | 2020-10-03 12:08 | PDOC2 ---
CONSULT Date of Consult Date of Consult DATE: 10/03/20 TIME: 12:07 History of Present Illness Reason for Visit: 45 year old male who was admitted on 09/29/20 due to severe peripheral extremity swelling and weakness. He is a very poor historian, but does state that he was at recently and treated for a GI bleed there. Current records suggest that he was at for intended cancer treatment but was too weak. After admission he re he began passing dark bloody stools with a drop in his hemoglobin. He is currently in the ICU on pressor support. Past Medical History Cardiovascular: HTN, Other Pulmonary: Asthma, Bronchitis CENTRAL NERVOUS SYSTEM: Other GI: GERD, Other (portal hypertension) Heme/Onc: No pertinent hx Hepatobiliary: Other Psych: Anxiety, Depression, Other Musculoskeletal: Osteoarthritis Rheumatologic: Gout Infectious disease: No pertinent hx Renal/: Other Endocrine: No pertinent hx Past Surgical History Past Surgical History: Total knee replacement, Colon Resection (? not sure of this ), Other Family History Family History: Cancer, Hypertension Social History Quit (11/2019) ALCOHOL: other Drugs: Other (past cocaine) Lives: with Family Current Problem List Problem List Problems Medical Problems: (1) Acute on chronic renal failure Status: Acute (2) Anemia Status: Acute (3) Swelling of both lower extremities Status: Acute Current Medications Current Medications Current Medications Fentanyl Citrate (Fentanyl 2ml Vial) 50 mcg PRN Q15MIN PRN IV PAIN GREATER THAN 3/10 Last administered on 09/29/20at 20:58; Start 09/29/20 at 18:45; Stop 09/29/20 at 23:34; Status DC Magnesium Sulfate 100 ml @ 25 mls/hr 1X ONCE IV Last administered on 1 11/30/19at 23:55; Start 09/29/20 at 23:00; Stop 09/30/20 at 02:59; Status DC Piperacillin Sod/ Tazobactam Sod (Zosyn Per Pharmacy) 1 each PRN DAILY PRN MC SEE COMMENTS; Start 09/29/20 at 22:15; Stop 10/03/20 at 09:20; Status DC Albuterol Sulfate (Ventolin Neb Soln) 2.5 mg PRN Q6HRS PRN INH SHORTNESS OF BREATH; Start 09/29/20 at 22:30 Allopurinol (Zyloprim) 100 mg DAILY PO Last administered on 09/30/20at 08:35; Start 09/30/20 at 09:00 Amlodipine Besylate (Norvasc) 10 mg DAILY PO Last administered on 09/30/20at 08:35; Start 09/30/20 at 09:00 Acetaminophen/ Hydrocodone Bitart (Lortab 5/325) 1 tab PRN Q6HRS PRN PO MODERATE PAIN 4-6; Start 09/29/20 at 22:30 Lidocaine (Lidoderm) 1 patch PRN DAILY PRN TD TOPICAL PAIN; Start 09/29/20 at 22:30 Potassium Chloride (Klor-Con) 20 meq DAILYWBKFT PO Last administered on 09/30/20at 08:00; Start 09/30/20 at 08:00 Piperacillin Sod/ Tazobactam Sod 3.375 gm/Sodium Chloride 50 ml @ 100 mls/hr Q6HRS IV Last administered on 10/03/20at 06:00; Start 09/29/20 at 23:00; Stop 10/03/20 at 09:19; Status DC Enoxaparin Sodium (Lovenox Per Pharmacy Treatment Dosing) 1 each PRN DAILY PRN MC SEE COMMENTS; Start 09/29/20 at 22:30; Stop 09/30/20 at 12:26; Status DC Enoxaparin Sodium (Lovenox 80mg Syringe) 80 mg Q12HR SQ Last administered on 09/30/20at 08:36; Start 09/29/20 at 23:00; Stop 09/30/20 at 12:26; Status DC Ondansetron HCl (Zofran) 4 mg PRN Q8HRS PRN IV NAUSEA/VOMITING 1ST CHOICE; Start 09/29/20 at 23:15; Stop 09/30/20 at 23:14; Status DC Fentanyl Citrate (Fentanyl 2ml Vial) 50 mcg PRN Q1HR PRN IV SEVERE PAIN 7-10; Start 09/29/20 at 23:15; Stop 09/29/20 at 23:34; Status DC Fentanyl Citrate (Fentanyl 2ml Vial) 50 mcg PRN Q2HR PRN IVP SEVERE PAIN 7-10 Last administered on 10/03/20at 05:04; Start 09/29/20 at 23:30 Multivitamins 10 ml/Thiamine HCl 100 mg/Folic Acid 1 mg/Sodium Chloride 1,011.2 ml @ 100 mls/ hr DAILY IV Last administered on 10/01/20at 10:50; Start 09/30/20 at 09:00; Stop 10/04/20 at 19:07 Lorazepam (Ativan Inj) 2 mg PRN Q1HR PRN IV For CIWA 8-14; Start 09/29/20 at 23:45 Lorazepam (Ativan Inj) 4 mg PRN Q1HR PRN IV For CIWA 15 or greater Last administered on 10/02/20at 23:42; Start 09/29/20 at 23:45 Haloperidol Lactate (Haldol Inj) 5 mg PRN Q4HRS PRN IVP Hallucinatns,Confusn,Delirium; Start 09/29/20 at 23:45 Clonidine HCl (Catapres) 0.1 mg PRN Q1HR PRN PO SBP > 180 or DBP > 100, MRX3; Start 09/29/20 at 23:45 Info (Anti-Coagulation Monitoring By Pharmacy) 1 each PRN DAILY PRN MC SEE COMMENTS Last administered on 09/30/20at 02:57; Start 09/30/20 at 03:00; Stop 09/30/20 at 13:18; Status DC Pantoprazole Sodium (PROTONIX VIAL for IV PUSH) 40 mg 1X ONCE IVP Last administered on 09/30/20at 13:17; Start 09/30/20 at 13:00; Stop 09/30/20 at 13:01; Status DC Octreotide Acetate 500 mcg/ Sodium Chloride 101 ml @ 0 mls/hr CONT PRN IV SEE I/O RECORD Last administered on 10/01/20at 06:46; Start 09/30/20 at 13:00; Stop 10/01/20 at 11:28; Status DC Phytonadione 10 mg/Dextrose 51 ml @ 102 mls/hr 1X ONCE IV Last administered on 09/30/20at 13:30; Start 09/30/20 at 13:30; Stop 09/30/20 at 13:59; Status DC Protamine Sulfate 50 mg/Sodium Chloride 55 ml @ 330 mls/hr 1X ONCE IV Last administered on 09/30/20at 13:17; Start 09/30/20 at 13:30; Stop 09/30/20 at 13:39; Status DC Heparin Sodium (Porcine) (HEPARIN for NUC MED) 100 unit 1X ONCE IV ; Start 09/30/20 at 13:30; Stop 09/30/20 at 13:33; Status DC Pantoprazole Sodium (PROTONIX VIAL for IV PUSH) 40 mg DAILYAC IVP Last administered on 10/02/20at 07:35; Start 10/01/20 at 07:30; Stop 10/02/20 at 21:28; Status DC Albumin Human 500 ml @ 125 mls/hr 1X ONCE IV Last administered on 10/01/20at 07:15; Start 10/01/20 at 07:00; Stop 10/01/20 at 10:59; Status DC Norepinephrine Bitartrate 8 mg/ Dextrose 258 ml @ 18.247 mls/ hr CONT PRN IV PER PROTOCOL Last administered on 10/03/20at 07:30; Start 10/01/20 at 06:45 Ringer's Solution 1,000 ml @ 50 mls/hr Q20H IV ; Start 10/02/20 at 07:00; Stop 10/02/20 at 18:59; Status DC Heparin Sodium (Porcine) (HEPARIN for NUC MED) 100 unit 1X ONCE IV ; Start 10/02/20 at 09:30; Stop 10/02/20 at 09:31; Status DC Heparin Sodium (Porcine) (HEPARIN for NUC MED) 500 unit STK-MED ONCE IV ; Start 10/02/20 at 09:25; Stop 10/02/20 at 09:25; Status DC Sodium Chloride 1,000 ml @ 100 mls/hr Q10H IV Last administered on 10/03/20at 04:00; Start 10/02/20 at 18:45 Pantoprazole Sodium (PROTONIX VIAL for IV PUSH) 80 mg ONCE ONCE IVP ; Start 10/02/20 at 21:30; Stop 10/02/20 at 21:29; Status DC Pantoprazole Sodium (PROTONIX VIAL for IV PUSH) 40 mg ONCE ONCE IVP Last administered on 10/02/20at 23:41; Start 10/02/20 at 21:30; Stop 10/02/20 at 21:31; Status DC Sodium Cl/Sod Bicarb/Potass Cl/ PEG (Golytely) 4,000 ml 1X ONCE PO Last administered on 10/02/20at 23:41; Start 10/02/20 at 22:00; Stop 10/02/20 at 22:01; Status DC Pantoprazole Sodium 80 mg/ Sodium Chloride 100 ml @ 10 mls/hr Q10H IV Last administered on 10/02/20at 23:42; Start 10/02/20 at 21:45 Clarithromycin (Biaxin) 500 mg BID PO ; Start 10/03/20 at 10:00; Stop 10/04/20 at 21:01 Octreotide Acetate 500 mcg/ Sodium Chloride 101 ml @ 0 mls/hr CONT PRN IV SEE I/O RECORD Last administered on 10/03/20at 11:23; Start 10/03/20 at 12:00 Active Scripts Active Ondansetron Hcl 4 Mg Tablet 1 Tab PO PRN Q6HRS PRN 3 Days Magnesium (Magnesium Oxide) 400 Mg Capsule 1 Cap PO DAILY 14 Days Melrose 5-325 Tablet (Acetaminophen/Hydrocodone Bitart) 1 Each Tablet 1 Tab PO PRN Q6HRS PRN Potassium Chloride (Potassium Chloride) 20 Meq Tablet.er 20 Meq PO DAILY 14 Days Diclofenac Sodium 50 Mg Tablet.dr 1 Tab PO BID PRN Lidocaine PATCH (Lidocaine) 1 Each Adh..patch 1 Patch TD PRN DAILY PRN 30 Days Prednisone 20 Mg Tablet 40 Mg PO DAILY 10 Days Culturelle (Lactobacillus Rhamnosus Gg) 1 Each Cap.sprink 1 Cap PO BID 30 Days Klor-Con M20 (Potassium Chloride) 20 Meq Tab.er.prt 20 Meq PO DAILYWBKFT 14 Days Voltaren (Diclofenac Sodium) 100 Gm Gel..gram. 1 Jevon TP BID 14 Days Duoneb 0.5-3(2.5) Mg/3 Ml (Albuterol/Ipratropium) 3 Ml Ampul.neb 3 Ml NEB Q4HRS W/A 30 Days Colcrys (Colchicine) 0.6 Mg Tablet 1 Tab PO DAILY PRN Coreg (Carvedilol) 12.5 Mg Tablet 1 Tab PO BID Reported Augmentin 875-125 Tablet (Amoxicillin/Potassium Clav) 1 Each Tablet 1 Tab PO BID 5 Days Carvedilol 12.5 Mg Tablet 1 Tab PO BID Allopurinol 100 Mg Tablet 1 Tab PO DAILY 30 Days Hydroxyzine Hcl 10 Mg Tablet 10 Mg PO TID Proair Hfa (Albuterol Sulfate) 8.5 Gm Hfa.aer.ad 1 Puff INH PRN Q6HRS PRN Fluoxetine Hcl 40 Mg Capsule 60 Mg PO DAILY Cetirizine Hcl 10 Mg Tab.chew 10 Mg PO DAILY PRN Atorvastatin Calcium 40 Mg Tablet 40 Mg PO DAILY Aspirin 81 Mg Tab.chew 81 Mg PO DAILY PRN Omeprazole 20 Mg Capsule.dr 40 Mg PO DAILY Amlodipine Besylate 10 Mg Tablet 10 Mg PO DAILY Mirtazapine 45 Mg Tablet 45 Mg PO HS Allergies Allergies: Coded Allergies: No Known Medication Allergies (Verified Allergy, Unknown, 10/03/20) hydromorphone (Verified Adverse Reaction, Severe, Anxiety, 08/27/20) hallucinations, paranoia, hyperactivity ROS Review of System pt states he is weak, otherwise poor historian, denies abdominal pain Physical Exam General: Alert HEENT: Atraumatic Lungs: Clear to auscultation Abdomen: Soft (marked edema), Other (large vertical midline scar) Extremities: Other (marked edema) Skin: Other (ecchymosis of upper extremities) Neuro: Normal speech Vitals VITALS Vital Signs Date Time Temp Pulse Resp B/P (MAP) Pulse Ox O2 Delivery O2 Flow Rate FiO2 10/03/20 11:34 120/66 (84) 10/03/20 11:05 88 16 100 Room Air 10/03/20 10:33 98.1 98.1 10/03/20 08:29 2.0 Labs Labs Laboratory Tests Test 10/01/20 16:51 10/02/20 06:10 10/02/20 11:25 10/02/20 18:30 Hemoglobin 7.8 g/dL (13.0-17.5) 5.0 g/dL (13.0-17.5) 6.4 g/dL (13.0-17.5) 7.8 g/dL (13.0-17.5) Hematocrit 23.5 % (39.0-53.0) 15.2 % (39.0-53.0) 19.4 % (39.0-53.0) 23.2 % (39.0-53.0) Mean Corpuscular Hemoglobin Concent 33 g/dL (31-37) 33 g/dL (31-37) 33 g/dL (31-37) 33 g/dL (31-37) White Blood Count 31.3 x10^3/uL (4.0-11.0) 39.3 x10^3/uL (4.0-11.0) Red Blood Count 1.67 x10^6/uL (4.30-5.70) 2.23 x10^6/uL (4.30-5.70) Mean Corpuscular Volume 91 fL (79-100) 87 fL (79-100) Mean Corpuscular Hemoglobin 30 pg (25-35) 29 pg (25-35) Red Cell Distribution Width 15.2 % (11.5-14.5) 15.7 % (11.5-14.5) Platelet Count 216 x10^3/uL (140-400) 210 x10^3/uL (140-400) Neutrophils (%) (Auto) 84 % (31-73) Lymphocytes (%) (Auto) 6 % (24-48) Monocytes (%) (Auto) 9 % (0-9) Eosinophils (%) (Auto) 1 % (0-3) Basophils (%) (Auto) 1 % (0-3) Neutrophils # (Auto) 26.2 x10^3/uL (1.8-7.7) Lymphocytes # (Auto) 1.8 x10^3/uL (1.0-4.8) Monocytes # (Auto) 3.0 x10^3/uL (0.0-1.1) Eosinophils # (Auto) 0.2 x10^3/uL (0.0-0.7) Basophils # (Auto) 0.2 x10^3/uL (0.0-0.2) Sodium Level 137 mmol/L (136-145) Potassium Level 4.9 mmol/L (3.5-5.1) Chloride Level 107 mmol/L (98-107) Carbon Dioxide Level 19 mmol/L (21-32) Anion Gap 11 (6-14) Blood Urea Nitrogen 19 mg/dL (8-26) Creatinine 2.1 mg/dL (0.7-1.3) Estimated GFR (Cockcroft-Gault) 41.9 Glucose Level 180 mg/dL (70-99) Calcium Level 7.2 mg/dL (8.5-10.1) Test 10/03/20 00:10 10/03/20 08:00 Hemoglobin 6.7 g/dL (13.0-17.5) 8.7 g/dL (13.0-17.5) Hematocrit 19.8 % (39.0-53.0) 26.6 % (39.0-53.0) Mean Corpuscular Hemoglobin Concent 34 g/dL (31-37) 33 g/dL (31-37) White Blood Count 36.6 x10^3/uL (4.0-11.0) Red Blood Count 3.00 x10^6/uL (4.30-5.70) Mean Corpuscular Volume 89 fL (79-100) Mean Corpuscular Hemoglobin 29 pg (25-35) Red Cell Distribution Width 16.1 % (11.5-14.5) Platelet Count 161 x10^3/uL (140-400) Neutrophils (%) (Auto) 80 % (31-73) Lymphocytes (%) (Auto) 8 % (24-48) Monocytes (%) (Auto) 11 % (0-9) Eosinophils (%) (Auto) 1 % (0-3) Basophils (%) (Auto) 0 % (0-3) Neutrophils # (Auto) 29.4 x10^3/uL (1.8-7.7) Lymphocytes # (Auto) 2.8 x10^3/uL (1.0-4.8) Monocytes # (Auto) 4.0 x10^3/uL (0.0-1.1) Eosinophils # (Auto) 0.3 x10^3/uL (0.0-0.7) Basophils # (Auto) 0.1 x10^3/uL (0.0-0.2) Segmented Neutrophils % 91 % (35-66) Band Neutrophils % 1 % (0-9) Lymphocytes % 4 % (24-48) Monocytes % 3 % (0-10) Metamyelocytes % 1 % (0-0) Toxic Granulation Mod Dohle Bodies Platelet Estimate Adequate (ADEQUATE) Sodium Level 138 mmol/L (136-145) Potassium Level 4.3 mmol/L (3.5-5.1) Chloride Level 106 mmol/L (98-107) Carbon Dioxide Level 18 mmol/L (21-32) Anion Gap 14 (6-14) Blood Urea Nitrogen 21 mg/dL (8-26) Creatinine 2.3 mg/dL (0.7-1.3) Estimated GFR (Cockcroft-Gault) 37.7 Glucose Level 146 mg/dL (70-99) Calcium Level 7.3 mg/dL (8.5-10.1) Laboratory Tests Test 10/02/20 18:30 10/03/20 00:10 10/03/20 08:00 Hemoglobin 7.8 g/dL (13.0-17.5) 6.7 g/dL (13.0-17.5) 8.7 g/dL (13.0-17.5) Hematocrit 23.2 % (39.0-53.0) 19.8 % (39.0-53.0) 26.6 % (39.0-53.0) Mean Corpuscular Hemoglobin Concent 33 g/dL (31-37) 34 g/dL (31-37) 33 g/dL (31-37) White Blood Count 36.6 x10^3/uL (4.0-11.0) Red Blood Count 3.00 x10^6/uL (4.30-5.70) Mean Corpuscular Volume 89 fL (79-100) Mean Corpuscular Hemoglobin 29 pg (25-35) Red Cell Distribution Width 16.1 % (11.5-14.5) Platelet Count 161 x10^3/uL (140-400) Neutrophils (%) (Auto) 80 % (31-73) Lymphocytes (%) (Auto) 8 % (24-48) Monocytes (%) (Auto) 11 % (0-9) Eosinophils (%) (Auto) 1 % (0-3) Basophils (%) (Auto) 0 % (0-3) Neutrophils # (Auto) 29.4 x10^3/uL (1.8-7.7) Lymphocytes # (Auto) 2.8 x10^3/uL (1.0-4.8) Monocytes # (Auto) 4.0 x10^3/uL (0.0-1.1) Eosinophils # (Auto) 0.3 x10^3/uL (0.0-0.7) Basophils # (Auto) 0.1 x10^3/uL (0.0-0.2) Segmented Neutrophils % 91 % (35-66) Band Neutrophils % 1 % (0-9) Lymphocytes % 4 % (24-48) Monocytes % 3 % (0-10) Metamyelocytes % 1 % (0-0) Toxic Granulation Mod Dohle Bodies Platelet Estimate Adequate (ADEQUATE) Sodium Level 138 mmol/L (136-145) Potassium Level 4.3 mmol/L (3.5-5.1) Chloride Level 106 mmol/L (98-107) Carbon Dioxide Level 18 mmol/L (21-32) Anion Gap 14 (6-14) Blood Urea Nitrogen 21 mg/dL (8-26) Creatinine 2.3 mg/dL (0.7-1.3) Estimated GFR (Cockcroft-Gault) 37.7 Glucose Level 146 mg/dL (70-99) Calcium Level 7.3 mg/dL (8.5-10.1) Assessment/Plan Assessment/Plan 45 year old male with multiple comorbidities; developed GI bleed, ?source. Two bleeding scans negative. GI following and nurses state possible endoscopy today. The patient is a very poor surgical candidate, nearly prohibitive. Would maximize supportive and nonoperative measures for controlling the bleeding as his prognosis from major surgery would be extremely poor. JOSHUA FRANCO MD Oct 03, 2020 12:08
[2020-10-03] MEDS: PANTOPRAZOLE SODIUM IV DRIP 80 MG in IV NORMAL SALINE 100ML 100 ML IV SCH (12:26)
--- NOTE | 2020-10-03 15:37 | PDOC ---
Date of Service: DATE: 10/03/20 TIME: 15:26 Subjective: Subjective: gib Objective: Vital Signs: Vital Signs Date Time Temp Pulse Resp B/P (MAP) Pulse Ox O2 Delivery O2 Flow Rate FiO2 10/03/20 15:11 100 20 110/66 (81) 100 Room Air 10/03/20 12:35 2.0 10/03/20 12:29 98.0 98.0 Labs: Laboratory Tests Test 10/02/20 18:30 10/03/20 00:10 10/03/20 08:00 Hemoglobin 7.8 g/dL (13.0-17.5) 6.7 g/dL (13.0-17.5) 8.7 g/dL (13.0-17.5) Hematocrit 23.2 % (39.0-53.0) 19.8 % (39.0-53.0) 26.6 % (39.0-53.0) Mean Corpuscular Hemoglobin Concent 33 g/dL (31-37) 34 g/dL (31-37) 33 g/dL (31-37) White Blood Count 36.6 x10^3/uL (4.0-11.0) Red Blood Count 3.00 x10^6/uL (4.30-5.70) Mean Corpuscular Volume 89 fL (79-100) Mean Corpuscular Hemoglobin 29 pg (25-35) Red Cell Distribution Width 16.1 % (11.5-14.5) Platelet Count 161 x10^3/uL (140-400) Neutrophils (%) (Auto) 80 % (31-73) Lymphocytes (%) (Auto) 8 % (24-48) Monocytes (%) (Auto) 11 % (0-9) Eosinophils (%) (Auto) 1 % (0-3) Basophils (%) (Auto) 0 % (0-3) Neutrophils # (Auto) 29.4 x10^3/uL (1.8-7.7) Lymphocytes # (Auto) 2.8 x10^3/uL (1.0-4.8) Monocytes # (Auto) 4.0 x10^3/uL (0.0-1.1) Eosinophils # (Auto) 0.3 x10^3/uL (0.0-0.7) Basophils # (Auto) 0.1 x10^3/uL (0.0-0.2) Segmented Neutrophils % 91 % (35-66) Band Neutrophils % 1 % (0-9) Lymphocytes % 4 % (24-48) Monocytes % 3 % (0-10) Metamyelocytes % 1 % (0-0) Toxic Granulation Mod Dohle Bodies Platelet Estimate Adequate (ADEQUATE) Sodium Level 138 mmol/L (136-145) Potassium Level 4.3 mmol/L (3.5-5.1) Chloride Level 106 mmol/L (98-107) Carbon Dioxide Level 18 mmol/L (21-32) Anion Gap 14 (6-14) Blood Urea Nitrogen 21 mg/dL (8-26) Creatinine 2.3 mg/dL (0.7-1.3) Estimated GFR (Cockcroft-Gault) 37.7 Glucose Level 146 mg/dL (70-99) Calcium Level 7.3 mg/dL (8.5-10.1) Physical Exam: Physical Exam: NAD Abd soft Assessment & Plan: Assessment : EGD: Full note dictated Findings: 1) Grade 2 esophageal varices- no red whale signs or active bleeding 2) Gastric varix with adherent clot and pulsations. No active bleedig. Washed clot but uanble to remove 3) portal hypertensive gastropathy 4) Clips in duodenum without active bleeding 5) duodenal nodule Plan: Plan 1) Monitor Hgb and transfuse prn 2) Cont PPI gtts and octreotide gtts 3) Favor repeat EGD in 48 to 72 hours 4) Consider TIPS vs transfer to for treatment of gastric varix Justicifation of Admission Dx: Justifications for Admission: Justification of Admission Dx: N/A ALEX GONZALEZ MD Oct 03, 2020 15:37
--- NOTE | 2020-10-03 15:53 | OP ---
DATE OF SURGERY: 10/03/2020 UPPER ENDOSCOPY REPORT REQUESTING PHYSICIAN: Dr. Dawson. PRIMARY CARE PHYSICIAN: Unknown. REASON FOR PROCEDURE: GI bleed. HISTORY OF PRESENT ILLNESS: This is a 45-year-old gentleman who presented to [facility] and was ultimately found to have a GI bleed. He is to undergo upper endoscopy for further evaluation. The risks and benefits including bleeding, perforation, non-diagnosis and sedation were explained and he has agreed to proceed. MEDICATIONS: Propofol per Anesthesia. DESCRIPTION OF PROCEDURE: Upper Olympus endoscope was introduced from the mouth and passed through upper, middle, and lower esophagus. Grade 2 esophageal varices were noted. These were not bleeding and there were no red carlotta signs. The scope was then passed into the fundus, body and antrum of the stomach. Portal hypertensive gastropathy was noted throughout the entire stomach. Retroflexion was performed. A pulsating gastric varix was noted. There was a clot on it. Copious washing, and we were unable to remove the clot. Suspected gastric ulcer below it is a possibility. There was no active bleeding. The scope was withdrawn and passed through the duodenum into the bulb and first and second portion. In the first portion of the duodenum, some endoscopic clips were found. There was no evidence of ulcers or active bleeding. A nodule was noted distal to the clips. This was not bleeding. The scope was completely withdrawn. The patient suffered no complications. FINDINGS: 1. Grade 2 esophageal varices without active bleeding or evidence of red carlotta signs. 2. Gastric varix with clot and possible underlying ulcer status post copious washing without removal of clot or resumption of active bleeding. 3. Portal hypertensive gastropathy. 4. Duodenal clips in the first portion of the duodenum. 5. Duodenal nodule distal to the clip. PLAN: 1. Monitor hemoglobin and transfuse as needed. 2. Continue PPI and octreotide drips. 3. He will likely need another EGD in 48-72 hours. 4. Consider TIPS versus transfer to for treatment of gastric varix. Thank you for allowing me to participate in the care of this patient. ALEX GONZALEZ MD DR: GENET/sachin JOB#: [id number] / [id number]
[2020-10-03] MEDS ORDERED: ETOMIDATE 20 MG/10 ML VIAL. IV ONE (16:20)
[2020-10-03] MEDS ORDERED: PROPOFOL 10 MG/ML (20ML) VIAL. IV ONE (16:20)
[2020-10-03] MEDS: MULTIVIT INFUSN,ADULT 4,VIT K 10 ML, THIAMINE INJ 100 MG, FOLIC ACID INJ 1 MG in IV NOR... IV SCH (16:36)
[2020-10-04] VITALS (22 sets, daily range): BP systolic 66–158; BP diastolic 51–86
[2020-10-04] MEDS: PANTOPRAZOLE SODIUM IV DRIP 80 MG in IV NORMAL SALINE 100ML 100 ML IV SCH ×3 (00:10→13:49)
[2020-10-04] MEDS: fentaNYL PF VIAL 100 MCG/2 ML VIAL IVP PRN ×4 (03:14→13:22)
[2020-10-04 05:59] LABS: BASO # 0.1 x10^3/uL (0.0-0.2); BASO % 0 % (0-3); EOS # 0.3 x10^3/uL (0.0-0.7); EOS % 2 % (0-3); HEMATOCRIT 24.4 % (39.0-53.0); HEMOGLOBIN 8.2 g/dL (13.0-17.5); LYMPH # 1.4 x10^3/uL (1.0-4.8); LYMPH % 8 % (24-48); MEAN CORPUSCULAR HEMOGLOBIN 29 pg (25-35); MEAN CORPUSCULAR HGB CONC 34 g/dL (31-37); MEAN CORPUSCULAR VOLUME 88 fL (79-100); MONO # 1.7 x10^3/uL (0.0-1.1); MONO % 9 % (0-9); NEUT # 15.1 x10^3/uL (1.8-7.7); NEUT % 81 % (31-73); PLATELET COUNT 79 x10^3/uL (140-400); RED BLOOD COUNT 2.78 x10^6/uL (4.30-5.70); RED CELL DISTRIBUTION WIDTH 15.8 % (11.5-14.5); WHITE BLOOD COUNT 18.6 x10^3/uL (4.0-11.0)
[2020-10-04 06:10] LABS: CREATININE 2.2 mg/dL (0.7-1.3); GFR 39.7; POTASSIUM 3.9 mmol/L (3.5-5.1)
[2020-10-04] MEDS: ALLOPURINOL 100 MG TABLET. PO SCH (07:45)
[2020-10-04] MEDS: POTASSIUM CHLORIDE 20 MEQ TABLET.ER. PO SCH (07:45)
[2020-10-04] MEDS: amLODIPine BESYLATE 10 MG TABLET PO SCH (07:45)
[2020-10-04] MEDS: OCTREOTIDE 500 MCG in IV NORMAL SALINE 100ML 100 ML IV PRN (08:12)
[2020-10-04] MEDS: CLARITHROMYCIN 500 MG TABLET. PO SCH ×2 (08:12→20:44)
--- NOTE | 2020-10-04 09:23 | PDOC ---
[employer] PROGRESS NOTE Date of Service DOS: DATE: 10/04/20 TIME: 09:21 Chief Complaint Chief Complaint anemia, aute blood loss per rectum, treatment lovenox given, will stop, GI consult acute new LE edema, sarcoid lung disease, weakness and debility severe malnutrition marked weakness and debility metabolic encephalopathy recent paracentesis for cirrhosis, asthma bronchitis prior substance abuse anxiety disorder, History of pancreatitis, duodenitis, alcoholism, arthritis, depression, gastroesophageal reflux disease, hypertension, previous hernia repair and partial colectomy. History of Present Illness History of Present Illness 09/30: 2u PRBC and FFP for lower GI bleed 10/01: 3u PRBC for Hb 5.5. Had bleeding scan with no scintigraphic evidence of active GI bleeding. Echo WNL 10/02: 2u PRBC. Repeat nuclear medicine bleeding scan negative. Rising creatinine. 2.1 today. 10/03: Seen in ICU. 2u PRBC overnight. CT abdomen/pelvis with no obvious source of bleeding, duodenal intramural hematoma possible adjacent to clips. Afebrile. Weak, confused. Afebrile. Still with BRBPR. Tentative plans for EGD today per nursing. [facility] records received, on chart, did have notable ampullary ulcer clipped after massive transfusion. To EGD with grade 2 esophageal varices and gastric varix with clot. Portal hypertensive gastropathy. Duodenal clips in the first portion of the duodenum. Duodenal nodule distal to the clip. No bleeding noted Hb 8.2 this morning. In pain. BP improved. Requiring Levophed. No CP or SOB. Afebrile. Vitals/I&O Vitals/I&O: Vital Signs Date Time Temp Pulse Resp B/P (MAP) Pulse Ox O2 Delivery O2 Flow Rate FiO2 10/04/20 09:00 93 19 117/86 (96) 96 Room Air 10/04/20 08:13 3.0 10/04/20 08:00 98.6 98.6 I & O 10/03/20 10/03/20 10/04/20 15:00 23:00 07:00 Intake Total 2205 ml Output Total 225 ml 265 ml 355 ml Balance 1980 ml -265 ml -355 ml Physical Exam Physical Exam: GENERAL: Alert, awake male, in no acute distress, somewhat forgetful, appears weak. HEENT: Normocephalic, atraumatic, anicteric. NECK: Supple. LUNGS: Clear bilaterally. HEART: S1, S2, no murmurs. ABDOMEN: Mildly distended, soft, bowel sounds present. Left buttock has [place] in place. Blood stained stool. No underlying fluctuance noted. EXTREMITIES: 4+ edema bilaterally with some weeping lesions. DERMATOLOGIC: Warm, dry. No generalized rash except for above. NEUROLOGIC: Alert, awake, somewhat forgetful. Normal speech. PSYCHIATRIC: Cooperative. General: Alert Lungs: Clear Abdomen: Soft (marked edema), Other (large vertical midline scar) Extremities: Other (marked edema) Skin: Other (ecchymosis of upper extremities) Labs Labs: Laboratory Tests Test 10/03/20 16:30 10/04/20 05:30 Hemoglobin 7.9 g/dL (13.0-17.5) 8.2 g/dL (13.0-17.5) White Blood Count 18.6 x10^3/uL (4.0-11.0) Red Blood Count 2.78 x10^6/uL (4.30-5.70) Hematocrit 24.4 % (39.0-53.0) Mean Corpuscular Volume 88 fL (79-100) Mean Corpuscular Hemoglobin 29 pg (25-35) Mean Corpuscular Hemoglobin Concent 34 g/dL (31-37) Red Cell Distribution Width 15.8 % (11.5-14.5) Platelet Count 79 x10^3/uL (140-400) Neutrophils (%) (Auto) 81 % (31-73) Lymphocytes (%) (Auto) 8 % (24-48) Monocytes (%) (Auto) 9 % (0-9) Eosinophils (%) (Auto) 2 % (0-3) Basophils (%) (Auto) 0 % (0-3) Neutrophils # (Auto) 15.1 x10^3/uL (1.8-7.7) Lymphocytes # (Auto) 1.4 x10^3/uL (1.0-4.8) Monocytes # (Auto) 1.7 x10^3/uL (0.0-1.1) Eosinophils # (Auto) 0.3 x10^3/uL (0.0-0.7) Basophils # (Auto) 0.1 x10^3/uL (0.0-0.2) Sodium Level 135 mmol/L (136-145) Potassium Level 3.9 mmol/L (3.5-5.1) Chloride Level 108 mmol/L (98-107) Carbon Dioxide Level 17 mmol/L (21-32) Anion Gap 10 (6-14) Blood Urea Nitrogen 21 mg/dL (8-26) Creatinine 2.2 mg/dL (0.7-1.3) Estimated GFR (Cockcroft-Gault) 39.7 Glucose Level 88 mg/dL (70-99) Calcium Level 7.0 mg/dL (8.5-10.1) Assessment and Plan Assessmemt and Plan Problems Medical Problems: (1) Acute on chronic renal failure Status: Acute (2) Anemia Status: Acute (3) Swelling of both lower extremities Status: Acute Comment Review of Relevant I have reviewed the following items joan (where applicable) has been applied. Medications: Current Medications Medications (Trade) Dose Ordered Sig/Donavon Route PRN Reason Start Time Stop Time Status Last Admin Dose Admin Clarithromycin (Biaxin) 500 mg BID PO 10/03/20 10:00 10/04/20 21:01 10/04/20 08:12 Octreotide Acetate 500 mcg/ Sodium Chloride 101 ml @ 0 mls/hr CONT PRN IV SEE I/O RECORD 10/03/20 12:00 10/04/20 08:12 Justifications for Admission Other Justification Ascites, symptomatic anemia RICHARD MORENO MD Oct 04, 2020 09:23
[2020-10-04] MEDS: IV NORMAL SALINE 1000ML BAG 1,000 ML IV SCH ×3 (09:26→20:45)
--- NOTE | 2020-10-04 10:03 | PDOC ---
PULMONARY PROGRESS NOTES DATE: 10/04/20 TIME: 09:54 Subjective On N/C oxygen no SOA or cough on levophed S/P EGD on 10/03 Vitals Vital Signs Date Time Temp Pulse Resp B/P (MAP) Pulse Ox O2 Delivery O2 Flow Rate FiO2 10/04/20 09:00 93 19 117/86 (96) 96 Room Air 10/04/20 08:43 3.0 10/04/20 08:00 98.6 98.6 ROS: No Nausea, No Chest Pain, No Abdominal Pain, No Increase Cough General: Alert, No acute distress Lungs: Clear Cardiovascular: S1, S2 Abdomen: Soft, Non-tender, Other (distended) Extremities: Other (2+edema) Skin: Warm Labs Laboratory Tests Test 10/02/20 11:25 10/02/20 18:30 10/03/20 00:10 10/03/20 08:00 White Blood Count 39.3 x10^3/uL (4.0-11.0) 36.6 x10^3/uL (4.0-11.0) Red Blood Count 2.23 x10^6/uL (4.30-5.70) 3.00 x10^6/uL (4.30-5.70) Hemoglobin 6.4 g/dL (13.0-17.5) 7.8 g/dL (13.0-17.5) 6.7 g/dL (13.0-17.5) 8.7 g/dL (13.0-17.5) Hematocrit 19.4 % (39.0-53.0) 23.2 % (39.0-53.0) 19.8 % (39.0-53.0) 26.6 % (39.0-53.0) Mean Corpuscular Volume 87 fL (79-100) 89 fL (79-100) Mean Corpuscular Hemoglobin 29 pg (25-35) 29 pg (25-35) Mean Corpuscular Hemoglobin Concent 33 g/dL (31-37) 33 g/dL (31-37) 34 g/dL (31-37) 33 g/dL (31-37) Red Cell Distribution Width 15.7 % (11.5-14.5) 16.1 % (11.5-14.5) Platelet Count 210 x10^3/uL (140-400) 161 x10^3/uL (140-400) Neutrophils (%) (Auto) 80 % (31-73) Lymphocytes (%) (Auto) 8 % (24-48) Monocytes (%) (Auto) 11 % (0-9) Eosinophils (%) (Auto) 1 % (0-3) Basophils (%) (Auto) 0 % (0-3) Neutrophils # (Auto) 29.4 x10^3/uL (1.8-7.7) Lymphocytes # (Auto) 2.8 x10^3/uL (1.0-4.8) Monocytes # (Auto) 4.0 x10^3/uL (0.0-1.1) Eosinophils # (Auto) 0.3 x10^3/uL (0.0-0.7) Basophils # (Auto) 0.1 x10^3/uL (0.0-0.2) Segmented Neutrophils % 91 % (35-66) Band Neutrophils % 1 % (0-9) Lymphocytes % 4 % (24-48) Monocytes % 3 % (0-10) Metamyelocytes % 1 % (0-0) Toxic Granulation Mod Dohle Bodies Platelet Estimate Adequate (ADEQUATE) Sodium Level 138 mmol/L (136-145) Potassium Level 4.3 mmol/L (3.5-5.1) Chloride Level 106 mmol/L (98-107) Carbon Dioxide Level 18 mmol/L (21-32) Anion Gap 14 (6-14) Blood Urea Nitrogen 21 mg/dL (8-26) Creatinine 2.3 mg/dL (0.7-1.3) Estimated GFR (Cockcroft-Gault) 37.7 Glucose Level 146 mg/dL (70-99) Calcium Level 7.3 mg/dL (8.5-10.1) Test 10/03/20 16:30 10/04/20 05:30 Hemoglobin 7.9 g/dL (13.0-17.5) 8.2 g/dL (13.0-17.5) White Blood Count 18.6 x10^3/uL (4.0-11.0) Red Blood Count 2.78 x10^6/uL (4.30-5.70) Hematocrit 24.4 % (39.0-53.0) Mean Corpuscular Volume 88 fL (79-100) Mean Corpuscular Hemoglobin 29 pg (25-35) Mean Corpuscular Hemoglobin Concent 34 g/dL (31-37) Red Cell Distribution Width 15.8 % (11.5-14.5) Platelet Count 79 x10^3/uL (140-400) Neutrophils (%) (Auto) 81 % (31-73) Lymphocytes (%) (Auto) 8 % (24-48) Monocytes (%) (Auto) 9 % (0-9) Eosinophils (%) (Auto) 2 % (0-3) Basophils (%) (Auto) 0 % (0-3) Neutrophils # (Auto) 15.1 x10^3/uL (1.8-7.7) Lymphocytes # (Auto) 1.4 x10^3/uL (1.0-4.8) Monocytes # (Auto) 1.7 x10^3/uL (0.0-1.1) Eosinophils # (Auto) 0.3 x10^3/uL (0.0-0.7) Basophils # (Auto) 0.1 x10^3/uL (0.0-0.2) Sodium Level 135 mmol/L (136-145) Potassium Level 3.9 mmol/L (3.5-5.1) Chloride Level 108 mmol/L (98-107) Carbon Dioxide Level 17 mmol/L (21-32) Anion Gap 10 (6-14) Blood Urea Nitrogen 21 mg/dL (8-26) Creatinine 2.2 mg/dL (0.7-1.3) Estimated GFR (Cockcroft-Gault) 39.7 Glucose Level 88 mg/dL (70-99) Calcium Level 7.0 mg/dL (8.5-10.1) Laboratory Tests Test 10/03/20 16:30 10/04/20 05:30 Hemoglobin 7.9 g/dL (13.0-17.5) 8.2 g/dL (13.0-17.5) White Blood Count 18.6 x10^3/uL (4.0-11.0) Red Blood Count 2.78 x10^6/uL (4.30-5.70) Hematocrit 24.4 % (39.0-53.0) Mean Corpuscular Volume 88 fL (79-100) Mean Corpuscular Hemoglobin 29 pg (25-35) Mean Corpuscular Hemoglobin Concent 34 g/dL (31-37) Red Cell Distribution Width 15.8 % (11.5-14.5) Platelet Count 79 x10^3/uL (140-400) Neutrophils (%) (Auto) 81 % (31-73) Lymphocytes (%) (Auto) 8 % (24-48) Monocytes (%) (Auto) 9 % (0-9) Eosinophils (%) (Auto) 2 % (0-3) Basophils (%) (Auto) 0 % (0-3) Neutrophils # (Auto) 15.1 x10^3/uL (1.8-7.7) Lymphocytes # (Auto) 1.4 x10^3/uL (1.0-4.8) Monocytes # (Auto) 1.7 x10^3/uL (0.0-1.1) Eosinophils # (Auto) 0.3 x10^3/uL (0.0-0.7) Basophils # (Auto) 0.1 x10^3/uL (0.0-0.2) Sodium Level 135 mmol/L (136-145) Potassium Level 3.9 mmol/L (3.5-5.1) Chloride Level 108 mmol/L (98-107) Carbon Dioxide Level 17 mmol/L (21-32) Anion Gap 10 (6-14) Blood Urea Nitrogen 21 mg/dL (8-26) Creatinine 2.2 mg/dL (0.7-1.3) Estimated GFR (Cockcroft-Gault) 39.7 Glucose Level 88 mg/dL (70-99) Calcium Level 7.0 mg/dL (8.5-10.1) Medications Active Scripts Medications Dose Route/Sig Max Daily Dose Days Date Category Augmentin 875-125 Tablet (Amoxicillin/Potassium Clav) 1 Each Tablet 1 Tab PO BID 5 08/28/20 Reported Carvedilol 12.5 Mg Tablet 1 Tab PO BID 08/25/20 Reported Ondansetron Hcl 4 Mg Tablet 1 Tab PO PRN Q6HRS PRN 3 06/28/20 Rx Magnesium (Magnesium Oxide) 400 Mg Capsule 1 Cap PO DAILY 14 06/16/20 Rx Paia 5-325 Tablet (Acetaminophen/Hydrocodone Bitart) 1 Each Tablet 1 Tab PO PRN Q6HRS PRN 06/16/20 Rx Potassium Chloride (Potassium Chloride) 20 Meq Tablet.er 20 Meq PO DAILY 14 06/16/20 Rx Diclofenac Sodium 50 Mg Tablet.dr 1 Tab PO BID PRN 01/01/20 Rx Allopurinol 100 Mg Tablet 1 Tab PO DAILY 30 11/30/19 Reported Lidocaine PATCH (Lidocaine) 1 Each Adh..patch 1 Patch TD PRN DAILY PRN 30 11/30/19 Rx Prednisone 20 Mg Tablet 40 Mg PO DAILY 10 11/30/19 Rx Culturelle (Lactobacillus Rhamnosus Gg) 1 Each Cap.sprink 1 Cap PO BID 30 11/30/19 Rx Klor-Con M20 (Potassium Chloride) 20 Meq Tab.er.prt 20 Meq PO DAILYWBKFT 14 11/30/19 Rx Voltaren (Diclofenac Sodium) 100 Gm Gel..gram. 1 Jevon TP BID 14 11/30/19 Rx Duoneb 0.5-3(2.5) Mg/3 Ml (Albuterol/Ipratropium) 3 Ml Ampul.neb 3 Ml NEB Q4HRS W/A 30 11/30/19 Rx Hydroxyzine Hcl 10 Mg Tablet 10 Mg PO TID 07/04/19 Reported Proair Hfa (Albuterol Sulfate) 8.5 Gm Hfa.aer.ad 1 Puff INH PRN Q6HRS PRN 07/04/19 Reported Fluoxetine Hcl 40 Mg Capsule 60 Mg PO DAILY 07/04/19 Reported Cetirizine Hcl 10 Mg Tab.chew 10 Mg PO DAILY PRN 07/04/19 Reported Atorvastatin Calcium 40 Mg Tablet 40 Mg PO DAILY 07/04/19 Reported Aspirin 81 Mg Tab.chew 81 Mg PO DAILY PRN 07/04/19 Reported Colcrys (Colchicine) 0.6 Mg Tablet 1 Tab PO DAILY PRN 06/19/18 Rx Coreg (Carvedilol) 12.5 Mg Tablet 1 Tab PO BID 06/19/18 Rx Omeprazole 20 Mg Capsule.dr 40 Mg PO DAILY 12/10/15 Reported Amlodipine Besylate 10 Mg Tablet 10 Mg PO DAILY 12/10/15 Reported Mirtazapine 45 Mg Tablet 45 Mg PO HS 12/10/[address] ABD IMPRESSION: 1. 2 endoscopy clips within the descending duodenum presumably for treatment of GI bleeding or ligation at a biopsy site. There is a 3 x 2 cm oblong density along the left wall of the duodenum which is likely intramural hematoma. 2. Moderate abdominal pelvic free fluid which has a density of 17 units which could indicate mildly dense ascites from proteinaceous material, versus ascites mixed with hemoperitoneum, versus chronic hemoperitoneum contributing to a lower density. 3. Diffuse heterogeneous pulmonary groundglass opacities have mildly increased since imaging from August 2020 most typical of an infectious/inflammatory process including atypical viral pneumonitis. 4. Left renal lower pole exophytic 1.5 cm indeterminate lesion with a density of 30 units, this has enlarged since CT imaging in 2016. This could be a dense cyst or a solid mass. Consider further assessment with outpatient renal CT or MR imaging without and with contrast. Impression . 1. Abnormal chest x-ray with mildly prominent interstitial infiltrates. Could be related to sarcoidosis. The patient has known history of sarcoidosis diagnosed in 1999. He is not so sure whether he had biopsy at that time. I will obtain noncontrast CT chest. 2. Significant lower extremity edema and feet edema. ? RV failure. There was no evidence of any deep vein thrombosis. Would recommend getting an echocardiogram and also CT abdomen and pelvis to rule out any venous obstruction. 3. History of tobacco use. 4. Severe anemia/ GI bleed Plan . RECOMMENDATIONS: Continue supplemental oxygen currently on 2 liters Follow GI recs--S/P EGD 10/03-- Grade 2 esophageal varices- no red whale signs or active bleeding,Gastric varix with adherent clot and pulsations. No active bleedig. Washed clot but uanble to remove, portal hypertensive gastropathy, Clips in duodenum without active bleeding, and duodenal nodule Considering transfer to for TIPS Follow surgery recs-- no planned intervention Continue PPI Venous Dopplers are negative. Diuresis prn, watch renal function DVT/GI PPX D/W pediatric critical care nurse time 30 min JEAN MARIE MCGUIRE MD Oct 04, 2020 10:03
--- NOTE | 2020-10-04 10:07 | PDOC ---
Infectious Disease Note Subjective: Subjective Pt remains afebrile on levophed S/P EGD on 10/03 Vital Signs: Vital Signs Vital Signs Date Time Temp Pulse Resp B/P (MAP) Pulse Ox O2 Delivery O2 Flow Rate FiO2 10/04/20 09:00 93 19 117/86 (96) 96 Room Air 10/04/20 08:43 3.0 10/04/20 08:00 98.6 98.6 Physical Exam: PHYSICAL EXAM GENERAL: Alert, awake male, in no acute distress, somewhat forgetful, appears weak. HEENT: Normocephalic, atraumatic, anicteric. NECK: Supple. LUNGS: Clear bilaterally. HEART: S1, S2, no murmurs. ABDOMEN: Mildly distended, soft, bowel sounds present. Left buttock has [place] in place. Blood stained stool. No underlying fluctuance noted. EXTREMITIES: 4+ edema bilaterally with some weeping lesions. DERMATOLOGIC: Warm, dry. No generalized rash except for above. NEUROLOGIC: Alert, awake, somewhat forgetful. Normal speech. PSYCHIATRIC: Cooperative. Medications: Inpatient Meds: Current Medications Medications (Trade) Dose Ordered Sig/Donavon Start Time Stop Time Status Last Admin Dose Admin Acetaminophen/ Hydrocodone Bitart (Lortab 5/325) 1 tab PRN Q6HRS PRN 09/29/20 22:30 Albumin Human 500 ml @ 125 mls/hr 1X ONCE 10/01/20 07:00 10/01/20 10:59 DC 10/01/20 07:15 125 MLS/HR Albuterol Sulfate (Ventolin Neb Soln) 2.5 mg PRN Q6HRS PRN 09/29/20 22:30 Allopurinol (Zyloprim) 100 mg DAILY 09/30/20 09:00 09/30/20 08:35 100 MG Amlodipine Besylate (Norvasc) 10 mg DAILY 09/30/20 09:00 09/30/20 08:35 10 MG Clarithromycin (Biaxin) 500 mg BID 10/03/20 10:00 10/04/20 21:01 10/04/20 08:12 500 MG Clonidine HCl (Catapres) 0.1 mg PRN Q1HR PRN 09/29/20 23:45 Enoxaparin Sodium (Lovenox 80mg Syringe) 80 mg Q12HR 09/29/20 23:00 09/30/20 12:26 DC 09/30/20 08:36 80 MG Enoxaparin Sodium (Lovenox Per Pharmacy Treatment Dosing) 1 each PRN DAILY PRN 09/29/20 22:30 09/30/20 12:26 DC Etomidate (Amidate) 20 mg STK-MED ONCE 10/03/20 16:20 10/03/20 16:20 DC Fentanyl Citrate (Fentanyl 2ml Vial) 50 mcg PRN Q2HR PRN 09/29/20 23:30 10/04/20 08:13 50 MCG Haloperidol Lactate (Haldol Inj) 5 mg PRN Q4HRS PRN 09/29/20 23:45 Heparin Sodium (Porcine) (HEPARIN for NUC MED) 500 unit STK-MED ONCE 10/02/20 09:25 10/02/20 09:25 DC Info (Anti-Coagulation Monitoring By Pharmacy) 1 each PRN DAILY PRN 09/30/20 03:00 09/30/20 13:18 DC 09/30/20 02:57 1 EACH Lidocaine (Lidoderm) 1 patch PRN DAILY PRN 09/29/20 22:30 Lorazepam (Ativan Inj) 4 mg PRN Q1HR PRN 09/29/20 23:45 10/02/20 23:42 4 MG Magnesium Sulfate 100 ml @ 25 mls/hr 1X ONCE 09/29/20 23:00 09/30/20 02:59 DC 09/29/20 23:55 25 MLS/HR Multivitamins 10 ml/Thiamine HCl 100 mg/Folic Acid 1 mg/Sodium Chloride 1,011.2 ml @ 100 mls/ hr DAILY 09/30/20 09:00 10/04/20 19:07 10/03/20 16:36 100 MLS/HR Norepinephrine Bitartrate 8 mg/ Dextrose 258 ml @ 18.247 mls/ hr CONT PRN 10/01/20 06:45 10/03/20 12:28 45 MLS/HR Octreotide Acetate 500 mcg/ Sodium Chloride 101 ml @ 0 mls/hr CONT PRN 10/03/20 12:00 10/04/20 08:12 10 MLS/HR Ondansetron HCl (Zofran) 4 mg PRN Q8HRS PRN 09/29/20 23:15 09/30/20 23:14 DC Pantoprazole Sodium (PROTONIX VIAL for IV PUSH) 40 mg ONCE ONCE 10/02/20 21:30 10/02/20 21:31 DC 10/02/20 23:41 40 MG Pantoprazole Sodium 80 mg/ Sodium Chloride 100 ml @ 10 mls/hr Q10H 10/02/20 21:45 10/04/20 00:10 10 MLS/HR Phytonadione 10 mg/Dextrose 51 ml @ 102 mls/hr 1X ONCE 09/30/20 13:30 09/30/20 13:59 DC 09/30/20 13:30 102 MLS/HR Piperacillin Sod/ Tazobactam Sod (Zosyn Per Pharmacy) 1 each PRN DAILY PRN 09/29/20 22:15 10/03/20 09:20 DC Piperacillin Sod/ Tazobactam Sod 3.375 gm/Sodium Chloride 50 ml @ 100 mls/hr Q6HRS 09/29/20 23:00 10/03/20 09:19 DC 10/03/20 06:00 100 MLS/HR Potassium Chloride (Klor-Con) 20 meq DAILYWBKFT 09/30/20 08:00 09/30/20 08:00 20 MEQ Propofol (Diprivan) 200 mg STK-MED ONCE 10/03/20 16:20 10/03/20 16:21 DC Protamine Sulfate 50 mg/Sodium Chloride 55 ml @ 330 mls/hr 1X ONCE 09/30/20 13:30 09/30/20 13:39 DC 09/30/20 13:17 330 MLS/HR Ringer's Solution 1,000 ml @ 50 mls/hr Q20H 10/02/20 07:00 10/02/20 18:59 DC Sodium Chloride 1,000 ml @ 100 mls/hr Q10H 10/02/20 18:45 10/04/20 09:26 100 MLS/HR Sodium Cl/Sod Bicarb/Potass Cl/ PEG (Golytely) 4,000 ml 1X ONCE 10/02/20 22:00 10/02/20 22:01 DC 10/02/20 23:41 4,000 ML Labs: Lab Laboratory Tests Test 10/03/20 16:30 10/04/20 05:30 Hemoglobin 7.9 g/dL (13.0-17.5) 8.2 g/dL (13.0-17.5) White Blood Count 18.6 x10^3/uL (4.0-11.0) Red Blood Count 2.78 x10^6/uL (4.30-5.70) Hematocrit 24.4 % (39.0-53.0) Mean Corpuscular Volume 88 fL (79-100) Mean Corpuscular Hemoglobin 29 pg (25-35) Mean Corpuscular Hemoglobin Concent 34 g/dL (31-37) Red Cell Distribution Width 15.8 % (11.5-14.5) Platelet Count 79 x10^3/uL (140-400) Neutrophils (%) (Auto) 81 % (31-73) Lymphocytes (%) (Auto) 8 % (24-48) Monocytes (%) (Auto) 9 % (0-9) Eosinophils (%) (Auto) 2 % (0-3) Basophils (%) (Auto) 0 % (0-3) Neutrophils # (Auto) 15.1 x10^3/uL (1.8-7.7) Lymphocytes # (Auto) 1.4 x10^3/uL (1.0-4.8) Monocytes # (Auto) 1.7 x10^3/uL (0.0-1.1) Eosinophils # (Auto) 0.3 x10^3/uL (0.0-0.7) Basophils # (Auto) 0.1 x10^3/uL (0.0-0.2) Sodium Level 135 mmol/L (136-145) Potassium Level 3.9 mmol/L (3.5-5.1) Chloride Level 108 mmol/L (98-107) Carbon Dioxide Level 17 mmol/L (21-32) Anion Gap 10 (6-14) Blood Urea Nitrogen 21 mg/dL (8-26) Creatinine 2.2 mg/dL (0.7-1.3) Estimated GFR (Cockcroft-Gault) 39.7 Glucose Level 88 mg/dL (70-99) Calcium Level 7.0 mg/dL (8.5-10.1) Objective: Assessment: Lower GI bleed ,recently at also with clip H pylori positive discharged on clarithromycin for 10 days Acute blood loss anemia status post PRBC Perirectal abscess status post incision and drainage at 09/22 status post [place] placed. Cults positive for Enterobacter and VRE DC home on levaquin for 4 days ,flagyl for 10 days and linezolid for 4 days Bilateral lower extremity edema, worsening. Doppler negative for deep venous thrombosis. Generalized weakness and debility. History of recent throat cancer,.Not a candidate for surgery . History of sarcoidosis, following up at . Abnormal liver function tests. History of recent moderate ascites, diffuse wall thickening of colon, status post paracentesis. History of colon resection, Severe malnutrition. Encephalopathy likely metabolic Renal insufficiency Plan: Plan of Care Pt has completed his treatment for perirectal abscess from Clarithromycin for 2 more days to complete the course; GI following S/P EGD Continue local wound care as directed. Continue supportive care. Overall prognosis poor FRANCIS BRENNER MD Oct 04, 2020 10:07
[2020-10-04] MEDS ORDERED: TPN PER PHARMACY MC PRN (11:00)
--- NOTE | 2020-10-04 11:28 | PDOC ---
G I PROGRESS NOTE Subjective Offers no complaints. Melena last night. No stools this morning. Objective EGD note reviewed and discussed with Dr. Simpson. Unable to view pix. Physical Exam Lungs clear. RRR Abdomen rotund, soft. LE edema. Review of Relevant I have reviewed the following items joan (where applicable) has been applied. Labs Laboratory Tests Test 10/02/20 11:25 10/02/20 18:30 10/03/20 00:10 10/03/20 08:00 White Blood Count 39.3 x10^3/uL (4.0-11.0) 36.6 x10^3/uL (4.0-11.0) Red Blood Count 2.23 x10^6/uL (4.30-5.70) 3.00 x10^6/uL (4.30-5.70) Hemoglobin 6.4 g/dL (13.0-17.5) 7.8 g/dL (13.0-17.5) 6.7 g/dL (13.0-17.5) 8.7 g/dL (13.0-17.5) Hematocrit 19.4 % (39.0-53.0) 23.2 % (39.0-53.0) 19.8 % (39.0-53.0) 26.6 % (39.0-53.0) Mean Corpuscular Volume 87 fL (79-100) 89 fL (79-100) Mean Corpuscular Hemoglobin 29 pg (25-35) 29 pg (25-35) Mean Corpuscular Hemoglobin Concent 33 g/dL (31-37) 33 g/dL (31-37) 34 g/dL (31-37) 33 g/dL (31-37) Red Cell Distribution Width 15.7 % (11.5-14.5) 16.1 % (11.5-14.5) Platelet Count 210 x10^3/uL (140-400) 161 x10^3/uL (140-400) Neutrophils (%) (Auto) 80 % (31-73) Lymphocytes (%) (Auto) 8 % (24-48) Monocytes (%) (Auto) 11 % (0-9) Eosinophils (%) (Auto) 1 % (0-3) Basophils (%) (Auto) 0 % (0-3) Neutrophils # (Auto) 29.4 x10^3/uL (1.8-7.7) Lymphocytes # (Auto) 2.8 x10^3/uL (1.0-4.8) Monocytes # (Auto) 4.0 x10^3/uL (0.0-1.1) Eosinophils # (Auto) 0.3 x10^3/uL (0.0-0.7) Basophils # (Auto) 0.1 x10^3/uL (0.0-0.2) Segmented Neutrophils % 91 % (35-66) Band Neutrophils % 1 % (0-9) Lymphocytes % 4 % (24-48) Monocytes % 3 % (0-10) Metamyelocytes % 1 % (0-0) Toxic Granulation Mod Dohle Bodies Platelet Estimate Adequate (ADEQUATE) Sodium Level 138 mmol/L (136-145) Potassium Level 4.3 mmol/L (3.5-5.1) Chloride Level 106 mmol/L (98-107) Carbon Dioxide Level 18 mmol/L (21-32) Anion Gap 14 (6-14) Blood Urea Nitrogen 21 mg/dL (8-26) Creatinine 2.3 mg/dL (0.7-1.3) Estimated GFR (Cockcroft-Gault) 37.7 Glucose Level 146 mg/dL (70-99) Calcium Level 7.3 mg/dL (8.5-10.1) Test 10/03/20 16:30 10/04/20 05:30 Hemoglobin 7.9 g/dL (13.0-17.5) 8.2 g/dL (13.0-17.5) White Blood Count 18.6 x10^3/uL (4.0-11.0) Red Blood Count 2.78 x10^6/uL (4.30-5.70) Hematocrit 24.4 % (39.0-53.0) Mean Corpuscular Volume 88 fL (79-100) Mean Corpuscular Hemoglobin 29 pg (25-35) Mean Corpuscular Hemoglobin Concent 34 g/dL (31-37) Red Cell Distribution Width 15.8 % (11.5-14.5) Platelet Count 79 x10^3/uL (140-400) Neutrophils (%) (Auto) 81 % (31-73) Lymphocytes (%) (Auto) 8 % (24-48) Monocytes (%) (Auto) 9 % (0-9) Eosinophils (%) (Auto) 2 % (0-3) Basophils (%) (Auto) 0 % (0-3) Neutrophils # (Auto) 15.1 x10^3/uL (1.8-7.7) Lymphocytes # (Auto) 1.4 x10^3/uL (1.0-4.8) Monocytes # (Auto) 1.7 x10^3/uL (0.0-1.1) Eosinophils # (Auto) 0.3 x10^3/uL (0.0-0.7) Basophils # (Auto) 0.1 x10^3/uL (0.0-0.2) Sodium Level 135 mmol/L (136-145) Potassium Level 3.9 mmol/L (3.5-5.1) Chloride Level 108 mmol/L (98-107) Carbon Dioxide Level 17 mmol/L (21-32) Anion Gap 10 (6-14) Blood Urea Nitrogen 21 mg/dL (8-26) Creatinine 2.2 mg/dL (0.7-1.3) Estimated GFR (Cockcroft-Gault) 39.7 Glucose Level 88 mg/dL (70-99) Calcium Level 7.0 mg/dL (8.5-10.1) Laboratory Tests Test 10/03/20 16:30 10/04/20 05:30 Hemoglobin 7.9 g/dL (13.0-17.5) 8.2 g/dL (13.0-17.5) White Blood Count 18.6 x10^3/uL (4.0-11.0) Red Blood Count 2.78 x10^6/uL (4.30-5.70) Hematocrit 24.4 % (39.0-53.0) Mean Corpuscular Volume 88 fL (79-100) Mean Corpuscular Hemoglobin 29 pg (25-35) Mean Corpuscular Hemoglobin Concent 34 g/dL (31-37) Red Cell Distribution Width 15.8 % (11.5-14.5) Platelet Count 79 x10^3/uL (140-400) Neutrophils (%) (Auto) 81 % (31-73) Lymphocytes (%) (Auto) 8 % (24-48) Monocytes (%) (Auto) 9 % (0-9) Eosinophils (%) (Auto) 2 % (0-3) Basophils (%) (Auto) 0 % (0-3) Neutrophils # (Auto) 15.1 x10^3/uL (1.8-7.7) Lymphocytes # (Auto) 1.4 x10^3/uL (1.0-4.8) Monocytes # (Auto) 1.7 x10^3/uL (0.0-1.1) Eosinophils # (Auto) 0.3 x10^3/uL (0.0-0.7) Basophils # (Auto) 0.1 x10^3/uL (0.0-0.2) Sodium Level 135 mmol/L (136-145) Potassium Level 3.9 mmol/L (3.5-5.1) Chloride Level 108 mmol/L (98-107) Carbon Dioxide Level 17 mmol/L (21-32) Anion Gap 10 (6-14) Blood Urea Nitrogen 21 mg/dL (8-26) Creatinine 2.2 mg/dL (0.7-1.3) Estimated GFR (Cockcroft-Gault) 39.7 Glucose Level 88 mg/dL (70-99) Calcium Level 7.0 mg/dL (8.5-10.1) Hemoglobin currently stable on octreotide and pantoprazole drips. Vitals/I & O Vital Sign - Last 24 Hours 10/03/20 10/03/20 10/03/20 10/03/20 11:34 12:29 12:35 12:36 Temp 98.0 98.0 Pulse 85 Resp 16 B/P (MAP) 120/66 (84) 112/73 (86) 118/66 (83) Pulse Ox 100 O2 Delivery Room Air Nasal Cannula O2 Flow Rate 2.0 10/03/20 10/03/20 10/03/20 10/03/20 12:41 12:55 13:02 13:48 Pulse 89 Resp 16 B/P (MAP) 114/74 (87) 98/67 (77) 98/59 (72) 98/60 (73) Pulse Ox 100 O2 Delivery Room Air 10/03/20 10/03/20 10/03/20 10/03/20 14:10 15:11 16:35 16:36 Pulse 87 100 Resp 16 20 20 B/P (MAP) 102/67 (79) 110/66 (81) Pulse Ox 100 100 100 O2 Delivery Room Air Room Air Nasal Cannula Nasal Cannula O2 Flow Rate 2.0 2.0 10/03/20 10/03/20 10/03/20 10/03/20 17:06 17:19 18:00 18:01 Pulse 84 84 Resp 14 14 15 B/P (MAP) 91/60 (70) 90/69 (76) Pulse Ox 100 100 100 100 O2 Delivery Nasal Cannula Room Air Nasal Cannula Room Air O2 Flow Rate 2.0 3.0 10/03/20 10/03/20 10/03/20 10/03/20 20:00 20:00 20:59 21:00 Temp 98.0 98.0 Pulse 86 88 Resp 10 19 14 B/P (MAP) 101/65 (77) 155/123 (134) Pulse Ox 100 94 100 O2 Delivery Room Air Nasal Cannula Nasal Cannula Room Air O2 Flow Rate 3.0 10/03/20 10/03/20 10/03/20 10/04/20 21:30 22:00 23:00 00:00 Temp 98.7 98.7 Pulse 84 84 78 Resp 20 13 13 10 B/P (MAP) 72/64 (67) 78/55 (63) 71/54 (60) Pulse Ox 100 100 100 100 O2 Delivery Nasal Cannula Room Air Room Air Room Air 10/04/20 10/04/20 10/04/20 10/04/20 00:00 01:00 02:00 03:00 Pulse 80 88 88 Resp 13 18 15 B/P (MAP) 88/55 (66) 84/51 (62) 86/71 (76) Pulse Ox 100 100 100 O2 Delivery Nasal Cannula Room Air Room Air Room Air O2 Flow Rate 3.0 10/04/20 10/04/20 10/04/20 10/04/20 03:14 04:00 04:00 04:00 Temp 98.0 98.0 Pulse 84 Resp 19 18 12 B/P (MAP) 66/52 (57) Pulse Ox 98 99 100 O2 Delivery Nasal Cannula Nasal Cannula Nasal Cannula Room Air O2 Flow Rate 3.0 10/04/20 10/04/20 10/04/20 10/04/20 05:00 06:00 07:00 08:00 Temp 98.6 98.6 Pulse 84 88 90 96 Resp 14 15 18 23 B/P (MAP) 92/73 (79) 86/54 (65) 93/55 (68) 112/82 (92) Pulse Ox 100 100 97 94 O2 Delivery Room Air Room Air Room Air Room Air 10/04/20 10/04/20 10/04/20 10/04/20 08:00 08:13 08:43 09:00 Pulse 93 Resp 18 13 19 B/P (MAP) 117/86 (96) Pulse Ox 96 100 96 O2 Delivery Nasal Cannula Nasal Cannula Nasal Cannula Room Air O2 Flow Rate 3.0 3.0 3.0 10/04/20 10:36 Resp 16 Pulse Ox 98 O2 Delivery Nasal Cannula O2 Flow Rate 3.0 Intake and Output 10/03/20 10/03/20 10/04/20 15:00 23:00 07:00 Intake Total 2205 ml Output Total 225 ml 265 ml 355 ml Balance 1980 ml -265 ml -355 ml Problem List Problems Medical Problems: (1) Acute on chronic renal failure Status: Acute (2) Anemia Status: Acute (3) Swelling of both lower extremities Status: Acute Assessment Apparent gastric varix with clot implying recent bleeding. If truly the case, untreatable endoscopically here and unclearly at [facility]. Would be indication for TIPS urgently. Able to find ECHO from November and no meaningful TR then, so not contraindication heart-ortiz and no documented encephalopathy., Plan of Care Note Continue PPI and octreotide; effects of octreotide will begin to wane next 24-48 hours. Will ask IR to comment. Justicifation of Admission Dx: Justifications for Admission: Justification of Admission Dx: N/A BROOKE SPENCER MD Oct 04, 2020 11:28
--- NOTE | 2020-10-04 12:15 | PDOC ---
PROGRESS NOTES Date of Service DATE: 10/04/20 TIME: 12:14 Subjective Subjective Pt states he "feels better today", less bloody stool today Objective Objective Vital Signs Date Time Temp Pulse Resp B/P (MAP) Pulse Ox O2 Delivery O2 Flow Rate FiO2 10/04/20 11:06 14 98 Nasal Cannula 3.0 10/04/20 09:00 93 117/86 (96) 10/04/20 08:00 98.6 98.6 Intake and Output 10/04/20 07:00 Intake Total 2205 ml Output Total 845 ml Balance 1360 ml Blood Product IV Normal Saline Flush 2205 ml Output Urine Total 845 ml # Bowel Movements 3 Physical Exam Abdomen: Soft, No tenderness General: Alert, Oriented X3, Cooperative Neuro: Normal speech Assessment Assessment Problems Medical Problems: (1) Acute on chronic renal failure Status: Acute (2) Anemia Status: Acute (3) Swelling of both lower extremities Status: Acute Plan Plan of Care EGD results noted; bleeding from portal hypertension, agree with GI, likely needs TIPS, ?[facility]; no other surgical recs Comment Review of Relevant I have reviewed the following items joan (where applicable) has been applied. Labs Laboratory Tests Test 10/02/20 18:30 10/03/20 00:10 10/03/20 08:00 10/03/20 16:30 Hemoglobin 7.8 g/dL (13.0-17.5) 6.7 g/dL (13.0-17.5) 8.7 g/dL (13.0-17.5) 7.9 g/dL (13.0-17.5) Hematocrit 23.2 % (39.0-53.0) 19.8 % (39.0-53.0) 26.6 % (39.0-53.0) Mean Corpuscular Hemoglobin Concent 33 g/dL (31-37) 34 g/dL (31-37) 33 g/dL (31-37) White Blood Count 36.6 x10^3/uL (4.0-11.0) Red Blood Count 3.00 x10^6/uL (4.30-5.70) Mean Corpuscular Volume 89 fL (79-100) Mean Corpuscular Hemoglobin 29 pg (25-35) Red Cell Distribution Width 16.1 % (11.5-14.5) Platelet Count 161 x10^3/uL (140-400) Neutrophils (%) (Auto) 80 % (31-73) Lymphocytes (%) (Auto) 8 % (24-48) Monocytes (%) (Auto) 11 % (0-9) Eosinophils (%) (Auto) 1 % (0-3) Basophils (%) (Auto) 0 % (0-3) Neutrophils # (Auto) 29.4 x10^3/uL (1.8-7.7) Lymphocytes # (Auto) 2.8 x10^3/uL (1.0-4.8) Monocytes # (Auto) 4.0 x10^3/uL (0.0-1.1) Eosinophils # (Auto) 0.3 x10^3/uL (0.0-0.7) Basophils # (Auto) 0.1 x10^3/uL (0.0-0.2) Segmented Neutrophils % 91 % (35-66) Band Neutrophils % 1 % (0-9) Lymphocytes % 4 % (24-48) Monocytes % 3 % (0-10) Metamyelocytes % 1 % (0-0) Toxic Granulation Mod Dohle Bodies Platelet Estimate Adequate (ADEQUATE) Sodium Level 138 mmol/L (136-145) Potassium Level 4.3 mmol/L (3.5-5.1) Chloride Level 106 mmol/L (98-107) Carbon Dioxide Level 18 mmol/L (21-32) Anion Gap 14 (6-14) Blood Urea Nitrogen 21 mg/dL (8-26) Creatinine 2.3 mg/dL (0.7-1.3) Estimated GFR (Cockcroft-Gault) 37.7 Glucose Level 146 mg/dL (70-99) Calcium Level 7.3 mg/dL (8.5-10.1) Test 10/04/20 05:30 White Blood Count 18.6 x10^3/uL (4.0-11.0) Red Blood Count 2.78 x10^6/uL (4.30-5.70) Hemoglobin 8.2 g/dL (13.0-17.5) Hematocrit 24.4 % (39.0-53.0) Mean Corpuscular Volume 88 fL (79-100) Mean Corpuscular Hemoglobin 29 pg (25-35) Mean Corpuscular Hemoglobin Concent 34 g/dL (31-37) Red Cell Distribution Width 15.8 % (11.5-14.5) Platelet Count 79 x10^3/uL (140-400) Neutrophils (%) (Auto) 81 % (31-73) Lymphocytes (%) (Auto) 8 % (24-48) Monocytes (%) (Auto) 9 % (0-9) Eosinophils (%) (Auto) 2 % (0-3) Basophils (%) (Auto) 0 % (0-3) Neutrophils # (Auto) 15.1 x10^3/uL (1.8-7.7) Lymphocytes # (Auto) 1.4 x10^3/uL (1.0-4.8) Monocytes # (Auto) 1.7 x10^3/uL (0.0-1.1) Eosinophils # (Auto) 0.3 x10^3/uL (0.0-0.7) Basophils # (Auto) 0.1 x10^3/uL (0.0-0.2) Sodium Level 135 mmol/L (136-145) Potassium Level 3.9 mmol/L (3.5-5.1) Chloride Level 108 mmol/L (98-107) Carbon Dioxide Level 17 mmol/L (21-32) Anion Gap 10 (6-14) Blood Urea Nitrogen 21 mg/dL (8-26) Creatinine 2.2 mg/dL (0.7-1.3) Estimated GFR (Cockcroft-Gault) 39.7 Glucose Level 88 mg/dL (70-99) Calcium Level 7.0 mg/dL (8.5-10.1) Laboratory Tests Test 10/03/20 16:30 10/04/20 05:30 Hemoglobin 7.9 g/dL (13.0-17.5) 8.2 g/dL (13.0-17.5) White Blood Count 18.6 x10^3/uL (4.0-11.0) Red Blood Count 2.78 x10^6/uL (4.30-5.70) Hematocrit 24.4 % (39.0-53.0) Mean Corpuscular Volume 88 fL (79-100) Mean Corpuscular Hemoglobin 29 pg (25-35) Mean Corpuscular Hemoglobin Concent 34 g/dL (31-37) Red Cell Distribution Width 15.8 % (11.5-14.5) Platelet Count 79 x10^3/uL (140-400) Neutrophils (%) (Auto) 81 % (31-73) Lymphocytes (%) (Auto) 8 % (24-48) Monocytes (%) (Auto) 9 % (0-9) Eosinophils (%) (Auto) 2 % (0-3) Basophils (%) (Auto) 0 % (0-3) Neutrophils # (Auto) 15.1 x10^3/uL (1.8-7.7) Lymphocytes # (Auto) 1.4 x10^3/uL (1.0-4.8) Monocytes # (Auto) 1.7 x10^3/uL (0.0-1.1) Eosinophils # (Auto) 0.3 x10^3/uL (0.0-0.7) Basophils # (Auto) 0.1 x10^3/uL (0.0-0.2) Sodium Level 135 mmol/L (136-145) Potassium Level 3.9 mmol/L (3.5-5.1) Chloride Level 108 mmol/L (98-107) Carbon Dioxide Level 17 mmol/L (21-32) Anion Gap 10 (6-14) Blood Urea Nitrogen 21 mg/dL (8-26) Creatinine 2.2 mg/dL (0.7-1.3) Estimated GFR (Cockcroft-Gault) 39.7 Glucose Level 88 mg/dL (70-99) Calcium Level 7.0 mg/dL (8.5-10.1) Medications Current Medications Fentanyl Citrate (Fentanyl 2ml Vial) 50 mcg PRN Q15MIN PRN IV PAIN GREATER THAN 3/10 Last administered on 09/29/20at 20:58; Start 09/29/20 at 18:45; Stop 09/29/20 at 23:34; Status DC Magnesium Sulfate 100 ml @ 25 mls/hr 1X ONCE IV Last administered on at 23:55; Start 09/29/20 at 23:00; Stop 09/30/20 at 02:59; Status DC Piperacillin Sod/ Tazobactam Sod (Zosyn Per Pharmacy) 1 each PRN DAILY PRN MC SEE COMMENTS; Start 09/29/20 at 22:15; Stop 10/03/20 at 09:20; Status DC Albuterol Sulfate (Ventolin Neb Soln) 2.5 mg PRN Q6HRS PRN INH SHORTNESS OF BREATH; Start 09/29/20 at 22:30 Allopurinol (Zyloprim) 100 mg DAILY PO Last administered on 09/30/20at 08:35; Start 09/30/20 at 09:00 Amlodipine Besylate (Norvasc) 10 mg DAILY PO Last administered on 09/30/20at 08:35; Start 09/30/20 at 09:00 Acetaminophen/ Hydrocodone Bitart (Lortab 5/325) 1 tab PRN Q6HRS PRN PO MODERATE PAIN 4-6; Start 09/29/20 at 22:30 Lidocaine (Lidoderm) 1 patch PRN DAILY PRN TD TOPICAL PAIN; Start 09/29/20 at 22:30 Potassium Chloride (Klor-Con) 20 meq DAILYWBKFT PO Last administered on 09/30/20at 08:00; Start 09/30/20 at 08:00 Piperacillin Sod/ Tazobactam Sod 3.375 gm/Sodium Chloride 50 ml @ 100 mls/hr Q6HRS IV Last administered on 10/03/20at 06:00; Start 09/29/20 at 23:00; Stop 10/03/20 at 09:19; Status DC Enoxaparin Sodium (Lovenox Per Pharmacy Treatment Dosing) 1 each PRN DAILY PRN MC SEE COMMENTS; Start 09/29/20 at 22:30; Stop 09/30/20 at 12:26; Status DC Enoxaparin Sodium (Lovenox 80mg Syringe) 80 mg Q12HR SQ Last administered on 09/30/20at 08:36; Start 09/29/20 at 23:00; Stop 09/30/20 at 12:26; Status DC Ondansetron HCl (Zofran) 4 mg PRN Q8HRS PRN IV NAUSEA/VOMITING 1ST CHOICE; Start 09/29/20 at 23:15; Stop 09/30/20 at 23:14; Status DC Fentanyl Citrate (Fentanyl 2ml Vial) 50 mcg PRN Q1HR PRN IV SEVERE PAIN 7-10; Start 09/29/20 at 23:15; Stop 09/29/20 at 23:34; Status DC Fentanyl Citrate (Fentanyl 2ml Vial) 50 mcg PRN Q2HR PRN IVP SEVERE PAIN 7-10 Last administered on 10/04/20at 10:36; Start 09/29/20 at 23:30 Multivitamins 10 ml/Thiamine HCl 100 mg/Folic Acid 1 mg/Sodium Chloride 1,011.2 ml @ 100 mls/ hr DAILY IV Last administered on 10/03/20at 16:36; Start 09/30/20 at 09:00; Stop 10/04/20 at 19:07 Lorazepam (Ativan Inj) 2 mg PRN Q1HR PRN IV For CIWA 8-14 Last administered on 10/04/20at 10:35; Start 09/29/20 at 23:45 Lorazepam (Ativan Inj) 4 mg PRN Q1HR PRN IV For CIWA 15 or greater Last administered on 10/02/20at 23:42; Start 09/29/20 at 23:45 Haloperidol Lactate (Haldol Inj) 5 mg PRN Q4HRS PRN IVP Hallucinatns,Confusn,Delirium; Start 09/29/20 at 23:45 Clonidine HCl (Catapres) 0.1 mg PRN Q1HR PRN PO SBP > 180 or DBP > 100, MRX3; Start 09/29/20 at 23:45 Info (Anti-Coagulation Monitoring By Pharmacy) 1 each PRN DAILY PRN MC SEE COMMENTS Last administered on 09/30/20at 02:57; Start 09/30/20 at 03:00; Stop 09/30/20 at 13:18; Status DC Pantoprazole Sodium (PROTONIX VIAL for IV PUSH) 40 mg 1X ONCE IVP Last administered on 09/30/20at 13:17; Start 09/30/20 at 13:00; Stop 09/30/20 at 13:01; Status DC Octreotide Acetate 500 mcg/ Sodium Chloride 101 ml @ 0 mls/hr CONT PRN IV SEE I/O RECORD Last administered on 10/01/20at 06:46; Start 09/30/20 at 13:00; Stop 10/01/20 at 11:28; Status DC Phytonadione 10 mg/Dextrose 51 ml @ 102 mls/hr 1X ONCE IV Last administered on 09/30/20at 13:30; Start 09/30/20 at 13:30; Stop 09/30/20 at 13:59; Status DC Protamine Sulfate 50 mg/Sodium Chloride 55 ml @ 330 mls/hr 1X ONCE IV Last administered on 09/30/20at 13:17; Start 09/30/20 at 13:30; Stop 09/30/20 at 13:39; Status DC Heparin Sodium (Porcine) (HEPARIN for NUC MED) 100 unit 1X ONCE IV ; Start 09/30/20 at 13:30; Stop 09/30/20 at 13:33; Status DC Pantoprazole Sodium (PROTONIX VIAL for IV PUSH) 40 mg DAILYAC IVP Last administered on 10/02/20at 07:35; Start 10/01/20 at 07:30; Stop 10/02/20 at 21:28; Status DC Albumin Human 500 ml @ 125 mls/hr 1X ONCE IV Last administered on 10/01/20at 07:15; Start 10/01/20 at 07:00; Stop 10/01/20 at 10:59; Status DC Norepinephrine Bitartrate 8 mg/ Dextrose 258 ml @ 18.247 mls/ hr CONT PRN IV PER PROTOCOL Last administered on 10/03/20at 12:28; Start 10/01/20 at 06:45 Ringer's Solution 1,000 ml @ 50 mls/hr Q20H IV ; Start 10/02/20 at 07:00; Stop 10/02/20 at 18:59; Status DC Heparin Sodium (Porcine) (HEPARIN for NUC MED) 100 unit 1X ONCE IV ; Start 10/02/20 at 09:30; Stop 10/02/20 at 09:31; Status DC Heparin Sodium (Porcine) (HEPARIN for NUC MED) 500 unit STK-MED ONCE IV ; Start 10/02/20 at 09:25; Stop 10/02/20 at 09:25; Status DC Sodium Chloride 1,000 ml @ 100 mls/hr Q10H IV Last administered on 10/04/20at 09:26; Start 10/02/20 at 18:45 Pantoprazole Sodium (PROTONIX VIAL for IV PUSH) 80 mg ONCE ONCE IVP ; Start 10/02/20 at 21:30; Stop 10/02/20 at 21:29; Status DC Pantoprazole Sodium (PROTONIX VIAL for IV PUSH) 40 mg ONCE ONCE IVP Last administered on 10/02/20at 23:41; Start 10/02/20 at 21:30; Stop 10/02/20 at 21 :31; Status DC Sodium Cl/Sod Bicarb/Potass Cl/ PEG (Golytely) 4,000 ml 1X ONCE PO Last administered on 10/02/20at 23:41; Start 10/02/20 at 22:00; Stop 10/02/20 at 22:01; Status DC Pantoprazole Sodium 80 mg/ Sodium Chloride 100 ml @ 10 mls/hr Q10H IV Last administered on 10/04/20at 00:10; Start 10/02/20 at 21:45 Clarithromycin (Biaxin) 500 mg BID PO Last administered on 10/04/20at 08:12; Start 10/03/20 at 10:00; Stop 10/04/20 at 21:01 Octreotide Acetate 500 mcg/ Sodium Chloride 101 ml @ 0 mls/hr CONT PRN IV SEE I/O RECORD Last administered on 10/04/20at 08:12; Start 10/03/20 at 12:00 Etomidate (Amidate) 20 mg STK-MED ONCE IV ; Start 10/03/20 at 16:20; Stop 10/03/20 at 16:20; Status DC Propofol (Diprivan) 200 mg STK-MED ONCE IV ; Start 10/03/20 at 16:20; Stop 10/03/20 at 16:21; Status DC Info (Tpn Per Pharmacy) 1 each PRN DAILY PRN [facility] SEE COMMENTS; Start 10/04/20 at 11:00 Active Scripts Active Ondansetron Hcl 4 Mg Tablet 1 Tab PO PRN Q6HRS PRN 3 Days Magnesium (Magnesium Oxide) 400 Mg Capsule 1 Cap PO DAILY 14 Days [place] 5-325 Tablet (Acetaminophen/Hydrocodone Bitart) 1 Each Tablet 1 Tab PO PRN Q6HRS PRN Potassium Chloride (Potassium Chloride) 20 Meq Tablet.er 20 Meq PO DAILY 14 Days Diclofenac Sodium 50 Mg Tablet.dr 1 Tab PO BID PRN Lidocaine PATCH (Lidocaine) 1 Each Adh..patch 1 Patch TD PRN DAILY PRN 30 Days Prednisone 20 Mg Tablet 40 Mg PO DAILY 10 Days Culturelle (Lactobacillus Rhamnosus Gg) 1 Each Cap.sprink 1 Cap PO BID 30 Days Klor-Con M20 (Potassium Chloride) 20 Meq Tab.er.prt 20 Meq PO DAILYWBKFT 14 Days Voltaren (Diclofenac Sodium) 100 Gm Gel..gram. 1 Jevon TP BID 14 Days Duoneb 0.5-3(2.5) Mg/3 Ml (Albuterol/Ipratropium) 3 Ml Ampul.neb 3 Ml NEB Q4HRS W/A 30 Days Colcrys (Colchicine) 0.6 Mg Tablet 1 Tab PO DAILY PRN Coreg (Carvedilol) 12.5 Mg Tablet 1 Tab PO BID Reported Augmentin 875-125 Tablet (Amoxicillin/Potassium Clav) 1 Each Tablet 1 Tab PO BID 5 Days Carvedilol 12.5 Mg Tablet 1 Tab PO BID Allopurinol 100 Mg Tablet 1 Tab PO DAILY 30 Days Hydroxyzine Hcl 10 Mg Tablet 10 Mg PO TID Proair Hfa (Albuterol Sulfate) 8.5 Gm Hfa.aer.ad 1 Puff INH PRN Q6HRS PRN Fluoxetine Hcl 40 Mg Capsule 60 Mg PO DAILY Cetirizine Hcl 10 Mg Tab.chew 10 Mg PO DAILY PRN Atorvastatin Calcium 40 Mg Tablet 40 Mg PO DAILY Aspirin 81 Mg Tab.chew 81 Mg PO DAILY PRN Omeprazole 20 Mg Capsule.dr 40 Mg PO DAILY Amlodipine Besylate 10 Mg Tablet 10 Mg PO DAILY Mirtazapine 45 Mg Tablet 45 Mg PO HS Vitals/I & O Vital Sign - Last 24 Hours 10/03/20 10/03/20 10/03/20 10/03/20 12:29 12:35 12:36 12:41 Temp 98.0 98.0 Pulse 85 Resp 16 B/P (MAP) 112/73 (86) 118/66 (83) 114/74 (87) Pulse Ox 100 O2 Delivery Room Air Nasal Cannula O2 Flow Rate 2.0 10/03/20 10/03/20 10/03/20 10/03/20 12:55 13:02 13:48 14:10 Pulse 89 87 Resp 16 16 B/P (MAP) 98/67 (77) 98/59 (72) 98/60 (73) 102/67 (79) Pulse Ox 100 100 O2 Delivery Room Air Room Air 10/03/20 10/03/20 10/03/20 10/03/20 15:11 16:35 16:36 17:06 Pulse 100 Resp 20 20 14 B/P (MAP) 110/66 (81) Pulse Ox 100 100 100 O2 Delivery Room Air Nasal Cannula Nasal Cannula Nasal Cannula O2 Flow Rate 2.0 2.0 2.0 10/03/20 10/03/20 10/03/20 10/03/20 17:19 18:00 18:01 20:00 Temp 98.0 98.0 Pulse 84 84 86 Resp 14 15 10 B/P (MAP) 91/60 (70) 90/69 (76) 101/65 (77) Pulse Ox 100 100 100 100 O2 Delivery Room Air Nasal Cannula Room Air Room Air O2 Flow Rate 3.0 10/03/20 10/03/20 10/03/20 10/03/20 20:00 20:59 21:00 21:30 Pulse 88 Resp 19 14 20 B/P (MAP) 155/123 (134) Pulse Ox 94 100 100 O2 Delivery Nasal Cannula Nasal Cannula Room Air Nasal Cannula O2 Flow Rate 3.0 10/03/20 10/03/20 10/04/20 10/04/20 22:00 23:00 00:00 00:00 Temp 98.7 98.7 Pulse 84 84 78 Resp 13 13 10 B/P (MAP) 72/64 (67) 78/55 (63) 71/54 (60) Pulse Ox 100 100 100 O2 Delivery Room Air Room Air Room Air Nasal Cannula O2 Flow Rate 3.0 10/04/20 10/04/20 10/04/20 10/04/20 01:00 02:00 03:00 03:14 Pulse 80 88 88 Resp 13 18 15 19 B/P (MAP) 88/55 (66) 84/51 (62) 86/71 (76) Pulse Ox 100 100 100 98 O2 Delivery Room Air Room Air Room Air Nasal Cannula 10/04/20 10/04/20 10/04/20 10/04/20 04:00 04:00 04:00 05:00 Temp 98.0 98.0 Pulse 84 84 Resp 18 12 14 B/P (MAP) 66/52 (57) 92/73 (79) Pulse Ox 99 100 100 O2 Delivery Nasal Cannula Nasal Cannula Room Air Room Air O2 Flow Rate 3.0 10/04/20 10/04/20 10/04/20 10/04/20 06:00 07:00 08:00 08:00 Temp 98.6 98.6 Pulse 88 90 96 Resp 15 18 23 B/P (MAP) 86/54 (65) 93/55 (68) 112/82 (92) Pulse Ox 100 97 94 O2 Delivery Room Air Room Air Room Air Nasal Cannula O2 Flow Rate 3.0 10/04/20 10/04/20 10/04/20 10/04/20 08:13 08:43 09:00 10:36 Pulse 93 Resp 18 13 19 16 B/P (MAP) 117/86 (96) Pulse Ox 96 100 96 98 O2 Delivery Nasal Cannula Nasal Cannula Room Air Nasal Cannula O2 Flow Rate 3.0 3.0 3.0 10/04/20 11:06 Resp 14 Pulse Ox 98 O2 Delivery Nasal Cannula O2 Flow Rate 3.0 Intake and Output 10/03/20 10/03/20 10/04/20 15:00 23:00 07:00 Intake Total 2205 ml Output Total 225 ml 265 ml 355 ml Balance 1980 ml -265 ml -355 ml Justifications for Admission Other Justification Ascites, symptomatic anemia JOSHUA FRANCO MD Oct 04, 2020 12:15
--- NOTE | 2020-10-04 13:12 | RAD ---
Exam performed: One view chest HISTORY: PICC line placement. DATE OF SERVICE: 10/04/2020. Comparison made to previous chest x-ray from 10/09/2020. FINDINGS: There is interval placement of the right arm PICC line with its tip approximately 3 cm distal to the atrioventricular junction. There is no pneumothorax. Low lung volumes. Interval worsening of diffuse interstitial and airspace opacities in both lungs. There is no pleural effusion or pneumothorax. IMPRESSION: Right arm PICC line terminates distal to the atrioventricular junction. No pneumothorax. There is worsening of bilateral interstitial and airspace infiltrates. Electronically signed by: Kirti Angela MD (10/04/2020 1:10 PM) [id number]
[2020-10-04] MEDS: MULTIVIT INFUSN,ADULT 4,VIT K 10 ML, THIAMINE INJ 100 MG, FOLIC ACID INJ 1 MG in IV NOR... IV SCH (13:23)
--- NOTE | 2020-10-04 13:47 | NUR ---
Pharmacy TPN Dosing Note S: DAVE PEARCE is a 45 year old M Currently receiving Central Continuous TPN started 10/04/20 B:Pertinent PMH: GI Bleed Height: 6 feet, 2 inches Weight: 97.6 kg Current diet: NPO LABS: Sodium: 135 Potassium: 3.9 Chloride: 108 Calcium: 7.0 Corrected Calcium: 9.00 Magnesium: CO2: 17 SCr: 2.2 Glucose: 88 Albumin: 1.5 AST: 40 ALT: 18 TPN FORMULA: TPN TYPE: Central Continuous AMINO ACIDS: 60 gm DEXTROSE: 195 gm LIPIDS: 20 gm SODIUM CHLORIDE: 90 mEq POTASSIUM CHLORIDE: 50 mEq POTASSIUM PHOSPHATE: 13.6 mmol MAGNESIUM: 10 mEq CALCIUM: 10 mEq MULTIPLE VITAMIN: 5 ml TRACE ELEMENTS: 1 ml(s) TPN PLAN: Starting standard TPN formula (5 mL MVI d/t national shortage). PICC line being placed today. -BMP, Mag, Phos and TG labs ordered. R: Begin TPN as noted above. Will monitor electrolytes, glucose, and tolerance to TPN. DAYNE MEDEIROS [facility], 10/04/20 1513
--- NOTE | 2020-10-04 14:20 | RAD ---
Exam performed: Hepatic Doppler. HISTORY: Alcoholic cirrhosis with ascites. DATE OF SERVICE: 10/04/2020. COMPARISON: None available TECHNIQUE: Real-time grayscale, color flow, duplex Doppler and spectral analysis of the hepatic vesse ls is performed and images are obtained. Findings and impression: There is hepatomegaly There is monophasic hepatofugal flow in the hepatic veins . 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 There is hepatomegaly and mild ascites. Note is made that an IR consult has already been sent. Electronically signed by: Kirti Angela MD (10/04/2020 2:17 PM) [id number]
[2020-10-04] MEDS ORDERED: fentaNYL PF VIAL 100 MCG/2 ML VIAL IVP PRN (15:00)
--- NOTE | 2020-10-04 16:17 | NUR ---
IR consult was put in earlier per Dr Christensen. Nursing supervisor adult education called to get in touch with [employer] dean IR physician. Dr Ramirez called this RN with an order for hepatic doppler and pt condition update. Order to call when doppler complete received. Doppler completed and Dr Ramirez called, he stated he would look at imaging and call back. Dr Ramirez called back and stated he is unable to do any intervention on this pt d/t his portal vein occlusions, he stated he called and spoke with Dr Christensen and notified him. Dr Ramirez suggestion is transfer to [facility]. Paged Dr Haskins to tell him about US results and recommendation from IR. Dr Haskins came to unit and spoke with pt. Pt stated he wanted to wait to be transferred till tuesday or tuesday. When Dr Haskins left unit pt had questions, pt was confused about how he was going to get to , thought he would need to get a ride there and didn't want to ask anyone over the weekend. Explained to him that he would be transferred via ambulance if he was accepted and would be taken directly to his room. Pt states that he would want us to initiate that process whenever it would be best for him to get over there, informed him that the sooner we could initiate the process the better, he agrees. Called Dr Haskins back and let him know, he okayed initiation of transfer. Called transfer center, faxing information they requested, awaiting return call. Pt mother and father updated on pt condition and POC. Pt still very confused about how process will occur, explained again to him and his father.
[2020-10-04] MEDS ORDERED: LACTULOSE for RECTAL 200 GM/300 ML SOLUTION. PR SCH (18:00)
--- NOTE | 2020-10-04 19:04 | NUR ---
Per Dr Haskins pt has been accepted. Admitting physician is Dr Janny Barr, awaiting call from transfer center with bed.
[2020-10-04] MEDS ORDERED: LACTULOSE 20 GM/30 ML SOLUTION. PO ONE (19:15)
[2020-10-04] MEDS ORDERED: TOTAL PARENTERAL NUTRITION 1,429.9614 ML, AMINO ACID 15% 60 GM, DEXTROSE 70 % IN WATER ... IV SCH (22:00)
--- NOTE | 2020-10-04 22:06 | NUR ---
"Randal" just left via [facility] and he is going to room HC 915 @ MED. He is stable and vitals WNL. He is alert and will make needs known. Report given to Little @ . His mom Charlee notified and she gave phone consent earlier for transfer. Lactulose not given @ HS. Pt. did not want an accident on the way there and Little notified of this.
--- NOTE | 2020-10-04 23:56 | PDOC3 ---
Discharge Summary Visit Information Date of Admission: Sep 29, 2020 Date of Discharge: Oct 04, 2020 Admitting Diagnosis: Acute GI bleed Final Diagnosis Problems Medical Problems: (1) Acute on chronic renal failure Status: Acute (2) Anemia Status: Acute (3) Swelling of both lower extremities Status: Acute Brief Hospital Course Allergies Allergies Coded Allergies Type Severity Reaction Last Updated Verified No Known Medication Allergies Allergy Unknown 10/03/20 Yes hydromorphone Adverse Reaction Severe Anxiety 10/03/20 Yes Vital Signs Vital Signs Date Time Temp Pulse Resp B/P (MAP) Pulse Ox O2 Delivery O2 Flow Rate FiO2 10/04/20 21:18 18 96 Nasal Cannula 4.0 10/04/20 21:00 114 108/73 (85) 10/04/20 20:00 97.8 97.8 Lab Results Laboratory Tests Test 10/03/20 00:10 10/03/20 08:00 10/03/20 16:30 10/04/20 05:30 Hemoglobin 6.7 g/dL (13.0-17.5) 8.7 g/dL (13.0-17.5) 7.9 g/dL (13.0-17.5) 8.2 g/dL (13.0-17.5) Hematocrit 19.8 % (39.0-53.0) 26.6 % (39.0-53.0) 24.4 % (39.0-53.0) Mean Corpuscular Hemoglobin Concent 34 g/dL (31-37) 33 g/dL (31-37) 34 g/dL (31-37) White Blood Count 36.6 x10^3/uL (4.0-11.0) 18.6 x10^3/uL (4.0-11.0) Red Blood Count 3.00 x10^6/uL (4.30-5.70) 2.78 x10^6/uL (4.30-5.70) Mean Corpuscular Volume 89 fL (79-100) 88 fL (79-100) Mean Corpuscular Hemoglobin 29 pg (25-35) 29 pg (25-35) Red Cell Distribution Width 16.1 % (11.5-14.5) 15.8 % (11.5-14.5) Platelet Count 161 x10^3/uL (140-400) 79 x10^3/uL (140-400) Neutrophils (%) (Auto) 80 % (31-73) 81 % (31-73) Lymphocytes (%) (Auto) 8 % (24-48) 8 % (24-48) Monocytes (%) (Auto) 11 % (0-9) 9 % (0-9) Eosinophils (%) (Auto) 1 % (0-3) 2 % (0-3) Basophils (%) (Auto) 0 % (0-3) 0 % (0-3) Neutrophils # (Auto) 29.4 x10^3/uL (1.8-7.7) 15.1 x10^3/uL (1.8-7.7) Lymphocytes # (Auto) 2.8 x10^3/uL (1.0-4.8) 1.4 x10^3/uL (1.0-4.8) Monocytes # (Auto) 4.0 x10^3/uL (0.0-1.1) 1.7 x10^3/uL (0.0-1.1) Eosinophils # (Auto) 0.3 x10^3/uL (0.0-0.7) 0.3 x10^3/uL (0.0-0.7) Basophils # (Auto) 0.1 x10^3/uL (0.0-0.2) 0.1 x10^3/uL (0.0-0.2) Segmented Neutrophils % 91 % (35-66) Band Neutrophils % 1 % (0-9) Lymphocytes % 4 % (24-48) Monocytes % 3 % (0-10) Metamyelocytes % 1 % (0-0) Toxic Granulation Mod Dohle Bodies Platelet Estimate Adequate (ADEQUATE) Sodium Level 138 mmol/L (136-145) 135 mmol/L (136-145) Potassium Level 4.3 mmol/L (3.5-5.1) 3.9 mmol/L (3.5-5.1) Chloride Level 106 mmol/L (98-107) 108 mmol/L (98-107) Carbon Dioxide Level 18 mmol/L (21-32) 17 mmol/L (21-32) Anion Gap 14 (6-14) 10 (6-14) Blood Urea Nitrogen 21 mg/dL (8-26) 21 mg/dL (8-26) Creatinine 2.3 mg/dL (0.7-1.3) 2.2 mg/dL (0.7-1.3) Estimated GFR (Cockcroft-Gault) 37.7 39.7 Glucose Level 146 mg/dL (70-99) 88 mg/dL (70-99) Calcium Level 7.3 mg/dL (8.5-10.1) 7.0 mg/dL (8.5-10.1) Triglycerides Level 101 mg/dL (0-150) Laboratory Tests Test 10/04/20 05:30 White Blood Count 18.6 x10^3/uL (4.0-11.0) Red Blood Count 2.78 x10^6/uL (4.30-5.70) Hemoglobin 8.2 g/dL (13.0-17.5) Hematocrit 24.4 % (39.0-53.0) Mean Corpuscular Volume 88 fL (79-100) Mean Corpuscular Hemoglobin 29 pg (25-35) Mean Corpuscular Hemoglobin Concent 34 g/dL (31-37) Red Cell Distribution Width 15.8 % (11.5-14.5) Platelet Count 79 x10^3/uL (140-400) Neutrophils (%) (Auto) 81 % (31-73) Lymphocytes (%) (Auto) 8 % (24-48) Monocytes (%) (Auto) 9 % (0-9) Eosinophils (%) (Auto) 2 % (0-3) Basophils (%) (Auto) 0 % (0-3) Neutrophils # (Auto) 15.1 x10^3/uL (1.8-7.7) Lymphocytes # (Auto) 1.4 x10^3/uL (1.0-4.8) Monocytes # (Auto) 1.7 x10^3/uL (0.0-1.1) Eosinophils # (Auto) 0.3 x10^3/uL (0.0-0.7) Basophils # (Auto) 0.1 x10^3/uL (0.0-0.2) Sodium Level 135 mmol/L (136-145) Potassium Level 3.9 mmol/L (3.5-5.1) Chloride Level 108 mmol/L (98-107) Carbon Dioxide Level 17 mmol/L (21-32) Anion Gap 10 (6-14) Blood Urea Nitrogen 21 mg/dL (8-26) Creatinine 2.2 mg/dL (0.7-1.3) Estimated GFR (Cockcroft-Gault) 39.7 Glucose Level 88 mg/dL (70-99) Calcium Level 7.0 mg/dL (8.5-10.1) Triglycerides Level 101 mg/dL (0-150) Brief Hospital Course Mr Renteria is a 45yo M w/ PMHx hypertension, sarcoidosis, depression, GERD, anxiety, tobacco dependence, in remission, and recent treatment for GI bleed with duodenal banding and I&D of gluteal ulcer with reshma drain still in place who presented to the ED at [facility] on 09/29/2020 c/o bilateral lower extremity swelling, which got worse and he was unable to get off the toilet, so called 911. WBC notabley 15,800, hemoglobin of 8.5, INR of 1.5. UA was negative. Creatinine of 1.6, lipase of 54, BNP of 922. UDS was positive for opiates, otherwise negative. He was initially on room air. Chest x-ray revealed bilateral infiltrates or pulmonary edema. Ultrasound of the lower extremities did not show any DVT, bilateral subcutaneous edema. He continued to to have multiple melanotic stools throughout his hospital stay The patient was started on Zosyn. ID consultation, pulm consultation, GI c onsultation, general surgery consultation 09/30: 2u PRBC and FFP for lower GI bleed 10/01: 3u PRBC for Hb 5.5. Had bleeding scan with no scintigraphic evidence of active GI bleeding. Echo WNL 10/02: 2u PRBC. Repeat nuclear medicine bleeding scan negative. Rising creatinine. 2.1 today. 10/03: Seen in ICU. 2u PRBC overnight. CT abdomen/pelvis with no obvious source of bleeding, duodenal intramural hematoma possible adjacent to clips. Afebrile. Weak, confused. Afebrile. Still with BRBPR. Tentative plans for EGD today per nursing. [facility] records received, on chart, did have notable ampullary ulcer clipped after massive transfusion. To EGD with grade 2 esophageal varices and gastric varix with clot. Portal hypertensive gastropathy. Duodenal clips in the first portion of the duodenum. Duodenal nodule distal to the clip. No bleeding noted 10/04: Hb 8.2 this morning. In pain. BP improved. Requiring Levophed. No CP or SOB. Afebrile. Total of 10u PRBC and 1 u FFP transfusion throughout hospital stay GI consulted interventional radiology and portal venous Doppler was performed which unfortunately showed right and left and main portal veins occlusion. IR notes he is unable to provide potentially appropriate treatment for symptoms which could include gastric variceal treatment for retrograde transvenous TI PS. Both GI and IR has recommended referral to tertiary care center for consideration of further potentially life-saving treatments we cannot provide [facility] Problem list: anemia, acute blood loss per rectum acute new LE edema, sarcoid lung disease - CXR with worsening interstitial infiltrates. COVID 19 testing negative on 10/01/2020 weakness and debility severe malnutrition marked weakness and debility metabolic encephalopathy recent paracentesis for cirrhosis, asthma bronchitis prior substance abuse anxiety disorder, Severe protein calorie malnutrition - initiated on TPN due to NPO status, no clear timeline for when he may be able to safely take PO, currently on bowel rest from GI bleed Gluteal abscess - s/p I&D with drain in place History of pancreatitis, duodenitis, alcoholism, arthritis, depression, gastroesophageal reflux disease, hypertension, previous hernia repair and partial colectomy. Transferred to [facility] for consideration of retrograde transvenous TIPS vs gastric variceal coiling with IR. After d/w IR and GI at [facility] this is beyond the capabilities of our facility and Dr. Janny Barr at [facility] graciously accepts the patient for ICU admission with GI and IR consultation this evening. Patient still on levophed via RUE PICC at time of discharge, hemodynamically stable. Greater than 30 minutes spent on d/c to [facility] ICU to ICU transfer. Discharge Information Condition at Discharge: Stable Follow Up: Weeks Disposition/Orders: D/C to Another Facility ([facility]) Scheduled Allopurinol (Allopurinol) 100 Mg Tablet, 1 TAB PO DAILY for gout for 30 Days, #30 Ref 2 (Reported) Entered as Reported by: JEANNETTE BAKER on 11/30/19 1641 Last Action: Continued on 09/29/202217 by ALVINO PARSON Amlodipine Besylate (Amlodipine Besylate) 10 Mg Tablet, 10 MG PO DAILY, #30 (Reported) Entered as Reported by: Alexis Phillips on 12/10/15 2301 Last Action: Continued on 09/29/202217 by ALVINO PARSON Amoxicillin/Potassium Clav (Augmentin 875-125 Tablet) 1 Each Tablet, 1 TAB PO BID for antibiotic for 5 Days, #10 Ref 0 (Reported) Entered as Reported by: NICHOLAS CONROY on 08/28/20 1433 Last Action: HELD on 09/29/202217 by ALVINO PARSON Atorvastatin Calcium (Atorvastatin Calcium) 40 Mg Tablet, 40 MG PO DAILY for FOR CHOLESTEROL, #30 Ref 0 (Reported) Entered as Reported by: JIE ERICKSON RN on 07/04/19 0044 Last Action: HELD on 09/29/202217 by ALVINO PARSON Carvedilol (Coreg ) 12.5 Mg Tablet, 1 TAB PO BID, #60 Ref 1 Prescribed by: ALVINO PARSON on 06/19/18 1206 Last Action: HELD on 09/29/202217 by ALVINO PARSON Carvedilol (Carvedilol) 12.5 Mg Tablet, 1 TAB PO BID for CHF, (Reported) Entered as Reported by: ALAN CHAVEZ on 08/25/20 0707 Last Action: HELD on 09/29/202217 by ALVINO PARSON Diclofenac Sodium (Voltaren) 100 Gm Gel..gram., 1 LUCY TP BID for GOUT for 14 Days, #28 Prescribed by: CIERA SMITH MD on 11/30/19 1345 Last Action: HELD on 09/29/202217 by ALVINO PARSON Fluoxetine Hcl (Fluoxetine Hcl) 40 Mg Capsule, 60 MG PO DAILY for depression, (Reported) Entered as Reported by: JIE ERICKSON RN on 07/04/19 0044 Hydroxyzine Hcl (Hydroxyzine Hcl) 10 Mg Tablet, 10 MG PO TID for anxiety, (Reported) Entered as Reported by: JIE ERICKSON RN on 07/04/19 0115 Last Action: HELD on 09/29/202217 by ALVINO PARSON Ipratropium/Albuterol Sulfate (Duoneb 0.5-3(2.5) Mg/3 Ml) 3 Ml Ampul.neb, 3 ML NEB Q4HRS W/A for COPD for 30 Days, #150 Prescribed by: CIERA SMITH MD on 11/30/191344 Last Action: HELD on 09/29/202217 by ALVINO PARSON Lactobacillus Rhamnosus Gg (Culturelle) 1 Each Cap.sprink, 1 CAP PO BID for SUPPLEMENT for 30 Days, #60 Prescribed by: CIERA SMITH MD on 11/30/191344 Last Action: HELD on 09/29/202217 by ALVINO PARSON Magnesium Oxide (Magnesium) 400 Mg Capsule, 1 CAP PO DAILY for 14 Days, #14 Ref 0 Prescribed by: CLARITZA GILES D.O. on 06/16/20215 Mirtazapine (Mirtazapine) 45 Mg Tablet, 45 MG PO HS, #30 (Reported) Entered as Reported by: Alexis Phillips on 12/10/152300 Omeprazole (Omeprazole) 20 Mg Capsule.dr, 40 MG PO DAILY, #60 (Reported) Entered as Reported by: Alexis Phillips on 12/10/152300 Potassium Chloride (Klor-Con M20) 20 Meq Tab.er.prt, 20 MEQ PO DAILYWBKFT for SUPPLEMENT for 14 Days, #14 Prescribed by: CIERA SMITH MD on 11/30/191344 Last Action: Continued on 09/29/202217 by ALVINO PARSON Potassium Chloride (Potassium Chloride ) 20 Meq Tablet.er, 20 MEQ PO DAILY for SUPPLEMENT for 14 Days, #14 Prescribed by: CLARITZA GILES D.O. on 06/16/20210 Last Action: HELD on 09/29/202217 by ALVINO PARSON Prednisone (Prednisone) 20 Mg Tablet, 40 MG PO DAILY for COPD for 10 Days, #20 Prescribed by: CIERA SMITH MD on 11/30/191344 Last Action: HELD on 09/29/202217 by ALVINO PARSON Scheduled PRN Albuterol Sulfate (Proair Hfa) 8.5 Gm Hfa.aer.ad, 1 PUFF INH PRN Q6HRS PRN for SHORTNESS OF BREATH, (Reported) Entered as Reported by: JIE ERICKSON RN on 07/04/19 0044 Last Action: Continued on 09/29/202217 by ALVINO PARSON Aspirin (Aspirin) 81 Mg Tab.chew, 81 MG PO DAILY PRN for CHEST PAIN, (Reported) Entered as Reported by: JIE ERICKSON RN on 07/04/19 0023 Last Action: HELD on 09/29/202217 by ALVINO PARSON Cetirizine Hcl (Cetirizine Hcl) 10 Mg Tab.chew, 10 MG PO DAILY PRN for ALLERGIES, (Reported) Entered as Reported by: JIE ERICKSON RN on 07/04/19 0044 Colchicine (Colcrys) 0.6 Mg Tablet, 1 TAB PO DAILY PRN for PAIN, #15 Prescribed by: ALVINO PARSON on 06/19/18 1210 Last Action: HELD on 09/29/202217 by ALVINO PARSON Diclofenac Sodium (Diclofenac Sodium) 50 Mg Tablet.dr, 1 TAB PO BID PRN for PAIN, #20 Prescribed by: JALEESA CAREY D.O. on 01/01/20 2242 Hydrocodone/Apap 5-325 ([place] 5-325 Tablet) 1 Each Tablet, 1 TAB PO PRN Q6HRS PRN for PAIN, #14 Ref 0 Prescribed by: CLARITZA GILES D.O. on 06/16/20 0211 Last Action: Continued on 09/29/202217 by ALVINO PARSON Lidocaine (Lidocaine PATCH ) 1 Each Adh..patch, 1 PATCH TD PRN DAILY PRN for TOPICAL PAIN for 30 Days, #30 Prescribed by: CIERA SMITH MD on 11/30/19 1345 Last Action: Continued on 09/29/202217 by ALVINO PARSON Ondansetron Hcl (Ondansetron Hcl) 4 Mg Tablet, 1 TAB PO PRN Q6HRS PRN for NAUSEA/VOMITING for 3 Days, #10 Ref 0 Prescribed by: ROMMEL NI APRN on 06/28/20 1452 Justicifation of Admission Dx: Justifications for Admission: Justification of Admission Dx: N/A RICHARD MORENO MD Oct 04, 2020 23:56
[2020-10-05 06:26] LABS: MAGNESIUM 1.4 mg/dL (1.8-2.4)
== END 2020-10-04 22:16 | disposition short-term general hospital (02) | DRG 377 ==
LOC: ER 18:06 → ED HOLD 20:01 → 4 NORTH 22:55 → CVICU 09-30 22:30 → 1 WEST ICU 10-02 15:00
PROVIDERS: ADMIT Internal Medicine; ATTEND Internal Medicine
PROC: 30233K1 Transfusion of Nonautologous Frozen Plasma into Peripheral Vein, Percutaneous Approach (ICD-10-PCS; principal; 2020-09-30)
PROC: 30233N1 Transfusion of Nonautologous Red Blood Cells into Peripheral Vein, Percutaneous Approach (ICD-10-PCS; 2020-09-30)
PROC: 3E1G88Z Irrigation of Upper GI using Irrigating Substance, Via Natural or Artificial Opening Endoscopic (ICD-10-PCS; 2020-10-03)
DX: K92.2 Gastrointestinal hemorrhage, unspecified (principal); G93.41 Metabolic encephalopathy; E43 Unspecified severe protein-calorie malnutrition; N17.0 Acute kidney failure with tubular necrosis; R65.11 Systemic inflammatory response syndrome (SIRS) of non-infectious origin with acute organ dysfunction; J81.1 Chronic pulmonary edema; D62 Acute posthemorrhagic anemia; J44.0 Chronic obstructive pulmonary disease with (acute) lower respiratory infection; K61.1 Rectal abscess; K76.6 Portal hypertension; R18.8 Other ascites; I86.4 Gastric varices; I85.10 Secondary esophageal varices without bleeding; K21.9 Gastro-esophageal reflux disease without esophagitis; M10.9 Gout, unspecified; M19.90 Unspecified osteoarthritis, unspecified site; Z88.8 Allergy status to other drugs, medicaments and biological substances; Z20.828 Contact with and (suspected) exposure to other viral communicable diseases; F41.9 Anxiety disorder, unspecified; F32.9 Major depressive disorder, single episode, unspecified; C14.0 Malignant neoplasm of pharynx, unspecified; Z96.659 Presence of unspecified artificial knee joint; B96.81 Helicobacter pylori [H. pylori] as the cause of diseases classified elsewhere; D86.0 Sarcoidosis of lung; F17.210 Nicotine dependence, cigarettes, uncomplicated; I12.9 Hypertensive chronic kidney disease with stage 1 through stage 4 chronic kidney disease, or unspecified chronic kidney disease; K31.89 Other diseases of stomach and duodenum; K43.9 Ventral hernia without obstruction or gangrene; K74.60 Unspecified cirrhosis of liver; N18.9 Chronic kidney disease, unspecified; Z90.49 Acquired absence of other specified parts of digestive tract; Z43.3 Encounter for attention to colostomy; Z68.27 Body mass index [BMI] 27.0-27.9, adult; Z80.9 Family history of malignant neoplasm, unspecified; Z82.49 Family history of ischemic heart disease and other diseases of the circulatory system
CPT/HCPCS: 36415; 36430; 36569; 43235; 71045; 71250; 74176; 78278; 80048; 80053; 80307; 81001; 83010; 83615; 83690; 83735; 83880; 84100; 84478; 84484; 85007; 85014; 85018; 85025; 85027; 85384; 85610; 85730; 86850; 86900; 86901; 86920; 86927; 87426; 93005; 93306; 93970; 93975; 96374; 96376; A9560; C9113; J1650; J2060; J2354; J2543; J2704; J2720; J3010; J3411; J3430; J3475; J3490; J7030; J7060; P9016; P9017; P9045; U0003; 97530-GP; 99285-25; G0378